=== PATIENT | female | born 1935 | race African-American/Black ===

== ENCOUNTER 2017-02-22 20:20 | Emergency (ER) | payer MEDICARE, MEDICAID ==
[2017-02-22 21:15] LABS: Bilirubin Small (Negative); Clarity CLOUDY (Clear); Glucose, Urine (Dipstick) 100 mg/dL (Negative); Leukocyte Negative (Negative); Nitrite Negative (Negative); Protein, Urine (Dipstick) 300 mg/dL (Neg-Trace); Specific Gravity, Urine 1.019 (1.002-1.036); Urobilinogen 0.2 mg/dL (0.2-1.0)
[2017-02-22 21:17] LABS: Bacteria/HPF None Seen HPF (None Seen); Pathc Cast-AUWi Flag 0.81 (0-2.49); RBC/HPF 0-3 HPF (0-3); Squamous Epithelial 0-3 HPF (0-3); WBC/HPF 0-3 HPF (0-3)
[2017-02-22 21:42] LABS: Blood, Urine Small (Negative); Crystals/HPF 2+ AMORPH URATES HPF (Negative); Hyaline Casts/LPF 0-3 HYALINE CAST LPF (0-3 Hyaline); Yeast-All Forms None Seen HPF (None Seen)
== END 2017-02-22 22:22 | disposition home or self-care (01) ==
LOC: ERS 20:20
DX: R31.9 Hematuria, unspecified (principal); I25.2 Old myocardial infarction; E11.9 Type 2 diabetes mellitus without complications; E78.5 Hyperlipidemia, unspecified; I13.2 Hypertensive heart and chronic kidney disease with heart failure and with stage 5 chronic kidney disease, or end stage renal disease; I50.9 Heart failure, unspecified; N18.6 End stage renal disease; Z79.899 Other long term (current) drug therapy; Z79.891 Long term (current) use of opiate analgesic
CPT/HCPCS: 51701; 81003; 81015; 82274; 94760

== ENCOUNTER 2017-02-23 09:42 | Inpatient (IN) | payer MEDICARE, MEDICAID ==
[2017-02-23 10:28] LABS: Mean Corpuscular HGB CONC 31.1 g/dL (32.0-36.0); Mean Corpuscular Hemoglobin 32.5 pg (27.0-31.0); Mean Platelet Volume 7.7 fL (7.4-10.4); Platelet Count 166 thou/uL (130-400); RBC Distribution Width 14.7 % (11.5-14.5); Red Blood Cell (RBC) Count 3.08 mill/uL (4.20-5.40); White Blood Cell (WBC) Count 10.7 thou/uL (4.8-10.8)
[2017-02-23 10:29] LABS: #Lymphocytes 0.7 thou/uL (1.20-3.40); #Monocytes 0.8 thou/uL (0.11-0.59); #Neutrophils 9.2 thou/uL (1.40-6.50); %Basophils 0.1 % (0.0-1.0); %Eosinophils 0.1 % (0.0-10.0); %Lymphocytes 6.2 % (21.0-51.0); %Monocytes 7.7 % (0.0-10.0); %Neutrophils 85.9 % (42.0-75.0)
--- NOTE | 2017-02-23 10:42 | RAD ---
CHEST ONE VIEW: History: Cough. Comparison: 09-13-16 FINDINGS: Small layering pleural effusions. Mild pulmonary venous congestion or early edema. No pneumothorax. Multiple mediastinal wires. Cardiac silhouette and mediastinal contours are similar. Right axillary surgical clips as well as vascular stent are present. IMPRESSION: No significant change. POS: [facility]
[2017-02-23 10:51] LABS: Anion Gap 20 mmol/L (10-20); BUN (Urea Nitrogen) 49 mg/dL (9.8-20.1); Calc. Creatinine Clearance 0 mL/min (70-130); Calcium 9.4 mg/dL (7.8-10.44); Carbon Dioxide 22 mmol/L (23-31); Chloride 99 mmol/L (98-107); Estimated GFR-MDRD 5; Glucose 178 mg/dL (83-110); Hypochromia SLIGHT = 6-15 cells (100X) (0-5/hpf); MDiff Complete? YES; Macrocytosis SLIGHT = 6-15 cells (100X) (0-5/hpf); Polychromasia SLIGHT = 2-3 cells (100X) (0-2/hpf); Potassium 3.5 mmol/L (3.5-5.1); Sodium 137 mmol/L (136-145)
[2017-02-23 11:14] LABS: CKMB 1.1 ng/mL (0-6.6); Troponin I 0.111 ng/mL (< 0.028)
--- NOTE | 2017-02-23 15:12 | HP ---
DATE OF ADMISSION: 02/23/2017 TIME OF SERVICE: 1400 hours. PRIMARY CARE PHYSICIAN: Alden Navarro M.D. CHIEF COMPLAINT: Cold symptoms, not walking. HISTORY OF PRESENT ILLNESS: Ms. Rush is a 81-year-old female who was brought in [facility] emergency department via EMS for the second time in 2 days. She initially presented yesterday with a possible GI bleeding, 2 days of cough and cold symptoms. Lilibeth lockhart was prescribed a Z-Bear yesterday, but has been unable to fill it. Normally, she is not really conversant but does get up and walk around and has not gotten out of bed since yesterday, so her daughter called EMS had her was brought back to the emergency department toda y. Here, she was found to have a temperature of 100.8. Vitals were normal. She is requiring 2 liters n hussein cannula to maintain 95% oxygen saturations and CBC and CMP are normal. BNP was elevated at 77/3 5, with the highest I have seen in her and the remainder of the labs looked okay. The patient does h ave end-stage renal disease, on hemodialysis Monday, Monday, and Monday, and was unable to go yest erday, so has missed treatment. In the emergency department, the daughter said that she does not her normal self. The ER doctor was contacted Dr. Vazquez who agreed to dialyze and we were called for admi ssion. The patient is very somnolent. You call her name, she will wake up and look at you, but does not really respond. She does not follow commands. There is no family at the bedside. PAST MEDICAL HISTORY: 1. History of breast cancer. 2. Coronary artery disease. 3. End-stage renal disease, on hemodialysis Monday, Monday, Monday. 4. Diabetes mellitus type 2. 5. Hypertension. 6. Hyperlipidemia. PAST SURGICAL HISTORY: Include: 1. Right mastectomy. 2. Coronary artery bypass grafting x4 vessels. 3. Right arm fistula creation. 4. Left arm fistula creation and subsequent removal. HOME MEDICATIONS: 1. Januvia 50 mg p.o. daily. 2. Renvela 1600 mg p.o. b.i.d. 3. Rivastigmine 1 patch daily. 4. Protonix 40 mg daily. 5. Gabapentin 600 mg p.o. t.i.d. 6. Folic acid plus vitamin D one tablet daily. 7. Fish oil 1000 mg p.o. daily. 8. Iron sulfate 325 mg p.o. b.i.d. 9. ProAir inhaler 1-2 puffs every 4-6 hours as needed. ALLERGIES: PENICILLIN, reactions unknown. FAMILY HISTORY: Negative for clotting or bleeding disorders. No known immune dysfunction. SOCIAL HISTORY: Negative for habits x3. Last echocardiogram 06/04/2016 showed an EF of 30%-35%, aortic sclerosis with a bicuspid aortic valve , moderate and moderate to severe AR. REVIEW OF SYSTEMS: Ten point review of systems not obtainable due to the patient's inability to comm unicate. PHYSICAL EXAMINATION: VITAL SIGNS: Temperature 100.8, pulse 73, blood pressure 107/59, respiratory 20, sat 95% on 2 liters . GENERAL: She is somnolent. You call her name, she opens her eyes and looks at you like you startled her and then closes her eyes. She mumbles a little but does not really respond. She does not follo w commands. HEENT: Pupils equal, round, reactive to light. Mucous membranes are moist. There are no visible le sions, no thrush. NECK: Supple. No lymphadenopathy, JVD or thyromegaly. Normal carotid upstrokes. No bruits. LUNGS: Clear anteriorly. She has a faint bibasilar crackles that do not clear with deep inspiration . No prolonged expiratory phase. No wheezes. CARDIOVASCULAR: She is slightly tachycardic in the 90s when stimulated, otherwise she stays in the 7 0s. She is regular. She has a 2-3/6 systolic ejection murmur and a diastolic murmur. Both are at t he right upper sternal border. ABDOMEN: Soft. There is nontender and nondistended. She has good bowel sounds. EXTREMITIES: Show bilateral lower extremity edema 1+ just above the ankles. SKIN: Warm, moist, and well perfused without rashes or lesions. I cannot palpate pulses. NEUROLOGIC: Not testable due to patient's inability to communicate. She does have a normal conjugat e gaze. She responds to verbal stimuli. MUSCULOSKELETAL: Normal to inspection. No inflamed joints or palpable effusions. LABORATORY DATA: Sodium 137, potassium 3.5, chloride 99, bicarbonate 22, BUN 49, creatinine 9.23, gl ucose 178. CBC: White count 10.7, hemoglobin 10.0, hematocrit 32.3 and platelet count of 16.6. CK is slightly elevated at 284, CK-MB normal at 1.1. Troponin I abnormal at 0.111, normal for renal patient. Lacti c acid normal 2.0. INR 1.1. BNP was 7735.1. Urinalysis negative and flu screen was negative. Chest x-ray showed mild pulmonary vascular congestion versus early edema and small layering bilateral pleural effusions. EKG showed a left bundle branch block, no acute ST-T changes. ASSESSMENT AND PLAN: 1. Possible metabolic encephalopathy: I do not know her baseline, per the ER doctor, she does not n ormally communicate, but does get up and walk around. She is certainly not walking at this point. 2. Acute on chronic systolic congestive heart failure, last ejection fraction of 30%-35% with echo a pproximately 9 months ago. We will get a 2-D echocardiogram. 3. Coronary artery disease. No evidence of chest pain. Normal biomarkers for renal patient. We wi ll follow. 4. End-stage renal disease on hemodialysis with missed hemodialysis. Dr. Vazquez has been contacted an d will arrange hemodialysis today. 5. Diabetes mellitus type 2, on Januvia. We will get Accu-Cheks and sliding scale insulin correctio n. 6. Hypertension, currently stable. Continue home medication. 7. Hyperlipidemia. 8. Acute hypoxic respiratory failure: Patient requiring 2 liters of oxygen via nasal cannula. I di d not know she uses oxygen normally. I will continue and wean as tolerated. The patient is volume overload due to lack of dialysis. She did have viral upper respiratory symptom s. We will get nucleic acid amplification test, viral upper respiratory pathogen panel.
[2017-02-23 16:16] LABS: HBSAg Index 0.18 S/CO (0-0.99); Hep B Surf Ag Non-Reactive S/CO (NonReactive)
[2017-02-23] MEDS ORDERED: Acetaminophen 325 MG TAB PO PRN (18:41)
[2017-02-23] MEDS ORDERED: Dextrose 50% Abboject 50 ML SYRINGE SLOW IVP PRN (18:41)
[2017-02-23] MEDS ORDERED: HumaLOG 300 UNITS/3 ML VIAL SC PRN (18:41)
[2017-02-23] MEDS ORDERED: Ondansetron ODT 4 MG TAB PO PRN (18:41)
[2017-02-23] MEDS ORDERED: Dextrose 5% in Water 1,000 ML IV PRN (18:41)
--- NOTE | 2017-02-23 19:20 | CON ---
DATE OF CONSULTATION: 02/23/2017 REASON FOR CONSULTATION: Altered mental status and missed dialysis. HISTORY OF PRESENT ILLNESS: This is a very pleasant 81-year-old female, who presented to the [facility] with altered mentation. The patient had flu-like symptoms. The patient can give no further histor y. PAST MEDICAL HISTORY: Significant for hypertension, anemia, end-stage renal disease, history of anem ia, history of secondary , history of dementia, history of CVA, history of diabetes mellitus, hi story of coronary artery disease, history of noncompliance, history of mastectomy, history of CABG, a nd history of AV fistula. HOME MEDICATIONS: List reviewed. ALLERGIES: Reviewed. FAMILY HISTORY: Negative for ESRD. SOCIAL ECONOMIC HISTORY: No alcohol or drug use. REVIEW OF SYSTEMS: Unobtainable. PHYSICAL EXAMINATION: GENERAL: Patient is resting. VITAL SIGNS: Afebrile, pulse 70, breathing at 16, and blood pressure was 130/70. HEAD/NECK: Normocephalic. Atraumatic. EYES: EOMI. No deformity. EARS: Clear. No ulcers. NOSE: Intact. No lesions. MOUTH: Clear. No discharge. THROAT: Clear. No exudate. LUNGS: Clear. No crackles. CARDIAC: S1, S2. No rub. ABDOMEN: Benign. BS+. GENITALIA/RECTUM: Nuno absent. BACK/EXTREMITIES: Edema 0+ Ulcer-. NEUROLOGICAL: Alert and motor intact. SKIN: Rash- Bruise-. LYMPHATICS: Edema- Ulcer-. LABORATORY DATA: Potassium 3.8. ASSESSMENT AND RECOMMENDATIONS: 1. Stage 6 chronic kidney disease. We will plan hemodialysis. 2. Hypertension. 3. Anemia, stable. 4. Medications based on glomerular filtration rate are appropriate. 5. Altered mental status, management per primary team. 6. Pneumonia/sepsis. Management per primary team.
[2017-02-23] MEDS: Famotidine/PF 20 mg/2ml Vial SLOW IVP SCH (21:51)
[2017-02-23 23:10] VITALS: BMI 26.2
[2017-02-24] MEDS ORDERED: Acetaminophen 650 MG Suppository PR PRN (05:27)
[2017-02-24 05:50] LABS: ALT (SGPT) 30 U/L (8-55); AST (SGOT) 37 U/L (5-34); Albumin 3.9 g/dL (3.4-4.8); Alkaline Phosphatase 61 U/L (40-150); Anion Gap 21 mmol/L (10-20); BUN (Urea Nitrogen) 39 mg/dL (9.8-20.1); Bilirubin, Total 2.5 mg/dL (0.2-1.2); Calc. Creatinine Clearance 7 mL/min (70-130); Calcium 9.9 mg/dL (7.8-10.44); Carbon Dioxide 24 mmol/L (23-31); Chloride 98 mmol/L (98-107); Estimated GFR-MDRD 6; Globulin 2.9 g/dL (2.4-3.5); Glucose 145 mg/dL (83-110); Magnesium 1.8 mg/dL (1.6-2.6); Potassium 3.8 mmol/L (3.5-5.1); Protein, Total 6.8 g/dL (6.0-8.3); Sodium 139 mmol/L (136-145)
[2017-02-24 06:36] LABS: Band 19 % (5-11); Hemoglobin 10.6 g/dL (12.0-16.0); Lymphocytes 7 % (21-51); MDiff Complete? YES; Mean Corpuscular HGB CONC 33.8 g/dL (32.0-36.0); Mean Corpuscular Hemoglobin 35.6 pg (27.0-31.0); Mean Platelet Volume 8.2 fL (7.4-10.4); Metamyelocyte 1 % (0-0); Monocytes 3 % (0-10); Neutrophil 70 % (42-75); Platelet Count 165 thou/uL (130-400); RBC Distribution Width 14.9 % (11.5-14.5); Red Blood Cell (RBC) Count 2.97 mill/uL (4.20-5.40); White Blood Cell (WBC) Count 11.3 thou/uL (4.8-10.8)
--- NOTE | 2017-02-24 11:25 | PRG ---
DATE OF SERVICE: 02/24/2017 SUBJECTIVE: This 81-year-old female being seen for end-stage renal disease. The patient denies any nausea, vomiting or chest pain. PHYSICAL EXAMINATION: GENERAL: Patient is awake, alert. VITAL SIGNS: Patient is febrile at 101.3, pulse 101, breathing 16, blood pressure 121/60. HEAD/NECK: Normocephalic. Atraumatic. EYES: EOMI. No deformity. EARS: Clear. No ulcers. NOSE: Intact. No lesions. MOUTH: Clear. No discharge. THROAT: Clear. No exudate. LUNGS: Clear. No crackles. CARDIAC: S1, S2. No rub. ABDOMEN: Benign. BS+. GENITALIA/RECTUM: Nuno absent. BACK/EXTREMITIES: Edema 0+ Ulcer- NEUROLOGICAL: Alert and motor intact. SKIN: Rash- Bruise- LYMPHATICS: Edema- Ulcer- LABORATORY DATA: Show hemoglobin 10.7. ASSESSMENT AND RECOMMENDATIONS: 1. Stage 6 chronic kidney disease, plan for regular hemodialysis. 2. Hypertension, stable. 3. Anemia, stable. 4. Medications based on glomerular filtration rate. 5. Fever and sepsis. Management per primary team.
[2017-02-24] MEDS ORDERED: cefTRIAXone\\ROCEPHIN 2 GM in Sodium Chloride 0.9% 100 ML IVPB SCH (11:45)
[2017-02-24] MEDS: CEFTRIAXONE 2GM/50 ML BAG 2 GM in Premix Bag 1 BAG IVPB SCH (13:51)
--- NOTE | 2017-02-24 16:51 | PDOC.PN ---
- Subjective Encounter Start Date: 02/24/17 Encounter Start Time: 10:45 -: non-verbal - Objective MAR Reviewed: Yes Vital Signs & Weight: Vital Signs (12 hours) Temp Pulse Resp BP Pulse Ox 02/24/17 16:37 98.6 F 95 17 135/78 95 Result Diagrams: 02/25/17 04:32 02/25/17 04:32 Radiology Reviewed by me: Yes EKG Reviewed by me: Yes Phys Exam - Physical Examination Constitutional: NAD HEENT: PERRLA, moist MMs, sclera anicteric, oral pharynx no lesions Neck: no nodes, no JVD, supple, full ROM Respiratory: no wheezing, no rales, no rhonchi, clear to auscultation bilateral Cardiovascular: RRR, no significant murmur, no rub Gastrointestinal: soft, non-tender, no distention, positive bowel sounds Musculoskeletal: pulses present, edema present Neurological: non-focal, moves all 4 limbs Lymphatic: no nodes Psychiatric: normal affect Deviation from normal: responds to vebal stimuli, then ignores. unsure if intentional Skin: no rash, normal turgor, cap refill <2 seconds Dx/Plan (1) Acute metabolic encephalopathy Code(s): G93.41 - METABOLIC ENCEPHALOPATHY Status: Acute Comment: improving slowly, CCM. BCx positive ealrier today and Rocephin restarted. Pneumococcus by molecular testing, awaitng ID and sensitivities. no more fevers (2) Acute on chronic systolic CHF (congestive heart failure) Code(s): I50.23 - ACUTE ON CHRONIC SYSTOLIC (CONGESTIVE) HEART FAILURE Status : Acute Comment: Improved with fluid removal by dialysis, EF now down to 30-35 %, needs O/P cardiology f/u to discuss possibility of ICD. On coreg, no MANUEL-I or ARB due to ESRD. (3) Sepsis Code(s): A41.9 - SEPSIS, UNSPECIFIED ORGANISM Status: Acute Qualifiers: Sepsis type: Pneumococcus Qualified Code(s): A40.3 - Sepsis due to Streptococcus pneumoniae Comment: Suspected given fever, leukocytosis and encephalopathy, IV rocephin ordered, no clear source (4) CAD (coronary artery disease) Code(s): I25.10 - ATHSCL HEART DISEASE OF [place] CORONARY ARTERY W/O ANG PCTRS Status: Chronic Qualifiers: Coronary Disease-Associated Artery/Lesion type: [place] artery [place] vs. transplanted heart: [place] heart Associated angina: without angina Qualified Code(s): I25.10 - Atherosclerotic heart disease of [place] coronary artery without angina pectoris (5) Diabetes mellitus Code(s): E11.9 - TYPE 2 DIABETES MELLITUS WITHOUT COMPLICATIONS Status: Chronic Qualifiers: Diabetes mellitus type: type 2 Diabetes mellitus complication status: with kidney complications Diabetes mellitus complication detail: with chronic kidney disease Diabetes mellitus shelter insulin use: without terminal supervisor use Chronic kidney disease stage: stage 3 (moderate) Qualified Code(s): E11.22 - Type 2 diabetes mellitus with diabetic chronic kidney disease; N18.3 - Chronic kidney disease, stage 3 (moderate); N18.3 - Chronic kidney disease, stage 3 (moderate) (6) Dyslipidemia Code(s): E78.5 - HYPERLIPIDEMIA, UNSPECIFIED Status: Chronic (7) ESRD (end stage renal disease) on dialysis Code(s): N18.6 - END STAGE RENAL DISEASE; Z99.2 - DEPENDENCE ON RENAL DIALYSIS Status: Chronic (8) HTN (hypertension) Code(s): I10 - ESSENTIAL (PRIMARY) HYPERTENSION Status: Chronic Qualifiers: Hypertension type: essential hypertension Qualified Code(s): I10 - Essential (primary) hypertension - Plan cont current plan of care, continue antibiotics, PT/OT * .
[2017-02-24] MEDS: Famotidine/PF 20 mg/2ml Vial SLOW IVP SCH (22:04)
[2017-02-25 05:07] LABS: #Neutrophils 7.8 thou/uL (1.40-6.50); %Basophils 0.2 % (0.0-1.0); %Eosinophils 0.1 % (0.0-10.0); %Lymphocytes 9.9 % (21.0-51.0); %Monocytes 10.6 % (0.0-10.0); %Neutrophils 79.2 % (42.0-75.0); Hemoglobin 10.4 g/dL (12.0-16.0); Mean Corpuscular HGB CONC 30.9 g/dL (32.0-36.0); Mean Corpuscular Hemoglobin 32.3 pg (27.0-31.0); Mean Platelet Volume 8.2 fL (7.4-10.4); Platelet Count 205 thou/uL (130-400); RBC Distribution Width 14.4 % (11.5-14.5); White Blood Cell (WBC) Count 9.8 thou/uL (4.8-10.8)
[2017-02-25 05:30] LABS: ALT (SGPT) 27 U/L (8-55); AST (SGOT) 37 U/L (5-34); Albumin 3.6 g/dL (3.4-4.8); Alkaline Phosphatase 61 U/L (40-150); Anion Gap 20 mmol/L (10-20); BUN (Urea Nitrogen) 39 mg/dL (9.8-20.1); Bilirubin, Total 1.8 mg/dL (0.2-1.2); Calc. Creatinine Clearance 9 mL/min (70-130); Calcium 9.9 mg/dL (7.8-10.44); Carbon Dioxide 24 mmol/L (23-31); Chloride 96 mmol/L (98-107); Estimated GFR-MDRD 8; Glucose 152 mg/dL (83-110); Potassium 3.7 mmol/L (3.5-5.1); Protein, Total 6.6 g/dL (6.0-8.3); Sodium 136 mmol/L (136-145)
--- NOTE | 2017-02-25 07:10 | EKG ---
Test Reason : STAT Blood Pressure : / mmHG Vent. Rate : 117 BPM Atrial Rate : 117 BPM P-R Int : 000 ms QRS Dur : 086 ms QT Int : 320 ms P-R-T Axes : 067 -26 147 degrees QTc Int : 446 ms Sinus tachycardia with frequent , and consecutive Premature ventricular complexes Nonspecific ST and T wave abnormality Abnormal ECG When compared with ECG of 12-SEP-2016 15:30, Premature ventricular complexes are now Present Inverted T waves have replaced nonspecific T wave abnormality in Lateral leads Confirmed by NANCY DOLAN, DR. Hackett ([id number]) on 02/25/2017 7:09:48 AM Referred By: TIA Confirmed By:DR. Roxann CRUZ MD
--- NOTE | 2017-02-25 10:50 | PRG ---
DATE OF SERVICE: 02/25/2017 SUBJECTIVE: This 81-year-old female being seen for end-stage renal disease. Patient denies any naus ea, vomiting or chest pain. PHYSICAL EXAMINATION: GENERAL: Patient is awake, alert. VITAL SIGNS: Afebrile, pulse 100, breathing at 16, blood pressure 128/71. HEAD/NECK: Normocephalic. Atraumatic. EYES: EOMI. No deformity. EARS: Clear. No ulcers. NOSE: Intact. No lesions. MOUTH: Clear. No discharge. THROAT: Clear. No exudate. LUNGS: Clear. No crackles. CARDIAC: S1, S2. No rub. ABDOMEN: Benign. BS+. GENITALIA/RECTUM: Nuno absent. BACK/EXTREMITIES: Edema 0+ Ulcer- NEUROLOGICAL: Alert and motor intact. SKIN: Rash- Bruise- LYMPHATICS: Edema- Ulcer- LABORATORY DATA: Show hemoglobin 10.5. ASSESSMENT AND PLAN: 1. Stage 6 chronic kidney disease. We will plan dialysis on Monday. 2. Hypertension, stable. 3. Anemia, stable. 4. Medications based on glomerular filtration rate are appropriate.
[2017-02-25] MEDS: CEFTRIAXONE 2GM/50 ML BAG 2 GM in Premix Bag 1 BAG IVPB SCH (11:38)
--- NOTE | 2017-02-25 11:48 | PDOC.PN ---
- Subjective Encounter Start Date: 02/25/17 Encounter Start Time: 10:00 Pt more arousable and conversant. knows she is in the hospital, but cant tell me which. No f/C, no n/V/d/C, still very weak. 10 point ROS performed, pt denied all but unsure how relaible. - Objective MAR Reviewed: Yes Vital Signs & Weight: Vital Signs (12 hours) Temp Pulse Resp BP Pulse Ox 02/25/17 11:36 97.8 F 17 107/58 L 93 L 02/25/17 08:00 97.7 F 88 17 02/25/17 04:00 97.5 F L 100 18 128/71 98 02/25/17 00:15 94 L Weight Weight 144 lb 11.2 oz I&O: 02/24/17 02/25/17 02/26/17 06:59 06:59 06:59 Intake Total 130 Output Total 1999 Balance -1870 Result Diagrams: 02/25/17 04:32 02/25/17 04:32 Additional Labs: Accuchecks 02/25/17 02/25/17 02/24/17 11:32 06:02 20:50 POC Glucose 151 H 162 H 128 H 02/24/17 16:57 POC Glucose 141 H Phys Exam - Physical Examination Constitutional: NAD HEENT: PERRLA, moist MMs, sclera anicteric, oral pharynx no lesions Neck: no nodes, no JVD, supple, full ROM Respiratory: no wheezing, no rales, no rhonchi, clear to auscultation bilateral Cardiovascular: RRR, no significant murmur, no rub Gastrointestinal: soft, non-tender, no distention, positive bowel sounds Musculoskeletal: pulses present, edema present Neurological: non-focal, normal sensation, moves all 4 limbs Lymphatic: no nodes Psychiatric: normal affect Deviation from normal: Alert, oriented ot person, hospital Skin: no rash, normal turgor, cap refill <2 seconds Dx/Plan (1) Acute metabolic encephalopathy Code(s): G93.41 - METABOLIC ENCEPHALOPATHY Status: Acute Comment: improving slowly, CCM. BCx positive ealrier today and Rocephin restarted. Pneumococcus by molecular testing, awaitng ID and sensitivities. no more fevers (2) Acute on chronic systolic CHF (congestive heart failure) Code(s): I50.23 - ACUTE ON CHRONIC SYSTOLIC (CONGESTIVE) HEART FAILURE Status : Acute Comment: Improved with fluid removal by dialysis, EF now down to 30-35 %, needs O/P cardiology f/u to discuss possibility of ICD. On coreg, no MANUEL-I or ARB due to ESRD. (3) Sepsis Code(s): A41.9 - SEPSIS, UNSPECIFIED ORGANISM Status: Acute Qualifiers: Sepsis type: Pneumococcus Qualified Code(s): A40.3 - Sepsis due to Streptococcus pneumoniae Comment: Suspected given fever, leukocytosis and encephalopathy, IV rocephin ordered, no clear source (4) CAD (coronary artery disease) Code(s): I25.10 - ATHSCL HEART DISEASE OF [place] CORONARY ARTERY W/O ANG PCTRS Status: Chronic Qualifiers: Coronary Disease-Associated Artery/Lesion type: [place] artery [place] vs. transplanted heart: [place] heart Associated angina: without angina Qualified Code(s): I25.10 - Atherosclerotic heart disease of [place] coronary artery without angina pectoris (5) Diabetes mellitus Code(s): E11.9 - TYPE 2 DIABETES MELLITUS WITHOUT COMPLICATIONS Status: Chronic Qualifiers: Diabetes mellitus type: type 2 Diabetes mellitus complication status: with kidney complications Diabetes mellitus complication detail: with chronic kidney disease Diabetes mellitus cooperative education director insulin use: without alf use Chronic kidney disease stage: stage 3 (moderate) Qualified Code(s): E11.22 - Type 2 diabetes mellitus with diabetic chronic kidney disease; N18.3 - Chronic kidney disease, stage 3 (moderate); N18.3 - Chronic kidney disease, stage 3 (moderate) (6) Dyslipidemia Code(s): E78.5 - HYPERLIPIDEMIA, UNSPECIFIED Status: Chronic (7) ESRD (end stage renal disease) on dialysis Code(s): N18.6 - END STAGE RENAL DISEASE; Z99.2 - DEPENDENCE ON RENAL DIALYSIS Status: Chronic (8) HTN (hypertension) Code(s): I10 - ESSENTIAL (PRIMARY) HYPERTENSION Status: Chronic Qualifiers: Hypertension type: essential hypertension Qualified Code(s): I10 - Essential (primary) hypertension - Plan * .
[2017-02-25] MEDS ORDERED: Diabetic Tussin 200 MG/10 ML UDCUP PO PRN (13:17)
[2017-02-25] MEDS: Diabetic Tussin 200 MG/10 ML UDCUP PO PRN (14:32)
--- NOTE | 2017-02-25 14:50 | RAD ---
SINGLE VIEW OF THE CHEST: COMPARISON: 02/23/17. HISTORY: PA chest and pneumococcal bacteremia. FINDINGS: A single view of the chest shows a cardiomediastinal silhouette which is upper limits of normal in si ze. The patient is status post sternotomy. Increased interstitial lung markings are present. There appears to be an infiltrate in the right lower lobe. IMPRESSION: Right lower lobe pneumonia. POS: [facility]
[2017-02-25] MEDS: Famotidine/PF 20 mg/2ml Vial SLOW IVP SCH (20:28)
[2017-02-26 05:26] LABS: #Eosinphils 0.1 thou/uL (0.0-0.7); #Lymphocytes 1.1 thou/uL (1.20-3.40); #Monocytes 0.9 thou/uL (0.11-0.59); #Neutrophils 5.5 thou/uL (1.40-6.50); %Basophils 0.4 % (0.0-1.0); %Eosinophils 1.6 % (0.0-10.0); %Monocytes 11.7 % (0.0-10.0); %Neutrophils 72.3 % (42.0-75.0); Hemoglobin 9.6 g/dL (12.0-16.0); Mean Corpuscular HGB CONC 31.3 g/dL (32.0-36.0); Mean Corpuscular Hemoglobin 32.6 pg (27.0-31.0); Mean Platelet Volume 8.1 fL (7.4-10.4); Platelet Count 214 thou/uL (130-400); RBC Distribution Width 14.4 % (11.5-14.5); Red Blood Cell (RBC) Count 2.95 mill/uL (4.20-5.40); White Blood Cell (WBC) Count 7.6 thou/uL (4.8-10.8)
[2017-02-26 05:38] LABS: Anion Gap 18 mmol/L (10-20); BUN (Urea Nitrogen) 68 mg/dL (9.8-20.1); Calc. Creatinine Clearance 6 mL/min (70-130); Calcium 9.4 mg/dL (7.8-10.44); Carbon Dioxide 26 mmol/L (23-31); Chloride 94 mmol/L (98-107); Estimated GFR-MDRD 6; Glucose 99 mg/dL (83-110); Magnesium 2.2 mg/dL (1.6-2.6); Potassium 3.6 mmol/L (3.5-5.1); Sodium 134 mmol/L (136-145)
--- NOTE | 2017-02-26 11:26 | PDOC.PN ---
- Subjective Encounter Start Date: 02/26/17 Encounter Start Time: 08:30 Pt much more alert and talkative. at time rude. May be getting close to baseline mental sttus. ari diet, changed to pureed by ST yesterday. No F/C, no N/V/d/c. Knows shes in [place] in a hospital but unable to tell me which. No acute overnight events CXR revealed RLL infiltrate, all Bcx with pneumococcus. repeat ordered today to document clearance 10 point ROS performed and neg for all systems except as per HPI - Objective MAR Reviewed: Yes Vital Signs & Weight: Vital Signs (12 hours) Temp Pulse Resp BP Pulse Ox 02/26/17 08:00 97.0 F L 86 17 121/63 94 L 02/26/17 04:00 97.6 F 102 H 16 102/63 02/26/17 00:00 97.3 F L 98 18 112/59 L 97 Weight Weight 155 lb 3.2 oz I&O: 02/25/17 02/26/17 02/27/17 06:59 06:59 06:59 Intake Total 130 810 Output Total 1999 02 Balance -1870 809 Result Diagrams: 02/26/17 04:29 02/26/17 04:29 Additional Labs: Accuchecks 02/26/17 02/25/17 02/25/17 06:22 20:17 16:57 POC Glucose 103 122 H 138 H 02/25/17 11:32 POC Glucose 151 H Radiology Reviewed by me: Yes EKG Reviewed by me: Yes Phys Exam - Physical Examination Constitutional: NAD HEENT: PERRLA, moist MMs, sclera anicteric, oral pharynx no lesions Neck: no nodes, no JVD, supple, full ROM Respiratory: no wheezing, no rhonchi bibasilar R>L rales. Cardiovascular: RRR, no significant murmur, no rub Gastrointestinal: soft, non-tender, no distention, positive bowel sounds Musculoskeletal: no edema, pulses present Neurological: non-focal, normal sensation, moves all 4 limbs Lymphatic: no nodes Psychiatric: normal affect Deviation from normal: Awake, alert, oriented to person and city and and in hosptial Skin: no rash, normal turgor, cap refill <2 seconds Dx/Plan (1) Acute metabolic encephalopathy Code(s): G93.41 - METABOLIC ENCEPHALOPATHY Status: Acute Comment: improving slowly, CCM. BCx positive for pneumococcus, on rocephin, awaiting sensitivities. Pneumococcus by molecular testing, awaitng ID and sensitivities. no more fevers (2) Acute on chronic systolic CHF (congestive heart failure) Code(s): I50.23 - ACUTE ON CHRONIC SYSTOLIC (CONGESTIVE) HEART FAILURE Status : Acute Comment: Improved with fluid removal by dialysis, EF now down to 30-35 %, needs O/P cardiology f/u to discuss possibility of ICD. On coreg, no MANUEL-I or ARB due to ESRD. (3) Sepsis Code(s): A41.9 - SEPSIS, UNSPECIFIED ORGANISM Status: Acute Qualifiers: Sepsis type: Pneumococcus Qualified Code(s): A40.3 - Sepsis due to Streptococcus pneumoniae Comment: Suspected given fever, leukocytosis and encephalopathy, IV rocephin ordered, no clear source (4) CAD (coronary artery disease) Code(s): I25.10 - ATHSCL HEART DISEASE OF [place] CORONARY ARTERY W/O ANG PCTRS Status: Chronic Qualifiers: Coronary Disease-Associated Artery/Lesion type: [place] artery [place] vs. transplanted heart: [place] heart Associated angina: without angina Qualified Code(s): I25.10 - Atherosclerotic heart disease of [place] coronary artery without angina pectoris (5) Diabetes mellitus Code(s): E11.9 - TYPE 2 DIABETES MELLITUS WITHOUT COMPLICATIONS Status: Chronic Qualifiers: Diabetes mellitus type: type 2 Diabetes mellitus complication status: with kidney complications Diabetes mellitus complication detail: with chronic kidney disease Diabetes mellitus group home insulin use: without project management engineer use Chronic kidney disease stage: stage 3 (moderate) Qualified Code(s): E11.22 - Type 2 diabetes mellitus with diabetic chronic kidney disease; N18.3 - Chronic kidney disease, stage 3 (moderate); N18.3 - Chronic kidney disease, stage 3 (moderate) (6) Dyslipidemia Code(s): E78.5 - HYPERLIPIDEMIA, UNSPECIFIED Status: Chronic (7) ESRD (end stage renal disease) on dialysis Code(s): N18.6 - END STAGE RENAL DISEASE; Z99.2 - DEPENDENCE ON RENAL DIALYSIS Status: Chronic (8) HTN (hypertension) Code(s): I10 - ESSENTIAL (PRIMARY) HYPERTENSION Status: Chronic Qualifiers: Hypertension type: essential hypertension Qualified Code(s): I10 - Essential (primary) hypertension - Plan cont current plan of care, continue antibiotics, PT/OT, respiratory therapy, out of bed/ambulate * .
--- NOTE | 2017-02-26 11:35 | PRG ---
DATE OF SERVICE: 02/26/2017 SUBJECTIVE: This 81-year-old female being seen for end-stage renal disease. The patient denies any nausea, vomiting or chest pain. PHYSICAL EXAMINATION: GENERAL: Patient is awake, alert. VITAL SIGNS: Afebrile, pulse 87, breathing at 16, blood pressure 121/60. GENERAL APPEARANCE AND MENTAL STATUS: Fair. HEAD/NECK: Normocephalic. Atraumatic. EYES: EOMI. No deformity. EARS: Clear. No ulcers. NOSE: Intact. No lesions. MOUTH: Clear. No discharge. THROAT: Clear. No exudate. LUNGS: Clear. No crackles. CARDIAC: S1, S2. No rub. ABDOMEN: Benign. BS+. GENITALIA/RECTUM: Nuno absent. BACK/EXTREMITIES: Edema 0+ Ulcer- NEUROLOGICAL: Alert and motor intact. SKIN: Rash- Bruise- LYMPHATICS: Edema- Ulcer- LABORATORY DATA: Hemoglobin 9.6. ASSESSMENT AND RECOMMENDATIONS: 1. Stage 6 chronic kidney disease. Continue hemodialysis Monday, Monday, Monday. 2. Hypertension, stable. 3. Anemia, stable. 4. Hyperkalemia, stable.
[2017-02-26] MEDS: cefTRIAXone\\ROCEPHIN 2 GM in Sodium Chloride 0.9% 100 ML IVPB SCH (11:56)
[2017-02-26] MEDS: Famotidine/PF 20 mg/2ml Vial SLOW IVP SCH (20:58)
[2017-02-27 05:14] LABS: #Basophils 0.1 thou/uL (0.0-0.2); #Eosinphils 0.1 thou/uL (0.0-0.7); #Lymphocytes 1.4 thou/uL (1.20-3.40); #Neutrophils 6.1 thou/uL (1.40-6.50); %Basophils 0.7 % (0.0-1.0); %Eosinophils 1.6 % (0.0-10.0); %Lymphocytes 16.3 % (21.0-51.0); %Monocytes 11.3 % (0.0-10.0); %Neutrophils 70.2 % (42.0-75.0); Hemoglobin 10.4 g/dL (12.0-16.0); Mean Corpuscular HGB CONC 31.2 g/dL (32.0-36.0); Mean Corpuscular Hemoglobin 32.4 pg (27.0-31.0); Mean Platelet Volume 7.9 fL (7.4-10.4); Platelet Count 246 thou/uL (130-400); RBC Distribution Width 14.3 % (11.5-14.5); Red Blood Cell (RBC) Count 3.21 mill/uL (4.20-5.40); White Blood Cell (WBC) Count 8.7 thou/uL (4.8-10.8)
[2017-02-27 05:44] LABS: Anion Gap 25 mmol/L (10-20); BUN (Urea Nitrogen) 83 mg/dL (9.8-20.1); Calc. Creatinine Clearance 6 mL/min (70-130); Calcium 9.3 mg/dL (7.8-10.44); Carbon Dioxide 18 mmol/L (23-31); Chloride 91 mmol/L (98-107); Estimated GFR-MDRD 5; Glucose 89 mg/dL (83-110); Magnesium 2.4 mg/dL (1.6-2.6); Potassium 3.9 mmol/L (3.5-5.1); Sodium 130 mmol/L (136-145)
--- NOTE | 2017-02-27 09:39 | PDOC.PN ---
- Subjective Encounter Start Date: 02/27/17 Encounter Start Time: 10:00 CC: Altered mental status Sub: Per RN pt is still intermittently confused - Objective Vital Signs & Weight: Vital Signs (12 hours) Temp Pulse Resp BP Pulse Ox 02/27/17 08:00 97.1 F L 97 14 127/100 H 02/27/17 04:00 97.6 F 86 16 108/69 95 Weight Weight 154 lb 3.2 oz I&O: 02/26/17 02/27/17 02/28/17 06:59 06:59 06:59 Intake Total 810 670 Output Total 1 Balance 809 670 Result Diagrams: 02/27/17 04:23 02/27/17 04:23 Additional Labs: Accuchecks 02/27/17 02/26/17 02/26/17 05:36 20:09 16:34 POC Glucose 107 158 H 163 H 02/26/17 11:25 POC Glucose 133 H Phys Exam - Physical Examination Constitutional: NAD HEENT: moist MMs Neck: no JVD Respiratory: no wheezing, no rales Cardiovascular: RRR, no significant murmur Gastrointestinal: soft, non-tender Musculoskeletal: no edema Neurological: non-focal awake, follows some commands, getting agitated with questions positive agitation Skin: no rash Dx/Plan - Plan Dx/Plan (1) Acute metabolic encephalopathy Code(s): G93.41 - METABOLIC ENCEPHALOPATHY Status: Acute Comment: improving slowly, CCM. BCx positive for pneumococcus, on rocephin, (2) Acute on chronic systolic CHF (congestive heart failure) Code(s): I50.23 - ACUTE ON CHRONIC SYSTOLIC (CONGESTIVE) HEART FAILURE Status : Acute Comment: Improved with fluid removal by dialysis, EF now down to 30-35 %, needs O/P cardiology f/u to discuss possibility of ICD. On coreg, no MANUEL-I or ARB due to ESRD. (3) Sepsis + Bacteremia Code(s): A41.9 - SEPSIS, UNSPECIFIED ORGANISM Status: Acute Qualifiers: Sepsis type: Pneumococcus Qualified Code(s): A40.3 - Sepsis due to Streptococcus pneumoniae Comment: Suspected given fever, leukocytosis and encephalopathy Blood cultures positive gram positive bacteremia, sensitive for rocepohin (4) CAD (coronary artery disease) Code(s): I25.10 - ATHSCL HEART DISEASE OF [place] CORONARY ARTERY W/O ANG PCTRS Status: Chronic Qualifiers: Coronary Disease-Associated Artery/Lesion type: [place] artery [place] vs. transplanted heart: [place] heart Associated angina: without angina Qualified Code(s): I25.10 - Atherosclerotic heart disease of [place] coronary artery without angina pectoris (5) Diabetes mellitus Code(s): E11.9 - TYPE 2 DIABETES MELLITUS WITHOUT COMPLICATIONS Status: Chronic Qualifiers: Diabetes mellitus type: type 2 Diabetes mellitus complication status: with kidney complications Diabetes mellitus complication detail: with chronic kidney disease Diabetes mellitus assisted insulin use: without termite treater use Chronic kidney disease stage: stage 3 (moderate) Qualified Code(s): E11.22 - Type 2 diabetes mellitus with diabetic chronic kidney disease; N18.3 - Chronic kidney disease, stage 3 (moderate); N18.3 - Chronic kidney disease, stage 3 (moderate) (6) Dyslipidemia Code(s): E78.5 - HYPERLIPIDEMIA, UNSPECIFIED Status: Chronic (7) ESRD (end stage renal disease) on dialysis Code(s): N18.6 - END STAGE RENAL DISEASE; Z99.2 - DEPENDENCE ON RENAL DIALYSIS Status: Chronic (8) HTN (hypertension) Code(s): I10 - ESSENTIAL (PRIMARY) HYPERTENSION Status: Chronic Qualifiers: Hypertension type: essential hypertension Qualified Code(s): I10 - Essential (primary) hypertension monitor bp 9. Dispo: D/W CM possible placement
[2017-02-27] MEDS: cefTRIAXone\\ROCEPHIN 2 GM in Sodium Chloride 0.9% 100 ML IVPB SCH (12:59)
[2017-02-27] MEDS: Diabetic Tussin 200 MG/10 ML UDCUP PO PRN (14:41)
--- NOTE | 2017-02-27 18:30 | PRG ---
DATE OF SERVICE: 02/27/2017 SUBJECTIVE: Patient was seen and examined at bedside and overnight events noted. Patient denies any shortness of breath or chest pain or palpitation. No history of nausea or vomitin g or diarrhea or fever or chills or cramps. OBJECTIVE: GENERAL: This is an elderly female, in no apparent distress. VITAL SIGNS: Temperature 98.5, pulse 89, respiratory rate 18, blood pressure 145/68. HEENT: Atraumatic, normocephalic. Oral mucosa is moist NECK: Supple. CARDIOVASCULAR: S1 and S2 heard. Rate and rhythm regular. RESPIRATORY: Clear to auscultation. GASTROINTESTINAL: Abdomen is soft. MUSCULOSKELETAL: No tenderness. No edema. DERMATOLOGIC: No skin rash. NEUROLOGIC: Alert and awake and oriented X3, No focal neurologic deficits. Moving all the extremitie s. PSYCHIATRIC: Mood and affect normal. LABORATORY DATA: Potassium is 3.9, BUN 83, creatinine 8.7. ASSESSMENT AND PLAN: 1. End-stage renal disease. Continue on hemodialysis. 2. Edema, controlled. 3. Hypertension. 4. Anemia. 5. Obesity. Overall, plan is to continue on dialysis as tolerated.
[2017-02-27] MEDS: Famotidine/PF 20 mg/2ml Vial SLOW IVP SCH (22:47)
--- NOTE | 2017-02-28 12:51 | PDOC.PN ---
- Subjective Encounter Start Date: 02/28/17 Encounter Start Time: 09:00 Paitent remains very Altered and Aggresive mood. Pt not answering questions do Not want to be disturbed. - Objective MAR Reviewed: Yes Vital Signs & Weight: Vital Signs (12 hours) Temp Pulse Resp BP Pulse Ox 02/28/17 07:55 97.3 F L 91 18 140/71 02/28/17 04:00 96.4 F L 93 18 138/90 95 Weight Weight 153 lb 14.4 oz I&O: 02/27/17 02/28/17 03/01/17 06:59 06:59 06:59 Intake Total 670 1100 Output Total 1100 Balance 670 0 Result Diagrams: 02/27/17 04:23 02/27/17 04:23 Additional Labs: Accuchecks 02/28/17 02/28/17 02/27/17 11:33 06:32 20:26 POC Glucose 150 H 100 180 H 02/27/17 16:56 POC Glucose 87 Radiology Reviewed by me: Yes Phys Exam - Physical Examination HEENT: PERRLA, moist MMs Neck: no nodes, no JVD Respiratory: no wheezing, no rales Cardiovascular: RRR, no significant murmur Gastrointestinal: soft, non-tender Musculoskeletal: no edema, pulses present Neurological: non-focal, normal sensation Skin: no rash Dx/Plan (1) Acute metabolic encephalopathy Code(s): G93.41 - METABOLIC ENCEPHALOPATHY Status: Acute Comment: improving slowly, CCM. BCx positive for pneumococcus, on rocephin, no more fevers (2) NSTEMI (non-ST elevated myocardial infarction) Code(s): I21.4 - NON-ST ELEVATION (NSTEMI) MYOCARDIAL INFARCTION Status: Acute Comment: Likely from Demand ischemia. Will continue to Monitor. Will start on Aspirin/ BB/ Statin. ECHo normal. (3) Chest pain Code(s): R07.9 - CHEST PAIN, UNSPECIFIED Status: Acute Comment: [place], No chest pains. (4) Sepsis Code(s): A41.9 - SEPSIS, UNSPECIFIED ORGANISM Status: Acute Qualifiers: Sepsis type: Pneumococcus Qualified Code(s): A40.3 - Sepsis due to Streptococcus pneumoniae Comment: Suspected given fever, leukocytosis and encephalopathy, IV rocephin ordered, no clear source (5) CAD (coronary artery disease) Code(s): I25.10 - ATHSCL HEART DISEASE OF [place] CORONARY ARTERY W/O ANG PCTRS Status: Chronic Qualifiers: Coronary Disease-Associated Artery/Lesion type: [place] artery [place] vs. transplanted heart: [place] heart Associated angina: without angina Qualified Code(s): I25.10 - Atherosclerotic heart disease of [place] coronary artery without angina pectoris (6) Diabetes mellitus Code(s): E11.9 - TYPE 2 DIABETES MELLITUS WITHOUT COMPLICATIONS Status: Chronic Qualifiers: Diabetes mellitus type: type 2 Diabetes mellitus complication status: with kidney complications Diabetes mellitus complication detail: with chronic kidney disease Diabetes mellitus usp insulin use: without usp use Chronic kidney disease stage: stage 3 (moderate) Qualified Code(s): E11.22 - Type 2 diabetes mellitus with diabetic chronic kidney disease; N18.3 - Chronic kidney disease, stage 3 (moderate); N18.3 - Chronic kidney disease, stage 3 (moderate) (7) ESRD (end stage renal disease) on dialysis Code(s): N18.6 - END STAGE RENAL DISEASE; Z99.2 - DEPENDENCE ON RENAL DIALYSIS Status: Chronic (8) HTN (hypertension) Code(s): I10 - ESSENTIAL (PRIMARY) HYPERTENSION Status: Chronic Qualifiers: Hypertension type: essential hypertension Qualified Code(s): I10 - Essential (primary) hypertension - Plan cont current plan of care, continue antibiotics, PT/OT, social media marketing analyst Waiting on placement . Discussed with Bottling Equipment Sales Representative. Patient had Arrthymia on the Tele[place], will continue with Telemetry another day. - Discharge Day Encounter end time: 09:35 Review of Systems - Review of Systems Other: Unable to Obtain due to her AMS and no other Family around. - Medications/Allergies Allergies/Adverse Reactions: Allergies Allergy/AdvReac Type Severity Reaction Status Date / Time Penicillins Allergy Intermediate Verified 02/23/17 20:36 Medications: Current Medications Acetaminophen (Tylenol) 650 mg PO Q4H PRN PRN Reason: Headache/Fever or Pain Acetaminophen (Tylenol) 650 mg [place] Q6H PRN PRN Reason: Headache/Fever Last Admin: 02/24/17 06:13 Dose: 650 mg Dextrose/Water (Dextrose 50%) 25 gm SLOW IVP PRN PRN PRN Reason: Hypoglycemia Famotidine (Pepcid) 20 mg SLOW IVP QPM [facility] Last Admin: 02/27/17 22:47 Dose: 20 mg Glucagon (Glucagon) 1 mg IM PRN PRN PRN Reason: Hypoglycemia Guaifenesin (Robitussin Sf) 300 mg PO Q4H PRN PRN Reason: Congestion Last Admin: 02/27/17 14:41 Dose: 300 mg Dextrose/Water (D5w) 1,000 mls @ 0 mls/hr IV .Q0M PRN; As Directed PRN Reason: Hypoglycemia Ceftriaxone Sodium 2 gm/ (Sodium Chloride) 100 mls @ 200 mls/hr IVPB 1200 [facility] Last Admin: 02/27/17 12:59 Dose: 100 mls Insulin Human Lispro (Humalog) 0 units SC .MILD SLIDING SCALE PRN PRN Reason: Mild Correctional Scale Ondansetron HCl (Zofran Odt) 4 mg PO Q6H PRN PRN Reason: Nausea/Vomiting
[2017-02-28] MEDS: cefTRIAXone\\ROCEPHIN 2 GM in Sodium Chloride 0.9% 100 ML IVPB SCH (13:03)
[2017-02-28] MEDS: Carvedilol 3.125 MG TAB PO SCH (17:11)
--- NOTE | 2017-02-28 19:12 | PRG ---
DATE OF SERVICE: 02/28/2017 SUBJECTIVE: Patient was seen and examined at bedside and overnight events noted. Patient denies any shortness of breath or chest pain or palpitation. No history of nausea or vomitin g or diarrhea or fever or chills or cramps. OBJECTIVE: GENERAL: This is an elderly female, in no apparent distress. VITAL SIGNS: Temperature 97.3, pulse 90, respiratory rate 18, blood pressure 140/71. HEENT: Atraumatic, normocephalic. Oral mucosa is moist NECK: Supple. CARDIOVASCULAR: S1 and S2 heard. Rate and rhythm regular. RESPIRATORY: Clear to auscultation. GASTROINTESTINAL: Abdomen is soft. MUSCULOSKELETAL: No tenderness. No edema. DERMATOLOGIC: No skin rash. NEUROLOGIC: Alert and awake and oriented X3, No focal neurologic deficits. Moving all the extremitie s. PSYCHIATRIC: Mood and affect normal. LABORATORY DATA: Not done. ASSESSMENT AND PLAN: 1. End-stage renal disease. Continue on hemodialysis as tolerated. 2. Edema. 3. Anemia 4. Hypertension. Plan is to continue on dialysis as tolerated.
[2017-02-28] MEDS: Atorvastatin Calcium 20 MG TAB PO SCH (21:19)
[2017-02-28] MEDS: Famotidine/PF 20 mg/2ml Vial SLOW IVP SCH (21:20)
[2017-03-01] MEDS ORDERED: Digoxin 0.5 MG/2 ML AMP SLOW IVP SCH (04:15)
[2017-03-01] MEDS: Aspirin 81 mg Enteric Coated Tablet PO SCH (10:05)
[2017-03-01] MEDS: Carvedilol 3.125 MG TAB PO SCH ×2 (10:05→17:50)
--- NOTE | 2017-03-01 11:57 | PRG ---
Patient Name: EHSAN LAWRENCE Date of service: 03/01/2017 Subjective: Patient was seen and examined at bedside and overnight events noted. Patient denies any shortness of breath or chest pain or palpitation. No history of nausea or vomiting or diarrhea or fever or chills or cramps. Objective: General: This is an obese female in no apparent distress. Vital signs: Temperature 98.1, pulse 80, respirations 16, blood pressure 101/ 54. HEENT: Atraumatic, normocephalic. Oral mucosa is moist. Neck: Supple. Cardiovascular: S1 S2 heard. Rate and rhythm regular. Respiratory: Clear to auscultation. Gastrointestinal: Abdomen is soft. Musculoskeletal: No tenderness. No edema. Dermatologic: No skin rash. Neurologic: Alert and awake and oriented X3. No focal neurologic deficits. Moving all the extremities. Psychiatric: Mood and affect normal. LABORATORY DATA: No labs done today. ASSESSMENT AND PLAN: 1. End Stage Renal Disease - continue on hemodialysis Monday, Monday and Monday. 2. Edema. 3. Anemia. 4. Hypertension, remove fluid with dialysis. Plan is to continue dialysis as tolerated. MTDD
--- NOTE | 2017-03-01 17:02 | PDOC.PN ---
- Subjective Encounter Start Date: 03/01/17 Encounter Start Time: 11:00 Patient is still altered, Unable to understandf any questions, Called pt daughter on phone, She did not Answer, discussed with Nurse, plan is to continue to treat for Streptococcal bacteremia for at least 7 days. - Objective MAR Reviewed: Yes Vital Signs & Weight: Vital Signs (12 hours) Temp Pulse Pulse Pulse Resp BP BP 03/01/17 12:02 99.1 F 77 18 03/01/17 11:44 77 114 H 143/73 H 123/63 03/01/17 10:00 98.1 F 88 16 03/01/17 08:00 98.1 F 88 16 BP Pulse Ox Pulse Ox Pulse Ox 03/01/17 12:02 143/73 H 100 03/01/17 11:44 100 93 L 03/01/17 10:00 99 03/01/17 08:00 101/54 L 99 Weight Weight 156 lb 11.2 oz I&O: 02/28/17 03/01/17 03/02/17 06:59 06:59 06:59 Intake Total 1100 120 240 Output Total 1100 Balance 0 120 240 Result Diagrams: 02/27/17 04:23 02/27/17 04:23 Additional Labs: Accuchecks 03/01/17 03/01/17 02/28/17 11:54 05:52 20:54 POC Glucose 100 103 100 Phys Exam - Physical Examination HEENT: PERRLA, moist MMs Neck: no nodes, no JVD Respiratory: no wheezing, no rales Cardiovascular: RRR, no significant murmur Gastrointestinal: soft, non-tender Musculoskeletal: no edema, pulses present Dx/Plan (1) Acute metabolic encephalopathy Code(s): G93.41 - METABOLIC ENCEPHALOPATHY Status: Acute Comment: improving slowly, CCM. BCx positive for pneumococcus, on rocephin, no more fevers, remains altered, pt will need Placement to SNF after treatment. (2) NSTEMI (non-ST elevated myocardial infarction) Code(s): I21.4 - NON-ST ELEVATION (NSTEMI) MYOCARDIAL INFARCTION Status: Acute Comment: Likely from Demand ischemia. Will continue to Monitor. Will start on Aspirin/ BB/ Statin. ECHo normal. (3) Chest pain Code(s): R07.9 - CHEST PAIN, UNSPECIFIED Status: Acute Comment: [place], No chest pains. (4) Sepsis Code(s): A41.9 - SEPSIS, UNSPECIFIED ORGANISM Status: Acute Qualifiers: Sepsis type: Pneumococcus Qualified Code(s): A40.3 - Sepsis due to Streptococcus pneumoniae Comment: Suspected given fever, leukocytosis and encephalopathy, IV rocephin ordered, no clear source (5) CAD (coronary artery disease) Code(s): I25.10 - ATHSCL HEART DISEASE OF [place] CORONARY ARTERY W/O ANG PCTRS Status: Chronic Qualifiers: Coronary Disease-Associated Artery/Lesion type: [place] artery [place] vs. transplanted heart: [place] heart Associated angina: without angina Qualified Code(s): I25.10 - Atherosclerotic heart disease of [place] coronary artery without angina pectoris Comment: n[place]en. (6) Diabetes mellitus Code(s): E11.9 - TYPE 2 DIABETES MELLITUS WITHOUT COMPLICATIONS Status: Chronic Qualifiers: Diabetes mellitus type: type 2 Diabetes mellitus complication status: with kidney complications Diabetes mellitus complication detail: with chronic kidney disease Diabetes mellitus technician terminal and repeater insulin use: without residential use Chronic kidney disease stage: stage 3 (moderate) Qualified Code(s): E11.22 - Type 2 diabetes mellitus with diabetic chronic kidney disease; N18.3 - Chronic kidney disease, stage 3 (moderate); N18.3 - Chronic kidney disease, stage 3 (moderate) Comment: Well controlled, Continue with SSI. (7) ESRD (end stage renal disease) on dialysis Code(s): N18.6 - END STAGE RENAL DISEASE; Z99.2 - DEPENDENCE ON RENAL DIALYSIS Status: Chronic (8) HTN (hypertension) Code(s): I10 - ESSENTIAL (PRIMARY) HYPERTENSION Status: Chronic Qualifiers: Hypertension type: essential hypertension Qualified Code(s): I10 - Essential (primary) hypertension Comment: [place] at goal. - Plan cont current plan of care, plan discussed w/ family, continue antibiotics, PT/OT , social service agency director, respiratory therapy, incentive spirometry, DVT proph w/SCDs * . - Discharge Day Encounter end time: 11:35 Review of Systems - Review of Systems Other: Unable to get ROS due to mental status changes - Medications/Allergies Allergies/Adverse Reactions: Allergies Allergy/AdvReac Type Severity Reaction Status Date / Time Penicillins Allergy Intermediate Verified 02/23/17 20:36 Medications: Current Medications Acetaminophen (Tylenol) 650 mg PO Q4H PRN PRN Reason: Headache/Fever or Pain Acetaminophen (Tylenol) 650 mg [place] Q6H PRN PRN Reason: Headache/Fever Last Admin: 02/24/17 06:13 Dose: 650 mg Aspirin (Ecotrin) 81 mg PO DAILY [facility] Last Admin: 03/01/17 10:05 Dose: 81 mg Atorvastatin Calcium (Lipitor) 20 mg PO HS [facility] Last Admin: 02/28/17 21:19 Dose: Not Given Carvedilol (Coreg) 3.125 mg PO BID-WM [facility] Last Admin: 03/01/17 10:05 Dose: 3.125 mg Ciprofloxacin (Cipro) 500 mg PO 0600,2000 [facility] Dextrose/Water (Dextrose 50%) 25 gm SLOW IVP PRN PRN PRN Reason: Hypoglycemia Diltiazem HCl (Cardizem) 60 mg PO 0300,0900,1500,2100 [facility] Last Admin: 03/01/17 10:05 Dose: 60 mg Famotidine (Pepcid) 20 mg SLOW IVP QPM [facility] Last Admin: 02/28/17 21:20 Dose: Not Given Glucagon (Glucagon) 1 mg IM PRN PRN PRN Reason: Hypoglycemia Guaifenesin (Robitussin Sf) 300 mg PO Q4H PRN PRN Reason: Congestion Last Admin: 02/27/17 14:41 Dose: 300 mg Dextrose/Water (D5w) 1,000 mls @ 0 mls/hr IV .Q0M PRN; As Directed PRN Reason: Hypoglycemia Insulin Human Lispro (Humalog) 0 units SC .MILD SLIDING SCALE PRN PRN Reason: Mild Correctional Scale Ondansetron HCl (Zofran Odt) 4 mg PO Q6H PRN PRN Reason: Nausea/Vomiting
[2017-03-01] MEDS: Atorvastatin Calcium 20 MG TAB PO SCH (21:36)
[2017-03-01] MEDS: Ciprofloxacin 500 MG TAB PO SCH (21:36)
[2017-03-01] MEDS: Famotidine/PF 20 mg/2ml Vial SLOW IVP SCH (21:37)
[2017-03-02] MEDS: Ciprofloxacin 500 MG TAB PO SCH (05:58)
[2017-03-02 09:00] LABS: #Eosinphils 0.2 thou/uL (0.0-0.7); #Lymphocytes 1.1 thou/uL (1.20-3.40); #Neutrophils 4.6 thou/uL (1.40-6.50); %Basophils 0.3 % (0.0-1.0); %Eosinophils 2.3 % (0.0-10.0); %Lymphocytes 16.1 % (21.0-51.0); %Neutrophils 67.4 % (42.0-75.0); Hemoglobin 10.8 g/dL (12.0-16.0); Mean Corpuscular HGB CONC 30.6 g/dL (32.0-36.0); Mean Corpuscular Hemoglobin 32.4 pg (27.0-31.0); Mean Platelet Volume 7.5 fL (7.4-10.4); Platelet Count 302 thou/uL (130-400); RBC Distribution Width 14.5 % (11.5-14.5); Red Blood Cell (RBC) Count 3.33 mill/uL (4.20-5.40); White Blood Cell (WBC) Count 6.8 thou/uL (4.8-10.8)
[2017-03-02 09:09] LABS: ALT (SGPT) 16 U/L (8-55); AST (SGOT) 18 U/L (5-34); Albumin 3.8 g/dL (3.4-4.8); Alkaline Phosphatase 60 U/L (40-150); Anion Gap 14 mmol/L (10-20); BUN (Urea Nitrogen) 21 mg/dL (9.8-20.1); Bilirubin, Total 0.8 mg/dL (0.2-1.2); Calc. Creatinine Clearance 11 mL/min (70-130); Calcium 9.6 mg/dL (7.8-10.44); Carbon Dioxide 30 mmol/L (23-31); Chloride 97 mmol/L (98-107); Estimated GFR-MDRD 11; Globulin 3.3 g/dL (2.4-3.5); Glucose 107 mg/dL (83-110); Potassium 3.3 mmol/L (3.5-5.1); Protein, Total 7.1 g/dL (6.0-8.3); Sodium 138 mmol/L (136-145)
[2017-03-02] MEDS: Carvedilol 3.125 MG TAB PO SCH ×2 (09:57→18:21)
[2017-03-02] MEDS: Aspirin 81 mg Enteric Coated Tablet PO SCH (09:57)
--- NOTE | 2017-03-02 11:50 | PDOC.PN ---
- Subjective Encounter Start Date: 03/02/17 Encounter Start Time: 11:00 Patient is seen today, alert and oriented. She is refusing to go to Rehab, But her Daughter Kenya whom is spoke on phone , wanted her to go to Rehab and Said will talk to her Mother. - Objective MAR Reviewed: Yes Vital Signs & Weight: Vital Signs (12 hours) Temp Pulse Resp BP Pulse Ox 03/02/17 08:00 97.7 F 80 18 127/59 L 94 L 03/02/17 04:10 97.7 F 71 18 117/58 L 98 Weight Weight 157 lb 8 oz I&O: 03/01/17 03/02/17 03/03/17 06:59 06:59 06:59 Intake Total 120 2700 480 Output Total 1600 Balance 120 1100 480 Result Diagrams: 03/02/17 08:39 03/02/17 08:39 Additional Labs: Accuchecks 03/02/17 03/01/17 03/01/17 05:34 20:34 17:02 POC Glucose 103 176 H 106 03/01/17 11:54 POC Glucose 100 Radiology Reviewed by me: Yes Phys Exam - Physical Examination HEENT: PERRLA, moist MMs Neck: no nodes, no JVD Respiratory: no wheezing, no rales Cardiovascular: RRR, no significant murmur Gastrointestinal: soft, non-tender Musculoskeletal: no edema, pulses present Neurological: non-focal, normal sensation Dx/Plan (1) Acute metabolic encephalopathy Code(s): G93.41 - METABOLIC ENCEPHALOPATHY Status: Acute Comment: resolved, CCM. BCx positive for pneumococcus, On oral Cipro 500mg Po BID, pt will be going to Rehab. (2) NSTEMI (non-ST elevated myocardial infarction) Code(s): I21.4 - NON-ST ELEVATION (NSTEMI) MYOCARDIAL INFARCTION Status: Acute Comment: Likely from Demand ischemia. Will continue to Monitor. Will start on Aspirin/ BB/ Statin. ECHo normal. (3) Chest pain Code(s): R07.9 - CHEST PAIN, UNSPECIFIED Status: Acute Comment: [place], No chest pains. (4) Sepsis Code(s): A41.9 - SEPSIS, UNSPECIFIED ORGANISM Status: Acute Qualifiers: Sepsis type: Pneumococcus Qualified Code(s): A40.3 - Sepsis due to Streptococcus pneumoniae Comment: resolved. (5) CAD (coronary artery disease) Code(s): I25.10 - ATHSCL HEART DISEASE OF [place] CORONARY ARTERY W/O ANG PCTRS Status: Chronic Qualifiers: Coronary Disease-Associated Artery/Lesion type: [place] artery [place] vs. transplanted heart: [place] heart Associated angina: without angina Qualified Code(s): I25.10 - Atherosclerotic heart disease of [place] coronary artery without angina pectoris Comment: naveen. (6) Diabetes mellitus Code(s): E11.9 - TYPE 2 DIABETES MELLITUS WITHOUT COMPLICATIONS Status: Chronic Qualifiers: Diabetes mellitus type: type 2 Diabetes mellitus complication status: with kidney complications Diabetes mellitus complication detail: with chronic kidney disease Diabetes mellitus terminal operations supervisor insulin use: without terminal operations supervisor use Chronic kidney disease stage: stage 3 (moderate) Qualified Code(s): E11.22 - Type 2 diabetes mellitus with diabetic chronic kidney disease; N18.3 - Chronic kidney disease, stage 3 (moderate); N18.3 - Chronic kidney disease, stage 3 (moderate) Comment: Well controlled, Continue with SSI. (7) ESRD (end stage renal disease) on dialysis Code(s): N18.6 - END STAGE RENAL DISEASE; Z99.2 - DEPENDENCE ON RENAL DIALYSIS Status: Chronic (8) HTN (hypertension) Code(s): I10 - ESSENTIAL (PRIMARY) HYPERTENSION Status: Chronic Qualifiers: Hypertension type: essential hypertension Qualified Code(s): I10 - Essential (primary) hypertension Comment: [place] at goal. - Plan cont current plan of care, plan discussed w/ family, continue antibiotics, PT/OT , respiratory therapy, incentive spirometry, DVT proph w/lovenox, DVT proph w/ SCDs * . - Discharge Day Encounter end time: 11:30 Review of Systems - Review of Systems Constitutional: negative: fever, chills, sweats, weakness, malaise, other Eyes: negative: Pain, Vision Change, Conjunctivae Inflammation, Eyelid Inflammation, Redness, Other ENT: negative: Ear Pain, Ear Discharge, Nose Pain, Nose Discharge, Nose Congestion, Mouth Pain, Mouth Swelling, Throat Pain, Throat Swelling, Other Respiratory: negative: Cough, Dry, Shortness of Breath, Hemoptysis, SOB with Excertion, Pleuritic Pain, Sputum, Wheezing Cardiovascular: negative: chest pain, palpitations, orthopnea, paroxysmal nocturnal dyspnea, edema, light headedness, other Gastrointestinal: negative: Nausea, Vomiting, Abdominal Pain, Diarrhea, Constipation, Melena, Hematochezia, Other Genitourinary: negative: Dysuria, Frequency, Incontinence, Hematuria, Retention , Other Musculoskeletal: negative: Neck Pain, Shoulder Pain, Arm Pain, Back Pain, Hand Pain, Leg Pain, Foot Pain, Other - Medications/Allergies Allergies/Adverse Reactions: Allergies Allergy/AdvReac Type Severity Reaction Status Date / Time Penicillins Allergy Intermediate Verified 02/23/17 20:36 Medications: Current Medications Acetaminophen (Tylenol) 650 mg PO Q4H PRN PRN Reason: Headache/Fever or Pain Acetaminophen (Tylenol) 650 mg [place] Q6H PRN PRN Reason: Headache/Fever Last Admin: 02/24/17 06:13 Dose: 650 mg Aspirin (Ecotrin) 81 mg PO DAILY [facility] Last Admin: 03/02/17 09:57 Dose: 81 mg Atorvastatin Calcium (Lipitor) 20 mg PO HS [facility] Last Admin: 03/01/17 21:36 Dose: Not Given Carvedilol (Coreg) 3.125 mg PO BID-[facility] Last Admin: 03/02/17 09:57 Dose: 3.125 mg Ciprofloxacin (Cipro) 500 mg PO 0600,2000 [facility] Last Admin: 03/02/17 05:58 Dose: Not Given Dextrose/Water (Dextrose 50%) 25 gm SLOW IVP PRN PRN PRN Reason: Hypoglycemia Diltiazem HCl (Cardizem) 60 mg PO Q6HR [facility] Last Admin: 03/02/17 05:58 Dose: Not Given Famotidine (Pepcid) 20 mg SLOW IVP QPM [facility] Last Admin: 03/01/17 21:37 Dose: Not Given Glucagon (Glucagon) 1 mg IM PRN PRN PRN Reason: Hypoglycemia Guaifenesin (Robitussin Sf) 300 mg PO Q4H PRN PRN Reason: Congestion Last Admin: 02/27/17 14:41 Dose: 300 mg Dextrose/Water (D5w) 1,000 mls @ 0 mls/hr IV .Q0M PRN; As Directed PRN Reason: Hypoglycemia Insulin Human Lispro (Humalog) 0 units SC .MILD SLIDING SCALE PRN PRN Reason: Mild Correctional Scale Ondansetron HCl (Zofran Odt) 4 mg PO Q6H PRN PRN Reason: Nausea/Vomiting
--- NOTE | 2017-03-02 12:51 | PRG ---
DATE OF SERVICE: 03/02/2017 SUBJECTIVE: Patient was seen and examined at bedside and overnight events noted. Patient denies any shortness of breath or chest pain or palpitation. No history of nausea or vomiting or diarrhea or f ever or chills or cramps. OBJECTIVE: General: This is an elderly female in no apparent distress. VITAL SIGNS: Temperature 97, pulse 71, respiratory rate 20, and blood pressure 117/58. HEENT: Atraumatic, normocephalic. Oral mucosa is moist. Neck: Supple. Cardiovascular: S1 and S2 heard. Rate and rhythm regular. Respiratory: Clear to auscultation. Gastrointestinal: Abdomen is soft. Musculoskeletal: No tenderness. No edema. Dermatologic: No skin rash. Neurologic: Alert and awake and oriented X3. No focal neurologic deficits. Moving all the extremiti es. Psychiatric: Mood and affect normal. LABORATORY DATA: Potassium is 3.3, BUN is 21, creatinine is 4.7. ASSESSMENT AND PLAN: 1. End-stage renal disease. Plan is to continue dialysis orders. 2. Edema. 3. Anemia. 4. Hypertension. 5. Plan is to continue on dialysis as tolerated.
[2017-03-02 20:03] VITALS: BP 123/58; TEMP 98.1
--- NOTE | 2017-03-03 14:36 | DIS ---
DATE OF ADMISSION: 02/23/2017 DATE OF DISCHARGE: 03/02/2017 ADMITTING DIAGNOSIS: Acute metabolic encephalopathy. DISCHARGE DIAGNOSIS: Acute metabolic encephalopathy. SECONDARY DIAGNOSES: 1. Acute urinary tract infection. 2. Streptococcal bacteremia. 3. Acute on chronic congestive heart failure. 4. History of coronary artery disease. 5. End-stage renal disease. 6. Type 2 diabetes mellitus. 7. Hypertension. 8. Acute hypoxic respiratory failure. CONSULTANTS INVOLVED IN THIS CARE: Nephrology, Dr. Gonzalez. HISTORY OF PRESENT ILLNESS AND HOSPITAL COURSE: In brief, this is a 81-year-old -[place] fem anna who was brought to the EMS over second time with 2 days history of cough and cold. The patient h ad a previous history of GI bleed few days ago. She was prescribed Z-JA and she was unable to refil l them and so she developed persistent shortness of breath and was found to be in altered mental stat us. The patient was brought to the ER for change in the mental status. She had a fever of 100.8 and also had low oxygenation requiring 2 liters of nasal cannula to keep it more than 95. Patient also had elevated BNP. Patient has no history of end-stage renal disease with hemodialysis on Mondays, and Fridays. The patient was unable to go to dialysis and so she missed her treatment and s he ended up coming to the hospital and that is when she had a volume overload causing acute hypoxic r espiratory failure and worsening mental status. The patient was seen by Nephrology team and started on dialysis. She had 2D echo, which was unremarkable and had low ejection fraction. During admissio n, it was noted that the patient had worsening mental status secondary to streptococcal infection and she was treated thoroughly initially with IV antibiotics with Rocephin, which was sensitive to the a genoveva and then later changed to ciprofloxacin and patient showed good improvement. Her mental status did improve and finally after discussing with the daughter, it was decided to discharge the patient t o inpatient rehabilitation. Patient was stable on the day of the discharge. PHYSICAL EXAMINATION: VITAL SIGNS: On the day of discharge, blood pressures were 130/80, heart rate is 88, respiration rat e 18, saturation 98%. CARDIOVASCULAR: S1 and S2 normal. No murmurs, no rubs, no gallops. LUNGS: Bilateral air entry was equal. No wheezing, no crackles. ABDOMEN: Soft and nontender. No guarding or rebound tenderness. Bowel sounds normal. MUSCULOSKELETAL: No calf tenderness. No pedal edema, no joint tenderness, no joint swelling. NEW MEDICATIONS: 1. Aspirin 81 mg daily. 2. Atorvastatin 20 mg daily. 3. Ciprofloxacin 500 mg twice daily and continue for 3 more days. 4. Diltiazem 60 mg q.6 hours. HOME MEDICATIONS: 1. Ferrous sulfate 325 mg twice daily. 2. Pantoprazole 40 mg daily. 3. Sevelamer 1600 mg twice daily. 4. Gabapentin 600 mg 3 times a day. 5. Folic acid. 6. Rivastigmine 1 patch topical daily and albuterol inhalation as needed. 7. Tramadol. 8. Linagliptin. 9. Tradjenta 5 mg oral daily. 10. Coreg 3.125 mg twice daily. 11. Benzonatate as needed. DISCHARGE INSTRUCTIONS: Continue activity as tolerated. Advised to follow up with primary care phys nano in 1-2 weeks. Advised to follow up with Nephrology as scheduled for her dialysis. Advised to return to the ER for any change in worsening mental status or worsening shortness of breath. I spent 35 minutes with this patient on day of discharge.
--- NOTE | 2017-03-04 21:36 | EKG ---
Test Reason : Blood Pressure : / mmHG Vent. Rate : 096 BPM Atrial Rate : 096 BPM P-R Int : 154 ms QRS Dur : 092 ms QT Int : 410 ms P-R-T Axes : 081 -29 142 degrees QTc Int : 517 ms Sinus rhythm with Premature supraventricular complexes and with frequent Premature ventricular comple xes Possible Anterior infarct , age undetermined Prolonged QT Abnormal ECG Confirmed by TIA DOLAN, DANIELA ([id number]), scientific publications editor ROSENDO VILCHIS ([id number]) on 03/04/2017 9:36:13 PM Referred By: Confirmed By:DANIELA WEBER MD
--- NOTE | 2017-03-06 12:59 | PQF ---
EHSAN LAWRENCE MANNY ENRIQUE [id number] [facility]-288 [id number] CLINICAL DOCUMENTATION CLARIFICATION FORM: POST DISCHARGE Please exercise your independent, professional judgment in responding to the clarification form. Clinical indicators are provided on the bottom of this form for your review. Thank you. Please check appropriate box(s): Conflicting documentation was noted in the Medical Record, please clarify if patient is being treated/monitored for: [ ] Urinary Tract Infection [ ] Upper Respiratory Infection [ x ] Pneumonia [ ] Other diagnosis [ ] Unable to determine In addition, please specify: Present on Admission (POA): [ x ] Yes [ ] No [ ] Unable to determine DC SUMMARY; "Acute Urinary Tract Infection"; "Two day history of cough and cold. Prescribed Z-JA and she was unable to fill, developed persistent shortness of breath and altered mental status". NEPH CONSULT; "Pneumonia/sepsis. Management per primary team." CXR 02/23 "small layering pleural effusions. Mild pulmonary venous congestion or early edema." CXR 02/25; "Right lower lobe pneumonia". H&P; "She did have viral upper respiratory symptoms". "Initially presented yesterday with a possible GI bleed, 2 days fo cough and cold symptoms." CLINICAL INDICATORS - SIGNS / SYMPTOMS/ LABS Chest x-ray 02/25; "Right lower lobe Pneumonia" Metabolic encephalopathy Streptococcal Sepsis UA not done this visit UA 02/22 negative RISK FACTORS URI symptoms/cough and cold Prescribed Z-JA not filled TREATMENT IV Rocephin (This form is maintained as a part of the permanent medical record) 2014 [employer]. All Rights Reserved [email or web address] [phone] SU
--- NOTE | 2017-03-06 13:20 | PQF ---
EHSAN LAWRENCE MANNY ENRIQUE [id number] [facility]-288 [id number] CLINICAL DOCUMENTATION CLARIFICATION FORM: POST DISCHARGE Please exercise your independent, professional judgment in responding to the clarification form. Clinical indicators are provided on the bottom of this form for your review Please check appropriate box(s): [ ] Demand ischemia [ ] NSTEMI Type II due to demand ischemia [ ] NSTEMI ruled out [ ] Other [ ] Other diagnosis [ ] Unable to determine In addition, please specify: Present on Admission (POA): [ ] Yes [ ] No [ ] Unable to determine H&P; "Troponin I abnormal at 0.111, normal for renal patient". PN's; "NSTEMI likely due to demand ischemia". LAB ER 02/23; Troponin I - 0.111. CLINICAL INDICATORS - SIGNS / SYMPTOMS / LABS: LAB ER 02/23; Troponin I 0.111 ECHO "normal" RISKS: Sepsis ESRD CHF Acute hypoxic respiratory failure TREATMENTS: ASA Beta efrain Statin Oxygen Continuous cardiac monitoring (This form is maintained as a part of the permanent medical record) 2014 [employer] All Rights Reserved [email or web address] [phone] SU
== END 2017-03-02 20:30 | DRG 871 ==
LOC: ERS 09:42 → T4-A 14:07 → ERS 15:26 → 2NO 22:40 → INTOOBSV 02-24 13:58 → OBSVTOIN 02-24 13:58
PROVIDERS: ADMIT Internal Medicine Infectious Disease; ATTEND Internal Medicine Infectious Disease
PROC: 5A1D70Z Performance of Urinary Filtration, Intermittent, Less than 6 Hours Per Day (ICD-10-PCS; principal; 2017-02-23)
DX: A40.3 Sepsis due to Streptococcus pneumoniae (principal); G93.41 Metabolic encephalopathy; J96.01 Acute respiratory failure with hypoxia; I50.23 Acute on chronic systolic (congestive) heart failure; R65.20 Severe sepsis without septic shock; J18.9 Pneumonia, unspecified organism; I11.0 Hypertensive heart disease with heart failure; E11.22 Type 2 diabetes mellitus with diabetic chronic kidney disease; N18.6 End stage renal disease; E87.5 Hyperkalemia; F03.90 Unspecified dementia, unspecified severity, without behavioral disturbance, psychotic disturbance, mood disturbance, and anxiety; Z99.2 Dependence on renal dialysis; Z91.15 Patient's noncompliance with renal dialysis; I25.10 Atherosclerotic heart disease of native coronary artery without angina pectoris; Z95.1 Presence of aortocoronary bypass graft; D64.9 Anemia, unspecified; E66.9 Obesity, unspecified; Z68.26 Body mass index [BMI] 26.0-26.9, adult
CPT/HCPCS: 36415; 36416; 51701; 71045; 80048; 80053; 81003; 81015; 82140; 82274; 82550; 82553; 83036; 83605; 83735; 83880; 84484; 85025; 87040; 87077; 87149; 87186; 87340; 87633; 87798; 90935; 93005; 93010; 93306; 94760; G0257; G8978-GP-CM; G8979-GP-CK; G8987-GO-CM; G8988-GO-CK; G8996-GN-CJ; G8997-GN-CI; G8997-GN-CJ; J0696; J1160; J7050; S0028

== ENCOUNTER 2017-03-20 16:08 | Inpatient (IN) | payer MEDICARE, MEDICAID ==
[2017-03-20 16:53] LABS: #Basophils 0.1 thou/uL (0.0-0.2); #Eosinphils 0.3 thou/uL (0.0-0.7); #Lymphocytes 1.3 thou/uL (1.20-3.40); #Monocytes 0.6 thou/uL (0.11-0.59); #Neutrophils 4.8 thou/uL (1.40-6.50); %Basophils 0.8 % (0.0-1.0); %Eosinophils 4.2 % (0.0-10.0); %Lymphocytes 18.9 % (21.0-51.0); %Monocytes 7.8 % (0.0-10.0); %Neutrophils 68.3 % (42.0-75.0); Hemoglobin 6.2 g/dL (12.0-16.0); Mean Corpuscular HGB CONC 32.2 g/dL (32.0-36.0); Mean Corpuscular Hemoglobin 31.7 pg (27.0-31.0); Mean Corpuscular Volume 98.6 fl (81.0-99.0); Mean Platelet Volume 6.7 fL (7.4-10.4); Platelet Count 310 thou/uL (130-400); RBC Distribution Width 14.7 % (11.5-14.5); Red Blood Cell (RBC) Count 1.95 mill/uL (4.20-5.40)
[2017-03-20 17:16] LABS: ALT (SGPT) 10 U/L (8-55); AST (SGOT) 17 U/L (5-34); Albumin 3.3 g/dL (3.4-4.8); Alkaline Phosphatase 69 U/L (40-150); Anion Gap 12 mmol/L (10-20); BUN (Urea Nitrogen) 45 mg/dL (9.8-20.1); Bilirubin, Total 0.5 mg/dL (0.2-1.2); Calc. Creatinine Clearance 0 mL/min (70-130); Calcium 9.4 mg/dL (7.8-10.44); Carbon Dioxide 31 mmol/L (23-31); Chloride 97 mmol/L (98-107); Estimated GFR-MDRD 12; Globulin 3.1 g/dL (2.4-3.5); Glucose 114 mg/dL (83-110); Potassium 3.8 mmol/L (3.5-5.1); Protein, Total 6.4 g/dL (6.0-8.3); Sodium 136 mmol/L (136-145)
--- NOTE | 2017-03-20 17:27 | RAD ---
PORTABLE AP CHEST RADIOGRAPH: Date: 03-20-17 History: Low hematocrit and hemoglobin. Comparison: 02-25-17 FINDINGS: Findings likely related to CABG are again noted. Surgical clips again overlie the right axillary souleymane on. A stent again overlies the right axillary region. There is accentuation of bronchovascular amalia ngs due to depth of inspiration and portable technique. There is mild elevation of the right hemidiap hragm. Parenchymal changes previously seen at the medial right lung base have improved. Perihilar int erstitial densities also appear less prominent then on the prior exam. IMPRESSION: 1. Resolution of the parenchymal opacity at the medial right lung base. Minimal linear density is now present which may be related to either linear scarring or atelectasis. There is elevation of the rig ht hemidiaphragm and accentuation of the bronchovascular markings due to shallow depth of inspiration . 2. Cardiac silhouette is at the upper limits of normal in size to borderline enlarged. POS: [facility]
--- NOTE | 2017-03-20 20:34 | HP ---
PRIMARY CARE PHYSICIAN: The patient does not have a primary care physician. CHIEF COMPLAINT: Low blood count. HISTORY OF PRESENT ILLNESS: This is taken primarily from discussion with the emergency room provider . The patient was recently seen in our hospital for what appears to be altered mental status or meta bolic encephalopathy secondary to a urinary tract infection and possible pneumonia as well. She was treated and then discharged to the inpatient rehabilitation unit. There, it was noted that her hemog lobin was low and there was concern that she had some blood in the stool as well. For this reason, s he was sent to the emergency room where her hemoglobin was noted to be 6.2 and the ER provider noted guaiac positive stools. The patient also has end-stage renal disease and she is on dialysis. The albert enrique herself has fairly advanced dementia and is unable to give me history. She is lying up in the stretcher. She looks comfortable. She says that she is not hurting. She is not feeling short of br eath, dizzy, or lightheaded, etc. REVIEW OF SYSTEMS: Due to the patient's dementia is more or less unobtainable. PAST MEDICAL HISTORY: Significant for chronic systolic heart failure with an ejection fraction of 30 -35%, history of breast cancer, coronary artery disease, diabetes mellitus, end-stage renal disease, hypertension, and hyperlipidemia. PAST SURGICAL HISTORY: She has had a right mastectomy, coronary artery bypass grafting x4, right arm fistula, left arm fistula. ALLERGIES: PENICILLIN. SOCIAL HISTORY: She is a nonsmoker, nondrinker. No drug use. FAMILY HISTORY: Negative for any heart disease or kidney problems and otherwise non-obtainable. MEDICATIONS: These are taken from the recent discharge summary to the rehabilitation unit and includ e aspirin 81 mg daily, atorvastatin 20 mg daily, ciprofloxacin 500 mg which should be completed, dilt iazem 60 mg q.6 hours, iron sulfate 325 mg twice a day, Protonix 40 mg daily, sevelamer 1600 mg twice daily, gabapentin 600 mg 3 times a day, folic acid, rivastigmine patch daily as needed, tramadol, Tr adjenta 5 mg daily, Coreg 3.125 mg twice a day, and Tessalon Perles as needed. PHYSICAL EXAMINATION: GENERAL: She is alert, but oriented to person and place. VITAL SIGNS: The blood pressure was 114/55, heart rate 98, respiratory rate of 19, temperature is 99 .2. HEENT: Her pupils are equal, round, and reactive. Extraocular muscles are intact. Her sclerae are anicteric. Throat: There is no erythema, no exudates. NECK: No adenopathy, no bruits. LUNGS: Clear. There is no wheezing, no rales. CARDIOVASCULAR: She has a normal S1 and S2. No S3 or S4. She had a grade 2/6 systolic murmur. ABDOMEN: Obese. It is soft, nontender, and nondistended. Positive for bowel sounds. No rebound or guarding. EXTREMITIES: There is no edema. NEUROLOGIC: The exam is nonfocal. LABORATORY DATA: White blood cell count 7.0, hemoglobin 6.2, hematocrit is 19.2, platelet count is 3 10. Sodium 136, potassium 3.8, chloride is 97, CO2 is 31, BUN of 45, creatinine 4.43, glucose is 114 . ASSESSMENT AND PLAN: 1. This is a pleasant 81-year-old female that was sent over from the inpatient rehabilitation unit f or anemia. It appears as if she has had some anemia in the past couple of days; however, earlier thi s month, her hemoglobin was 10.8, so within about a month that has dropped about 4 grams. She was re cently started on aspirin and this could be part of the culprit; however, there is some concern it co uld be a lower gastrointestinal bleed as well. She will be admitted to the medical floor. We are go ing to type and cross and transfuse a unit to get her above 7. Consult Gastroenterology. We will ne ed to hold aspirin therapy for now, continue Protonix. 2. Her council on aging director will be consulted for maintenance hemodialysis. 3. Diabetes mellitus. Continue her home medications as available and place her on a sliding scale i nsulin. 4. Hypertension. Restart home medications and place her on p.r.n. medications for blood pressure. We will hold off on deep venous thrombosis prophylaxis as a result of the bleeding.
[2017-03-20] MEDS ORDERED: Sodium Chloride 0.9% 1,000 ML IV SCH (22:23)
[2017-03-20] MEDS ORDERED: hydrALAZINE 20 MG/ML VIAL SLOW IVP PRN (22:25)
[2017-03-20] MEDS ORDERED: Ondansetron HCl/PF 4 MG/2 ML Vial IVP PRN (22:25)
[2017-03-20] MEDS ORDERED: Ondansetron ODT 4 MG TAB PO PRN (22:25)
[2017-03-20] MEDS ORDERED: Dextrose 5% in Water 1,000 ML IV PRN (22:25)
[2017-03-20] MEDS ORDERED: Dextrose 50% Abboject 50 ML SYRINGE SLOW IVP PRN (22:25)
[2017-03-20] MEDS ORDERED: HumaLOG 300 UNITS/3 ML VIAL SC PRN ×2 (22:25)
[2017-03-21 02:09] VITALS: BMI 25.2
[2017-03-21 05:45] LABS: Anion Gap 8 mmol/L (10-20); BUN (Urea Nitrogen) 29 mg/dL (9.8-20.1); Calc. Creatinine Clearance 17 mL/min (70-130); Carbon Dioxide 32 mmol/L (23-31); Chloride 101 mmol/L (98-107); Estimated GFR-MDRD 17; Glucose 94 mg/dL (83-110); Potassium 3.3 mmol/L (3.5-5.1); Sodium 138 mmol/L (136-145)
[2017-03-21 05:47] LABS: #Eosinphils 0.4 thou/uL (0.0-0.7); #Lymphocytes 1.1 thou/uL (1.20-3.40); #Monocytes 0.6 thou/uL (0.11-0.59); #Neutrophils 4.1 thou/uL (1.40-6.50); %Basophils 0.5 % (0.0-1.0); %Eosinophils 5.8 % (0.0-10.0); %Lymphocytes 17.9 % (21.0-51.0); %Monocytes 9.8 % (0.0-10.0); %Neutrophils 66.1 % (42.0-75.0); Mean Corpuscular HGB CONC 32.9 g/dL (32.0-36.0); Mean Corpuscular Hemoglobin 31.1 pg (27.0-31.0); Mean Corpuscular Volume 94.5 fl (81.0-99.0); Mean Platelet Volume 6.9 fL (7.4-10.4); Platelet Count 247 thou/uL (130-400); RBC Distribution Width 14.8 % (11.5-14.5); Red Blood Cell (RBC) Count 2.57 mill/uL (4.20-5.40); White Blood Cell (WBC) Count 6.2 thou/uL (4.8-10.8)
[2017-03-21] MEDS: Pantoprazole 40 MG VIAL IVP SCH ×2 (07:29→21:04)
[2017-03-21] MEDS ORDERED: FLU VACC TS2017-18 (>65YR) 0.5 ML SYRINGE IM ONE (09:00)
[2017-03-21] MEDS ORDERED: Potassium Chloride 20 MEQ TAB PO SCH ×2 (09:15→11:00)
[2017-03-21] MEDS ORDERED: Epoetin (ESRD) 10,000 UNITS/ML VIAL SC SCH (10:15)
[2017-03-21 11:04] LABS: Hemoglobin 8.4 g/dL (12.0-16.0)
[2017-03-21] MEDS: Dextrose 5 % And 0.9 % NaCl 1,000 ML IV SCH (11:51)
[2017-03-21] MEDS ORDERED: cloNIDine 0.1 MG TAB PO PRN (13:24)
[2017-03-21] MEDS ORDERED: PROVENTIL INHALER 6.7 G (200 INHALATIONS) INH PRN ×2 (13:24→13:41)
--- NOTE | 2017-03-21 13:32 | PDOC.PN ---
- Subjective Encounter Start Date: 03/21/17 Encounter Start Time: 13:31 Subjective: pt denies any pain but is only oriented to self - Objective Resuscitation Status: Resuscitation Status FULL:Full Resuscitation Vital Signs & Weight: Vital Signs (12 hours) Temp Pulse Resp BP Pulse Ox 03/21/17 12:37 98.5 F 92 16 128/75 100 03/21/17 08:35 98.3 F 92 20 123/73 100 03/21/17 07:55 98.0 F 92 18 03/21/17 03:36 98.0 F 92 18 121/69 100 Weight Admit Weight 161 lb 8 oz Weight 161 lb 8 oz I&O: 03/20/17 03/21/17 03/22/17 06:59 06:59 06:59 Intake Total 360 Output Total 0 Balance 360 Result Diagrams: 03/21/17 10:56 03/21/17 04:57 Additional Labs: Accuchecks 03/21/17 03/21/17 11:10 05:23 POC Glucose 72 100 Phys Exam - Physical Examination Respiratory: no wheezing, no rales Cardiovascular: RRR Gastrointestinal: soft, non-tender Musculoskeletal: no edema Neurological: non-focal (easily arousable but not oriented to place and time. ) Skin: no rash Dx/Plan (1) Acute blood loss anemia Code(s): D62 - ACUTE POSTHEMORRHAGIC ANEMIA Status: Acute (2) Acute blood loss anemia Code(s): D62 - ACUTE POSTHEMORRHAGIC ANEMIA Status: Acute Plan: possible upper gi bleed. Nurse states that pt had 2 dark stool yestard non today. No right blood noted. pt received 2 untis of prbc yestarday. post check hh is 8.4. will recheck at 7pm tonight if stable will rechek in am. Per pt's daughter pt received 2 additional blood unit last week. Did review pt's records which indicated pt had a drop in her hh 2/9 at 6.4 and received 2 untis of blood. Her repeat was in the high 5's and was sent to ER. To transfuse if hh < 8. pt was seen by nephrology and was given procrite. Gi to see pt, she is still npo (3) ESRD (end stage renal disease) on dialysis Code(s): N18.6 - END STAGE RENAL DISEASE; Z99.2 - DEPENDENCE ON RENAL DIALYSIS Status: Chronic Plan: pt undergoes dialysis M, w, F nephrology consulted (4) Encephalopathy acute Code(s): G93.40 - ENCEPHALOPATHY, UNSPECIFIED Status: Acute Plan: not sure if this is pt's basline vs new. Pt is answering questions. will call her emergency contact for more details on pt's baseline. Comment: Suspected metabolic and related to #2, improved with supportive care (5) Diabetes mellitus Code(s): E11.9 - TYPE 2 DIABETES MELLITUS WITHOUT COMPLICATIONS Status: Chronic Qualifiers: Diabetes mellitus type: type 2 Diabetes mellitus complication status: with kidney complications Diabetes mellitus complication detail: with chronic kidney disease Diabetes mellitus exterminator helper termite insulin use: without jail use Chronic kidney disease stage: stage 3 (moderate) Qualified Code(s): E11.22 - Type 2 diabetes mellitus with diabetic chronic kidney disease; N18.3 - Chronic kidney disease, stage 3 (moderate); N18.3 - Chronic kidney disease, stage 3 (moderate) Comment: Well controlled, Continue with SSI. - Plan will start pt on d5ns at 50cc/hr since she is npo and has low blood sugars. -: hold all short acting insulin * .
[2017-03-21] MEDS: Gabapentin 300 MG CAP PO SCH ×2 (14:34→21:04)
--- NOTE | 2017-03-21 16:13 | PRG ---
DATE OF SERVICE: 03/21/2017 SUBJECTIVE: This is a 81-female being seen for end-stage renal disease. The patient denies any naus ea, vomiting or chest pain. PHYSICAL EXAMINATION: GENERAL: Patient is awake, alert. VITAL SIGNS: Afebrile, pulse 92, breathing at 16, blood pressure 128/71. HEAD/NECK: Normocephalic. Atraumatic. EYES: EOMI. No deformity. EARS: Clear. No ulcers. NOSE: Intact. No lesions. MOUTH: Clear. No discharge. THROAT: Clear. No exudate. LUNGS: Clear. No crackles. CARDIAC: S1, S2. No rub. ABDOMEN: Benign. BS+. GENITALIA/RECTUM: Nuno absent. BACK/EXTREMITIES: Edema 0+ Ulcer- NEUROLOGICAL: Alert and motor intact. SKIN: Rash- Bruise- LYMPHATICS: Edema- Ulcer- LABORATORY DATA: Show hemoglobin 8.4. ASSESSMENT: 1. Stage 6 chronic kidney disease. Continue hemodialysis. 2. Hypertension, stable. 3. Anemia stable. 4. Hypokalemia. Recommend high potassium diet and recheck potassium.
[2017-03-21] MEDS: Sevelamer Carbonate 800 MG TAB PO SCH (21:03)
[2017-03-21] MEDS: Atorvastatin Calcium 20 MG TAB PO SCH (21:04)
[2017-03-22 05:43] LABS: Eosinophils 8 % (0-10); Hemoglobin 7.8 g/dL (12.0-16.0); Lymphocytes 25 % (21-51); MDiff Complete? YES; Mean Corpuscular HGB CONC 32.8 g/dL (32.0-36.0); Mean Corpuscular Hemoglobin 31.4 pg (27.0-31.0); Mean Corpuscular Volume 95.7 fl (81.0-99.0); Mean Platelet Volume 6.7 fL (7.4-10.4); Monocytes 11 % (0-10); Neutrophil 56 % (42-75); PLT Morphology Comment Appears Adequate; Platelet Count 278 thou/uL (130-400); RBC Distribution Width 14.7 % (11.5-14.5); Red Blood Cell (RBC) Count 2.49 mill/uL (4.20-5.40); White Blood Cell (WBC) Count 6.2 thou/uL (4.8-10.8)
[2017-03-22] MEDS: Dextrose 5 % And 0.9 % NaCl 1,000 ML IV SCH (06:07)
[2017-03-22 06:08] LABS: Anion Gap 11 mmol/L (10-20); BUN (Urea Nitrogen) 44 mg/dL (9.8-20.1); Calc. Creatinine Clearance 11 mL/min (70-130); Calcium 9.1 mg/dL (7.8-10.44); Carbon Dioxide 27 mmol/L (23-31); Chloride 104 mmol/L (98-107); Estimated GFR-MDRD 11; Glucose 89 mg/dL (83-110); Potassium 3.9 mmol/L (3.5-5.1); Sodium 138 mmol/L (136-145)
--- NOTE | 2017-03-22 06:29 | CON ---
DATE OF CONSULTATION: 03/21/2017 REASON FOR CONSULTATION: Severe anemia, possible GI bleed. HISTORY OF PRESENT ILLNESS: Ms. Rush is a 81-year-old female, who was admitted for anemia and some confusion. She apparently was recently in the hospital for possibly a UTI and pneumonia. She was t reated in the hospital then sent out an inpatient rehab unit. There, she was noted to have worsening hemoglobin and was noted to have possible black stools and sent to the emergency room, where hemoglo bin was 6.2. She was noted be guaiac positive. Her stools were very dark and black, but she is on i ivon pills. The patient really could not give much history. She has been labeled as having dementia in the chart, but the daughter states that she was cleared and mentating fine before this. She is co mfortable and denies pain. She denies shortness of breath, dyspnea, lightheadedness, nausea or vomit ing. She says her stomach hurts if I kind of push on it hard It is really hard to get much other hi story out of her. Again, talking with the daughter on the phone, she states she is mentating clearly . The patient's daughter states she lives with her at her house, but she was doing fine before these recent hospitalizations mentally anyway as far as mentation goes. REVIEW OF SYSTEMS: She is alert, she is awake and can be aroused, and seems to understand what I am telling her, but she is not able to give much of her complete review of systems. PAST MEDICAL HISTORY: Heart failure with low ejection fraction of 35%-45%, history of breast cancer, history of coronary artery disease, diabetes, end-stage renal disease, hypertension, and hyperlipide shaina. PAST SURGICAL HISTORY: Right mastectomy, coronary bypass grafting, right arm fistula, left arm fistu la, she is on dialysis now. She has never had endoscopies before per the patient's daughter, never h ad a colonoscopy. ALLERGIES: PENICILLIN. SOCIAL HISTORY: The patient does not smoke, drink, or use drugs as per daughter. FAMILY HISTORY: Noncontributory. MEDICATIONS: Aspirin 81 mg, atorvastatin, ciprofloxacin, diltiazem, iron twice daily, Protonix 40 mg daily, sevelamer, gabapentin, folic acid, rivastigmine patch, p.r.n. tramadol, Tradjenta, Coreg, Carrie salon Perles. PRESENT MEDICATIONS HERE: Vitamin B, Protonix 40 IV q.12 hours, Zofran, hydralazine, gabapentin, ___ __, atorvastatin, and albuterol. PHYSICAL EXAMINATION: GENERAL: The patient is resting in bed. She is in no distress. She is very pleasant to converse wi th, but really cannot really add much to her history. VITAL SIGNS: Temperature 98, pulse 92, blood pressure 129/63. LUNGS: Clear. HEART: Regular rate and rhythm without clicks or murmurs. ABDOMEN: Soft, nontender, without rebound or guarding. RECTAL: Very dark stools, hard to tell this is from heme or iron, I suspect iron. LABORATORY STUDIES: She is notable for Hemoccult positive stool which had hemoglobin of 5.6, which c matias down from 12, it is 8.4 now after 2 units of transfusion. Her MCV was 101 on the 9th of this mon, 103 on the . Iron, TIBC, and ferritin were normal in 2012, they were not checked this admissi on. Vitamin B12 was normal in 2013, not checked this admission. The patient was admitted on the 12t h with a BUN was 45, creatinine 4.3; it was up to 70 back on 03/15, hemoglobin is typically around 10 in February of this year and then was 6.4 on 03/15/2017. Looking at her old labs otherwise her liver function tests were normal. ASSESSMENT: Reportedly heme positive stool, admitted with severe anemia and some confusion issues, s he has dark stool, which she is on iron. She was heme positive, she never had endoscopy in the past. RECOMMENDATIONS: I talked with the patient's daughter, she does want to evaluate this further and fe els that if we found something reversible that we would treat that as she was much more functional wh en she was home just a few weeks ago. Agree with the PPI. We will agree with holding off on iron. We will plan for EGD tomorrow. If this is nondiagnostic, daughter states she would come sit with her and see if we can get her a bowel prep for a colonoscopy in the next day or two. Risks, benefits, a nd possible complications of endoscopy were discussed with the patient. Daughter has power of attorn ey and wishes to proceed.
[2017-03-22] MEDS: Folic Acid/Vit B Comp W-C PO SCH (07:34)
[2017-03-22] MEDS: Gabapentin 300 MG CAP PO SCH ×3 (07:39→19:45)
[2017-03-22] MEDS: Pantoprazole 40 MG VIAL IVP SCH ×2 (07:39→19:44)
[2017-03-22] MEDS: Sevelamer Carbonate 800 MG TAB PO SCH ×2 (07:39→19:45)
[2017-03-22] MEDS: Epoetin (ESRD) 20,000 UNITS/ML IVP SCH (09:25)
--- NOTE | 2017-03-22 10:38 | PRG ---
DATE OF SERVICE: 03/22/2017 SUBJECTIVE: This is a 81-year-old female being seen for end-stage renal disease. Patient denies any nausea, vomiting or chest pain. PHYSICAL EXAMINATION: GENERAL: Patient is awake, alert. VITAL SIGNS: Afebrile, pulse 75, breathing at 16, blood pressure 152/80. GENERAL APPEARANCE AND MENTAL STATUS: Fair. HEAD/NECK: Normocephalic, atraumatic. EYES: EOMI. No deformity. EARS: Clear. No ulcers. NOSE: Intact. No lesions. MOUTH: Clear. No discharge. THROAT: Clear. No exudate. LUNGS: Clear. No crackles. CARDIAC: S1, S2. No rub. ABDOMEN: Benign. BS+. GENITALIA/RECTUM: Nuno absent. BACK/EXTREMITIES: Edema 0+ Ulcer-. NEUROLOGICAL: Alert and motor intact. SKIN: Rash- Bruise- LYMPHATICS: Edema- Ulcer-. LABORATORY DATA: Show hemoglobin 7.8. ASSESSMENT AND RECOMMENDATIONS: 1. Stage 6 chronic kidney disease. We will plan hemodialysis. 2. Hypertension, stable. 3. Anemia, give transfusion 1 unit packed red blood cells due to coronary artery disease. 4. Medications based on GFR are appropriate.
--- NOTE | 2017-03-22 14:54 | OP ---
DATE OF PROCEDURE: 03/22/2017 SURGEON: Dr. Waylon Babb. PROCEDURE: Esophagogastroduodenoscopy with biopsy. INDICATION FOR PROCEDURE: Anemia, melena. DESCRIPTION OF PROCEDURE: After the risks and benefits of the procedure were explained to the patient's surrogate including risks of bleeding, infection, perforation, reaction to anesthesia and/or pain, informed consent was obtained. The patient was then taken to the endoscopy suite where deep sedation was administered via propofol and anesthesia support. The standard gastroscope was then introduced into the mouth with intubation of the esophagus, stomach, and proximal small intestine with the findings listed below. The patient tolerated the procedure well with no immediate perioperative complications. FINDINGS: Esophagus: Normal-appearing mucosa was seen in the proximal and mid esophagus. In the distal esophagus, a large tongue of salmon-colored mucosa occupying approximately 25%-40% of the esophageal lumen was seen extending up from the GE junction, approximately 2-3 cm. There was no associated esophagitis, ulceration , or mass lesion. A shelf was also noted in the distal esophagus, just proximal to the salmon-colored mucosa, raising concern for possible herniation. Biopsies were taken from the salmon-colored mucosa for evaluation of possible Llanos's mucosa. The gastroesophageal junction was noted at 40 cm past the incisors. Stomach: Normal-appearing mucosa was seen in the fundus, body, and antrum and incisura. There was no evidence of erosions, ulcerations, or mass lesions. On retroflexion, the cardia of the stomach extended proximally into the chest, concerning for possible paraesophageal hernia. Otherwise, the mucosa in the cardia appeared normal. Small intestine: Normal-appearing mucosa was seen in both the duodenal bulb and second portion of the duodenum. There was no evidence of erosions, ulcerations, mass lesions, or active/recent bleeding. IMPRESSION: 1. 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 2. 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 3. No etiology for anemia/melena seen during this examination. RECOMMENDATIONS: 1. Follow up with the primary inpatient team. 2. We would continue to trend H and H and transfuse as necessary to maintain an H and H of 7/21. 3. We would continue PPI b.i.d. for now. 4. We would strongly consider colonoscopy for evaluation of anemia and melena. We will place patient on clear liquid diet today with n.p.o. at midnight in preparation for the procedure. 5. We will order Pradip nguyen tonight for colonoscopy tomorrow. 6. Would consider barium swallow for better delineation of the distal esophagus /proximal stomach anatomy. MTDD
[2017-03-22] MEDS ORDERED: Lidocaine 1% PF 5 ML VIAL ONE (15:59)
[2017-03-22] MEDS ORDERED: Propofol 200 MG/20 ML VIAL ONE (15:59)
[2017-03-22] MEDS ORDERED: GoLYTELY 4,000 ml Bottle PO SCH (18:00)
[2017-03-22 18:22] LABS: Hemoglobin 8.6 g/dL (12.0-16.0)
--- NOTE | 2017-03-22 18:23 | PDOC.PN ---
- Subjective Encounter Start Date: 03/22/17 Encounter Start Time: 18:22 Subjective: pt up in bed watching tv no complains - Objective Resuscitation Status: Resuscitation Status FULL:Full Resuscitation Vital Signs & Weight: Vital Signs (12 hours) Temp Pulse Pulse Resp BP BP Pulse Ox 03/22/17 15:12 98 F 100 18 140/72 94 L 03/22/17 09:45 98.5 F 89 18 151/80 H 03/22/17 09:34 98.5 F 88 18 152/80 H 03/22/17 09:31 98.5 F 88 18 152/80 H 03/22/17 09:17 98.0 F 89 16 151/83 H 03/22/17 09:03 98.2 F 89 16 156/82 H 03/22/17 08:46 98.2 F 90 16 149/78 H 03/22/17 07:25 98.1 F 90 20 Weight Admit Weight 161 lb 8 oz Weight 161 lb 8 oz I&O: 03/21/17 03/22/17 03/23/17 06:59 06:59 06:59 Intake Total 360 903 350 Output Total 0 Balance 360 903 350 Result Diagrams: 03/22/17 05:12 03/22/17 05:12 Additional Labs: Accuchecks 03/22/17 03/22/17 03/22/17 16:50 11:08 07:31 POC Glucose 83 81 99 03/22/17 03/21/17 05:11 21:52 POC Glucose 97 95 Phys Exam - Physical Examination HEENT: PERRLA Neck: no nodes Respiratory: no wheezing, no rales Cardiovascular: RRR, no significant murmur Gastrointestinal: soft, non-tender Musculoskeletal: no edema Neurological: non-focal Psychiatric: normal affect, A&O x 3 Dx/Plan (1) Acute blood loss anemia Code(s): D62 - ACUTE POSTHEMORRHAGIC ANEMIA Status: Acute Plan: pt received one unit of blood today ( total of 3u). will check hh if <8 will transfuse. EDg no ulcer noted. pt will go for colonoscopy. (2) ESRD (end stage renal disease) on dialysis Code(s): N18.6 - END STAGE RENAL DISEASE; Z99.2 - DEPENDENCE ON RENAL DIALYSIS Status: Chronic Plan: per nephrology dialysis m,w,f (3) Encephalopathy acute Code(s): G93.40 - ENCEPHALOPATHY, UNSPECIFIED Status: Acute Plan: pt more awake she does answer question but when i asked her where she was she said well do not ask me that " i know i am in the hospital'. 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 - Plan * .
[2017-03-22] MEDS: Atorvastatin Calcium 20 MG TAB PO SCH (19:45)
[2017-03-23] MEDS: Dextrose 5 % And 0.9 % NaCl 1,000 ML IV SCH (05:27)
[2017-03-23 05:45] LABS: Anion Gap 11 mmol/L (10-20); BUN (Urea Nitrogen) 22 mg/dL (9.8-20.1); Calc. Creatinine Clearance 15 mL/min (70-130); Calcium 9.4 mg/dL (7.8-10.44); Carbon Dioxide 31 mmol/L (23-31); Chloride 101 mmol/L (98-107); Estimated GFR-MDRD 15; Glucose 91 mg/dL (83-110); Sodium 139 mmol/L (136-145)
[2017-03-23 05:54] LABS: Hemoglobin 10.5 g/dL (12.0-16.0); Mean Corpuscular HGB CONC 31.8 g/dL (32.0-36.0); Mean Corpuscular Hemoglobin 30.6 pg (27.0-31.0); Mean Corpuscular Volume 96.1 fl (81.0-99.0); Mean Platelet Volume 6.5 fL (7.4-10.4); Platelet Count 352 thou/uL (130-400); RBC Distribution Width 14.7 % (11.5-14.5); Red Blood Cell (RBC) Count 3.44 mill/uL (4.20-5.40); White Blood Cell (WBC) Count 6.8 thou/uL (4.8-10.8)
[2017-03-23 06:54] LABS: Band 1 % (5-11); Eosinophils 2 % (0-10); Lymphocytes 27 % (21-51); Monocytes 4 % (0-10); Neutrophil 66 % (42-75)
[2017-03-23 06:55] LABS: MDiff Complete? YES
[2017-03-23] MEDS: Pantoprazole 40 MG VIAL IVP SCH ×2 (08:22→20:25)
[2017-03-23] MEDS: Sevelamer Carbonate 800 MG TAB PO SCH ×2 (08:22→20:25)
[2017-03-23] MEDS: Folic Acid/Vit B Comp W-C PO SCH (08:22)
[2017-03-23] MEDS: Gabapentin 300 MG CAP PO SCH ×3 (08:22→20:25)
[2017-03-23] MEDS ORDERED: Ondansetron HCl/PF 4 MG/2 ML Vial IVP PRN (13:37)
--- NOTE | 2017-03-23 13:48 | OP ---
DATE OF PROCEDURE: 03/23/2017 SURGEON: Dr. Sohail Rowe PREOPERATIVE DIAGNOSIS: Anemia secondary to gastrointestinal blood loss. OPERATIVE NOTE: After informed consent was obtained, the patient was placed in the left lateral decu bitus position. Anesthesia administered per the Anesthesia Department. Forward viewing endoscope wa s inserted into the rectum after perianal inspection and rectal exam were normal. It was passed to t he cecum with ease. The cecum, ileocecal valve, and appendiceal orifice were normal. The prep was e xcellent. The ascending, transverse, descending, sigmoid, and rectum were normal except for diffuse diverticulosis coli. Also, 4 small polyps were seen and removed with cold snare polypectomy. This i ncluded cecum, transverse and 2 in the rectum. All polyps were small and appeared benign. Retroflex ion in the rectum was normal except for small internal hemorrhoids. ASSESSMENT: 1. Four small colon polyps-- status post polypectomy. 2. Diffuse diverticulosis coli. 3. Small internal hemorrhoids. RECOMMENDATIONS: 1. Continue transfusion support if needed. 2. Await histopathology.
[2017-03-23] MEDS ORDERED: Propofol 200 MG/20 ML VIAL ONE (15:04)
[2017-03-23] MEDS ORDERED: Lidocaine 1% PF 5 ML VIAL ONE (15:04)
--- NOTE | 2017-03-23 15:48 | PDOC.PN ---
- Subjective Encounter Start Date: 03/23/17 Encounter Start Time: 09:00 Subjective: pt up in bed no complains, oriented to self - Objective Resuscitation Status: Resuscitation Status FULL:Full Resuscitation Vital Signs & Weight: Vital Signs (12 hours) Temp Pulse Pulse Resp BP BP Pulse Ox 03/23/17 14:15 98.3 F 106 H 18 136/76 100 03/23/17 10:15 101 H 146/77 H 03/23/17 09:02 146/77 H 03/23/17 08:00 98.3 F 101 H 16 145/84 H 95 Pulse Ox 03/23/17 14:15 03/23/17 10:15 96 03/23/17 09:02 94 L 03/23/17 08:00 Weight Admit Weight 161 lb 8 oz Weight 161 lb 8 oz I&O: 03/22/17 03/23/17 03/24/17 06:59 06:59 06:59 Intake Total 903 4950 Balance 903 4950 Result Diagrams: 03/23/17 05:03 03/23/17 05:03 Additional Labs: Accuchecks 03/23/17 03/23/17 03/22/17 11:52 06:03 21:13 POC Glucose 115 H 91 119 H 03/22/17 16:50 POC Glucose 83 Phys Exam - Physical Examination HEENT: PERRLA Neck: no nodes Respiratory: no wheezing, no rales Cardiovascular: RRR, no significant murmur Gastrointestinal: soft, non-tender Musculoskeletal: no edema, pulses present Neurological: non-focal Dx/Plan (1) Acute blood loss anemia Code(s): D62 - ACUTE POSTHEMORRHAGIC ANEMIA Status: Acute Plan: pt received 3 units of blood. hh today is 10? will recheck. pt did get procrit. pt's egd no ulcer seen but she did have some salmon colored mucosa in the distal esophagus. colonoscopy indicated diverticulosis and small internal hemorrhoids. (2) ESRD (end stage renal disease) on dialysis Code(s): N18.6 - END STAGE RENAL DISEASE; Z99.2 - DEPENDENCE ON RENAL DIALYSIS Status: Chronic Plan: dialysis m,w,f (3) Encephalopathy acute Code(s): G93.40 - ENCEPHALOPATHY, UNSPECIFIED Status: Acute Plan: pt has intermitted confusion. According to pt's daughter pt is normally lucid and cooperative. Comment: Suspected metabolic and related to #2, improved with supportive care (4) Diabetes mellitus Code(s): E11.9 - TYPE 2 DIABETES MELLITUS WITHOUT COMPLICATIONS Status: Chronic Qualifiers: Diabetes mellitus type: type 2 Diabetes mellitus complication status: with kidney complications Diabetes mellitus complication detail: with chronic kidney disease Diabetes mellitus fdc insulin use: without fdc use Chronic kidney disease stage: stage 3 (moderate) Qualified Code(s): E11.22 - Type 2 diabetes mellitus with diabetic chronic kidney disease; N18.3 - Chronic kidney disease, stage 3 (moderate); N18.3 - Chronic kidney disease, stage 3 (moderate) Comment: Well controlled, Continue with SSI. - Plan * .
[2017-03-23 17:28] LABS: Hemoglobin 9.4 g/dL (12.0-16.0)
--- NOTE | 2017-03-23 19:40 | PRG ---
DATE OF SERVICE: 03/23/2017 SUBJECTIVE: This is a 81-year-old female being seen for end-stage renal disease. The patient denies any nausea, vomiting or chest pain. OBJECTIVE: GENERAL: Patient is awake, alert. VITAL SIGNS: Afebrile, pulse 106, breathing at 16, blood pressure 136/76. GENERAL APPEARANCE AND MENTAL STATUS: Fair. HEAD/NECK: Normocephalic. Atraumatic. EYES: EOMI. No deformity. EARS: Clear. No ulcers. NOSE: Intact. No lesions. MOUTH: Clear. No discharge. THROAT: Clear. No exudate. LUNGS: Clear. No crackles. CARDIAC: S1, S2. No rub. ABDOMEN: Benign. BS+. GENITALIA/RECTUM: Nuno absent. BACK/EXTREMITIES: Edema 0+ Ulcer- NEUROLOGICAL: Alert and motor intact. SKIN: Rash- Bruise- LYMPHATICS: Edema- Ulcer- LABORATORY: Labs show hemoglobin 10.5, potassium 4.0. ASSESSMENT AND RECOMMENDATIONS: 1. Stage 6 chronic kidney disease. Continue hemodialysis. 2. Hypertension, stable. 3. Anemia, stable. 4. Medications based on glomerular filtration rate are appropriate. MTDD
[2017-03-23] MEDS: Atorvastatin Calcium 20 MG TAB PO SCH (20:25)
[2017-03-24 06:13] LABS: Anion Gap 13 mmol/L (10-20); BUN (Urea Nitrogen) 28 mg/dL (9.8-20.1); Calc. Creatinine Clearance 10 mL/min (70-130); Calcium 9.7 mg/dL (7.8-10.44); Carbon Dioxide 29 mmol/L (23-31); Chloride 103 mmol/L (98-107); Eosinophils 4 % (0-10); Estimated GFR-MDRD 10; Glucose 86 mg/dL (83-110); Hemoglobin 9.3 g/dL (12.0-16.0); Lymphocytes 21 % (21-51); MDiff Complete? YES; Mean Corpuscular HGB CONC 32.6 g/dL (32.0-36.0); Mean Corpuscular Hemoglobin 31.2 pg (27.0-31.0); Mean Corpuscular Volume 95.9 fl (81.0-99.0); Mean Platelet Volume 6.3 fL (7.4-10.4); Monocytes 8 % (0-10); Neutrophil 67 % (42-75); Platelet Count 352 thou/uL (130-400); Potassium 4.3 mmol/L (3.5-5.1); RBC Distribution Width 14.7 % (11.5-14.5); Red Blood Cell (RBC) Count 2.98 mill/uL (4.20-5.40); Sodium 141 mmol/L (136-145); White Blood Cell (WBC) Count 7.1 thou/uL (4.8-10.8)
[2017-03-24] MEDS: Gabapentin 300 MG CAP PO SCH ×3 (07:57→20:17)
[2017-03-24] MEDS: Sevelamer Carbonate 800 MG TAB PO SCH ×2 (07:57→20:18)
[2017-03-24] MEDS: Pantoprazole 40 MG VIAL IVP SCH ×2 (07:57→20:04)
[2017-03-24] MEDS: Folic Acid/Vit B Comp W-C PO SCH (07:57)
--- NOTE | 2017-03-24 09:50 | PRG ---
DATE OF SERVICE: 03/24/2017 SUBJECTIVE: This is a 81-year-old female being seen for end-stage renal disease. The patient denies any nausea, vomiting or chest pain. PHYSICAL EXAMINATION: GENERAL: Patient is awake, alert. VITAL SIGNS: Afebrile, pulse 97, breathing 16, blood pressure 136/70. OBJECTIVE: See above. Awake, alert, in no acute distress. GENERAL APPEARANCE AND MENTAL STATUS: Fair. HEAD/NECK: Normocephalic. Atraumatic. EYES: EOMI. No deformity. EARS: Clear. No ulcers. NOSE: Intact. No lesions. MOUTH: Clear. No discharge. THROAT: Clear. No exudate. LUNGS: Clear. No crackles. CARDIAC: S1, S2. No rub. ABDOMEN: Benign. BS+. GENITALIA/RECTUM: Nuno absent. BACK/EXTREMITIES: Edema 0+ Ulcer- NEUROLOGICAL: Alert and motor intact. SKIN: Rash- Bruise- LYMPHATICS: Edema- Ulcer- LABORATORY: Hemoglobin 9.3. ASSESSMENT AND RECOMMENDATIONS: 1. Stage 6 chronic kidney disease, continue hemodialysis. 2. Hypertension, stable. 3. Anemia, stable. 4. Medications based on GFR are appropriate.
[2017-03-24] MEDS: Epoetin (ESRD) 20,000 UNITS/ML IVP SCH ×2 (11:40→16:25)
--- NOTE | 2017-03-24 13:53 | PDOC.PN ---
- Subjective Encounter Start Date: 03/24/17 Encounter Start Time: 11:30 Subjective: pt up in bed no complains, she is eating - Objective Resuscitation Status: Resuscitation Status FULL:Full Resuscitation Vital Signs & Weight: Vital Signs (12 hours) Temp Pulse Resp BP Pulse Ox 03/24/17 08:00 98.5 F 100 18 136/75 92 L Weight Admit Weight 161 lb 8 oz Weight 161 lb 8 oz I&O: 03/23/17 03/24/17 03/25/17 06:59 06:59 06:59 Intake Total 4950 120 480 Balance 4950 120 480 Result Diagrams: 03/24/17 05:11 03/24/17 05:11 Additional Labs: Accuchecks 03/24/17 03/24/17 03/23/17 10:51 05:27 20:58 POC Glucose 111 H 88 109 03/23/17 16:45 POC Glucose 91 Phys Exam - Physical Examination HEENT: PERRLA Neck: no nodes Respiratory: no wheezing, no rales Cardiovascular: RRR, no significant murmur Gastrointestinal: soft, non-tender Musculoskeletal: no edema Psychiatric: normal affect (alert oriented to self) Dx/Plan (1) Acute blood loss anemia Code(s): D62 - ACUTE POSTHEMORRHAGIC ANEMIA Status: Acute Plan: pt's hh is stable, [id number] of blood. egd and colonoscopy no acute bleeding source. internal hemorrhoids noted (2) ESRD (end stage renal disease) on dialysis Code(s): N18.6 - END STAGE RENAL DISEASE; Z99.2 - DEPENDENCE ON RENAL DIALYSIS Status: Chronic (3) Encephalopathy acute Code(s): G93.40 - ENCEPHALOPATHY, UNSPECIFIED Status: Acute Plan: resolved. spoke with pt's daughter in details about pt's overall mentation at home. Daughter did state that she has been having bouts of confusion at time since she has been in the hospital. However at times she does have lucid moments. Comment: Suspected metabolic and related to #2, improved with supportive care (4) Diabetes mellitus Code(s): E11.9 - TYPE 2 DIABETES MELLITUS WITHOUT COMPLICATIONS Status: Chronic Qualifiers: Diabetes mellitus type: type 2 Diabetes mellitus complication status: with kidney complications Diabetes mellitus complication detail: with chronic kidney disease Diabetes mellitus fci insulin use: without fci use Chronic kidney disease stage: stage 3 (moderate) Qualified Code(s): E11.22 - Type 2 diabetes mellitus with diabetic chronic kidney disease; N18.3 - Chronic kidney disease, stage 3 (moderate); N18.3 - Chronic kidney disease, stage 3 (moderate) Comment: Well controlled, Continue with SSI. - Plan * .
--- NOTE | 2017-03-24 18:13 | PRG ---
DATE OF SERVICE: 03/24/2017 SUBJECTIVE: Ms. Rush is having no further bleeding. Her upper endoscopy showed a hiatal hernia wi th possible small paraesophageal component. Colonoscopy showed few polyps, which were adenomatous. She is in dialysis presently. ASSESSMENT: Anemia, multifactorial. No signs of overt gastrointestinal bleed. RECOMMENDATIONS: Iron supplementation and PPI therapy. We would not recommend followup colonoscopy in light of her multiple medical problems. At this time, we will sign off. If I can be of any furth er assistance of care, please do not hesitate to contact me.
[2017-03-24] MEDS: Atorvastatin Calcium 20 MG TAB PO SCH (20:18)
[2017-03-25 05:45] LABS: Hemoglobin 9.7 g/dL (12.0-16.0)
[2017-03-25] MEDS: Pantoprazole 40 MG VIAL IVP SCH (08:11)
[2017-03-25] MEDS: Folic Acid/Vit B Comp W-C PO SCH (08:12)
[2017-03-25] MEDS: Sevelamer Carbonate 800 MG TAB PO SCH ×2 (08:12→20:02)
[2017-03-25] MEDS: Gabapentin 300 MG CAP PO SCH ×3 (08:12→20:02)
--- NOTE | 2017-03-25 10:32 | PRG ---
DATE OF SERVICE: 03/25/2017 SUBJECTIVE: A 81-year-old female being seen for end-stage renal disease. The patient denies any zac sea, vomiting or chest pain. OBJECTIVE: GENERAL: The patient is awake and alert. VITAL SIGNS: Afebrile, pulse 75, breathing 16 and blood pressure 142/80. HEAD/NECK: Normocephalic. Atraumatic. EYES: EOMI. No deformity. EARS: Clear. No ulcers. NOSE: Intact. No lesions. MOUTH: Clear. No discharge. THROAT: Clear. No exudate. LUNGS: Clear. No crackles. CARDIAC: S1, S2. No rub. ABDOMEN: Benign. BS+. GENITALIA/RECTUM: Nuno absent. BACK/EXTREMITIES: Edema 0+. Ulcer-. NEUROLOGICAL: Alert and motor intact. SKIN: Rash-. Bruise-. LYMPHATICS: Edema-. Ulcer-. LABORATORY DATA: Showed a hemoglobin of 9.7. ASSESSMENT AND PLAN: 1. Stage 6 chronic kidney disease. We will plan dialysis Monday. 3. Hypertension, stable. 4. Anemia, stable. 5. Medications based on glomerular filtration rate are appropriate.
--- NOTE | 2017-03-25 14:29 | PDOC.PN ---
- Subjective Encounter Start Date: 03/25/17 Encounter Start Time: 10:00 Subjective: pt up in bed no complains, feels well - Objective Resuscitation Status: Resuscitation Status FULL:Full Resuscitation Vital Signs & Weight: Vital Signs (12 hours) Temp Pulse Resp BP Pulse Ox 03/25/17 08:00 98.8 F 95 18 149/84 H 96 Weight Admit Weight 161 lb 8 oz Weight 161 lb 8 oz I&O: 03/24/17 03/25/17 03/26/17 06:59 06:59 06:59 Intake Total 120 1880 360 Balance 120 1880 360 Result Diagrams: 03/25/17 05:19 03/24/17 05:11 Additional Labs: Accuchecks 03/25/17 03/25/17 03/24/17 11:18 06:24 21:14 POC Glucose 106 94 83 Phys Exam - Physical Examination HEENT: PERRLA Neck: no nodes Respiratory: no wheezing, no rales Cardiovascular: RRR, no significant murmur Gastrointestinal: soft, non-tender Musculoskeletal: no edema Neurological: non-focal Dx/Plan (1) Acute blood loss anemia Code(s): D62 - ACUTE POSTHEMORRHAGIC ANEMIA Status: Acute Plan: hh is stable, will continue ppi. waiting for bed at rehab (2) ESRD (end stage renal disease) on dialysis Code(s): N18.6 - END STAGE RENAL DISEASE; Z99.2 - DEPENDENCE ON RENAL DIALYSIS Status: Chronic Plan: per nephrology (3) Encephalopathy acute Code(s): G93.40 - ENCEPHALOPATHY, UNSPECIFIED Status: Acute Plan: resloved Comment: Suspected metabolic and related to #2, improved with supportive care (4) Diabetes mellitus Code(s): E11.9 - TYPE 2 DIABETES MELLITUS WITHOUT COMPLICATIONS Status: Chronic Qualifiers: Diabetes mellitus type: type 2 Diabetes mellitus complication status: with kidney complications Diabetes mellitus complication detail: with chronic kidney disease Diabetes mellitus skilled nursing insulin use: without long term care pharmacist use Chronic kidney disease stage: stage 3 (moderate) Qualified Code(s): E11.22 - Type 2 diabetes mellitus with diabetic chronic kidney disease; N18.3 - Chronic kidney disease, stage 3 (moderate); N18.3 - Chronic kidney disease, stage 3 (moderate) Plan: stable Comment: Well controlled, Continue with SSI. - Plan * .
[2017-03-25] MEDS: Atorvastatin Calcium 20 MG TAB PO SCH (20:02)
[2017-03-26] MEDS: Gabapentin 300 MG CAP PO SCH ×3 (09:02→19:49)
[2017-03-26] MEDS: Sevelamer Carbonate 800 MG TAB PO SCH ×2 (09:02→19:50)
[2017-03-26] MEDS: Folic Acid/Vit B Comp W-C PO SCH (09:02)
--- NOTE | 2017-03-26 10:54 | PDOC.PN ---
- Subjective Encounter Start Date: 03/26/17 Encounter Start Time: 10:52 Subjective: pt up in bed no complains - Objective Resuscitation Status: Resuscitation Status FULL:Full Resuscitation Vital Signs & Weight: Vital Signs (12 hours) Temp Pulse Resp BP Pulse Ox 03/26/17 07:53 97.5 F L 95 16 139/85 97 Weight Admit Weight 161 lb 8 oz Weight 161 lb 8 oz I&O: 03/25/17 03/26/17 03/27/17 06:59 06:59 06:59 Intake Total 1880 850 Balance 1880 850 Result Diagrams: 03/27/17 05:23 03/24/17 05:11 Additional Labs: Accuchecks 03/25/17 03/25/17 16:49 11:18 POC Glucose 94 106 Phys Exam - Physical Examination HEENT: PERRLA Neck: no nodes Respiratory: no wheezing, no rales Cardiovascular: RRR, no significant murmur Gastrointestinal: soft, non-tender Musculoskeletal: no edema Neurological: non-focal Dx/Plan (1) Acute blood loss anemia Code(s): D62 - ACUTE POSTHEMORRHAGIC ANEMIA Status: Acute Plan: stable continue to monito. will restart asa given her cad dx (2) ESRD (end stage renal disease) on dialysis Code(s): N18.6 - END STAGE RENAL DISEASE; Z99.2 - DEPENDENCE ON RENAL DIALYSIS Status: Chronic Plan: per nephrology (3) Encephalopathy acute Code(s): G93.40 - ENCEPHALOPATHY, UNSPECIFIED Status: Acute Plan: resolved. pt waiting for bed Comment: Suspected metabolic and related to #2, improved with supportive care (4) Diabetes mellitus Code(s): E11.9 - TYPE 2 DIABETES MELLITUS WITHOUT COMPLICATIONS Status: Chronic Qualifiers: Diabetes mellitus type: type 2 Diabetes mellitus complication status: with kidney complications Diabetes mellitus complication detail: with chronic kidney disease Diabetes mellitus intermediate insulin use: without intermediate use Chronic kidney disease stage: stage 3 (moderate) Qualified Code(s): E11.22 - Type 2 diabetes mellitus with diabetic chronic kidney disease; N18.3 - Chronic kidney disease, stage 3 (moderate); N18.3 - Chronic kidney disease, stage 3 (moderate) Comment: Well controlled, Continue with SSI. - Plan * .
--- NOTE | 2017-03-26 15:03 | PRG ---
DATE OF SERVICE: 03/26/2017 SUBJECTIVE: A 81-year-old lady being seen for end-stage renal disease. The patient denies any nausea, vomiting or chest pain. OBJECTIVE: GENERAL: Patient is awake, alert. VITAL SIGNS: Afebrile, pulse 75, breathing at 16, blood pressure 139/85. GENERAL APPEARANCE AND MENTAL STATUS: Fair. HEAD/NECK: Normocephalic. Atraumatic. EYES: EOMI. No deformity. EARS: Clear. No ulcers. NOSE: Intact. No lesions. MOUTH: Clear. No discharge. THROAT: Clear. No exudate. LUNGS: Clear. No crackles. CARDIAC: S1, S2. No rub. ABDOMEN: Benign. BS+. GENITALIA/RECTUM: Nuno absent. BACK/EXTREMITIES: Edema 0+ Ulcer- NEUROLOGICAL: Alert and motor intact. SKIN: Rash- Bruise- LYMPHATICS: Edema- Ulcer- LABORATORY: Show hemoglobin 9.7. RECOMMENDATIONS: 1. Stage 6 chronic kidney disease, stable. 2. Hypertension. 3. Anemia, stable. 4. Medications based on glomerular filtration rate are appropriate. We will plan dialysis tomorrow. [facility]ERRuby
[2017-03-26] MEDS: Atorvastatin Calcium 20 MG TAB PO SCH (19:50)
[2017-03-27] MEDS: Folic Acid/Vit B Comp W-C PO SCH (10:03)
[2017-03-27] MEDS: Gabapentin 300 MG CAP PO SCH ×4 (10:04→21:07)
[2017-03-27] MEDS: Sevelamer Carbonate 800 MG TAB PO SCH ×2 (10:07→20:13)
[2017-03-27 15:16] LABS: HBSAg Index 0.24 S/CO (0-0.99); Hep B Surf Ag Non-Reactive S/CO (NonReactive)
[2017-03-27] MEDS: Epoetin (ESRD) 20,000 UNITS/ML IVP SCH (16:06)
--- NOTE | 2017-03-27 17:16 | PDOC.PN ---
- Subjective Encounter Start Date: 03/27/17 Encounter Start Time: 11:45 Subjective: pt up in bed no complains - Objective Resuscitation Status: Resuscitation Status FULL:Full Resuscitation Vital Signs & Weight: Vital Signs (12 hours) Temp Pulse Resp BP Pulse Ox 03/27/17 12:00 98.6 F 101 H 18 109/72 96 03/27/17 08:00 98.6 F 101 H 18 136/79 96 03/27/17 07:52 98.5 F 92 14 136/79 94 L Weight Admit Weight 161 lb 8 oz Weight 161 lb 8 oz I&O: 03/26/17 03/27/17 03/28/17 06:59 06:59 06:59 Intake Total 850 490 Balance 850 490 Result Diagrams: 03/27/17 05:23 03/24/17 05:11 Additional Labs: Accuchecks 03/27/17 03/27/17 03/26/17 11:38 05:55 20:56 POC Glucose 143 H 90 119 H Phys Exam - Physical Examination HEENT: PERRLA Neck: no nodes Respiratory: no wheezing, no rales Cardiovascular: RRR, no significant murmur Gastrointestinal: soft, non-tender Musculoskeletal: no edema, pulses present Neurological: non-focal, normal sensation Dx/Plan (1) Acute blood loss anemia Code(s): D62 - ACUTE POSTHEMORRHAGIC ANEMIA Status: Acute Plan: hh is stable for now. egd and colonoscopy done no acute bleeding noted (2) ESRD (end stage renal disease) on dialysis Code(s): N18.6 - END STAGE RENAL DISEASE; Z99.2 - DEPENDENCE ON RENAL DIALYSIS Status: Chronic Plan: per nephrology (3) Encephalopathy acute Code(s): G93.40 - ENCEPHALOPATHY, UNSPECIFIED Status: Acute Plan: resolved Comment: Suspected metabolic and related to #2, improved with supportive care (4) Diabetes mellitus Code(s): E11.9 - TYPE 2 DIABETES MELLITUS WITHOUT COMPLICATIONS Status: Chronic Qualifiers: Diabetes mellitus type: type 2 Diabetes mellitus complication status: with kidney complications Diabetes mellitus complication detail: with chronic kidney disease 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 - Plan * .
--- NOTE | 2017-03-27 17:49 | PRG ---
DATE OF SERVICE: 03/27/2017 SUBJECTIVE: Patient was seen and examined at bedside and overnight events noted. Patient denies any shortness of breath or chest pain or palpitation. No history of nausea or vomiting or diarrhea or f ever or chills or cramps. OBJECTIVE: GENERAL: This is an elderly female, in no apparent distress. VITAL SIGNS: Temperature 96, pulse 101, respiratory rate 18, blood pressure 109/72. HEENT: Atraumatic, normocephalic. Oral mucosa is moist. NECK: Supple. CARDIOVASCULAR: S1, S2 heard. Rate and rhythm regular. RESPIRATORY: Clear to auscultation. GASTROINTESTINAL: Abdomen is soft. MUSCULOSKELETAL: No tenderness. No edema. DERMATOLOGIC: No skin rash. NEUROLOGIC: Alert and awake and oriented x3. No focal neurologic deficits. Moving all the extremiti es. PSYCHIATRIC: Mood and affect normal. LABORATORY DATA: Not done today. ASSESSMENT AND PLAN: 1. End-stage renal disease, continue on hemodialysis as tolerated on Monday, Monday, and Monday. The patient was seen during dialysis. 2. Hypertension. 3. Anemia. 4. Edema, controlled. 5. Follow with GI. 6. We will continue dialysis as tolerated.
[2017-03-27] MEDS: Atorvastatin Calcium 20 MG TAB PO SCH ×2 (20:13→21:09)
--- NOTE | 2017-03-27 21:56 | DIS ---
DATE OF ADMISSION: 03/20/2017 DATE OF DISCHARGE: 03/27/2017 DISCHARGE MEDICATIONS: Are as the following, patient will be on Protonix 40 mg b.i.d., ProAir 90 mcg p.r.n., aspirin 81 mg daily, atorvastatin 20 mg at bedtime, Tylenol 500 mg q.4 hours p.r.n., Dulcola x 10 mg per rectum as needed, carvedilol 3.125 mg p.o. b.i.d., clonidine 0.1 mg p.o. q.6 hours p.r.n. , ferrous sulfate 325 b.i.d., diltiazem 60 mg p.o. q.6 hours, folic acid 1 p.o. daily, gabapentin 600 mg t.i.d., linagliptin 5 mg daily, insulin sliding scale, sevelamer carbonate 1600 p.o. b.i.d., paulo thicone 80 mg p.o. t.i.d. p.r.n., MiraLax 17 grams p.o. daily, tramadol 50 mg q.4 hours p.r.n. DISCHARGE DIAGNOSES: 1. Acute blood loss anemia versus iron deficiency anemia. 2. End-stage renal disease. 3. Acute metabolic encephalopathy. 4. Diabetes. 5. Hypertension. DISCHARGE SUMMARY: The patient is a very pleasant 81-year-old female who was recently discharged fro the hospital and was treated for metabolic encephalopathy secondary to bacteremia. At the rehab [facility], she was found to have hemoglobin of 5 to 6. She did receive blood at [facility]; however, s [place] her counts continued to be low at 6.2. She was sent to the ER for further evaluation. Patient had guaiac positive stools. On the , she had an EGD, which indicated 2-3 cm large tongue of salm on-colored mucosa seen in the distal esophagus concerning for Llanos's esophagus versus paraesophage al hernia, extension of the stomach proximal gastric retroflexion concerning for paraesophageal herni a. No etiology of anemia, melena seen during the examination. Patient then underwent a colonoscopy on the , which indicated diverticulosis, small internal hemorrhoids and 4 small colonic polyps wh ich were removed. Patient received in the hospital 3 units of blood. Her H&H continued to be stable . Given her history of coronary artery disease, she was put back on the aspirin; however, I would co sanjay to monitor her H&H weekly. If she continues to drop her H&H, she may need to be either off as pirin versus therapeutic blood transfusion as needed. Patient to follow up with GI as outpatient. S he did have a pathology came back that indicated gastric predominant cardiac type mucosa with chronic inflammation and reactive hyperplastic features. No Llanos's and no squamous epithelium present. This was the biopsy for the EGD. The colonoscopy, biopsy of the polyps indicated tubular adenomas. There is no high-grade dysplasia or malignancy present. Patient was discharged back to [facility]. A daughter was called and notified about patient's medical findings. We will recommend doing CBC we ekly.
[2017-03-28 07:44] VITALS: BP 132/76; TEMP 98.3
[2017-03-28] MEDS: Sevelamer Carbonate 800 MG TAB PO SCH (10:30)
[2017-03-28] MEDS: Folic Acid/Vit B Comp W-C PO SCH ×3 (10:33→11:30)
[2017-03-28] MEDS: Gabapentin 300 MG CAP PO SCH (10:34)
--- NOTE | 2017-03-28 11:28 | PRG ---
Patient Name: EHSAN LAWRENCE Date of service: 03/28/2017 Subjective: Patient was seen and examined at bedside and overnight events noted. Patient denies any shortness of breath or chest pain or palpitation. No history of nausea or vomiting or diarrhea or fever or chills or cramps. Objective: General: This is an elderly female in no apparent distress. Vital signs: Temperature 98.3, pulse 100, respirations 16, blood pressure 132/76. HEENT: Atraumatic, normocephalic. Oral mucosa is moist. Neck: Supple. Cardiovascular: S1 S2 heard. Rate and rhythm regular. Respiratory: Clear to auscultation. Gastrointestinal: Abdomen is soft. Musculoskeletal: No tenderness. No edema. Dermatologic: No skin rash. Neurologic: Alert and awake and oriented X3. No focal neurologic deficits. Moving all the extremit ies. Psychiatric: Mood and affect normal. LABORATORY DATA: Not done today. ASSESSMENT AND PLAN: 1. End-stage renal disease. Continue on hemodialysis on Monday, Monday and Monday. 2. Hypertension, stable blood pressure. 3. Edema, controlled. 4. Anemia. The patient is more alert today. We will continue on dialysis Monday, Monday, and Monday. We will follow. Thank you for the consult.
== END 2017-03-28 14:39 | DRG 811 ==
LOC: ERS 16:08 → T4-B 21:50
PROVIDERS: ADMIT Internal Medicine; ATTEND Internal Medicine
PROC: 30233N1 Transfusion of Nonautologous Red Blood Cells into Peripheral Vein, Percutaneous Approach (ICD-10-PCS; 2017-03-20)
PROC: 5A1D70Z Performance of Urinary Filtration, Intermittent, Less than 6 Hours Per Day (ICD-10-PCS; principal; 2017-03-22)
PROC: 0DBH8ZZ Excision of Cecum, Via Natural or Artificial Opening Endoscopic (ICD-10-PCS; 2017-03-23)
PROC: 0DBL8ZZ Excision of Transverse Colon, Via Natural or Artificial Opening Endoscopic (ICD-10-PCS; 2017-03-23)
PROC: 0DBP8ZZ Excision of Rectum, Via Natural or Artificial Opening Endoscopic (ICD-10-PCS; 2017-03-23)
DX: D50.9 Iron deficiency anemia, unspecified (principal); G93.41 Metabolic encephalopathy; I13.2 Hypertensive heart and chronic kidney disease with heart failure and with stage 5 chronic kidney disease, or end stage renal disease; I50.22 Chronic systolic (congestive) heart failure; E11.22 Type 2 diabetes mellitus with diabetic chronic kidney disease; L89.323 Pressure ulcer of left buttock, stage 3; N18.6 End stage renal disease; D62 Acute posthemorrhagic anemia; F03.90 Unspecified dementia, unspecified severity, without behavioral disturbance, psychotic disturbance, mood disturbance, and anxiety; Z99.2 Dependence on renal dialysis; E78.5 Hyperlipidemia, unspecified; I25.10 Atherosclerotic heart disease of native coronary artery without angina pectoris; Z95.1 Presence of aortocoronary bypass graft; K64.8 Other hemorrhoids; K57.90 Diverticulosis of intestine, part unspecified, without perforation or abscess without bleeding; K44.9 Diaphragmatic hernia without obstruction or gangrene; E87.6 Hypokalemia
CPT/HCPCS: 36415; 36416; 36430; 71045; 80048; 82274; 83735; 85007; 85014; 85018; 85025; 85027; 86850; 86900; 86901; 86922; 87340; 88305; 88312; 88313; 90471; 90682; 90935; A4216; C9113; G0008; G0257; G8978-GP-CM; G8979-GP-CK; G8987-GO-CM; G8988-GO-CK; G8996-GN-CK; G8997-GN-CK; J2001; J2405; J2704; P9016; Q2036; Q4081

== ENCOUNTER 2017-04-04 16:41 | Emergency (ER) | payer MEDICAID, MEDICARE, OTHER, SELFPAY | END 2017-04-04 19:04 | LOC: ERS 16:41 | DX: D64.9 Anemia, unspecified (principal); I13.2 Hypertensive heart and chronic kidney disease with heart failure and with stage 5 chronic kidney disease, or end stage renal disease; E11.22 Type 2 diabetes mellitus with diabetic chronic kidney disease; N18.6 End stage renal disease; I50.9 Heart failure, unspecified; Z99.2 Dependence on renal dialysis; E78.5 Hyperlipidemia, unspecified; J45.909 Unspecified asthma, uncomplicated; I25.2 Old myocardial infarction; Z85.3 Personal history of malignant neoplasm of breast; Z79.899 Other long term (current) drug therapy | CPT/HCPCS: 99284 ==

== ENCOUNTER 2017-04-11 22:47 | Emergency (ER) | payer MEDICARE, MEDICAID ==
[2017-04-11 23:26] LABS: #Lymphocytes 0.3 thou/uL (1.20-3.40); #Neutrophils 5.2 thou/uL (1.40-6.50); %Basophils 0.7 % (0.0-1.0); %Eosinophils 0.1 % (0.0-10.0); %Monocytes 0.5 % (0.0-10.0); %Neutrophils 92.8 % (42.0-75.0); Hemoglobin 6.4 g/dL (12.0-16.0); Mean Corpuscular HGB CONC 33.9 g/dL (32.0-36.0); Mean Corpuscular Hemoglobin 32.9 pg (27.0-31.0); Mean Corpuscular Volume 97.2 fl (81.0-99.0); Mean Platelet Volume 6.1 fL (7.4-10.4); Platelet Count 260 thou/uL (130-400); RBC Distribution Width 15.4 % (11.5-14.5); Red Blood Cell (RBC) Count 1.93 mill/uL (4.20-5.40); White Blood Cell (WBC) Count 5.6 thou/uL (4.8-10.8)
[2017-04-11 23:48] LABS: ALT (SGPT) 7 U/L (8-55); AST (SGOT) 16 U/L (5-34); Albumin 3.4 g/dL (3.4-4.8); Alkaline Phosphatase 73 U/L (40-150); Anion Gap 13 mmol/L (10-20); BUN (Urea Nitrogen) 38 mg/dL (9.8-20.1); Bilirubin, Total 0.5 mg/dL (0.2-1.2); Calc. Creatinine Clearance 0 mL/min (70-130); Calcium 9.2 mg/dL (7.8-10.44); Carbon Dioxide 28 mmol/L (23-31); Chloride 95 mmol/L (98-107); Estimated GFR-MDRD 13; Globulin 2.7 g/dL (2.4-3.5); Glucose 199 mg/dL (83-110); Potassium 4.1 mmol/L (3.5-5.1); Protein, Total 6.1 g/dL (6.0-8.3); Sodium 132 mmol/L (136-145)
[2017-04-12] MEDS ORDERED: Heparin 10,000 UNITS/ 10 ML VIAL ONE ×2 (08:00)
== END 2017-04-12 05:12 ==
LOC: ERS 22:47
DX: D64.9 Anemia, unspecified (principal); N18.6 End stage renal disease; E11.22 Type 2 diabetes mellitus with diabetic chronic kidney disease; E78.5 Hyperlipidemia, unspecified; J45.909 Unspecified asthma, uncomplicated; I13.2 Hypertensive heart and chronic kidney disease with heart failure and with stage 5 chronic kidney disease, or end stage renal disease; I50.9 Heart failure, unspecified; Z79.82 Long term (current) use of aspirin; Z79.84 Long term (current) use of oral hypoglycemic drugs; Z79.899 Other long term (current) drug therapy
CPT/HCPCS: 36430; 80053; 82274; 85025; 86850; 86870; 86900; 86901; 86902; 86920; 86922; 99285; P9016; 36415; J1644

== ENCOUNTER 2017-04-19 12:47 | Inpatient (IN) | payer MEDICARE, MEDICAID ==
--- NOTE | 2017-04-19 16:13 | RAD ---
CHEST ONE VIEW: History: Dyspnea. Missed dialysis. Comparison: 03-20-17 FINDINGS: Cardiac silhouette is magnified and enlarged. Pulmonary vasculature is accentuated by shallow inspira tion. Mediastinum is midline with post-operative changes, aortic calcification and a large caliber ri ght internal jugular dialysis type catheter in good position. There is no lobar consolidation or evid ence of pneumothorax. IMPRESSION: Right internal jugular dialysis catheter is in place. Chronic type findings are stable. POS: MASON
[2017-04-19 17:01] LABS: Hemoglobin 5.7 g/dL (12.0-16.0); Mean Corpuscular HGB CONC 33.4 g/dL (32.0-36.0); Mean Corpuscular Hemoglobin 31.5 pg (27.0-31.0); Mean Corpuscular Volume 94.1 fl (81.0-99.0); Mean Platelet Volume 6.2 fL (7.4-10.4); Platelet Count 301 thou/uL (130-400); RBC Distribution Width 19.8 % (11.5-14.5); Red Blood Cell (RBC) Count 1.82 mill/uL (4.20-5.40); White Blood Cell (WBC) Count 9.6 thou/uL (4.8-10.8)
[2017-04-19 17:22] LABS: #Eosinphils 0.2 thou/uL (0.0-0.7); #Lymphocytes 1.4 thou/uL (1.20-3.40); #Monocytes 0.8 thou/uL (0.11-0.59); #Neutrophils 7.1 thou/uL (1.40-6.50); %Basophils 0.4 % (0.0-1.0); %Eosinophils 2.6 % (0.0-10.0); %Lymphocytes 14.7 % (21.0-51.0); %Monocytes 7.9 % (0.0-10.0); %Neutrophils 74.3 % (42.0-75.0); Anisocytosis SLIGHT = 6-15 cells (100X) (0-5/hpf); MDiff Complete? YES; Ovalocytes SLIGHT = 2-5 cells (100X) (0-1/hpf); PLT Morphology Comment Appears Adequate
[2017-04-19 17:30] LABS: CKMB 4.4 ng/mL (0-6.6)
[2017-04-19] MEDS ORDERED: Epoetin (ESRD) 10,000 UNITS/ML VIAL SC SCH (17:30)
[2017-04-19 17:36] LABS: Troponin I 1.226 ng/mL (< 0.028)
[2017-04-19 18:15] LABS: Bilirubin Negative (Negative); Blood, Urine Moderate (Negative); Clarity TURBID (Clear); Glucose, Urine (Dipstick) Negative (Negative); Leukocyte Large (Negative); Nitrite Negative (Negative); Protein, Urine (Dipstick) 300 mg/dL (Neg-Trace); Specific Gravity, Urine 1.014 (1.002-1.036); Urobilinogen 0.2 mg/dL (0.2-1.0); pH, Urine 6.5 (5.0-9.0)
[2017-04-19 18:19] LABS: Pathc Cast-AUWi Flag 207.47 (0-2.49); Yeast-AUWi Flag 278.6 (0-25.0)
[2017-04-19 18:31] LABS: Bacteria/HPF 4+ HPF (None Seen); Hyaline Casts/LPF NONE SEEN LPF (0-3 Hyaline); Manual Microscopic Reviewed? No Path Casts Seen; Yeast-All Forms None Seen HPF (None Seen)
[2017-04-19] MEDS ORDERED: Pantoprazole 80 MG, Admixture Fee 1 EACH in Sodium Chloride 0.9% 100 ML IVPB ONE (18:45)
--- NOTE | 2017-04-19 18:56 | RAD ---
SUPINE ABDOMEN: 04/19/17 HISTORY: Bilateral lower extremity pain. Patient is on dialysis. Scattered stool and gas throughout the colon which appears unremarkable. Some scattered small bowel g as is also unremarkable. Large amount of stool in the rectum is seen and this suggests fecal impactio n. Catheter overlying the left groin and left pelvis presumably represents an left femoral vein mike ter with tip in the region of the iliac vein. IMPRESSION: Large amount of stool in the rectum suggests fecal impaction. POS: MASON
[2017-04-19] MEDS ORDERED: Pantoprazole 40 MG VIAL ONE (18:57)
[2017-04-19 19:34] LABS: INR-International Normal Ratio 1.2; PTT 26.4 SEC (22.9-36.1)
[2017-04-19 19:47] LABS: ALT (SGPT) Less than 7 U/L (8-55); AST (SGOT) 20 U/L (5-34); Albumin 3.3 g/dL (3.4-4.8); Alkaline Phosphatase 78 U/L (40-150); Anion Gap 20 mmol/L (10-20); BUN (Urea Nitrogen) 90 mg/dL (9.8-20.1); Bilirubin, Total 0.4 mg/dL (0.2-1.2); Calc. Creatinine Clearance 0 mL/min (70-130); Calcium 9.3 mg/dL (7.8-10.44); Carbon Dioxide 20 mmol/L (23-31); Chloride 99 mmol/L (98-107); Estimated GFR-MDRD 6; Globulin 2.5 g/dL (2.4-3.5); Glucose 93 mg/dL (83-110); Lipase 62 U/L (8-78); Potassium 4.6 mmol/L (3.5-5.1); Protein, Total 5.8 g/dL (6.0-8.3); Sodium 134 mmol/L (136-145)
--- NOTE | 2017-04-19 20:10 | CON ---
DATE OF CONSULTATION: 04/19/2017 REASON FOR CONSULTATION: End-stage renal disease and severe anemia. HISTORY OF PRESENT ILLNESS: This is a very pleasant 81-year-old female who presented to the hospital after missing dialysis. The patient was noted to have a hemoglobin of 5.5, so we were consulted. T he patient denies nausea, vomiting, chest pain or headache. PAST MEDICAL HISTORY: Significant for hypertension, anemia, history of altered mentation, history of CVA, diabetes mellitus, history of CABG, history of mastectomy, history of AV fistula, history of tu nneled dialysis catheter, history of multiple syncopal episodes. HOME MEDICATIONS: Reviewed. HOSPITAL MEDICATIONS: Reviewed. ALLERGIES: Reviewed. REVIEW OF SYSTEMS: A 15-point review of systems was obtained and negative except positives noted abo ve. GENERAL: Weakness-. HEAD: Headache-. NECK: No swelling or lumps. NOSE: No epistaxis or discharge. EYES: No diplopia or pain. RESPIRATORY: Dyspnea-. CARDIOVASCULAR: Chest pain-. GASTROINTESTINAL: Nausea-. /HOUSEKEEPING ATTENDANT: Hematuria-. MUSCULOSKELETAL: No joint pain. NEUROPSYCHIATIC SYSTEMS: No suicidal ideation. No ideation. SKIN: Denies any rash or ulcer. CONSTITUTIONAL: No fever or chills. PHYSICAL EXAMINATION: GENERAL: Patient is awake, alert. VITAL SIGNS: Afebrile, pulse 75, breathing 16, blood pressure 130/70. GENERAL APPEARANCE AND MENTAL STATUS: Fair. HEAD/NECK: Normocephalic. Atraumatic. EYES: EOMI. No deformity. EARS: Clear. No ulcers. NOSE: Intact. No lesions. MOUTH: Clear. No discharge. THROAT: Clear. No exudate. LUNGS: Clear. No crackles. CARDIAC: S1, S2. No rub. ABDOMEN: Benign. BS+. GENITALIA/RECTUM: Nuno absent. BACK/EXTREMITIES: Edema 0+ Ulcer-. NEUROLOGICAL: Alert and motor intact. SKIN: Rash- Bruise- LYMPHATICS: Edema- Ulcer- LABORATORY DATA: Show hemoglobin is 5.7. ASSESSMENT AND PLAN: 1. Stage 6 chronic kidney disease with severe anemia. Plan admission and transfusion of 2 units of packed red blood cells. We will give Epogen. 2. Anemia. Give Epogen. 3. Hypertension, stable. 4. Medications based on glomerular filtration rate are appropriate.
[2017-04-19 20:34] LABS: Critical Call Chem Troponin I RESULT DECREASING; Troponin I 1.062 ng/mL (< 0.028)
[2017-04-19] MEDS ORDERED: PROVENTIL INHALER 6.7 G (200 INHALATIONS) INH PRN (22:28)
[2017-04-19] MEDS ORDERED: Bisacodyl 10 MG SUPP PR PRN (22:28)
[2017-04-19] MEDS ORDERED: Ondansetron HCl/PF 4 MG/2 ML Vial IVP PRN (22:28)
[2017-04-19] MEDS ORDERED: Acetaminophen 325 MG TAB PO PRN (22:28)
[2017-04-19] MEDS ORDERED: Guaifenesin DM 100-10/5 ML UDCUP PO PRN (22:28)
[2017-04-19] MEDS ORDERED: Dextrose 5% in Water 1,000 ML IV PRN (22:28)
[2017-04-19] MEDS ORDERED: Dextrose 50% Abboject 50 ML SYRINGE SLOW IVP PRN (22:28)
[2017-04-19] MEDS ORDERED: HumaLOG 300 UNITS/3 ML VIAL SC PRN ×2 (22:28)
[2017-04-19] MEDS ORDERED: Pantoprazole 80 MG in Sodium Chloride 0.9% 100 ML IVP SCH (22:30)
[2017-04-19 23:00] LABS: Troponin I 1.167 ng/mL (< 0.028)
--- NOTE | 2017-04-20 01:51 | CON ---
DATE OF CONSULTATION: 04/19/2017 GI INPATIENT CONSULTATION NOTE REQUESTING PHYSICIAN: Dr. Henley. REASON FOR CONSULTATION: Anemia and possible gastrointestinal bleeding. HISTORY OF PRESENT ILLNESS: Anaid Rush is a 81-year-old, -Hung[place] woman, who has previously been seen by my colleague, Dr. Sandro Odell. She has a long history of anemia. She had a workup fo r iron deficiency anemia back in 2008 and 2009. At that time, EGD demonstrated single small duodenal AVM, which was ablated, and she had two colon polyps removed at that time. She even underwent capsu le endoscopy in 2009 and this was a negative study. She has a lot of comorbidities including prior h istory of breast cancer, history of CVA and CABG, diabetes, and end-stage renal disease, on dialysis. In recent months, she has developed worsening anemia and has required several admissions for blood transfusion. In March of this year, just 1 month ago, she underwent repeat GI workup regarding th e anemia. An EGD demonstrated a small paraesophageal hernia, but was otherwise essentially normal wi th no evidence for any bleeding. Colonoscopy was also performed that demonstrated only four small po lyps, which were all removed with a cold snare and came back as tubular adenomas. Her anemia was con cluded to be multifactorial. She presented from her nursing facility again today with recurrent anem ia, hemoglobin of 5.7. Note that this is essentially stable over the past week. Her stool was dark in color, and so, there was concern for possible GI bleeding. Note the patient is on iron. FOBT was performed and is negative. She recently missed dialysis, and Dr. Vazquez was consulted. Two units RBC transfusion and Epogen administration are planned. The patient herself cannot really give much deta iled history, but she is able to answer yes or no to symptoms and she reports that she is not having any abdominal pain, nausea, or vomiting. Her appetite has not been great. She has evidently continu ed to have bowel movements, although she cannot really give any details on this. REVIEW OF SYSTEMS: The patient is weak and confused. Full review of systems including constitutiona l, head, eyes, ears, nose, throat, GI, , cardiovascular, respiratory, musculoskeletal, and neurolog ic systems are negative except as noted in the HPI. PAST MEDICAL HISTORY: Stage 6 chronic kidney disease, on dialysis; hypertension; chronic anemia; his tory of CVA; dementia; diabetes; history of coronary artery bypass graft; history of mastectomy for b reast cancer; duodenal AVM cauterized in 2009; colon polyps, last colonoscopy, 03/2017; congestive he art failure with ejection fraction of 35% to 45%; hyperlipidemia. ALLERGIES: PENICILLIN. SOCIAL HISTORY: No smoking, alcohol, or drug use. FAMILY HISTORY: Noncontributory. MEDICATIONS: Aspirin, atorvastatin, ciprofloxacin, diltiazem, iron twice daily, Protonix 40 mg daily , sevelamer, gabapentin, folic acid, rivastigmine patch, tramadol, Tradjenta, Coreg, Tessalon Perles. PHYSICAL EXAMINATION: VITAL SIGNS: Afebrile, pulse 75, blood pressure 130/70, respirations 16 per minute. GENERAL: Chronically ill appearing, 81-year-old, -Hungarian woman, lying in bed comfortably, i n no distress. MENTAL: She is confused. She is able to answer yes or no to very pointed questions, but does not vo lunteer information to give any details on her history. SKIN: She is pale, no jaundice. EYES: No scleral icterus. Extraocular movements intact. ENT: Mucous membranes moist, no oral lesions. LYMPH: No submandibular or supraclavicular lymphadenopathy. THYROID: Nontender to palpation. HEART: Regular rate and rhythm. LUNGS: Clear to auscultation bilaterally. ABDOMEN: Soft and nontender to palpation. EXTREMITIES: A 1+ bilateral lower extremity edema. RECTAL: Rectal examination was performed. She has a smear of very dark brown stool, this does not h ave the appearance of melena. This is likely secondary to oral iron administration. There is no red blood. There is no solid stool in the rectal vault, this is all semi-solid stool. LABORATORY STUDIES: Hemoglobin 5.7, MCV 94, WBC 9.6, platelets 301. BUN 90, creatinine 7.41, sodium 134, potassium 4.6. LFTs, all normal. Lipase 62. BNP elevated at 2395. Troponin elevated at 1.22 . FOBT is negative. INR 1.2. Lactic acid 0.8. IMAGING STUDIES: Abdominal x-ray showed a large amount of stool in the rectum concerning for possibl e fecal impaction. Note, there is no solid impacted stool on digital rectal exam. ASSESSMENT AND PLAN: 1. Chronic anemia. 2. 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 3. End-stage renal disease, on dialysis. Note, the patient's stool is dark, but she is on oral iron and I think this explains it. Her FOBT is actually negative. She had panendoscopy just within the past month with no obvious source of bleeding noted. I do not think there would be any utility at [facility] to repeating an endoscopy in this context. I agree with Dr. Odell' assessment that her anemia is likely multifactorial secondary to her severe kidney disease. She has not had iron studies, B12, or folic acid checked any time recently, so we will order those to be checked with [facility]. I do not think the IV Protonix drip will be necessary. I agree with the plan to transfuse, dialyze , and administer Epogen as planned by Dr. Vazquez. I think it would be appropriate to consider Hematolo gy consultation as well if the anemia does not improve, as the gastrointestinal workup for this has vini almaguer already been completed. Thank you for the consultation. Please call back with questions or concerns.
--- NOTE | 2017-04-20 04:54 | HP ---
REASON FOR ADMISSION: Severe anemia with hemoglobin of 5.7 grams, volume overload with her fistula being clogged, poor functional status, failure to thrive, moderate protein malnutrition, demand ischemia, congestive heart failure with systolic dysfunction, and has acute encephalopathy as well. HISTORY OF PRESENTING ILLNESS: Please note majority of this history is obtained by my talking to patient's daughter, Ms. Zambrano as patient is not fully oriented. She knows her name and speaks just few words. She does not appear to be oriented. Per Ms. Zambrano, she was discharged from inpatient rehabilitation on Monday after being there for 14 days. She took her for hemodialysis this morning with great difficulty as patient is very deconditioned and it was hard for her to transfer and lift her up into her car and take her to dialysis. On arrival in dialysis, she was told that her mom's fistula was clogged and they could not do dialysis. They asked her to go to the emergency room. Ms. Zambrano also mentions that patient has had two bowel movements, which are dark and pasty this morning. She is on iron pills. Patient has had recent upper and lower endoscopy done on 03/23/2017. She was found to have had paraesophageal hernia and internal hemorrhoids with diverticulosis then. Her hemoglobin on discharge was 8 grams with hematocrit of 25 on 04/04/2017 to rehabilitation. Patient appears to have swelling of both lower extremities and right upper extremity as well. She has not ambulated and barely/very minimally helps to turn in the bed at home. The daughter is having a hard time at home as well to manage her. She does not appear to be in any distress at present, although she gives a blank stare for any question you ask her. PAST MEDICAL AND SURGICAL HISTORY: End-stage renal disease on hemodialysis, hypertension, mild systolic dysfunction with EF of around 40%, diabetes mellitus type 2, and chronic anemia, history of breast cancer with likely right mastectomy, coronary artery disease, dyslipidemia, CABG x4, right upper extremity dialysis access procedures, has left arm fistula as well. Patient has double lumen catheter in her right internal jugular vein. PERSONAL HISTORY: Does not abuse alcohol or drugs. No history of smoking. FAMILY HISTORY: Patient lives with her daughter, Ms. Zambrano, who is also power of insurance defense attorney for her. Code status was discussed with Ms. Zambrano and she wants her to be FULL CODE. There is history of hypertension and diabetes in the family. REVIEW OF SYSTEMS: Cannot be obtained as patient is not oriented. PHYSICAL EXAMINATION: GENERAL: Patient is a 81-year-old female who is not in any acute distress. VITAL SIGNS: Blood pressure 152/70, pulse 100 per minute, respiratory rate 20 per minute, temperature 98.8 degrees Fahrenheit, saturating 97% on room air. NECK: Supple. There is elevated JVD. EYES: Severe pallor. Extraocular muscles are intact. Pupils are reacting to light. Oral cavity mucous membranes are dry. No exudates or congestion. CARDIOVASCULAR SYSTEM: S1, S2 heard, S3 plus. RESPIRATORY SYSTEM: Air entry 1+ bilateral rales plus in the infra-axillary area. ABDOMEN: Soft, bowel sounds heard. No rigidity or guarding. EXTREMITIES: There is 2+ peripheral edema in both lower extremities. She also has edema in the right upper extremity likely due to her fistula or dialysis access. No ischemic ulcerations or gangrene. Patient appears to have sacral stage 2, healing decubitus, and bilateral heel decubitus ulcers as well. CENTRAL NERVOUS SYSTEM: No gross focal signs seen. Patient is very deconditioned and is barely able to move her both upper extremities. She has reflex withdrawal of both lower extremities. PSYCHIATRIC: Cannot be assessed as patient is not cognitively intact. LABORATORY DATA AND X-RAY FINDINGS: Chest x-ray done shows pulmonary vascular congestion. Abdominal x-ray done shows a large amount of stool in rectum with signs of possible fecal impaction. Stool occult blood was negative. Troponin I 1.2. BNP is 2395.3, albumin is 3.3. BUN 90, creatinine 7.4, serum bicarbonate 20. Liver enzymes are within normal limits. Potassium is 4.6. INR 1.2. White count of 9.6, H&H 5.7 and 17, platelet count is 301 with 74% neutrophils, MCV is 94. EKG done shows sinus tachycardia at 111 beats per minute with poor R-wave progression. CLINICAL IMPRESSION AND PLAN: Patient will be admitted to ICU for severe anemia. This appears to be recurrent likely gastrointestinal bleed. She is also volume overloaded, not having had dialysis today. Patient has a fistula, which is clogged but she also has right internal jugular double-lumen catheter, which apparently is working per Dr. Vazquez whom I just spoke to. She will be getting dialyzed now along with 2 units of packed cells during the dialysis session. Patient's functional status is very poor and she is wheelchair bound. Fourteen days of rehabilitation has not really helped her. She has anasarca likely due to hypoproteinemia and poor nutrition along with multiple medical issues. Patient will be downgraded from ICU once her hemoglobin is stable and she is more alert and oriented. Currently, she appears to have acute encephalopathy due to multiple issues that are affecting her at present. I have discussed code status with her daughter, Ms. Zambrano, who wants her to be FULL CODE. Patient's prognosis is guarded and we will involve palliative care consultation for goals of care and assistance with advance directives. Please note I have seen and examined patient on 04/19/2017. A total of 35 minutes was spent on critical care for initial stabilization of patient in ICU. SU
[2017-04-20 05:10] LABS: Hemoglobin 8.4 g/dL (12.0-16.0)
[2017-04-20 05:23] LABS: Anion Gap 12 mmol/L (10-20); BUN (Urea Nitrogen) 39 mg/dL (9.8-20.1); Calc. Creatinine Clearance 16 mL/min (70-130); Calcium 9.3 mg/dL (7.8-10.44); Carbon Dioxide 29 mmol/L (23-31); Chloride 103 mmol/L (98-107); Estimated GFR-MDRD 16; Glucose 91 mg/dL (83-110); Iron 43 ug/dL (50-170); Iron Binding Capacity, Total 209 mcg/dL (265-497); Potassium 3.2 mmol/L (3.5-5.1); Sodium 141 mmol/L (136-145)
[2017-04-20 05:52] LABS: Folate (Folic Acid) 9.7 ng/mL (7.0-31.4)
[2017-04-20] MEDS: Docusate 100 MG CAP PO SCH ×3 (08:05→21:19)
[2017-04-20] MEDS: Polyethylene Glycol 3350 17 GM Packet PO SCH ×2 (08:05→10:02)
[2017-04-20] MEDS: Sevelamer Carbonate 800 MG TAB PO SCH ×3 (08:05→17:02)
[2017-04-20] MEDS: Carvedilol 3.125 MG TAB PO SCH ×3 (08:05→17:06)
[2017-04-20] MEDS ORDERED: FLU VACC TS2017-18 (>65YR) 0.5 ML SYRINGE IM ONE (09:00)
[2017-04-20] MEDS ORDERED: Epoetin (ESRD) 10,000 UNITS/ML VIAL SC SCH (09:00)
--- NOTE | 2017-04-20 09:07 | PDOC.PN ---
- Subjective Encounter Start Date: 04/20/17 Encounter Start Time: 09:05 Subjective: alert, no complaints - Objective Resuscitation Status: Resuscitation Status FULL:Full Resuscitation MAR Reviewed: Yes Vital Signs & Weight: Vital Signs (12 hours) Temp Pulse Resp BP Pulse Ox 04/20/17 04:00 97.5 F L 04/20/17 00:00 97.8 F 102 H 16 98 04/19/17 22:16 98.4 F 111 H 20 131/72 100 Weight Admit Weight 166 lb 14.239 oz Weight 163 lb 12.855 oz Most Recent Monitor Data Heart Rate from ECG 106 NIBP 149/67 NIBP BP-Mean 100 Respiration from ECG 17 SpO2 99 I&O: 04/19/17 04/20/17 04/21/17 06:59 06:59 06:59 Intake Total 441.6 Output Total 0 Balance 441.6 Result Diagrams: 04/20/17 04:50 04/20/17 04:50 Additional Labs: Accuchecks 04/20/17 01:29 POC Glucose 100 Phys Exam - Physical Examination Neck: no JVD Respiratory: clear to auscultation bilateral Cardiovascular: RRR, no significant murmur Gastrointestinal: soft, non-tender, positive bowel sounds Musculoskeletal: edema present Dx/Plan (1) Severe anemia Code(s): D64.9 - ANEMIA, UNSPECIFIED Status: Acute Comment: no evidense for acute bleed (2) Cardiomyopathy Code(s): I42.9 - CARDIOMYOPATHY, UNSPECIFIED Status: Chronic Qualifiers: Cardiomyopathy type: unspecified Qualified Code(s): I42.9 - Cardiomyopathy , unspecified (3) Demand ischemia Code(s): I24.8 - OTHER FORMS OF ACUTE ISCHEMIC HEART DISEASE Status: Acute (4) Diabetes mellitus Code(s): E11.9 - TYPE 2 DIABETES MELLITUS WITHOUT COMPLICATIONS Status: Chronic Qualifiers: Diabetes mellitus type: type 2 Diabetes mellitus petroleum terminal plant operator insulin use: without petroleum terminal plant operator use Diabetes mellitus complication status: with kidney complications Diabetes mellitus complication detail: with chronic kidney disease Chronic kidney disease stage: on chronic dialysis Qualified Code(s) : E11.22 - Type 2 diabetes mellitus with diabetic chronic kidney disease; N18.6 - End stage renal disease; N18.6 - End stage renal disease; N18.6 - End stage renal disease; N18.6 - End stage renal disease; Z99.2 - Dependence on renal dialysis; Z99.2 - Dependence on renal dialysis; Z99.2 - Dependence on renal dialysis; Z99.2 - Dependence on renal dialysis Comment: Well controlled, Continue with SSI. (5) Dyslipidemia Code(s): E78.5 - HYPERLIPIDEMIA, UNSPECIFIED Status: Chronic (6) ESRD (end stage renal disease) on dialysis Code(s): N18.6 - END STAGE RENAL DISEASE; Z99.2 - DEPENDENCE ON RENAL DIALYSIS Status: Chronic (7) HTN (hypertension) Code(s): I10 - ESSENTIAL (PRIMARY) HYPERTENSION Status: Chronic Qualifiers: Hypertension type: essential hypertension Qualified Code(s): I10 - Essential (primary) hypertension Comment: Stbale at goal. - Plan stable post transfusion -: move to floor -: HD per renal -: cont coreg -: accu/ss/etc * .
[2017-04-20] MEDS: Heparin 5,000 UNITS/ML VIAL SC SCH ×2 (10:01→21:19)
--- NOTE | 2017-04-20 10:11 | PRG ---
DATE OF SERVICE: 04/20/2017 SUBJECTIVE: A 81-year-old female being seen for end-stage renal disease. The patient denies any zac sea, vomiting or chest pain. PHYSICAL EXAMINATION: GENERAL: Patient is awake, alert. VITAL SIGNS: Afebrile, pulse 72, breathing 16, blood pressure 137/64. HEAD/NECK: Normocephalic. Atraumatic. EYES: EOMI. No deformity. EARS: Clear. No ulcers. NOSE: Intact. No lesions. MOUTH: Clear. No discharge. THROAT: Clear. No exudate. LUNGS: Clear. No crackles. CARDIAC: S1, S2. No rub. ABDOMEN: Benign. BS+. GENITALIA/RECTUM: Nuno absent. BACK/EXTREMITIES: Edema 0+ Ulcer- NEUROLOGICAL: Alert and motor intact. SKIN: Rash- Bruise- LYMPHATICS: Edema- Ulcer- LABORATORY DATA: Show hemoglobin 8.4. ASSESSMENT AND PLAN: 1. Stage 6 chronic kidney disease, plan dialysis tomorrow. 2. Hypertension, stable. 3. Anemia, stable. 4. Medications based on glomerular filtration rate are appropriate.
[2017-04-20 10:34] LABS: Hemoglobin 8.6 g/dL (12.0-16.0)
--- NOTE | 2017-04-20 18:25 | PRG ---
DATE OF SERVICE: 04/20/2017 GASTROINTESTINAL INPATIENT DAILY PROGRESS NOTE SUBJECTIVE: Ms. Rush says she is feeling "better." She denies any abdominal pain. There has been no evidence of any overt bleeding today. Hemoglobin came up nicely with transfusion currently at 8. 6. She did receive dialysis. OBJECTIVE: VITAL SIGNS: Temperature 99.4, pulse 100, blood pressure 112/64, and 96% oxygen saturation on room a ir. GENERAL: Frail, no acute distress. HEART: Regular rate and rhythm. LUNGS: Clear to auscultation bilaterally. ABDOMEN: Soft and nontender to palpation. EXTREMITIES: No peripheral edema. LABORATORY STUDIES: Hemoglobin 8.6, WBC 9.6, platelets 301. Sodium 141, potassium 3.2, BUN 39, crea tinine 3.40. Ferritin 1476.74. Iron 43, TIBC 209. Vitamin B12 of 1371. Folate 9.7. ASSESSMENT AND PLAN: Chronic anemia. There has been no evidence of gastrointestinal bleeding. Note , fecal occult blood test is negative. Hemoglobin came up nicely with transfusion with no overt evid ence of bleeding and with panendoscopy just one month ago with no significant bleeding source found, we will not plan on any endoscopic investigations. She does have known arteriovenous malformations i n the small bowel and this may be a contributor to the chronic anemia. GI will sign off, but please call back with questions or concerns.
[2017-04-20] MEDS: Atorvastatin Calcium 20 MG TAB PO SCH (21:19)
[2017-04-21] MEDS ORDERED: Heparin 10,000 UNITS/ 10 ML VIAL ONE ×2 (09:00→12:13)
--- NOTE | 2017-04-21 11:01 | PRG ---
DATE OF SERVICE: 04/21/2017 SUBJECTIVE: This is a 81-year-old female being seen for end-stage renal disease. The patient tolera ting dialysis well. Denies any nausea, vomiting or chest pain. PHYSICAL EXAMINATION: GENERAL: Patient is awake, alert. VITAL SIGNS: Afebrile, pulse 89, breathing 16, blood pressure 151/74. OBJECTIVE: See above. Awake, alert, in no acute distress. GENERAL APPEARANCE AND MENTAL STATUS: Fair. HEAD/NECK: Normocephalic. Atraumatic. EYES: EOMI. No deformity. EARS: Clear. No ulcers. NOSE: Intact. No lesions. MOUTH: Clear. No discharge. THROAT: Clear. No exudate. LUNGS: Clear. No crackles. CARDIAC: S1, S2. No rub. ABDOMEN: Benign. BS+. GENITALIA/RECTUM: Nuno absent. BACK/EXTREMITIES: Edema 0+ Ulcer- NEUROLOGICAL: Alert and motor intact. SKIN: Rash- Bruise- LYMPHATICS: Edema- Ulcer- LABORATORY DATA: Hemoglobin 8.6. ASSESSMENT AND RECOMMENDATIONS: 1. Stage 6 chronic kidney disease, continue hemodialysis. 3. Hypertension, stable. 4. Anemia, stable. 5. Medication based on glomerular filtration rate are appropriate.
[2017-04-21] MEDS: Carvedilol 3.125 MG TAB PO SCH ×2 (13:44→17:14)
[2017-04-21] MEDS: traMADol HCl 50 MG TAB PO PRN (13:45)
[2017-04-21] MEDS: Heparin 5,000 UNITS/ML VIAL SC SCH ×2 (13:46→21:11)
[2017-04-21] MEDS: Docusate 100 MG CAP PO SCH ×2 (13:46→21:10)
[2017-04-21] MEDS: Sevelamer Carbonate 800 MG TAB PO SCH ×2 (13:46→17:14)
[2017-04-21] MEDS: Polyethylene Glycol 3350 17 GM Packet PO SCH (13:46)
--- NOTE | 2017-04-21 14:55 | PDOC.PN ---
- Subjective Encounter Start Date: 04/21/17 Encounter Start Time: 14:53 Subjective: no complaints - Objective Resuscitation Status: Resuscitation Status FULL:Full Resuscitation MAR Reviewed: Yes Vital Signs & Weight: Vital Signs (12 hours) Temp Pulse Resp BP Pulse Ox 04/21/17 13:00 97.1 F L 92 18 149/54 H 97 04/21/17 08:00 98.4 F 111 H 18 96 04/21/17 07:42 98.4 F 111 H 18 94 L 04/21/17 04:00 97.8 F 108 H 16 141/75 H 96 Weight Admit Weight 166 lb 14.239 oz Weight 164 lb 14.492 oz Most Recent Monitor Data Heart Rate from ECG 103 NIBP 146/62 NIBP BP-Mean 95 Respiration from ECG 17 SpO2 96 I&O: 04/20/17 04/21/17 04/22/17 06:59 06:59 06:59 Intake Total 441.6 268.9 Output Total 0 250 Balance 441.6 18.9 Result Diagrams: 04/20/17 10:12 04/20/17 04:50 Additional Labs: Accuchecks 04/21/17 04/20/17 04/20/17 04:30 19:41 16:16 POC Glucose 95 108 104 Phys Exam - Physical Examination Constitutional: NAD Neck: no JVD Respiratory: clear to auscultation bilateral Cardiovascular: RRR Gastrointestinal: soft, positive bowel sounds Musculoskeletal: edema present Dx/Plan (1) Severe anemia Code(s): D64.9 - ANEMIA, UNSPECIFIED Status: Acute Comment: no evidense for acute bleed (2) Cardiomyopathy Code(s): I42.9 - CARDIOMYOPATHY, UNSPECIFIED Status: Chronic Qualifiers: Cardiomyopathy type: unspecified Qualified Code(s): I42.9 - Cardiomyopathy , unspecified (3) Demand ischemia Code(s): I24.8 - OTHER FORMS OF ACUTE ISCHEMIC HEART DISEASE Status: Acute (4) Diabetes mellitus Code(s): E11.9 - TYPE 2 DIABETES MELLITUS WITHOUT COMPLICATIONS Status: Chronic Qualifiers: Diabetes mellitus type: type 2 Diabetes mellitus terminal operations supervisor insulin use: without terminal operations supervisor use Diabetes mellitus complication status: with kidney complications Diabetes mellitus complication detail: with chronic kidney disease Chronic kidney disease stage: on chronic dialysis Qualified Code(s) : E11.22 - Type 2 diabetes mellitus with diabetic chronic kidney disease; N18.6 - End stage renal disease; N18.6 - End stage renal disease; N18.6 - End stage renal disease; N18.6 - End stage renal disease; Z99.2 - Dependence on renal dialysis; Z99.2 - Dependence on renal dialysis; Z99.2 - Dependence on renal dialysis; Z99.2 - Dependence on renal dialysis Comment: Well controlled, Continue with SSI. (5) Dyslipidemia Code(s): E78.5 - HYPERLIPIDEMIA, UNSPECIFIED Status: Chronic (6) ESRD (end stage renal disease) on dialysis Code(s): N18.6 - END STAGE RENAL DISEASE; Z99.2 - DEPENDENCE ON RENAL DIALYSIS Status: Chronic (7) HTN (hypertension) Code(s): I10 - ESSENTIAL (PRIMARY) HYPERTENSION Status: Chronic Qualifiers: Hypertension type: essential hypertension Qualified Code(s): I10 - Essential (primary) hypertension Comment: Stbale at goal. - Plan stable, serial am cbc -: cont current coreg -: accu/ss/ bs in 100 range, cont to hold OHA -: cont HD per renal * .
--- NOTE | 2017-04-21 15:00 | PDOC.EVN ---
Event Note - Event Note Event Note: resistant enteroccus uti. have asked id to choose antibx
[2017-04-21] MEDS: Atorvastatin Calcium 20 MG TAB PO SCH (21:10)
[2017-04-22] MEDS: Sevelamer Carbonate 800 MG TAB PO SCH ×2 (08:06→17:55)
[2017-04-22] MEDS: Heparin 5,000 UNITS/ML VIAL SC SCH ×2 (08:06→20:52)
[2017-04-22] MEDS: Carvedilol 3.125 MG TAB PO SCH ×2 (08:07→17:55)
[2017-04-22] MEDS: Polyethylene Glycol 3350 17 GM Packet PO SCH (08:10)
[2017-04-22] MEDS: Docusate 100 MG CAP PO SCH ×2 (09:46→20:51)
[2017-04-22 10:37] LABS: Hemoglobin 8.1 g/dL (12.0-16.0)
--- NOTE | 2017-04-22 14:38 | EKG ---
Test Reason : Blood Pressure : / mmHG Vent. Rate : 111 BPM Atrial Rate : 111 BPM P-R Int : 166 ms QRS Dur : 092 ms QT Int : 346 ms P-R-T Axes : 000 -16 -14 degrees QTc Int : 470 ms Sinus tachycardia Left axis deviation Anterior infarct , age undetermined No STEMI Abnormal ECG Confirmed by JOSIE Maria, BART ([id number]), news videotape editor ROSENDO VILCHIS ([id number]) on 04/22/2017 2:37:37 PM Referred By: Confirmed By:BART GALINDO M.D.
--- NOTE | 2017-04-22 16:04 | PDOC.PN ---
- Subjective Encounter Start Date: 04/22/17 Encounter Start Time: 16:03 Subjective: Seen and examined somewhat confused today - Objective Resuscitation Status: Resuscitation Status FULL:Full Resuscitation Vital Signs & Weight: Vital Signs (12 hours) Temp Pulse Resp BP Pulse Ox 04/22/17 08:00 99.7 F H 109 H 18 107/68 93 L Weight Admit Weight 166 lb 14.239 oz Weight 164 lb 14.492 oz Most Recent Monitor Data Heart Rate from ECG 103 NIBP 146/62 NIBP BP-Mean 95 Respiration from ECG 17 SpO2 96 I&O: 04/21/17 04/22/17 04/23/17 06:59 06:59 06:59 Intake Total 268.9 360 Output Total 250 Balance 18.9 360 Result Diagrams: 04/22/17 10:32 04/20/17 04:50 Additional Labs: Accuchecks 04/22/17 04/22/17 04/22/17 11:49 04:55 00:34 POC Glucose 138 H 93 95 04/21/17 04/21/17 20:52 16:26 POC Glucose 80 118 H Phys Exam - Physical Examination Constitutional: NAD HEENT: PERRLA, moist MMs, sclera anicteric, TM's clear, oral pharynx no lesions Neck: no nodes, no JVD, supple, full ROM Respiratory: no wheezing, no rales, no rhonchi, clear to auscultation bilateral Cardiovascular: RRR, no significant murmur, no rub Gastrointestinal: soft, non-tender, no distention, positive bowel sounds Musculoskeletal: no edema, pulses present Dx/Plan (1) UTI (urinary tract infection) due to Enterococcus Code(s): N39.0 - URINARY TRACT INFECTION, SITE NOT SPECIFIED; B95.2 - ENTEROCOCCUS THE CAUSE OF DISEASES CLASSIFIED ELSEWHERE Status: Acute (2) Acute metabolic encephalopathy Code(s): G93.41 - METABOLIC ENCEPHALOPATHY Status: Acute Comment: resolved, CCM. BCx positive for pneumococcus, On oral Cipro 500mg Po BID, pt will be going to Rehab. (3) Acute on chronic systolic CHF (congestive heart failure) Code(s): I50.23 - ACUTE ON CHRONIC SYSTOLIC (CONGESTIVE) HEART FAILURE Status : Acute Comment: Improved with fluid removal by dialysis, EF now down to 30-35 %, needs O/P cardiology f/u to discuss possibility of ICD. On coreg, no MANUEL-I or ARB due to ESRD. (4) Diabetes mellitus Code(s): E11.9 - TYPE 2 DIABETES MELLITUS WITHOUT COMPLICATIONS Status: Chronic Qualifiers: Diabetes mellitus type: type 2 Diabetes mellitus ad terminal makeup operator insulin use: without ad terminal makeup operator use Diabetes mellitus complication status: with kidney complications Diabetes mellitus complication detail: with chronic kidney disease Chronic kidney disease stage: on chronic dialysis Qualified Code(s) : E11.22 - Type 2 diabetes mellitus with diabetic chronic kidney disease; N18.6 - End stage renal disease; N18.6 - End stage renal disease; N18.6 - End stage renal disease; N18.6 - End stage renal disease; Z99.2 - Dependence on renal dialysis; Z99.2 - Dependence on renal dialysis; Z99.2 - Dependence on renal dialysis; Z99.2 - Dependence on renal dialysis Comment: Well controlled, Continue with SSI. (5) Dyslipidemia Code(s): E78.5 - HYPERLIPIDEMIA, UNSPECIFIED Status: Chronic (6) ESRD (end stage renal disease) on dialysis Code(s): N18.6 - END STAGE RENAL DISEASE; Z99.2 - DEPENDENCE ON RENAL DIALYSIS Status: Chronic (7) HTN (hypertension) Code(s): I10 - ESSENTIAL (PRIMARY) HYPERTENSION Status: Chronic Qualifiers: Hypertension type: essential hypertension Qualified Code(s): I10 - Essential (primary) hypertension Comment: Stbale at goal. (8) Severe muscle deconditioning Code(s): R29.898 - OTH SYMPTOMS AND SIGNS INVOLVING THE MUSCULOSKELETAL SYSTEM Status: Chronic Comment: PT for mobilization, plan for inpt rehab, fall risk precautions - Plan plan discussed w/ family, continue antibiotics, PT/OT, social science research assistant, respiratory therapy Start meropenem for multidrug resistant Enteroccocus * .
[2017-04-22 18:31] VITALS: BMI 30.6
--- NOTE | 2017-04-22 18:46 | PRG ---
DATE OF SERVICE: 04/22/2017 SUBJECTIVE: A 81-year-old female being seen for end-stage renal disease. The patient denies any nausea, vomiting or chest pain. OBJECTIVE: GENERAL: Patient is awake, alert. VITAL SIGNS: Patient is febrile at 99.7, pulse 70, breathing 16, blood pressure 107/68. GENERAL APPEARANCE AND MENTAL STATUS: Fair. HEAD/NECK: Normocephalic. Atraumatic. EYES: EOMI. No deformity. EARS: Clear. No ulcers. NOSE: Intact. No lesions. MOUTH: Clear. No discharge. THROAT: Clear. No exudate. LUNGS: Clear. No crackles. CARDIAC: S1, S2. No rub. ABDOMEN: Benign. BS+. GENITALIA/RECTUM: Nuno absent. BACK/EXTREMITIES: Edema 0+ Ulcer- NEUROLOGICAL: Alert and motor intact. SKIN: Rash- Bruise- LYMPHATICS: Edema- Ulcer- LABORATORY: Showing hemoglobin is 8.1. ASSESSMENT AND RECOMMENDATIONS: 1. Chronic kidney disease. Stage 6 Continue hemodialysis. 2. Hypertension, stable. 3. Anemia, stable. MTDD
[2017-04-22] MEDS: Atorvastatin Calcium 20 MG TAB PO SCH (20:51)
[2017-04-22] MEDS: Meropenem 500 MG, Admixture Fee 1 EACH in Sterile Water 10 ML SLOW IVP SCH (20:52)
[2017-04-22] MEDS: traMADol HCl 50 MG TAB PO PRN (20:52)
[2017-04-22] MEDS ORDERED: Meropenem 500 MG in Sodium Chloride 0.9% 100 ML IVPB SCH (22:00)
[2017-04-23] MEDS: Meropenem 500 MG, Admixture Fee 1 EACH in Sterile Water 10 ML SLOW IVP SCH ×3 (05:26→20:12)
[2017-04-23] MEDS: Sevelamer Carbonate 800 MG TAB PO SCH ×2 (09:18→16:37)
[2017-04-23] MEDS: Docusate 100 MG CAP PO SCH ×2 (09:19→20:11)
[2017-04-23] MEDS: Carvedilol 3.125 MG TAB PO SCH ×2 (09:19→16:37)
[2017-04-23] MEDS: Heparin 5,000 UNITS/ML VIAL SC SCH ×2 (09:19→20:12)
[2017-04-23] MEDS: Polyethylene Glycol 3350 17 GM Packet PO SCH (09:19)
--- NOTE | 2017-04-23 09:20 | PDOC.PN ---
- Subjective Encounter Start Date: 04/23/17 Encounter Start Time: :19 Subjective: Seen and examined no new complaints - Objective Resuscitation Status: Resuscitation Status FULL:Full Resuscitation Vital Signs & Weight: Weight Admit Weight 166 lb 14.239 oz Weight 166 lb 7.184 oz Most Recent Monitor Data Heart Rate from ECG 103 NIBP 146/62 NIBP BP-Mean 95 Respiration from ECG 17 SpO2 96 I&O: 04/22/17 04/23/17 04/24/17 06:59 06:59 06:59 Intake Total 360 Balance 360 Result Diagrams: 04/22/17 10:32 04/20/17 04:50 Additional Labs: Accuchecks 04/23/17 04/22/17 04/22/17 05:14 20:44 16:33 POC Glucose 101 95 118 H 04/22/17 11:49 POC Glucose 138 H Phys Exam - Physical Examination Constitutional: NAD HEENT: PERRLA, moist MMs, sclera anicteric, TM's clear Neck: no nodes, no JVD, supple, full ROM Respiratory: no wheezing, no rales, no rhonchi, clear to auscultation bilateral Cardiovascular: RRR, no significant murmur, no rub Gastrointestinal: soft, non-tender, no distention, positive bowel sounds Musculoskeletal: no edema, pulses present Dx/Plan (1) UTI (urinary tract infection) due to Enterococcus Code(s): N39.0 - URINARY TRACT INFECTION, SITE NOT SPECIFIED; B95.2 - ENTEROCOCCUS THE CAUSE OF DISEASES CLASSIFIED ELSEWHERE Status: Acute (2) Acute metabolic encephalopathy Code(s): G93.41 - METABOLIC ENCEPHALOPATHY Status: Acute Comment: resolved, CCM. BCx positive for pneumococcus, On oral Cipro 500mg Po BID, pt will be going to Rehab. (3) Acute on chronic systolic CHF (congestive heart failure) Code(s): I50.23 - ACUTE ON CHRONIC SYSTOLIC (CONGESTIVE) HEART FAILURE Status : Acute Comment: Improved with fluid removal by dialysis, EF now down to 30-35 %, needs O/P cardiology f/u to discuss possibility of ICD. On coreg, no MANUEL-I or ARB due to ESRD. (4) Diabetes mellitus Code(s): E11.9 - TYPE 2 DIABETES MELLITUS WITHOUT COMPLICATIONS Status: Chronic Qualifiers: Diabetes mellitus type: type 2 Diabetes mellitus care home insulin use: without care home use Diabetes mellitus complication status: with kidney complications Diabetes mellitus complication detail: with chronic kidney disease Chronic kidney disease stage: on chronic dialysis Qualified Code(s) : E11.22 - Type 2 diabetes mellitus with diabetic chronic kidney disease; N18.6 - End stage renal disease; N18.6 - End stage renal disease; N18.6 - End stage renal disease; N18.6 - End stage renal disease; Z99.2 - Dependence on renal dialysis; Z99.2 - Dependence on renal dialysis; Z99.2 - Dependence on renal dialysis; Z99.2 - Dependence on renal dialysis Comment: Well controlled, Continue with SSI. (5) Dyslipidemia Code(s): E78.5 - HYPERLIPIDEMIA, UNSPECIFIED Status: Chronic (6) ESRD (end stage renal disease) on dialysis Code(s): N18.6 - END STAGE RENAL DISEASE; Z99.2 - DEPENDENCE ON RENAL DIALYSIS Status: Chronic (7) HTN (hypertension) Code(s): I10 - ESSENTIAL (PRIMARY) HYPERTENSION Status: Chronic Qualifiers: Hypertension type: essential hypertension Qualified Code(s): I10 - Essential (primary) hypertension Comment: Stbale at goal. (8) Severe muscle deconditioning Code(s): R29.898 - OTH SYMPTOMS AND SIGNS INVOLVING THE MUSCULOSKELETAL SYSTEM Status: Chronic Comment: PT for mobilization, plan for inpt rehab, fall risk precautions - Plan cont current plan of care, plan discussed w/ family, continue antibiotics, social media developer check hemoglobin -: Dialysis per Renal -: Dispo planning--?back to Rehab * .
--- NOTE | 2017-04-23 12:49 | PRG ---
DATE OF SERVICE: 04/23/2017 SUBJECTIVE: A 81-year-old female being seen for end-stage renal disease. The patient denies any zac sea, vomiting or chest pain. PHYSICAL EXAMINATION: GENERAL: Patient is awake, alert. VITAL SIGNS: Afebrile, pulse 100, breathing 16, blood pressure 131/77. HEAD/NECK: Normocephalic. Atraumatic. EYES: EOMI. No deformity. EARS: Clear. No ulcers. NOSE: Intact. No lesions. MOUTH: Clear. No discharge. THROAT: Clear. No exudate. LUNGS: Clear. No crackles. CARDIAC: S1, S2. No rub. ABDOMEN: Benign. BS+. GENITALIA/RECTUM: Nuno absent. BACK/EXTREMITIES: Edema 0+ Ulcer- NEUROLOGICAL: Alert and motor intact. SKIN: Rash- Bruise- LYMPHATICS: Edema- Ulcer- LABORATORY DATA: Show hemoglobin 8.1. ASSESSMENT AND RECOMMENDATIONS: 1. Stage 6 chronic kidney disease, continue hemodialysis Monday, Monday, and Monday. 2. Hypertension, stable. 3. Anemia, stable. Continue Epogen. 4. Medications based on glomerular filtration rate are appropriate.
[2017-04-23] MEDS: Atorvastatin Calcium 20 MG TAB PO SCH (20:11)
[2017-04-23] MEDS: traMADol HCl 50 MG TAB PO PRN (20:12)
[2017-04-24] MEDS: Meropenem 500 MG, Admixture Fee 1 EACH in Sterile Water 10 ML SLOW IVP SCH ×2 (05:45→15:27)
[2017-04-24] MEDS: Carvedilol 3.125 MG TAB PO SCH (09:52)
[2017-04-24] MEDS: Polyethylene Glycol 3350 17 GM Packet PO SCH (09:53)
[2017-04-24] MEDS: Heparin 5,000 UNITS/ML VIAL SC SCH (09:53)
[2017-04-24] MEDS: Docusate 100 MG CAP PO SCH (09:53)
[2017-04-24] MEDS: Sevelamer Carbonate 800 MG TAB PO SCH (09:53)
[2017-04-24] MEDS ORDERED: Heparin 1,000 UNITS/ML VIAL ONE (11:11)
--- NOTE | 2017-04-24 12:04 | PRG ---
Patient Name: EHSAN LAWRENCE Date of service: 04/24/2017 Subjective: Patient was seen and examined at bedside and overnight events noted. Patient denies any shortness of breath or chest pain or palpitation. No history of nausea or vomiting or diarrhea or fever or chills or cramps. Objective: General: This is a well-built female in no apparent distress. Vital signs: Temperature 98.1, pulse 100, respiratory 18, blood pressure 158/66. HEENT: Atraumatic, normocephalic. Oral mucosa is moist. Neck: Supple/ Cardiovascular: S1 S2 heard. Rate and rhythm regular. Respiratory: Clear to auscultation. Gastrointestinal: Abdomen is soft. Musculoskeletal: No tenderness. No edema. Dermatologic: No skin rash. Neurologic: Alert and awake and oriented X3. No focal neurologic deficits. Moving all the extremit ies. Psychiatric: Mood and affect normal. LABORATORY DATA: No labs done today. ASSESSMENT AND PLAN: 1. End-stage renal disease on hemodialysis. Continue dialysis Monday, Monday and Monday. 2. Anemia, status post transfusion. Continue Epogen with dialysis. 3. Hypertension, stable. The plan is to continue dialysis as tolerated.
--- NOTE | 2017-04-24 13:35 | PDOC.PN ---
- Subjective Encounter Start Date: 04/24/17 Encounter Start Time: 13:33 DOCUMENT CREATED IN ERROR, PLEASE IGNORE - Objective Resuscitation Status: Resuscitation Status FULL:Full Resuscitation Vital Signs & Weight: Vital Signs (12 hours) Temp Pulse Resp Pulse Ox 04/24/17 08:00 98.1 F 100 18 92 L Weight Admit Weight 166 lb 14.239 oz Weight 166 lb 7.184 oz Most Recent Monitor Data Heart Rate from ECG 103 NIBP 146/62 NIBP BP-Mean 95 Respiration from ECG 17 SpO2 96 I&O: 04/23/17 04/24/17 04/25/17 06:59 06:59 06:59 Intake Total 360 1140 Balance 360 1140 Result Diagrams: 04/22/17 10:32 04/20/17 04:50 Additional Labs: Accuchecks 04/24/17 04/24/17 04/23/17 11:30 05:44 20:00 POC Glucose 78 100 163 H 04/23/17 04/23/17 16:28 11:42 POC Glucose 128 H 145 H Dx/Plan - Plan * DOCUMENT CREATED IN ERROR, PLEASE IGNORE
[2017-04-24 16:19] VITALS: BP 107/70; TEMP 97.6
--- NOTE | 2017-04-25 10:42 | DIS ---
DATE OF ADMISSION: 04/19/2017 DATE OF DISCHARGE: 04/24/2017 ADMITTING DIAGNOSES: Severe anemia, gastrointestinal bleed, acute kidney injury, diabetes mellitus t ype 2, coronary artery disease, hyperlipidemia. DISCHARGE DIAGNOSES: Gastrointestinal bleed, resolved; acute kidney injury, stable; urinary tract in fection; diabetes mellitus type 2; coronary artery disease; hyperlipidemia, stable. HOSPITAL COURSE: This was a 81-year-old female who admitted to the Internal Medicine team followed lukas carcamo by GI as well Pulmonary, Critical Care, and Nephrology. The patient was admitted to the ICU a nd then transferred to telemetry on the medical floor. The patient was transfused blood. Her hemogl obin was found to be 5.7 upon time of admission. The patient was also found to have a UTI, E. coli s pecies. The patient was set up with antibiotics at point in time of discharge for this. At the poin t in time of discharge, the patient's hemoglobin is stable. Vital signs were stable. The patient de nied any nausea, vomiting, diarrhea, constipation, chest pain, fever, shortness of breath, and was ba ck to baseline. DISPOSITION: Home. MEDICATIONS: See APR. FOLLOWUP: Follow up with PCP within 3-5 days, Nephrology in 3-5 days as well. CONDITION: Stable. PROGNOSIS: Guarded. ACTIVITY: As tolerated. DIET: Low fat, low calorie, high fiber diet. Case and plan discussed with patient at length. She understands and agrees with this plan.
== END 2017-04-24 16:17 | DRG 811 ==
LOC: ERS 12:47 → 2SW 18:50 → CCU 23:19 → T4-B 04-20 10:48
PROVIDERS: ADMIT Emergency Medicine; ATTEND Emergency Medicine
PROC: 30233N1 Transfusion of Nonautologous Red Blood Cells into Peripheral Vein, Percutaneous Approach (ICD-10-PCS; principal; 2017-04-19)
PROC: 5A1D70Z Performance of Urinary Filtration, Intermittent, Less than 6 Hours Per Day (ICD-10-PCS; 2017-04-19)
DX: D64.9 Anemia, unspecified (principal); G93.41 Metabolic encephalopathy; I13.2 Hypertensive heart and chronic kidney disease with heart failure and with stage 5 chronic kidney disease, or end stage renal disease; L89.152 Pressure ulcer of sacral region, stage 2; E44.0 Moderate protein-calorie malnutrition; E11.22 Type 2 diabetes mellitus with diabetic chronic kidney disease; I42.9 Cardiomyopathy, unspecified; I24.8 Other forms of acute ischemic heart disease; N18.6 End stage renal disease; I50.23 Acute on chronic systolic (congestive) heart failure; N39.0 Urinary tract infection, site not specified; Q27.33 Arteriovenous malformation of digestive system vessel; B95.2 Enterococcus as the cause of diseases classified elsewhere; Z99.2 Dependence on renal dialysis; Z86.73 Personal history of transient ischemic attack (TIA), and cerebral infarction without residual deficits; F03.90 Unspecified dementia, unspecified severity, without behavioral disturbance, psychotic disturbance, mood disturbance, and anxiety; Z95.1 Presence of aortocoronary bypass graft; Z85.3 Personal history of malignant neoplasm of breast; R62.7 Adult failure to thrive; L89.622 Pressure ulcer of left heel, stage 2; L89.612 Pressure ulcer of right heel, stage 2
CPT/HCPCS: 36415; 36416; 36430; 36556; 51701; 71045; 74018; 80048; 80053; 81003; 81015; 82140; 82274; 82553; 82607; 82728; 82746; 83540; 83550; 83605; 83690; 83880; 84484; 85014; 85018; 85025; 85610; 85730; 86850; 86900; 86901; 86922; 87077; 87086; 87186; 90471; 90682; 90935; 93005; 96365; 96366; 96376; A4216; A4353; C9113; G0008; G0257; G8978-GP-CN; G8979-GP-CK; J1644; J2185; J7050; P9016; Q2036; Q4081

== ENCOUNTER 2017-05-20 18:58 | Inpatient (IN) | payer MEDICARE, MEDICAID ==
--- NOTE | 2017-05-20 19:39 | RAD ---
SINGLE VIEW OF THE CHEST: 05/20/17 COMPARISON: 04/19/17 HISTORY: Altered mental status. FINDINGS: Single view of the chest shows an enlarged but stable cardiomediastinal silhouette. The patient is st atus post sternotomy. The dialysis catheter is unchanged in position. There is no evidence of consoli dation, mass, or pleural effusion. IMPRESSION: Cardiomegaly without evidence of acute cardiopulmonary disease. POS: [facility]
[2017-05-20 20:02] LABS: #Eosinphils 0.4 thou/uL (0.0-0.7); #Lymphocytes 1.1 thou/uL (1.20-3.40); #Monocytes 0.8 thou/uL (0.11-0.59); #Neutrophils 5.4 thou/uL (1.40-6.50); %Basophils 0.4 % (0.0-1.0); %Eosinophils 5.5 % (0.0-10.0); %Lymphocytes 13.9 % (21.0-51.0); %Monocytes 10.4 % (0.0-10.0); %Neutrophils 69.9 % (42.0-75.0); Hemoglobin 10.7 g/dL (12.0-16.0); Mean Corpuscular HGB CONC 32.9 g/dL (32.0-36.0); Mean Corpuscular Hemoglobin 34.2 pg (27.0-31.0); Mean Platelet Volume 6.6 fL (7.4-10.4); Platelet Count 252 thou/uL (130-400); RBC Distribution Width 18.1 % (11.5-14.5); Red Blood Cell (RBC) Count 3.13 mill/uL (4.20-5.40); White Blood Cell (WBC) Count 7.8 thou/uL (4.8-10.8)
[2017-05-20 20:23] LABS: ALT (SGPT) 8 U/L (8-55); AST (SGOT) 15 U/L (5-34); Albumin 3.6 g/dL (3.4-4.8); Alkaline Phosphatase 84 U/L (40-150); Anion Gap 16 mmol/L (10-20); BUN (Urea Nitrogen) 34 mg/dL (9.8-20.1); Bilirubin, Total 0.5 mg/dL (0.2-1.2); Calc. Creatinine Clearance 0 mL/min (70-130); Calcium 9.9 mg/dL (7.8-10.44); Carbon Dioxide 27 mmol/L (23-31); Chloride 97 mmol/L (98-107); Estimated GFR-MDRD 11; Globulin 2.6 g/dL (2.4-3.5); Glucose 80 mg/dL (83-110); Lipase 10 U/L (8-78); Magnesium 1.9 mg/dL (1.6-2.6); Potassium 3.9 mmol/L (3.5-5.1); Protein, Total 6.2 g/dL (6.0-8.3); Sodium 136 mmol/L (136-145)
[2017-05-20 20:27] LABS: CKMB 1.6 ng/mL (0-6.6); Troponin I 0.051 ng/mL (< 0.028)
--- NOTE | 2017-05-20 20:31 | CT ---
CT OF THE BRAIN WITHOUT CONTRAST: 05/20/17 COMPARISON: 09/12/16 HISTORY: Mental status changes and altered mental status. TECHNIQUE: Multiple contiguous axial images are obtained in a CT of the brain without contrast. FINDINGS: There are scattered hypodensities in the subcortical and periventricular white matter, likely seconda ry to small vessel ischemic disease. No large confluent infarction seen. There is no evidence of hydr ocephalus, intracranial hemorrhage, or extra-axial fluid collection. The calvarium and overlying soft tissues are unremarkable. The visualized paranasal sinuses and masto id air cells are well aerated. IMPRESSION: No evidence of acute intracranial abnormality. POS: [facility]
[2017-05-20 20:50] LABS: Bilirubin Negative (Negative); Blood, Urine Moderate (Negative); Clarity TURBID (Clear); Glucose, Urine (Dipstick) Negative (Negative); Leukocyte Large (Negative); Nitrite Negative (Negative); Protein, Urine (Dipstick) 100 mg/dL (Neg-Trace); Specific Gravity, Urine 1.012 (1.002-1.036); Urobilinogen 0.2 mg/dL (0.2-1.0)
[2017-05-20 20:51] LABS: Bacteria/HPF 2+ HPF (None Seen); Squamous Epithelial 21-50 HPF (0-3)
[2017-05-20 20:56] LABS: Pathc Cast-AUWi Flag 8.28 (0-2.49); Yeast-AUWi Flag 35.4 (0-25.0)
[2017-05-20 20:57] LABS: Hyaline Casts/LPF 0-3 HYALINE CAST LPF (0-3 Hyaline); Yeast-All Forms None Seen HPF (None Seen)
[2017-05-21] MEDS ORDERED: Senokot 8.6 MG TAB PO PRN (00:06)
[2017-05-21] MEDS ORDERED: Dextrose 50% Abboject 50 ML SYRINGE SLOW IVP PRN (00:06)
[2017-05-21] MEDS ORDERED: HumaLOG 300 UNITS/3 ML VIAL SC PRN ×2 (00:06)
[2017-05-21] MEDS ORDERED: Zolpidem Tartrate 5 MG TAB PO PRN (00:06)
[2017-05-21] MEDS ORDERED: Mag-Al 1200 mg/1200 mg/30 ML UDCUP PO PRN (00:06)
[2017-05-21] MEDS ORDERED: HYDROcodone/Acetaminophen 5/325 mg Tablet PO PRN (00:06)
[2017-05-21] MEDS ORDERED: Ondansetron HCl/PF 4 MG/2 ML Vial IVP PRN (00:06)
[2017-05-21] MEDS ORDERED: Ondansetron ODT 4 MG TAB PO PRN (00:06)
[2017-05-21] MEDS ORDERED: Milk Of Magnesia 30 ML UDCUP PO PRN (00:06)
[2017-05-21] MEDS ORDERED: Loperamide HCl 2 MG CAP PO PRN (00:06)
[2017-05-21] MEDS ORDERED: Acetaminophen 325 MG TAB PO PRN (00:06)
[2017-05-21] MEDS ORDERED: Dextrose 5% in Water 1,000 ML IV PRN (00:06)
--- NOTE | 2017-05-21 00:35 | HP ---
PRIMARY CARE PHYSICIAN: Randy Gamez M.D. REASON FOR ADMISSION: [facility]. HISTORY OF PRESENT ILLNESS: A 81-year-old -[place] female who has underlying history of end-stage renal disease on hemodialysis who was sent from [facility] for evaluation for sepsis. Unfortunately, this patient is not providing any good history. The patient is awake, only follows simple command. At penitentiary, she was having fever. Her blood sugar was 106. The patient was less responsive. The patient was started on tramadol 2 days ago. As per penitentiary, she was in her normal state this morning, but after that the patient becoming more confused, more lethargic and less responsive. She was tachycardic relatively hypoxic and febrile at penitentiary and that is why they were worried about sepsis and patient was sent to ER for evaluation. The patient is not able to provide any history because of her level of cognitive status. In the emergency room, the patient had CT brain which was negative for any acute process. Chest x-ray was normal. Routine blood tests showed findings suggestive of urinary tract infection. The patient is being admitted for altered mental status and UTI. REVIEW OF SYSTEMS: All review of systems tried to review with the patient, but unable to review at this point because of patient's level of cognitive status. ALLERGIES: PENICILLIN. CURRENT HOME MEDICATIONS: Aspirin 81 mg p.o. daily, Lipitor 20 mg p.o. at bedtime, Coreg 3.125 mg p.o. b.i.d., Cardizem 60 mg p.o. q.6 hourly, ferrous sulfate 325 mg p.o. daily, gabapentin 600 mg 3 times daily, Tradjenta 5 mg p.o. daily, Nephro-Cuba 1 tablet p.o. daily, fish oil 1 capsule daily, Protonix 40 mg p.o. daily, MiraLax 17 grams p.o. daily, Renvela 1600 mg twice daily. PAST MEDICAL HISTORY: ESRD on hemodialysis, hypertension, chronic systolic heart failure with EF 40%, diabetes type 2, chronic anemia of renal disease, history of breast cancer, coronary artery disease, dyslipidemia, and history of left arm fistula. PAST SURGICAL HISTORY: Coronary artery bypass grafting x4, right upper extremity dialysis access procedure left arm fistula, history of double lumen catheter in the right internal jugular vein, and right mastectomy. PAST PSYCHIATRIC HISTORY: Reviewed and negative. FAMILY HISTORY: Positive for hypertension and diabetes runs among several family members. SOCIAL HISTORY: The patient is currently from [facility]. No history of tobacco, alcohol or illicit drug abuse. The patient's daughter, Kenya is medical power of litigation attorney. EMERGENCY ROOM COURSE: The patient is given cefepime 2 gram, Levaquin 750 mg, vancomycin 1 gram. PHYSICAL EXAMINATION: VITAL SIGNS: Currently, blood pressure 183/98, pulse 106, respiratory rate 20, temperature 100.4, saturation 88% on room air, and weight 136 kilograms. GENERAL: The patient is chronically ill, hypertensive, febrile, tachycardic. HEENT: Head: Normocephalic, atraumatic. Eyes: Pupils round, reactive to light. Extraocular muscle intact. ENT: Oropharynx within normal limit. Moist mucous membranes, no oral lesion, no pharyngeal erythema, no exudate. NECK: Supple, no JVD, no thyromegaly, no carotid bruit. LUNGS: Few end expiratory wheezing heard. Air entry reduced basally, coarse breath sounds. CARDIAC: S1, S2 appears regular. No murmur, no gallop, no rub. ABDOMEN: Soft, bowel sounds present, nontender, nondistended. No organomegaly , no mass, no suprapubic tenderness. BACK: Unremarkable, no CVA tenderness. EXTREMITIES: Upper extremity: Passive movement of all joints are normal. Lower extremity: The patient does have bilateral more on the right side chronic wound, unstageable pressure ulcer. No edema. NEUROLOGIC: The patient follow simple commands. Grossly looking patient does not have any focal neurological deficit, but detailed neurological examination is not possible because of uncooperativeness from cognitive status. SKIN: No skin rash. SIGNIFICANT LABS: 1. EKG showing sinus tachycardia. 2. Chest x-ray based on my review, cardiomegaly, no acute cardiopulmonary process. 3. CT brain based on my review, no acute intracranial process. 4. CBC: WBC 7.8, hemoglobin 10.7, MCV 104, platelet 252. 5. BMP: Sodium 136, potassium 3.9, chloride 97, carbon dioxide 27, BUN 34, creatinine 4.74, glucose 80, calcium 9.9. Lactic acid 1.0. 6. Magnesium 1.9. 7. LFT: AST 15, ALT 8, alkaline phosphatase is 84, albumin 3.6, lipase 10. TSH 2.04. CK-MB 1.6, troponin I 0.056. BNP, elevated troponin is indeterminate range. ASSESSMENT AND PLAN/IMPRESSION: 1. Acute encephalopathy, likely related with infection. The patient does not have any focal neurological deficit. She has underlying urinary tract infection. Her chest x-ray is clear. Her metabolic parameters are unremarkable other than chronically elevated troponin and BNP. At this point, we are suspecting that patient's mental status changed from her baseline is because of urinary tract infection. Her CT brain is negative. 2. Urinary tract infection with sepsis. The patient had urine culture recently and based on that culture result we will start meropenem 500 mg IV daily and pharmacy adjusted vancomycin dose to cover Staphylococcus infection from possible wound infection. 3. End-stage renal disease on hemodialysis. We will consult Dr. Vazquez for maintenance hemodialysis while in hospital. 4. Anemia of renal disease. We will continue ferrous sulfate and Nephro-Cuba tablet while in the hospital. Procrit will be given with the dialysis. 5. Secondary hyperparathyroidism of renal origin. We will check phosphorus and PTH. If phosphorus is high, then we will consider adding PhosLo versus Renvela. 6. Elevated troponin, this is chronic. When we looked at old record, patient has chronically elevated troponin likely due to renal failure. 7. BNP elevated. This patient has systolic dysfunction, but BNP is also chronically elevated from end-stage renal disease. Currently, patient is euvolemic. 8. Diabetes type 2. Because of relatively low blood pressure, we will hold on Tradjenta, but only will continue insulin as per sliding scale protocol only. 9. Coronary artery disease. Continue aspirin, statin, Coreg as per home dosage. 10. Dyslipidemia. Continue Lipitor 20 mg p.o. at bedtime. 11. Diabetic neuropathy. Continue gabapentin 100 mg 3 times daily based on renal dose. 12. Gastroesophageal reflux disease. We will continue Protonix 40 mg p.o. daily. 13. Deep venous thrombosis prophylaxis, heparin 5000 units subcu twice daily. 14. Gastrointestinal prophylaxis. The patient is already on Protonix therapy. 15. Code status: The [facility]. The patient does not have any other family member to discuss at this point code status, but at [facility], she has FULL CODE status and patient's daughter, Kenya is surrogate decision maker. 16. Chronic decubitus ulcer: wound care team will evaluate. present on admission , unsteagable. Disposition plan based on clinical course. We are expecting patient's stay in hospital more than 2 midnights. Plan of care discussed with the patient in detail. ASHLEED
[2017-05-21] MEDS ORDERED: Vancomycin HCl 1 GM in Premix Bag 1 BAG IVPB SCH (00:45)
[2017-05-21] MEDS ORDERED: Vancomycin HCl 1.25 GM in Sodium Chloride 0.9% 250 ML 250 ML IVPB SCH (00:45)
[2017-05-21] MEDS ORDERED: HOLD VANCOMYCIN FOR LEVEL >20 FS SCH (00:45)
[2017-05-21] MEDS ORDERED: Vancomycin HCl 500 MG in Sodium Chloride 0.9% 100 ML IVPB SCH ×3 (00:45)
[2017-05-21 02:11] LABS: #Eosinphils 0.4 thou/uL (0.0-0.7); #Lymphocytes 0.6 thou/uL (1.20-3.40); #Monocytes 0.7 thou/uL (0.11-0.59); #Neutrophils 5.6 thou/uL (1.40-6.50); %Basophils 0.2 % (0.0-1.0); %Eosinophils 4.8 % (0.0-10.0); %Lymphocytes 8.5 % (21.0-51.0); %Monocytes 10.1 % (0.0-10.0); %Neutrophils 76.5 % (42.0-75.0); Hemoglobin 11.3 g/dL (12.0-16.0); Mean Corpuscular Hemoglobin 33.6 pg (27.0-31.0); Mean Platelet Volume 6.5 fL (7.4-10.4); Platelet Count 238 thou/uL (130-400); RBC Distribution Width 17.9 % (11.5-14.5); Red Blood Cell (RBC) Count 3.36 mill/uL (4.20-5.40); White Blood Cell (WBC) Count 7.4 thou/uL (4.8-10.8)
[2017-05-21 02:38] LABS: Troponin I 0.064 ng/mL (< 0.028)
[2017-05-21 02:53] LABS: Albumin 3.7 g/dL (3.4-4.8); Anion Gap 14 mmol/L (10-20); BUN (Urea Nitrogen) 36 mg/dL (9.8-20.1); BUN/Creatinine Ratio 7.07; Calc. Creatinine Clearance 11 mL/min (70-130); Carbon Dioxide 29 mmol/L (23-31); Chloride 97 mmol/L (98-107); Estimated GFR-MDRD 10; Glucose 98 mg/dL (83-110); Phosphorus 4.5 mg/dL (2.3-4.7); Sodium 136 mmol/L (136-145)
[2017-05-21] MEDS ORDERED: Ferrous Sulfate 325 MG TAB PO SCH (08:00)
[2017-05-21] MEDS ORDERED: Gabapentin 100 MG CAP PO SCH (09:00)
[2017-05-21] MEDS: Carvedilol 3.125 MG TAB PO SCH ×2 (09:04→17:51)
[2017-05-21] MEDS: Sevelamer Carbonate 800 MG TAB PO SCH ×3 (09:05→18:05)
[2017-05-21] MEDS: Heparin 5,000 UNITS/ML VIAL SC SCH ×4 (09:05→20:34)
[2017-05-21] MEDS: Folic Acid/Vit B Comp W-C PO SCH (09:05)
[2017-05-21] MEDS: Meropenem 500 MG in Sodium Chloride 0.9% 100 ML IVPB SCH (09:08)
--- NOTE | 2017-05-21 10:48 | PDOC.PN ---
- Subjective Encounter Start Date: 05/21/17 Encounter Start Time: 07:00 Pt seen for followup re: acute encephalopathy. Confused, not answering questions, unable to complete ROS. - Objective Resuscitation Status: Resuscitation Status FULL:Full Resuscitation MAR Reviewed: Yes Vital Signs & Weight: Vital Signs (12 hours) Temp Pulse Resp BP Pulse Ox 05/21/17 07:48 99.1 F 83 17 151/88 H 97 05/21/17 04:00 98.6 F 102 H 20 97 05/21/17 02:44 97 05/20/17 23:30 98.7 F 96 18 I&O: 05/20/17 05/21/17 05/22/17 06:59 06:59 06:59 Intake Total 600 Balance 600 Result Diagrams: 05/21/17 01:50 05/21/17 01:50 Additional Labs: Accuchecks 05/21/17 05/21/17 05:55 00:26 POC Glucose 81 80 EKG Reviewed by me: Yes (Tele: sinus tachycardia) Phys Exam - Physical Examination Constitutional: NAD HEENT: PERRLA, sclera anicteric, oral pharynx no lesions Dry mucosae Neck: no nodes, no JVD, supple, full ROM Respiratory: no wheezing, no rales, no rhonchi, clear to auscultation bilateral Cardiovascular: RRR, no rub Gastrointestinal: soft, non-tender, positive bowel sounds Neurological: moves all 4 limbs Psychiatric: normal affect Deviation from normal: Unable to assess orientation to person, place or time Dx/Plan (1) Acute encephalopathy Code(s): G93.40 - ENCEPHALOPATHY, UNSPECIFIED Status: Acute Comment: ? secondary to sepsis (2) Sepsis Code(s): A41.9 - SEPSIS, UNSPECIFIED ORGANISM Status: Acute Comment: Due to UTI (3) UTI (urinary tract infection) Status: Acute Comment: Urine cultures growing Gram negative organisms. Continue IV antibiotics as below, await final cultures. (4) Cardiomyopathy Code(s): I42.9 - CARDIOMYOPATHY, UNSPECIFIED Status: Chronic Qualifiers: Cardiomyopathy type: unspecified Qualified Code(s): I42.9 - Cardiomyopathy , unspecified Comment: stable, continue Coreg. (5) Diabetes mellitus Code(s): E11.9 - TYPE 2 DIABETES MELLITUS WITHOUT COMPLICATIONS Status: Chronic Qualifiers: Diabetes mellitus type: type 2 Diabetes mellitus chcf insulin use: without termite control servicer use Diabetes mellitus complication status: with kidney complications Diabetes mellitus complication detail: with chronic kidney disease Chronic kidney disease stage: on chronic dialysis Qualified Code(s) : E11.22 - Type 2 diabetes mellitus with diabetic chronic kidney disease; N18.6 - End stage renal disease; N18.6 - End stage renal disease; N18.6 - End stage renal disease; N18.6 - End stage renal disease; Z99.2 - Dependence on renal dialysis; Z99.2 - Dependence on renal dialysis; Z99.2 - Dependence on renal dialysis; Z99.2 - Dependence on renal dialysis Comment: continue insulin sliding scale and accuchecks (6) Dyslipidemia Code(s): E78.5 - HYPERLIPIDEMIA, UNSPECIFIED Status: Chronic (7) ESRD (end stage renal disease) on dialysis Code(s): N18.6 - END STAGE RENAL DISEASE; Z99.2 - DEPENDENCE ON RENAL DIALYSIS Status: Chronic Comment: Nephrology consulted for maintenance hemodialysis (8) HTN (hypertension) Code(s): I10 - ESSENTIAL (PRIMARY) HYPERTENSION Status: Chronic Qualifiers: Hypertension type: essential hypertension Qualified Code(s): I10 - Essential (primary) hypertension Comment: Monitor vital signs, titrate antihypertensives as needed. - Plan continue antibiotics, DVT proph w/heparin * . Review of Systems - Medications/Allergies Allergies/Adverse Reactions: Allergies Allergy/AdvReac Type Severity Reaction Status Date / Time Penicillins Allergy Intermediate Rash Verified 05/21/17 02:43 Medications: Current Medications Acetaminophen (Tylenol) 650 mg PO Q4H PRN PRN Reason: Headache/Fever or Pain Hydrocodone Bitart/Acetaminophen ([place] 5/325) 1 tab PO Q4H PRN PRN Reason: Moderate Pain (4-6) Al Hydroxide/Mg Hydroxide (Maalox) 30 ml PO Q6H PRN PRN Reason: Heartburn or Indigestion Aspirin (Aspirin Chewable) 81 mg PO DAILY [facility] Last Admin: 05/21/17 09:04 Dose: 81 mg Atorvastatin Calcium (Lipitor) 20 mg PO [facility] Carvedilol (Coreg) 3.125 mg PO BID-[facility] Last Admin: 05/21/17 09:04 Dose: 3.125 mg Dextrose/Water (Dextrose 50%) 25 gm SLOW IVP PRN PRN PRN Reason: Hypoglycemia Diltiazem HCl (Cardizem) 60 mg PO BID [facility] Last Admin: 05/21/17 09:04 Dose: 60 mg Ferrous Sulfate (Feosol) 325 mg PO QAM-WM [facility] Last Admin: 05/21/17 09:04 Dose: 325 mg Gabapentin (Neurontin) 100 mg PO TID [facility] Last Admin: 05/21/17 09:04 Dose: 100 mg Glucagon (Glucagon) 1 mg IM PRN PRN PRN Reason: Hypoglycemia Heparin Sodium (Porcine) (Heparin) 5,000 units SC BID [facility] Last Admin: 05/21/17 09:05 Dose: 5,000 units Dextrose/Water (D5w) 1,000 mls @ 0 mls/hr IV .Q0M PRN; As Directed PRN Reason: Hypoglycemia Meropenem 500 mg/ Sodium (Chloride) 100 mls @ 200 mls/hr IVPB DAILY [facility] Last Admin: 05/21/17 09:08 Dose: 100 mls Vancomycin HCl 1.25 gm/ Sodium (Chloride) 250 mls @ 166.667 mls/hr IVPB [facility] Vancomycin HCl 1 gm/ Device 200 mls @ 200 mls/hr IVPB [facility] Vancomycin HCl 750 mg/ Sodium (Chloride) 250 mls @ 250 mls/hr IVPB [facility] Vancomycin HCl 500 mg/ Sodium (Chloride) 100 mls @ 100 mls/hr IVPB [facility] Insulin Human Lispro (Humalog) 0 units SC .MILD SLIDING SCALE PRN PRN Reason: Mild Correctional Scale Insulin Human Lispro (Humalog) 0 units SC .BEDTIME SLIDING SC PRN PRN Reason: Bedtime Correctional Scale Loperamide HCl (Imodium) 2 mg PO PRN PRN PRN Reason: Diarrhea/Loose Stools Magnesium Hydroxide (Milk Of Magnesium) 30 ml PO DAILYPRN PRN PRN Reason: Constipation Miscellaneous Medication (Pharmacy To Dose) 1 each IVPB ONE PRN PRN Reason: Pharmacy to dose Stop: 05/31/17 00:07 Hold Vancomycin For (Level >20) 0 each FS .AT DIALYSIS [facility] Ondansetron HCl (Zofran Odt) 4 mg PO Q6H PRN PRN Reason: Nausea/Vomiting Ondansetron HCl (Zofran) 4 mg IVP Q6H PRN PRN Reason: Nausea/Vomiting Pantoprazole Sodium (Protonix) 40 mg PO DAILY [facility] Last Admin: 05/21/17 09:05 Dose: 40 mg Senna (Senokot) 2 tab PO HSPRN PRN PRN Reason: Constipation Sevelamer Carbonate (Renvela) 1,600 mg PO TID-[facility] Last Admin: 05/21/17 09:05 Dose: 1,600 mg Sodium Chloride (Flush - Normal Saline) 10 ml IVF PRN PRN PRN Reason: Saline Flush Vitamin B Complex/Vit C/Folic Acid (Nephro-Cuba Tablet) 1 tab PO DAILY [facility] Last Admin: 05/21/17 09:05 Dose: 1 tab Zolpidem Tartrate (Ambien) 5 mg PO HSPRN PRN PRN Reason: Insomnia
[2017-05-21] MEDS: Gabapentin 300 MG CAP PO SCH ×3 (14:53→20:35)
--- NOTE | 2017-05-21 15:03 | CON ---
DATE OF CONSULTATION: 05/21/2017 NEPHROLOGY CONSULTATION REASON FOR CONSULTATION: Stage 6 chronic kidney disease for maintenance hemodialysis. HISTORY OF PRESENT ILLNESS: This is a very pleasant 81-year-old female admitted for sepsis and alter ed mental status. The patient denies any nausea, vomiting or chest pain. The patient lives in a [facility] home. The patient can give no further history. The patient is nonverbal. PAST MEDICAL HISTORY: Significant for end-stage renal disease, hypertension, history of stroke, hist ory of congestive heart failure, history of breast cancer, history of coronary artery disease, hyperl ipidemia, left AV fistula, tunneled dialysis catheter, history of CABG. SOCIAL ECONOMIC HISTORY: No alcohol or drug use. ALLERGIES: Reviewed. FAMILY HISTORY: Negative for ESRD. REVIEW OF SYSTEMS: Unobtainable. The patient is nonverbal. PHYSICAL EXAMINATION: GENERAL: Patient is awake, alert. VITAL SIGNS: Temperature 100.4, pulse 106, breathing at 16, blood pressure 182/90. GENERAL APPEARANCE AND MENTAL STATUS: Fair. HEAD/NECK: Normocephalic, atraumatic. EYES: EOMI. No deformity. EARS: Clear. No ulcers. NOSE: Intact. No lesions. MOUTH: Clear. No discharge. THROAT: Clear. No exudate. LUNGS: Clear. No crackles. CARDIAC: S1, S2. No rub. ABDOMEN: Benign. BS+. GENITALIA/RECTUM: Nuno absent. BACK/EXTREMITIES: Edema 0+ Ulcer-. NEUROLOGICAL: Alert and motor intact. SKIN: Rash- Bruise- LYMPHATICS: Edema- Ulcer-. LABORATORY DATA: Show hemoglobin of 11.6. ASSESSMENT AND RECOMMENDATIONS: 1. Stage 6 chronic kidney disease. Continue hemodialysis Monday, Monday, Monday. 2. Hypertension, stable. 3. Anemia, stable. 4. Medication based on GFR are appropriate. 5. Sepsis management per primary team.
[2017-05-21] MEDS: Ferrous Sulfate 325 MG TAB PO SCH (17:51)
[2017-05-21] MEDS: Atorvastatin Calcium 20 MG TAB PO SCH (20:35)
[2017-05-21] MEDS ORDERED: Atorvastatin Calcium 20 MG TAB PO SCH (21:00)
[2017-05-21] MEDS ORDERED: Non-Formulary Item 1 EACH (Amino Acids/Protein Hydrolys [Pro-Stat Awc Liquid Packet] 30 M PO SCH ×2 (21:00)
[2017-05-21] MEDS ORDERED: Carvedilol 3.125 MG TAB PO SCH (21:00)
[2017-05-21] MEDS ORDERED: Sevelamer Carbonate 800 MG TAB PO SCH (21:00)
--- NOTE | 2017-05-21 22:13 | RAD ---
FOUR VIEWS OF THE RIGHT FOOT: Comparison: None. History: Osteomyelitis of the right foot. FINDINGS: Four views of the right foot shows moderate diffuse soft tissue swelling. Paramarginal erosions are s een involving the heads of the second through fifth metatarsals. There are moderate degenerative fang ges in the midfoot. IMPRESSION: Paramarginal erosions surrounding the second through fifth metatarsals are nonspecific. Osteomyelitis is a possibility. MRI of the foot is recommended for more definitive evaluation. POS: MASON
[2017-05-22 05:25] LABS: #Eosinphils 0.2 thou/uL (0.0-0.7); #Lymphocytes 1.1 thou/uL (1.20-3.40); #Monocytes 0.7 thou/uL (0.11-0.59); #Neutrophils 6.6 thou/uL (1.40-6.50); %Basophils 0.5 % (0.0-1.0); %Eosinophils 2.2 % (0.0-10.0); %Lymphocytes 12.5 % (21.0-51.0); %Monocytes 8.6 % (0.0-10.0); %Neutrophils 76.3 % (42.0-75.0); Hemoglobin 10.7 g/dL (12.0-16.0); Mean Corpuscular HGB CONC 32.5 g/dL (32.0-36.0); Mean Platelet Volume 7.4 fL (7.4-10.4); Platelet Count 223 thou/uL (130-400); RBC Distribution Width 17.5 % (11.5-14.5); Red Blood Cell (RBC) Count 3.16 mill/uL (4.20-5.40); White Blood Cell (WBC) Count 8.6 thou/uL (4.8-10.8)
[2017-05-22 05:44] LABS: Anion Gap 19 mmol/L (10-20); BUN (Urea Nitrogen) 46 mg/dL (9.8-20.1); Calc. Creatinine Clearance 9 mL/min (70-130); Calcium 9.5 mg/dL (7.8-10.44); Carbon Dioxide 23 mmol/L (23-31); Chloride 98 mmol/L (98-107); Estimated GFR-MDRD 8; Glucose 86 mg/dL (83-110); Potassium 4.4 mmol/L (3.5-5.1); Sodium 136 mmol/L (136-145)
[2017-05-22] MEDS ORDERED: Folic Acid/Vit B Comp W-C PO SCH (09:00)
[2017-05-22] MEDS: Carvedilol 3.125 MG TAB PO SCH ×2 (09:06→15:47)
[2017-05-22] MEDS: Heparin 5,000 UNITS/ML VIAL SC SCH ×4 (09:08→22:19)
[2017-05-22] MEDS: Ferrous Sulfate 325 MG TAB PO SCH ×2 (09:10→15:47)
[2017-05-22] MEDS: Fish Oil 1,000 MG CAP PO SCH (09:10)
[2017-05-22] MEDS: Folic Acid/Vit B Comp W-C PO SCH (09:10)
[2017-05-22] MEDS: Sevelamer Carbonate 800 MG TAB PO SCH ×2 (09:10→15:47)
[2017-05-22] MEDS: Alogliptin 25 MG TAB PO SCH (09:10)
[2017-05-22] MEDS: Multivitamin W/ Minerals 1 TAB PO SCH (09:11)
[2017-05-22] MEDS: Meropenem 500 MG in Sodium Chloride 0.9% 100 ML IVPB SCH (09:11)
[2017-05-22] MEDS: Gabapentin 300 MG CAP PO SCH ×3 (09:11→22:20)
[2017-05-22] MEDS: Polyethylene Glycol 3350 17 GM Packet PO SCH (09:11)
[2017-05-22] MEDS ORDERED: Heparin 10,000 UNITS/ 10 ML VIAL ONE (10:00)
--- NOTE | 2017-05-22 12:24 | PDOC.PN ---
- Subjective Encounter Start Date: 05/22/17 Encounter Start Time: 07:20 Pt seen for followup re: encephalopathy. Unable to provide history, unable to complete ROS. - Objective Resuscitation Status: Resuscitation Status FULL:Full Resuscitation MAR Reviewed: Yes Vital Signs & Weight: Vital Signs (12 hours) Temp Pulse Resp BP Pulse Ox 05/22/17 08:30 96.5 F L 118 H 22 H 05/22/17 08:20 96.5 F L 118 H 22 H 142/94 H 98 05/22/17 04:00 98.5 F 99 20 129/63 99 Weight Weight 169 lb 9 oz I&O: 05/21/17 05/22/17 05/23/17 06:59 06:59 06:59 Intake Total 600 360 Balance 600 360 Result Diagrams: 05/22/17 04:31 05/22/17 04:31 Additional Labs: Accuchecks 05/22/17 05/22/17 05/21/17 11:00 05:59 21:01 POC Glucose 100 87 108 05/21/17 05/21/17 16:41 11:51 POC Glucose 94 90 EKG Reviewed by me: Yes (Tele: sinus tachycardia) Phys Exam - Physical Examination Constitutional: NAD HEENT: PERRLA, moist MMs, sclera anicteric, oral pharynx no lesions Neck: no nodes, no JVD, supple, full ROM Respiratory: no wheezing, no rales, no rhonchi, clear to auscultation bilateral S1, S2, reg, tachy Gastrointestinal: soft, non-tender, no distention, positive bowel sounds Musculoskeletal: edema present Neurological: moves all 4 limbs Psychiatric: normal affect Dx/Plan (1) Acute encephalopathy Code(s): G93.40 - ENCEPHALOPATHY, UNSPECIFIED Status: Acute Comment: No significant change since yesterday (2) Sepsis Code(s): A41.9 - SEPSIS, UNSPECIFIED ORGANISM Status: Acute Comment: Due to UTI, bacteremia (3) UTI (urinary tract infection) Status: Acute Comment: Continue IV antibiotics as below. (4) Cardiomyopathy Code(s): I42.9 - CARDIOMYOPATHY, UNSPECIFIED Status: Chronic Qualifiers: Cardiomyopathy type: unspecified Qualified Code(s): I42.9 - Cardiomyopathy , unspecified Comment: stable (5) Diabetes mellitus Code(s): E11.9 - TYPE 2 DIABETES MELLITUS WITHOUT COMPLICATIONS Status: Chronic Qualifiers: Diabetes mellitus type: type 2 Diabetes mellitus chcf insulin use: without chcf use Diabetes mellitus complication status: with kidney complications Diabetes mellitus complication detail: with chronic kidney disease Chronic kidney disease stage: on chronic dialysis Qualified Code(s) : E11.22 - Type 2 diabetes mellitus with diabetic chronic kidney disease; N18.6 - End stage renal disease; N18.6 - End stage renal disease; N18.6 - End stage renal disease; N18.6 - End stage renal disease; Z99.2 - Dependence on renal dialysis; Z99.2 - Dependence on renal dialysis; Z99.2 - Dependence on renal dialysis; Z99.2 - Dependence on renal dialysis Comment: On insulin sliding scale and accuchecks (6) Dyslipidemia Code(s): E78.5 - HYPERLIPIDEMIA, UNSPECIFIED Status: Chronic (7) ESRD (end stage renal disease) on dialysis Code(s): N18.6 - END STAGE RENAL DISEASE; Z99.2 - DEPENDENCE ON RENAL DIALYSIS Status: Chronic Comment: maintenance hemodialysis per nephrology service (8) HTN (hypertension) Code(s): I10 - ESSENTIAL (PRIMARY) HYPERTENSION Status: Chronic Qualifiers: Hypertension type: essential hypertension Qualified Code(s): I10 - Essential (primary) hypertension Comment: titrate antihypertensives as needed. - Plan * . Review of Systems - Medications/Allergies Allergies/Adverse Reactions: Allergies Allergy/AdvReac Type Severity Reaction Status Date / Time Penicillins Allergy Intermediate Rash Verified 05/21/17 02:43 Medications: Current Medications Acetaminophen (Tylenol) 650 mg PO Q4H PRN PRN Reason: Headache/Fever or Pain Hydrocodone Bitart/Acetaminophen ([place] 5/325) 1 tab PO Q4H PRN PRN Reason: Moderate Pain (4-6) Al Hydroxide/Mg Hydroxide (Maalox) 30 ml PO Q6H PRN PRN Reason: Heartburn or Indigestion Alogliptin Benzoate (Alogliptin) 25 mg PO DAILY [facility] Last Admin: 05/22/17 09:10 Dose: Not Given Aspirin (Aspirin Chewable) 81 mg PO DAILY [facility] Last Admin: 05/22/17 09:10 Dose: Not Given Atorvastatin Calcium (Lipitor) 20 mg PO HS [facility] Last Admin: 05/21/17 20:35 Dose: Not Given Carvedilol (Coreg) 3.125 mg PO BID-[facility] Last Admin: 05/22/17 09:06 Dose: 3.125 mg Dextrose/Water (Dextrose 50%) 25 gm SLOW IVP PRN PRN PRN Reason: Hypoglycemia Diltiazem HCl (Cardizem) 60 mg PO BID [facility] Last Admin: 05/22/17 09:05 Dose: 60 mg Ferrous Sulfate (Feosol) 325 mg PO BID-[facility] Last Admin: 05/22/17 09:10 Dose: Not Given Fish Oil (Fish Oil) 1,000 mg PO DAILY [facility] Last Admin: 05/22/17 09:10 Dose: Not Given Gabapentin (Neurontin) 600 mg PO TID [facility] Last Admin: 05/22/17 09:11 Dose: Not Given Glucagon (Glucagon) 1 mg IM PRN PRN PRN Reason: Hypoglycemia Heparin Sodium (Porcine) (Heparin) 5,000 units SC BID [facility] Last Admin: 05/22/17 09:08 Dose: 5,000 units Dextrose/Water (D5w) 1,000 mls @ 0 mls/hr IV .Q0M PRN; As Directed PRN Reason: Hypoglycemia Meropenem 500 mg/ Sodium (Chloride) 100 mls @ 200 mls/hr IVPB DAILY [facility] Last Admin: 05/22/17 09:11 Dose: 100 mls Vancomycin HCl 1.25 gm/ Sodium (Chloride) 250 mls @ 166.667 mls/hr IVPB [facility] Vancomycin HCl 1 gm/ Device 200 mls @ 200 mls/[facility] Vancomycin HCl 750 mg/ Sodium (Chloride) 250 mls @ 250 mls/hr [facility] Vancomycin HCl 500 mg/ Sodium (Chloride) 100 mls @ 100 mls/hr IVPB [facility] Insulin Human Lispro (Humalog) 0 units SC .MILD SLIDING SCALE PRN PRN Reason: Mild Correctional Scale Insulin Human Lispro (Humalog) 0 units SC .BEDTIME SLIDING SC PRN PRN Reason: Bedtime Correctional Scale Iron/Minerals/Multivitamins (Theragran M) 1 tab PO DAILY [facility] Last Admin: 05/22/17 09:11 Dose: Not Given Loperamide HCl (Imodium) 2 mg PO PRN PRN PRN Reason: Diarrhea/Loose Stools Magnesium Hydroxide (Milk Of Magnesium) 30 ml PO DAILYPRN PRN PRN Reason: Constipation Miscellaneous Medication (Pharmacy To Dose) 1 each IVPB ONE PRN PRN Reason: Pharmacy to dose Stop: 05/31/17 00:07 Hold Vancomycin For (Level >20) 0 each FS .AT DIALYSIS [facility] Ondansetron HCl (Zofran Odt) 4 mg PO Q6H PRN PRN Reason: Nausea/Vomiting Ondansetron HCl (Zofran) 4 mg IVP Q6H PRN PRN Reason: Nausea/Vomiting Pantoprazole Sodium (Protonix) 40 mg PO DAILY [facility] Last Admin: 05/22/17 09:11 Dose: Not Given Polyethylene Glycol (Miralax) 17 gm PO DAILY [facility] Last Admin: 05/22/17 09:11 Dose: Not Given Senna (Senokot) 2 tab PO HSPRN PRN PRN Reason: Constipation Sevelamer Carbonate (Renvela) 1,600 mg PO BID-WM [facility] Last Admin: 05/22/17 09:10 Dose: Not Given Sodium Chloride (Flush - Normal Saline) 10 ml IVF PRN PRN PRN Reason: Saline Flush Vitamin B Complex/Vit C/Folic Acid (Nephro-Cuba Tablet) 1 tab PO DAILY [facility] Last Admin: 05/22/17 09:10 Dose: Not Given Zolpidem Tartrate (Ambien) 5 mg PO HSPRN PRN PRN Reason: Insomnia
--- NOTE | 2017-05-22 12:55 | PRG ---
DATE OF SERVICE: 05/22/2017 SUBJECTIVE: This is a pleasant -[place] female. Lethargic, No N/V or sob reported. No chest pain or chills. PHYSICAL EXAMINATION: GENERAL: This is an elderly female, very lethargic. VITAL SIGNS: Temperature 96.5, pulse 92, respiratory 20, blood pressure 142/94. Musculoskeletal : No tenderness, No edema HEENT: Atraumatic normocephalic Neck: Supple Cardiovascular: S1S2 heard, Rate and rhythm regular Respiratory: Clear to auscultation Gastrointestinal: Abdomen is soft Dermatologic : No skin rash Neurologic: Alert and awake and oriented X3 No focal neurologic deficits. Moving all the extremities. lethargic. Psychiatric: Mood and affect normal LABORATORY DATA: Hemoglobin 10.7, potassium is 4.4, BUN 46, creatinine 6.1. ASSESSMENT AND PLAN: 1. End-stage renal disease. We will continue on hemodialysis. 2. Anemia, recent history of GI bleed. Hemoglobin is stable. Monitor. No THADDEUS for now. 3. Hypertension. Remove fluid if tolerated. 4. Edema, controlled. 5. Lethargy. We will continue to monitor, probably adult failure to thrive. We will follow. [facility]
[2017-05-22 13:35] LABS: Troponin I 0.113 ng/mL (< 0.028)
[2017-05-22 13:47] LABS: Vancomycin, Random 10.5 ug/mL (See Comment)
[2017-05-22] MEDS ORDERED: hydrALAZINE 20 MG/ML VIAL SLOW IVP PRN (21:15)
[2017-05-22] MEDS: Atorvastatin Calcium 20 MG TAB PO SCH (22:20)
[2017-05-23 05:11] LABS: #Eosinphils 0.2 thou/uL (0.0-0.7); #Lymphocytes 0.9 thou/uL (1.20-3.40); #Monocytes 0.8 thou/uL (0.11-0.59); #Neutrophils 5.5 thou/uL (1.40-6.50); %Basophils 0.1 % (0.0-1.0); %Eosinophils 2.5 % (0.0-10.0); %Lymphocytes 11.9 % (21.0-51.0); %Monocytes 10.6 % (0.0-10.0); %Neutrophils 74.8 % (42.0-75.0); Hemoglobin 10.1 g/dL (12.0-16.0); Mean Corpuscular HGB CONC 33.3 g/dL (32.0-36.0); Mean Corpuscular Hemoglobin 33.6 pg (27.0-31.0); Mean Platelet Volume 6.9 fL (7.4-10.4); Platelet Count 207 thou/uL (130-400); RBC Distribution Width 17.2 % (11.5-14.5); Red Blood Cell (RBC) Count 2.99 mill/uL (4.20-5.40); White Blood Cell (WBC) Count 7.4 thou/uL (4.8-10.8)
[2017-05-23 05:42] LABS: Anion Gap 16 mmol/L (10-20); BUN (Urea Nitrogen) 24 mg/dL (9.8-20.1); Calc. Creatinine Clearance 14 mL/min (70-130); Calcium 9.1 mg/dL (7.8-10.44); Carbon Dioxide 25 mmol/L (23-31); Chloride 98 mmol/L (98-107); Estimated GFR-MDRD 13; Glucose 70 mg/dL (83-110); Potassium 4.1 mmol/L (3.5-5.1); Sodium 135 mmol/L (136-145)
[2017-05-23] MEDS: Vancomycin HCl 750 MG in Sodium Chloride 0.9% 250 ML 250 ML IVPB SCH ×2 (09:27→09:29)
[2017-05-23] MEDS: Heparin 5,000 UNITS/ML VIAL SC SCH ×4 (09:28→22:13)
[2017-05-23] MEDS: Meropenem 500 MG in Sodium Chloride 0.9% 100 ML IVPB SCH (09:37)
[2017-05-23] MEDS: Polyethylene Glycol 3350 17 GM Packet PO SCH (13:26)
[2017-05-23] MEDS: Gabapentin 300 MG CAP PO SCH ×3 (13:27→22:13)
[2017-05-23] MEDS: Alogliptin 25 MG TAB PO SCH (13:27)
[2017-05-23] MEDS: Sevelamer Carbonate 800 MG TAB PO SCH ×2 (13:27→17:15)
[2017-05-23] MEDS: Multivitamin W/ Minerals 1 TAB PO SCH (13:28)
[2017-05-23] MEDS: Ferrous Sulfate 325 MG TAB PO SCH ×2 (13:28→17:09)
[2017-05-23] MEDS: Folic Acid/Vit B Comp W-C PO SCH (13:28)
[2017-05-23] MEDS: Fish Oil 1,000 MG CAP PO SCH (13:28)
[2017-05-23] MEDS: Carvedilol 3.125 MG TAB PO SCH ×2 (13:28→17:09)
--- NOTE | 2017-05-23 14:15 | PDOC.PN ---
- Subjective Encounter Start Date: 05/23/17 Encounter Start Time: 07:20 Pt seen for followup re: UTI. More alert today, answering questions. Denies chest pain, shortness of breath, fevers or chills. - Objective Resuscitation Status: Resuscitation Status FULL:Full Resuscitation MAR Reviewed: Yes Vital Signs & Weight: Vital Signs (12 hours) Temp Pulse Resp BP Pulse Ox 05/23/17 09:05 97.3 F L 98 16 157/75 H 100 05/23/17 04:00 99.2 F 100 18 141/68 H 100 Weight Admit Weight 167 lb 9.6 oz Weight 160 lb 4.8 oz I&O: 05/22/17 05/23/17 05/24/17 06:59 06:59 06:59 Intake Total 360 0 Balance 360 0 Result Diagrams: 05/24/17 03:41 05/24/17 03:41 Additional Labs: Accuchecks 05/23/17 05/23/17 05/22/17 10:34 06:15 20:33 POC Glucose 79 71 79 EKG Reviewed by me: Yes (Tele: NSR) Phys Exam - Physical Examination Constitutional: NAD HEENT: moist MMs Neck: supple Respiratory: clear to auscultation bilateral Cardiovascular: RRR Gastrointestinal: soft Neurological: moves all 4 limbs Psychiatric: normal affect Deviation from normal: Oriented to person only, not to place or time Dx/Plan (1) UTI (urinary tract infection) Status: Acute Comment: No good oral treatment options, continue IV meropenem for two more days, then discontinue and observe. (2) Cardiomyopathy Code(s): I42.9 - CARDIOMYOPATHY, UNSPECIFIED Status: Chronic Qualifiers: Cardiomyopathy type: unspecified Qualified Code(s): I42.9 - Cardiomyopathy , unspecified Comment: stable (3) Diabetes mellitus Code(s): E11.9 - TYPE 2 DIABETES MELLITUS WITHOUT COMPLICATIONS Status: Chronic Qualifiers: Diabetes mellitus type: type 2 Diabetes mellitus intermission coordinator insulin use: without intermission coordinator use Diabetes mellitus complication status: with kidney complications Diabetes mellitus complication detail: with chronic kidney disease Chronic kidney disease stage: on chronic dialysis Qualified Code(s) : E11.22 - Type 2 diabetes mellitus with diabetic chronic kidney disease; N18.6 - End stage renal disease; N18.6 - End stage renal disease; N18.6 - End stage renal disease; N18.6 - End stage renal disease; Z99.2 - Dependence on renal dialysis; Z99.2 - Dependence on renal dialysis; Z99.2 - Dependence on renal dialysis; Z99.2 - Dependence on renal dialysis Comment: insulin sliding scale and accuchecks (4) Dyslipidemia Code(s): E78.5 - HYPERLIPIDEMIA, UNSPECIFIED Status: Chronic (5) ESRD (end stage renal disease) on dialysis Code(s): N18.6 - END STAGE RENAL DISEASE; Z99.2 - DEPENDENCE ON RENAL DIALYSIS Status: Chronic Comment: nephrology following (6) HTN (hypertension) Code(s): I10 - ESSENTIAL (PRIMARY) HYPERTENSION Status: Chronic Qualifiers: Hypertension type: essential hypertension Qualified Code(s): I10 - Essential (primary) hypertension Comment: titrate antihypertensives as needed. (7) Acute encephalopathy Code(s): G93.40 - ENCEPHALOPATHY, UNSPECIFIED Status: Resolved Comment: Likely due to UTI (8) Sepsis Code(s): A41.9 - SEPSIS, UNSPECIFIED ORGANISM Status: Resolved - Plan continue antibiotics * . 1/2 coag negative staph bacteremia likely contaminant. Discontinue vancomycin and observe. Indeterminate troponin likely due to infection and renal failure. Transfer pt to medical floor. Attempted to contact pt's daughter to provide update, reached voice mail. Review of Systems - Review of Systems Constitutional: negative: fever, chills, sweats, weakness, malaise Respiratory: negative: Cough, Shortness of Breath, SOB with Excertion, Pleuritic Pain, Wheezing Cardiovascular: negative: chest pain, palpitations, orthopnea, paroxysmal nocturnal dyspnea, edema, light headedness - Medications/Allergies Allergies/Adverse Reactions: Allergies Allergy/AdvReac Type Severity Reaction Status Date / Time Penicillins Allergy Intermediate Rash Verified 05/21/17 02:43 Medications: Current Medications Acetaminophen (Tylenol) 650 mg PO Q4H PRN PRN Reason: Headache/Fever or Pain Hydrocodone Bitart/Acetaminophen ([place] 5/325) 1 tab PO Q4H PRN PRN Reason: Moderate Pain (4-6) Al Hydroxide/Mg Hydroxide (Maalox) 30 ml PO Q6H PRN PRN Reason: Heartburn or Indigestion Alogliptin Benzoate (Alogliptin) 25 mg PO DAILY [facility] Last Admin: 05/23/17 13:27 Dose: 25 mg Aspirin (Aspirin Chewable) 81 mg PO DAILY [facility] Last Admin: 05/23/17 13:28 Dose: 81 mg Atorvastatin Calcium (Lipitor) 20 mg PO HS [facility] Last Admin: 05/22/17 22:20 Dose: Not Given Carvedilol (Coreg) 3.125 mg PO BID-[facility] Last Admin: 05/23/17 13:28 Dose: Not Given Dextrose/Water (Dextrose 50%) 25 gm SLOW IVP PRN PRN PRN Reason: Hypoglycemia Diltiazem HCl (Cardizem) 60 mg PO BID [facility] Last Admin: 05/23/17 13:28 Dose: 60 mg Ferrous Sulfate (Feosol) 325 mg PO BID-[facility] Last Admin: 05/23/17 13:28 Dose: Not Given Fish Oil (Fish Oil) 1,000 mg PO DAILY [facility] Last Admin: 05/23/17 13:28 Dose: 1,000 mg Gabapentin (Neurontin) 600 mg PO TID [facility] Last Admin: 05/23/17 13:27 Dose: Not Given Glucagon (Glucagon) 1 mg IM PRN PRN PRN Reason: Hypoglycemia Heparin Sodium (Porcine) (Heparin) 5,000 units SC BID [facility] Last Admin: 05/23/17 09:28 Dose: 5,000 units Hydralazine HCl (Apresoline) 10 mg SLOW IVP Q3H PRN PRN Reason: SBP Greater Than 170 Dextrose/Water (D5w) 1,000 mls @ 0 mls/hr IV .Q0M PRN; As Directed PRN Reason: Hypoglycemia Meropenem 500 mg/ Sodium (Chloride) 100 mls @ 200 mls/hr IVPB DAILY [facility] Last Admin: 05/23/17 09:37 Dose: 100 mls Vancomycin HCl 1.25 gm/ Sodium (Chloride) 250 mls @ 166.667 mls/hr IVPB WILLCALL [facility] Vancomycin HCl 1 gm/ Device 200 mls @ 200 mls/hr IVPB [facility] Vancomycin HCl 750 mg/ Sodium (Chloride) 250 mls @ 250 mls/hr IVPB [facility] Last Admin: 05/23/17 09:29 Dose: 250 mls Vancomycin HCl 500 mg/ Sodium (Chloride) 100 mls @ 100 mls/hr IVPB [facility] Insulin Human Lispro (Humalog) 0 units SC .MILD SLIDING SCALE PRN PRN Reason: Mild Correctional Scale Insulin Human Lispro (Humalog) 0 units SC .BEDTIME SLIDING SC PRN PRN Reason: Bedtime Correctional Scale Iron/Minerals/Multivitamins (Theragran M) 1 tab PO DAILY [facility] Last Admin: 05/23/17 13:28 Dose: 1 tab Loperamide HCl (Imodium) 2 mg PO PRN PRN PRN Reason: Diarrhea/Loose Stools Magnesium Hydroxide (Milk Of Magnesium) 30 ml PO DAILYPRN PRN PRN Reason: Constipation Miscellaneous Medication (Pharmacy To Dose) 1 each IVPB ONE PRN PRN Reason: Pharmacy to dose Stop: 05/31/17 00:07 Hold Vancomycin For (Level >20) 0 each FS .AT DIALYSIS [facility] Ondansetron HCl (Zofran Odt) 4 mg PO Q6H PRN PRN Reason: Nausea/Vomiting Ondansetron HCl (Zofran) 4 mg IVP Q6H PRN PRN Reason: Nausea/Vomiting Pantoprazole Sodium (Protonix) 40 mg PO DAILY [facility] Last Admin: 05/23/17 13:28 Dose: 40 mg Polyethylene Glycol (Miralax) 17 gm PO DAILY [facility] Last Admin: 05/23/17 13:26 Dose: 17 gm Senna (Senokot) 2 tab PO HSPRN PRN PRN Reason: Constipation Sevelamer Carbonate (Renvela) 1,600 mg PO BID-[facility] Last Admin: 05/23/17 13:27 Dose: 1,600 mg Sodium Chloride (Flush - Normal Saline) 10 ml IVF PRN PRN PRN Reason: Saline Flush Vitamin B Complex/Vit C/Folic Acid (Nephro-[place] Tablet) 1 tab PO DAILY [facility] Last Admin: 05/23/17 13:28 Dose: 1 tab Zolpidem Tartrate (Ambien) 5 mg PO HSPRN PRN PRN Reason: Insomnia
[2017-05-23] MEDS: Atorvastatin Calcium 20 MG TAB PO SCH (22:13)
[2017-05-24 04:28] LABS: #Eosinphils 0.3 thou/uL (0.0-0.7); #Lymphocytes 1.3 thou/uL (1.20-3.40); #Monocytes 0.7 thou/uL (0.11-0.59); %Basophils 0.4 % (0.0-1.0); %Eosinophils 5.3 % (0.0-10.0); %Lymphocytes 20.1 % (21.0-51.0); %Neutrophils 63.3 % (42.0-75.0); Hemoglobin 9.5 g/dL (12.0-16.0); Mean Corpuscular Hemoglobin 33.4 pg (27.0-31.0); Mean Platelet Volume 6.9 fL (7.4-10.4); Platelet Count 199 thou/uL (130-400); Red Blood Cell (RBC) Count 2.84 mill/uL (4.20-5.40); White Blood Cell (WBC) Count 6.3 thou/uL (4.8-10.8)
[2017-05-24 04:32] LABS: Anion Gap 14 mmol/L (10-20); BUN (Urea Nitrogen) 39 mg/dL (9.8-20.1); Calc. Creatinine Clearance 10 mL/min (70-130); Calcium 8.8 mg/dL (7.8-10.44); Carbon Dioxide 28 mmol/L (23-31); Chloride 99 mmol/L (98-107); Estimated GFR-MDRD 10; Glucose 85 mg/dL (83-110); Sodium 137 mmol/L (136-145)
[2017-05-24 05:34] VITALS: BMI 28.8
[2017-05-24] MEDS ORDERED: Heparin 10,000 UNITS/ 10 ML VIAL ONE (10:00)
[2017-05-24 11:11] VITALS: BP 131/80; TEMP 98.1
[2017-05-24] MEDS: Folic Acid/Vit B Comp W-C PO SCH (11:16)
[2017-05-24] MEDS: Multivitamin W/ Minerals 1 TAB PO SCH (11:16)
[2017-05-24] MEDS: Meropenem 500 MG in Sodium Chloride 0.9% 100 ML IVPB SCH (11:17)
[2017-05-24] MEDS: Heparin 5,000 UNITS/ML VIAL SC SCH ×2 (11:17)
[2017-05-24] MEDS: Gabapentin 300 MG CAP PO SCH ×2 (11:17→15:08)
[2017-05-24] MEDS: Alogliptin 25 MG TAB PO SCH (11:17)
[2017-05-24] MEDS: Fish Oil 1,000 MG CAP PO SCH (11:18)
[2017-05-24] MEDS: Ferrous Sulfate 325 MG TAB PO SCH (11:22)
[2017-05-24] MEDS: Sevelamer Carbonate 800 MG TAB PO SCH (11:22)
[2017-05-24] MEDS: Carvedilol 3.125 MG TAB PO SCH (11:23)
[2017-05-24] MEDS: Polyethylene Glycol 3350 17 GM Packet PO SCH (11:41)
--- NOTE | 2017-05-24 14:02 | DIS ---
DATE OF ADMISSION: 05/20/2017 DATE OF DISCHARGE: 05/24/2017 PRIMARY CARE PROVIDER: Randy Gamez M.D. DISCHARGE DIAGNOSES: 1. Acute encephalopathy. 2. Sepsis. 3. Urinary tract infection with Escherichia coli and Enterococcus species. CONDITION OF PATIENT ON THE DAY OF DISCHARGE: Stable. I assessed Ms. Rush on the day of discharge . She denies any chest pain or shortness of breath. Vital signs are stable. S1 and S2 are heard, r egular. Lungs are clear to auscultation bilaterally. DISCHARGE MEDICATIONS: She is being discharged home on meropenem 500 mg intravenously daily for 4 mo re days. Otherwise, her preadmission home medications are being continued as dictated on history and physical note from 05/20/2017. CONSULTATIONS DURING THIS HOSPITALIZATION: Nephrology, Dr. Nathan Vazquez. HOSPITAL COURSE: Ms. Rush is a pleasant 81-year-old lady who was admitted to [facility] on 05/20/2017 for acute encephalopathy. She was found to have urinary tract infection w ith Escherichia coli and Enterococcus species. Escherichia coli was sensitive to amikacin, cefepime, cefoxitin, ceftazidime, ceftriaxone, gentamicin, meropenem, nitrofurantoin, penicillin, piperacillin /tazobactam, tobramycin, trimethoprim/sulfamethoxazole and resistant to ampicillin, ciprofloxacin and levofloxacin. Enterococcus was sensitive to amoxicillin, amoxicillin/clavulanic acid, ampicillin, i mipenem, nitrofurantoin, penicillin, piperacillin and vancomycin. Given the sensitivities as well as her allergy to PENICILLIN, she is being discharged on meropenem. She did receive meropenem during t his hospitalization. Blood cultures also grew coagulase-negative Staphylococcus, one out of two cultures, which was likely a contaminant. Her cognition improved. She was seen by Nephrology Service and received maintenance hemodialysis. S he is being discharged back to [facility] in a stable condition. On the day of discharge, she has white count of 6300, hemoglobin 9.5, platelet count 199,000, normal electrolytes, elevated blood urea nitrogen of 39 and elevated creatinine of 5.16. Her TSH during this hospitalization was normal. Many thanks for allowing me to participate in your patient's care. Please feel free to contact me wi th any questions or concerns. DISCHARGE DESTINATION: [facility] from where she was admitted to the hospital. TOTAL AMOUNT OF TIME SPENT COORDINATING THIS DISCHARGE: 32 minutes.
--- NOTE | 2017-05-24 17:05 | PRG ---
DATE OF SERVICE: 05/23/2017 SUBJECTIVE: Patient was seen and examined at bedside and overnight events noted. Patient denies any shortness of breath or chest pain or palpitation. No history of nausea or vomiting or diarrhea or f ever or chills or cramps. OBJECTIVE: GENERAL: This is an elderly female, in no apparent distress. VITAL SIGNS: Temperature 98.7, pulse 94, respiratory rate 16, blood pressure 142/80. HEENT: Atraumatic, normocephalic, oral mucosa is moist. NECK: Supple. CARDIOVASCULAR: S1, S2 heard, rate and rhythm regular. RESPIRATORY: Clear to auscultation. GASTROINTESTINAL: Abdomen is soft. MUSCULOSKELETAL: No tenderness, no edema. DERMATOLOGIC: No skin rash. NEUROLOGIC: Alert and awake and oriented x3. No focal neurologic deficits. Moving all the extremit ies. PSYCHIATRIC: Mood and affect normal. LABORATORY DATA: Potassium 4.1, BUN is 24, creatinine is 3.8. Hemoglobin is 10.1. ASSESSMENT AND PLAN: 1. End-stage renal disease. Continue on hemodialysis Monday, Monday, and Monday. 2. Anemia. Monitor hemoglobin. 3. Edema, controlled. 4. Hypertension, stable. Plan is to continue on dialysis as tolerated Monday, Monday, and Monday. We will follow.
--- NOTE | 2017-05-24 17:52 | PRG ---
DATE OF SERVICE: 05/24/2017 SUBJECTIVE: Patient was seen and examined at bedside and overnight events noted. Patient denies any shortness of breath or chest pain or palpitation. No history of nausea or vomiting or diarrhea or f ever or chills or cramps. OBJECTIVE: GENERAL: This is an elderly female in no apparent distress. VITAL SIGNS: Temperature 98.1, pulse 87, respirations 18, blood pressure 131/80. HEENT: Atraumatic, normocephalic. Oral mucosa is moist. NECK: Supple. CARDIOVASCULAR: S1, S2 heard. Rate and rhythm regular. RESPIRATORY: Clear to auscultation. GASTROINTESTINAL: Abdomen is soft. MUSCULOSKELETAL: No tenderness. No edema. DERMATOLOGIC: No skin rash. NEUROLOGIC: Alert and awake and oriented x3. No focal neurologic deficits. Moving all the extremit ies. PSYCHIATRIC: Mood and affect normal. LABORATORY DATA: Potassium is 4.0, BUN is 39, creatinine is 5.1. ASSESSMENT AND PLAN: 1. End-stage renal disease, currently on hemodialysis Monday, Monday, and Monday. 2. Anemia with history of gastrointestinal bleed, monitor. 3. Hypertension. 4. Edema, controlled. 5. Altered mentation. Plan is to continue dialysis Monday, Monday, and Monday as tolerated.
== END 2017-05-24 15:58 | DRG 871 ==
LOC: ERS 18:58 → 2NO 22:33 → T4-B 05-23 17:37
PROVIDERS: ADMIT Internal Medicine; ATTEND Internal Medicine
DX: A41.51 Sepsis due to Escherichia coli [E. coli] (principal); G93.40 Encephalopathy, unspecified; I13.2 Hypertensive heart and chronic kidney disease with heart failure and with stage 5 chronic kidney disease, or end stage renal disease; E11.22 Type 2 diabetes mellitus with diabetic chronic kidney disease; E11.40 Type 2 diabetes mellitus with diabetic neuropathy, unspecified; I42.9 Cardiomyopathy, unspecified; N18.6 End stage renal disease; N39.0 Urinary tract infection, site not specified; D64.9 Anemia, unspecified; B96.20 Unspecified Escherichia coli [E. coli] as the cause of diseases classified elsewhere; B95.2 Enterococcus as the cause of diseases classified elsewhere; Z88.0 Allergy status to penicillin; Z99.2 Dependence on renal dialysis; R60.9 Edema, unspecified; R65.20 Severe sepsis without septic shock; E78.5 Hyperlipidemia, unspecified; Z79.82 Long term (current) use of aspirin; Z79.4 Long term (current) use of insulin; R53.83 Other fatigue; E21.3 Hyperparathyroidism, unspecified; K21.9 Gastro-esophageal reflux disease without esophagitis; L89.95 Pressure ulcer of unspecified site, unstageable; Z85.3 Personal history of malignant neoplasm of breast; I50.9 Heart failure, unspecified
CPT/HCPCS: 36415; 36416; 51701; 70450; 71045; 80048; 80053; 80069; 80202; 81003; 81015; 82553; 83605; 83690; 83735; 83880; 84443; 84484; 85025; 86140; 87040; 87077; 87086; 87149; 87186; 90935; 93005; 96365; A4353; G0257; G8996-GN-CK; G8996-GN-CM; G8997-GN-CJ; J1644; J1956; J2185; J3370; J7050

== ENCOUNTER 2017-09-26 17:55 | Inpatient (IN) | payer MEDICARE, MEDICAID ==
[2017-09-26 18:41] LABS: Hemoglobin 11.2 g/dL (12.0-16.0); Mean Corpuscular HGB CONC 32.4 g/dL (32.0-36.0); Mean Corpuscular Hemoglobin 33.3 pg (27.0-31.0); Mean Platelet Volume 7.8 fL (7.4-10.4); Platelet Count 201 thou/uL (130-400); RBC Distribution Width 17.1 % (11.5-14.5); Red Blood Cell (RBC) Count 3.37 mill/uL (4.20-5.40); White Blood Cell (WBC) Count 4.9 thou/uL (4.8-10.8)
[2017-09-26 19:03] LABS: Anisocytosis SLIGHT = 6-15 cells (100X) (0-5/hpf); Band 5 % (5-11); Eosinophils 1 % (0-10); Large Platelets SLIGHT; Lymphocytes 27 % (21-51); MDiff Complete? YES; Metamyelocyte 4 % (0-0); Monocytes 4 % (0-10); Myelocyte 1 % (0-0); Neutrophil 54 % (42-75); Nucleated RBC 1 % (0); Ovalocytes SLIGHT = 2-5 cells (100X) (0-1/hpf); Poikilocytosis SLIGHT = 6-15 cells (100X) (0-5/hpf); Reactive Lymphocytes 3 % (0-10)
[2017-09-26 19:20] LABS: Bilirubin Small (Negative); Blood, Urine Negative (Negative); Clarity CLOUDY (Clear); Glucose, Urine (Dipstick) Negative (Negative); Leukocyte Small (Negative); Nitrite Negative (Negative); Protein, Urine (Dipstick) 100 mg/dL (Neg-Trace); Specific Gravity, Urine 1.015 (1.002-1.036); Urobilinogen 0.2 mg/dL (0.2-1.0); pH, Urine 5.5 (5.0-9.0)
[2017-09-26 19:23] LABS: Pathc Cast-AUWi Flag 3.34 (0-2.49)
[2017-09-26 19:29] LABS: Bacteria/HPF 2+ HPF (None Seen); Hyaline Casts/LPF 0-3 HYALINE CAST LPF (0-3 Hyaline); Manual Microscopic Reviewed? No Path Casts Seen; RBC/HPF GREATER THAN 50-TNTC HPF (0-3); Renal Epithelial None Seen HPF (0-3); Transitional Epithelial 0-3 HPF (0-3)
--- NOTE | 2017-09-26 20:43 | RAD ---
CHEST ONE VIEW: 09/26/17 HISTORY: Cough. COMPARISON: Radiograph 05/20/17. FINDINGS: The heart size is enlarged. Mild pulmonary venous congestion and early edema. The dialysis catheter t ip is at the right atrium. Right axillary vascular stent is present. Multiple clips over the right ax illa. Lungs hypoinflated. No acute osseous abnormality. IMPRESSION: Cardiomegaly with mild volume overload. POS: IFEANYIH
[2017-09-26] MEDS ORDERED: Ondansetron HCl/PF 4 MG/2 ML Vial IVP PRN (22:03)
[2017-09-26] MEDS ORDERED: Ondansetron ODT 4 MG TAB SL PRN (22:03)
[2017-09-26 22:05] LABS: Lactic Acid 1.7 mmol/L (0.5-2.2)
[2017-09-26 22:08] LABS: Albumin 3.4 g/dL (3.4-4.8)
[2017-09-26 22:09] LABS: Calcium 8.1 mg/dL (7.8-10.44); Chloride 86 mmol/L (98-107); Sodium 122 mmol/L (136-145)
[2017-09-26 22:10] LABS: Globulin 2.3 g/dL (2.4-3.5); Protein, Total 5.7 g/dL (6.0-8.3)
[2017-09-26 22:11] LABS: Carbon Dioxide 23 mmol/L (23-31)
[2017-09-26 22:12] LABS: Anion Gap 16 mmol/L (10-20); Bilirubin, Total 1.2 mg/dL (0.2-1.2)
[2017-09-26 22:13] LABS: Alkaline Phosphatase 88 U/L (40-150); Calc. Creatinine Clearance 0 mL/min (70-130); Estimated GFR-MDRD 7; Glucose 676 mg/dL (83-110)
[2017-09-26 22:14] LABS: BUN (Urea Nitrogen) 33 mg/dL (9.8-20.1)
[2017-09-26 22:15] LABS: AST (SGOT) 38 U/L (5-34)
[2017-09-26 22:16] LABS: ALT (SGPT) 39 U/L (8-55)
[2017-09-26] MEDS ORDERED: Dextrose 50% Abboject 50 ML SYRINGE SLOW IVP PRN (23:21)
[2017-09-26] MEDS ORDERED: Dextrose 5% in Water 1,000 ML IV PRN (23:21)
[2017-09-26] MEDS ORDERED: Insulin Regular 300 UNITS/3 ML VIAL SC PRN ×2 (23:21)
[2017-09-26] MEDS ORDERED: NPH, Human Insulin Isophane 300 UNIT/3 ML VIAL SC SCH (23:30)
[2017-09-27 01:02] VITALS: BMI 24.4
[2017-09-27] MEDS: Diltiazem 125 MG in Sodium Chloride 0.9% 100 ML IVPB SCH ×2 (02:27→22:05)
[2017-09-27] MEDS ORDERED: Mag-Al 1200 mg/1200 mg/30 ML UDCUP PO PRN (02:49)
[2017-09-27] MEDS ORDERED: Nitroglycerin 0.4 MG TAB (25 Tab Bottle) PO PRN (02:49)
[2017-09-27] MEDS ORDERED: Calcium Carbonate 500 MG ChewTAB PO PRN (02:49)
[2017-09-27] MEDS ORDERED: RENALLY ADJUST ABX IVPB PRN (02:49)
[2017-09-27] MEDS ORDERED: Acetaminophen 325 MG TAB PO PRN (02:49)
[2017-09-27] MEDS ORDERED: Senokot 8.6 MG TAB PO PRN (02:49)
[2017-09-27] MEDS ORDERED: hydrALAZINE 20 MG/ML VIAL SLOW IVP PRN (02:52)
[2017-09-27] MEDS ORDERED: Polyethylene Glycol 3350 17 GM Packet PO PRN (02:53)
[2017-09-27] MEDS ORDERED: Eucerin (Mineral Oil/Petrolatum,White) 30 gm Jar TOP PRN (02:53)
[2017-09-27] MEDS ORDERED: Vancomycin HCl 1 GM in Premix Bag 1 BAG IVPB SCH ×2 (03:00→04:00)
[2017-09-27] MEDS ORDERED: Aspirin 325 MG TAB PO SCH (03:45)
[2017-09-27 03:47] LABS: Troponin I 0.127 ng/mL (< 0.028)
--- NOTE | 2017-09-27 03:48 | HP ---
PRIMARY CARE PHYSICIAN: Dr. Gamez. CHIEF COMPLAINT: Altered mentation with fever. HISTORY OF PRESENT ILLNESS: Patient is an 82-year-old female with chronic systolic heart failure, en d-stage renal disease on hemodialysis, coronary artery disease, hypertension, diabetes mellitus type 2, and end-stage renal disease on hemodialysis, who was brought in to the emergency room with above s ymptoms. At this time, there is no family at the bedside. Her daughter was present in the emergency room earlier. History obtained from the ER record as well as review of old records. Not much infor mation is available from the patient due to current cognitive status. Per ER record, patient has dry cough on and off for last 3 weeks. Earlier today, patient was found t o have a fever of 101 degrees. She also was found to have altered mentation. Family also noticed th at she had some shortness of breath. Again, not much information is available from the patient. In the emergency room, her initial vital signs showed temperature 97.6, respirations 24, pulse rate o f 101 with a blood pressure 130/51 with O2 saturation 97% on room air. She received one dose of vanc omycin and Levaquin in the emergency room. Blood cultures and urine cultures were sent. PAST MEDICAL HISTORY: 1. Chronic systolic heart failure. 2. Diabetes mellitus, type 2. 3. Chronic pain syndrome. 4. Coronary artery disease, status post coronary artery bypass grafting. 5. Dyslipidemia. 6. Physical deconditioning. 7. Mild intermittent asthma. 8. Dyslipidemia. 9. End-stage renal disease on hemodialysis. 10. Gastroesophageal reflux disease. 11. Family history of heart disease. 12. Chronic anemia. 13. History of breast cancer. 14. Chronic right heel ulcer. PAST SURGICAL HISTORY: 1. Dialysis access. 2. Right mastectomy. 3. CABG. ALLERGIES: Patient is allergic to PENICILLIN, TRAMADOL. CURRENT HOME MEDICATIONS: Cannot be obtained from the patient due to current cognitive status. Her family to bring accurate list of medication. SOCIAL HISTORY: The patient was at [facility] earlier this year. She currently lives at home. Has home healthcare. Decision maker is daughter, [place]. She is FULL CODE. FAMILY HISTORY: Positive for hypertension and diabetes. REVIEW OF SYSTEMS: Cannot be reliably obtained from the patient due to current cognitive status. PHYSICAL EXAMINATION: VITAL SIGNS: As discussed above. GENERAL: An 82-year-old female with altered mentation. She is awake, however, does not answer any q uestions. She follows commands to some extent. HEENT: Head atraumatic, normocephalic. Sclerae anicteric. Dry mucous membrane, no oral lesion. NECK: Supple, mild JVD elevation noted. LUNGS: Showed bilateral bibasilar crackles. There was scattered rhonchi. No significant wheezing n oted. HEART: S1, S2 present. Healed midline scar from previous CABG. S1, S2 present, 2/6 systolic murmur over the mitral area. ABDOMEN: Soft. Bowel sounds present. EXTREMITIES: Bilateral lower extremity edema with some tenderness on palpation. SKIN: Warm and dry. LYMPH NODES: No palpable lymph nodes in the neck. NEUROLOGIC AND PSYCHIATRIC: As discussed above. PERIPHERAL VASCULAR: Radial pulses palpable bilaterally. MUSCULOSKELETAL: No joint swelling or tenderness. LABORATORY FINDINGS: CBC showed WBC 4.9 with hemoglobin 11.2, hematocrit 34.7, platelet 201. Chemis tries showed sodium 122, potassium 3, chloride 86, bicarbonate 23, BUN 33, creatinine 6.85, glucose o f 676. BNP 4801. Urinalysis showed greater than 50 rbc's with 11-20 wbc's, and 2+ bacteria. Chest x-ray by my review showed pulmonary vascular congestion. EKG by my review showed sinus rhythm with several PVCs. While on the floor, she went into atrial fibrillation with rapid ventricular resp onse. Cardizem drip has been started. IMPRESSION: 1. Toxic metabolic encephalopathy, multifactorial. 2. Fever, probably secondary to chronic heel ulcer infection versus dialysis catheter infection. Ru le out bacteremia. She also has urinary tract infection. 3. End-stage renal disease on hemodialysis. 4. Hyponatremia. 5. Hypokalemia. 6. Diabetes mellitus, type 2, uncontrolled with blood sugar of 676. 7. Chronic systolic heart failure, ejection fraction 35% to 40% range in the past. Patient had some pulmonary vascular congestion on the chest x-ray. 8. Coronary artery disease, status post coronary artery bypass graft. 9. Hypertension. 10. Hyperlipidemia. 11. History of breast cancer requiring mastectomy. 12. Family history of heart disease. 13. Gastroesophageal reflux disease. 14. End-stage renal disease, on hemodialysis Monday, Monday, and Monday. 15. Hospitalization earlier this year for urinary tract infection. 16. Atrial fibrillation with rapid ventricular response on Cardizem drip. PLAN: 1. The patient will be monitored on the telemetry unit. We will continue Cardizem drip. We will co ntinue vancomycin and Levaquin. Patient is allergic to PENICILLIN. We will consult Infectious Disea se. Wound Care will be consulted. 2. Cardiology consult for cardiomyopathy with tachyarrhythmias. Nephrology for maintenance hemodial ysis due to bilateral lower extremity swelling with rule out DVT. Wound care team will be consulted. We will resume home health care at discharge. Code status to be clarified with the daughter in a.m. Insulin sliding scale. Need frequent neuro ch ecks. Plan of care was discussed with the patient in detail. We will discuss the plan of care with the vickie engle.
[2017-09-27] MEDS ORDERED: Vancomycin HCl 250 MG in Sodium Chloride 0.9% 100 ML IVPB SCH (04:00)
[2017-09-27] MEDS ORDERED: Vancomycin HCl 500 MG in Sodium Chloride 0.9% 100 ML IVPB SCH (04:00)
[2017-09-27] MEDS ORDERED: Vancomycin HCl 750 MG in Sodium Chloride 0.9% 250 ML 250 ML IVPB SCH (04:00)
[2017-09-27] MEDS ORDERED: HOLD VANCOMYCIN FOR LEVEL >20 FS SCH (04:00)
[2017-09-27 04:03] LABS: Anion Gap 18 mmol/L (10-20); BUN (Urea Nitrogen) 38 mg/dL (9.8-20.1); CRP (Inflammatory) 1.76 mg/dL (= or < 0.5); Calc. Creatinine Clearance 6 mL/min (70-130); Calcium 9.5 mg/dL (7.8-10.44); Carbon Dioxide 27 mmol/L (23-31); Chloride 95 mmol/L (98-107); Estimated GFR-MDRD 6; Glucose 180 mg/dL (83-110); Potassium 3.3 mmol/L (3.5-5.1); Sodium 137 mmol/L (136-145)
[2017-09-27] MEDS: Famotidine 20 MG TAB PO SCH (08:34)
[2017-09-27] MEDS: Docusate 100 MG CAP PO SCH ×2 (08:34→20:21)
[2017-09-27] MEDS: Aspirin 325 MG TAB PO SCH (08:34)
[2017-09-27] MEDS: Heparin 5,000 UNITS/ML VIAL SC SCH ×2 (08:34→20:21)
[2017-09-27 12:41] LABS: Vancomycin, Random 12.7 ug/mL (See Comment)
--- NOTE | 2017-09-27 13:15 | PDOC.PN ---
- Subjective Encounter Start Date: 09/27/17 Encounter Start Time: 09:55 Subjective: no chest pain or palp -: feels better, is sitting in chair - Objective MAR Reviewed: Yes Vital Signs & Weight: Vital Signs (12 hours) Temp Pulse Resp BP Pulse Ox 09/27/17 12:12 98.3 F 108 H 17 115/64 99 09/27/17 08:34 98.6 F 112 H 16 124/78 95 09/27/17 07:06 96 09/27/17 04:00 98.6 F 107 H 16 115/59 L 93 L Weight Admit Weight 146 lb Weight 146 lb I&O: 09/26/17 09/27/17 09/28/17 06:59 06:59 06:59 Intake Total 510 Balance 510 Result Diagrams: 09/26/17 18:19 09/27/17 03:07 Additional Labs: Accuchecks 09/27/17 09/27/17 09/27/17 11:37 08:14 04:40 POC Glucose 130 H 104 136 H 09/27/17 09/26/17 09/26/17 02:18 23:55 23:46 POC Glucose 186 H 97 102 Phys Exam - Physical Examination HEENT: PERRLA, moist MMs Neck: no JVD, supple Respiratory: no wheezing, no rales Cardiovascular: no significant murmur, irregular Gastrointestinal: soft, non-tender, positive bowel sounds Musculoskeletal: no edema, pulses present Neurological: non-focal, moves all 4 limbs Dx/Plan (1) Afib Code(s): I48.91 - UNSPECIFIED ATRIAL FIBRILLATION Status: Acute Comment: on cardizem drip (2) Acute metabolic encephalopathy Code(s): G93.41 - METABOLIC ENCEPHALOPATHY Status: Acute (3) CAD (coronary artery disease) Code(s): I25.10 - ATHSCL HEART DISEASE OF [place] CORONARY ARTERY W/O ANG PCTRS Status: Chronic Qualifiers: Coronary Disease-Associated Artery/Lesion type: bypass graft [place] vs. transplanted heart: [place] heart Associated angina: without angina Qualified Code(s): I25.810 - Atherosclerosis of coronary artery bypass graft(s) without angina pectoris (4) Diabetes mellitus Code(s): E11.9 - TYPE 2 DIABETES MELLITUS WITHOUT COMPLICATIONS Status: Chronic Qualifiers: Diabetes mellitus type: type 2 Diabetes mellitus termite treater helper insulin use: with termite treater helper use Diabetes mellitus complication detail: with chronic kidney disease Chronic kidney disease stage: on chronic dialysis (5) Dyslipidemia Code(s): E78.5 - HYPERLIPIDEMIA, UNSPECIFIED Status: Chronic (6) ESRD (end stage renal disease) on dialysis Code(s): N18.6 - END STAGE RENAL DISEASE; Z99.2 - DEPENDENCE ON RENAL DIALYSIS Status: Chronic Comment: nephrology following (7) HTN (hypertension) Code(s): I10 - ESSENTIAL (PRIMARY) HYPERTENSION Status: Chronic Qualifiers: - Plan is on cardizem drip, rate controlled -: on levaquin and vanc for fever of 101 at home, unclear etiology -: await cultures, likely has underlying dementia -: HD per nephrology advice -: cardiology consultation * . Review of Systems - Medications/Allergies Allergies/Adverse Reactions: Allergies Allergy/AdvReac Type Severity Reaction Status Date / Time Penicillins Allergy Intermediate Rash Verified 05/21/17 02:43 tramadol Allergy Verified 09/27/17 04:28 Medications: Current Medications Acetaminophen (Tylenol) 650 mg PO Q4H PRN PRN Reason: Headache/Fever or Pain Al Hydroxide/Mg Hydroxide (Maalox) 30 ml PO Q6H PRN PRN Reason: Heartburn or Indigestion Aspirin (Aspirin) 325 mg PO QAM-WM [facility] Last Admin: 09/27/17 08:34 Dose: 325 mg Calcium Carbonate (Tums) 1,000 mg PO Q4H PRN PRN Reason: Heartburn or Indigestion Dextrose/Water (Dextrose 50%) 25 gm SLOW IVP PRN PRN PRN Reason: Hypoglycemia Docusate Sodium (Colace) 100 mg PO BID [facility] Last Admin: 09/27/17 08:34 Dose: 100 mg Famotidine (Pepcid) 20 mg PO DAILY [facility] Last Admin: 09/27/17 08:34 Dose: 20 mg Glucagon (Glucagon) 1 mg IM PRN PRN PRN Reason: Hypoglycemia Heparin Sodium (Porcine) (Heparin) 5,000 units SC BID [facility] Last Admin: 09/27/17 08:34 Dose: 5,000 units Hydralazine HCl (Apresoline) 10 mg SLOW IVP Q4H PRN PRN Reason: SBP Greater Than 180 Dextrose/Water (D5w) 1,000 mls @ 0 mls/hr IV .Q0M PRN PRN Reason: Hypoglycemia Diltiazem HCl 125 mg/ Sodium (Chloride) 125 mls @ 5 mls/hr IVPB INF GERDA; Protocol Last Admin: 09/27/17 02:27 Dose: 125 mls Levofloxacin 500 mg/ Device 100 mls @ 100 mls/hr IVPB Q2D GER[facility] Vancomycin HCl 1 gm/ Device 200 mls @ 200 mls/hr IVPB WILLCALL GERDA Vancomycin HCl 750 mg/ Sodium (Chloride) 250 mls @ 250 mls/hr IVPB WILLCALL GERDA Vancomycin HCl 500 mg/ Sodium (Chloride) 100 mls @ 100 mls/hr IVPB WILLCALL GERDA Vancomycin HCl 250 mg/ Sodium (Chloride) 100 mls @ 100 mls/hr IVPB WILLCALL GERDA Insulin Human Regular (Humulin R) 0 units SC .MILD SLIDING SCALE PRN PRN Reason: Mild Correctional Scale Insulin Human Regular (Humulin R) 0 units SC .BEDTIME SLIDING SC PRN PRN Reason: Bedtime Correctional Scale Mineral Oil/White Petrolatum (Eucerin Cream) 0 gm TOP BIDPRN PRN PRN Reason: Dry Skin Miscellaneous Medication (Pharmacy To Dose) 1 each IVPB PRN PRN PRN Reason: Pharmacy to dose Nitroglycerin (Nitrostat) 0.4 mg PO Q5MIN PRN PRN Reason: Chest Pain Hold Vancomycin For (Level >20) 0 each FS .AT DIALYSIS GERDA Polyethylene Glycol (Miralax) 17 gm PO DAILY PRN PRN Reason: Constipation Senna (Senokot) 2 tab PO HSPRN PRN PRN Reason: Constipation
--- NOTE | 2017-09-27 15:47 | CON ---
DATE OF CONSULTATION: 09/27/2017 CONSULTING PHYSICIAN: . REASON FOR CONSULTATION: Evaluation and care. REASON FOR ADMISSION: Altered mentation. HISTORY OF PRESENT ILLNESS: This is an 82-year-old -[place] female with a history of CHF; en d-stage renal disease, on hemodialysis Monday, Monday, Monday; hyperlipidemia; chronic anemia, cam e to the hospital with above complaints and Nephrology consult for maintenance hemodialysis. The pat vania gets dialysis Monday, Monday, and Monday. Last dialysis was Monday, 2 days back, and she did miss any dialysis. She was fluid overloaded at the dialysis with edema. No chest pain or palpitati on reported. No nausea or vomiting. She is still currently slightly confused. PAST MEDICAL HISTORY: Positive for end-stage renal disease, type 2 diabetes, CHF, coronary artery di sease, hyperlipidemia, chronic anemia. PAST SURGICAL HISTORY: Dialysis access placement, right mastectomy, CABG. HOME MEDICATIONS: Include tramadol, Renvela, MiraLax, Tradjenta, Humulin, Nataly-[place], carvedilol. ALLERGIES: PENICILLIN and . SOCIAL HISTORY: No smoking or alcohol. FAMILY HISTORY: Positive for hypertension and diabetes. REVIEW OF SYSTEMS: Could not be reliably taken due to the altered mentation. PHYSICAL EXAMINATION: GENERAL: This is an elderly female, slightly confused. VITAL SIGNS: Temperature 96, pulse 107, respirations 18, blood pressure 151/59. HEENT: Atraumatic, normocephalic. Oral mucosa is moist. NECK: Supple, no masses. CARDIOVASCULAR: S1 and S2 heard. Rate and rhythm regular. RESPIRATORY: Clear to auscultation. MUSCULOSKELETAL: 1+ edema. DERMATOLOGIC: No rash. NEUROLOGIC: Alert, awake, slightly confused. PSYCHIATRIC: Not assessed. LABORATORY DATA: Hemoglobin 11.2. Potassium 3.3, BUN is 38, creatinine is 7.5. ASSESSMENT AND PLAN: 1. End-stage renal disease. We will have dialysis today and continue dialysis Monday, Monday, an d Monday as tolerated. 2. Hypokalemia. We will use 4K bath. 3. Edema, controlled. We will remove fluid as tolerated. 4. Anemia. This is chronic, stable. 5. Hypertension, stable. Currently on low side. We will continue on dialysis as tolerated Monday, Monday, and Monday. Dialysis nurse notified. Thank you for the consult.
[2017-09-27] MEDS ORDERED: Carvedilol 3.125 MG TAB PO SCH (19:30)
[2017-09-27] MEDS: Atorvastatin Calcium 20 MG TAB PO SCH (20:21)
--- NOTE | 2017-09-27 21:50 | CON ---
DATE OF CONSULTATION: 09/27/2017 REASON FOR CONSULTATION: Fever. HISTORY OF PRESENT ILLNESS: An 82-year-old patient who has a long list of chronic illnesses starting with type 2 diabetes and end-stage renal disease on hemodialysis through a tunneled catheter in the right IJ position as well as coronary artery disease with bypass graft surgery and a history of breast cancer in remission and chronic right heel ulcer and likely peripheral vascular disease who was brought by family members because of confusional state and fever. Reportedly, was having episodes of coughing spells without sputum production for the past few days before admission and on the day of admission developed a fever up to 101. On arrival at the emergency room, temperature was 97.6, respirations 24, and pulse 101, BP 130/51. She was given vancomycin, levofloxacin, after cultures were submitted. Currently, Ms. Rush is being dialyzed. She is awake and is obviously unable to provide an accurate report of her subjective status. She thought she was in [place]. She denies pretty much most of my inquiries regarding her subjective review of systems. Specifically, she denied headaches, no sore throat, odynophagia. No respiratory symptoms, no abdominal pain, but I find the reliability of the proper answers questionable at least. MEDICAL HISTORY: Includes type 2 diabetes, end-stage renal disease on hemodialysis through a tunneled hemodialysis catheter, right IJ position, coronary artery disease with bypass graft surgery, GERD, anemia, breast cancer, likely in remission, chronic right heel ulceration. SURGICAL HISTORY: Right IJ tunneled catheter placement. The procedure appears to have been done by Dr. Pennington. It is not clear if she had a more recent procedure done, but the last recorded tunneled catheter is from Dr. Pennington placed in 06/2013 and was in the right IJ position. The patient also had cephalic vein transposition fistula and it does not look like this is functional at this time. ALLERGIES: PENICILLIN with rash, TRAMADOL. CURRENT MEDICATION LIST: Includes Tylenol, Maalox, aspirin, Tums, dextrose, diltiazem, Colace, Pepcid, heparin, insulin, levofloxacin, vancomycin, and sliding scale. SOCIAL HISTORY: She had been at [facility], but is currently living with family and daughter is the java analyst. I am not clear as to what her baseline mental status is. PHYSICAL EXAMINATION: VITAL SIGNS: T-max 98.6, blood pressure 115/64, pulse 108, respirations 17, O2 sat 99%. SKIN: Shows the stage 3 heel ulcer, right-sided. There is about 30% yellow slough tissue at the base. She has a tunneled right IJ catheter. No Nuno catheter. She is chronically ill appearing, awake, does not appear in distress. HEENT: Ocular movements conjugate. Sclerae are white. Conjunctivae are pink. Oral cavity with still few teeth remains in place with some gum disease. NECK: Supple, jugular vein distention. LUNGS: Symmetric air entry. HEART: S1, S2, regular rate with a soft murmur at the aortic area. ABDOMEN: Soft, not distended or tender. No ascites. No bladder distention. There is marked atrophy of the musculature of upper and lower extremities. She seems to be able to move extremities. She is able to lift the feet from the bed. Pulses are diminished in dorsalis pedis. I could not feel any popliteal pulses. She has 1+ edema lower extremities. NEUROLOGIC: She is awake, knows her name, but is disoriented to place and time. Recollection is very limited. LABORATORY DATA: White cell count 4.9, hemoglobin 11.2, platelets 201 with normal differential. Sodium 137, creatinine, AST 38, ALT 39, alkaline phosphatase 88 with albumin 3.4. Urinalysis with WBC count 11-20. Microbiology : Two sets of blood cultures, no growth to date. Urine culture with preliminary findings pending. Imaging studies include a chest x-ray with cardiomegaly and mild volume overload and there is a foot x-ray that is from few months ago, which showed erosions in the second through fifth metatarsals nonspecific. ASSESSMENT: Type 2 diabetes, end-stage renal disease, change in mental status, likely chronic cognitive dysfunction, chronic right heel stage III decubitus ulcer, which does not appear to be infected and a chronic tunneled catheter in the right IJ position with now new onset of fever, low grade with reported change in mental status. DISCUSSION: Differential diagnosis includes colonization of the hemodialysis catheter with bacteremia and the clinical changes described above. An alternate site is less likely at this point in time, although the open ulcerated area in the right heel could be a candidate. Urinary tract would be less likely. At this point, I would continue monitoring mental state and need to interview the family regarding her true baseline status. We will withhold antimicrobial therapy at this point in time and monitor cultures. Thromboembolism would be another concern and depending on the results of the above workup may merit evaluation for that as well. MTDD
--- NOTE | 2017-09-28 00:06 | CON ---
DATE OF CONSULTATION: 09/27/2017 PRIMARY CARE PHYSICIAN: Dr. Gamez. PRIMARY GAS TREATER: Dr. Keon Barnhart. REFERRING PHYSICIAN: Dr. Walker. REASON FOR CARDIOLOGY CONSULTATION: Atrial flutter with RVR. HISTORY OF PRESENT ILLNESS: Ms. Rush is an 82-year-old -Stateless female with a significant history of chronic systolic failure and end-stage renal disease on hemodialysis on Monday, Monday, and Monday, coronary artery disease, status post CABG x4 in 2006, hypertension, chronic anemia and diabetes. At this moment, the patient is alert and oriented to self and place, but confused to the situation, and the patient's family member was not at the bedside at this moment. The patient's information was obtained from the patient 's ER records as well as patient's all the medical records. Per the patient's ER and Dr. Walker's history and physical report, the patient was complaining of dry cough for the last 3 weeks and the patient was transferred to the emergency department due to the low grade temperature up to the 101 and also altered mental status change. When the patient was transferred from ER to telemetry floor, at that time she was in sinus rhythm; however, after midnight of 2017, her heart rate converted to atrial fibrillation/atrial flutter with RVR. The patient's diltiazem was 5 mg an hour was initiated from last night. At this moment, the patient's heart rates have been 100-110s with stable blood pressure. According to the patient old medical record, the patient has a history of post-CABG atrial fibrillation in 2006. The patient was on amiodarone , which was discontinued due to the chronic kidney disease. The patient was hospitalized for history of syncopal episodes in 2013. At that time, patient was discharged with 30 days event monitor; however, the patient refused to wear it. The patient was also supposed to follow up with Dr. Barnhart's office for possible AICD placement for the history of decreased EF, which is 20-25%. However, the patient did not follow up with Dr. Barnhart's office at that time. The patient had an echocardiogram done in 02/2017 which shows EF of 40-45%, mild LVH, moderate dilated left atrium, severe mitral valve regurgitation, mild aortic valve stenosis, severe tricuspid regurgitation, elevated pulmonary artery pressure at 75 mmHg and, moderate pulmonary regurgitation and Atrial fibrillation during the study The patient had a carotid Doppler study was done in 08/2016, which shows no significant stenosis. The patient has a CABG x4 in 2006 with JORDAN to LAD, left radial to diagonal, SVG to second marginal and SVG to right PDA. During the initial Cardiology consultation assessment, patient denied any chest pain or discomfort, palpitation or fluttering in her chest, shortness of breath, fatigue, dizziness, lightheadedness, or any other cardiac complaints, but the patient is really confused at this time. PAST MEDICAL HISTORY: Chronic systolic heart failure, coronary artery disease, status post CABG x4 in 2006, Post-op atrial fibrillation in 2006, hypertension, hyperlipidemia, end-stage renal disease with hemodialysis on Monday, Monday, Monday, chronic anemia, diabetes type 2, history of CVA and history of breast cancer of unknown site, GERD and mild intermittent asthma. PAST SURGICAL HISTORY: Dialysis access, right breast cancer with right mastectomy and CABG x4 in 2006. FAMILY HISTORY: Positive for hypertension, diabetes, heart disease. SOCIAL HISTORY: She lives in home with her daughter. ALLERGIES: PENICILLIN and TRAMADOL. CURRENT HOME MEDICATIONS: At this moment, patient cannot tell the patient's current home medications and the patient's chart is not up to date at this moment. REVIEW OF SYSTEMS: Patient's 12-point review of systems, not able to obtain from the patient due to patient's altered mental status. PHYSICAL EXAMINATION: VITAL SIGNS: Blood pressure 115/64, heart rate 108, respiratory rate 17, O2 sat 99% with room air, temperature 98.3. GENERAL: Patient is alert, in no acute distress; however, patient is confused at this moment. HEAD: Head atraumatic and normocephalic. Extraocular movement intact. ENT AND MOUTH: Nose, oral mucosa moist without lesion. NECK: Supple, mild JVD elevation noted, normal range of motion. LUNGS: Diminished at the bilateral lower extremities, but no significant wheezing. CARDIAC: Normal S1, S2. There are no S3, S4, but regular. There was murmur at the left mediastinal border. ABDOMEN: Soft, nontender, or mass to palpate. Bowel sounds are present. MUSCULOSKELETAL: The patient is able to move all extremities. VASCULAR: 2+ pulses in the bilateral dorsal pedis and left posterior tibial, and bilateral popliteal arteries. The patient had a dressing to the right heel. The carotid pulses are present without no bruit or thrill. SKIN: Warm and dry. NEUROLOGIC: Patient is alert and oriented to self and place but confused to the situation. PSYCHIATRIC: Sometimes the patient gets agitated when patient cannot answer the question. LABORATORY DATA: WBC 4.9, hemoglobin 11.2, hematocrit 34.7, platelets 201. Chemistry: Sodium 137, potassium 3.3, BUN 38, creatinine 7.45, glucose 180, lactic acid was 1.7. AST was 38, ALT is 39. Patient's troponin level was 0.127 and C-reactive protein 1.76. TSH 1.6517. Patient's chest x-ray review, cardiomegaly with mild volume overload. Echocardiogram in 02/2017 shows EF of 40% to 45% severe mitral valve regurgitation, moderate aortic valve stenosis, severe tricuspid regurgitation and atrial fibrillation during the study. ASSESSMENT AND PLAN: 1. Atrial fibrillation/atrial flutter with rapid ventricular response. The patient is on the Cardizem 5 mg an hour, aspirin 325 mg once a day. At this moment, patient's heart rates is still in the 100-110s. We might like to resume the Coreg 3.125 mg twice a day. 2. Coronary artery disease with a history of CABG x4 in 2006. The patient's condition is stable at this moment, she is on aspirin 325 mg once a day at this moment. We would like to resume the patient Coreg and atorvastatin 20 mg from [facility]. We would like to continue to monitor on the telemetry. 3. Hypertension. The patient's blood pressure is stable at this moment, we would like to continue to monitor. 4. Right heel ulcer. The patient is on IV antibiotic which is managed by the patient's primary care doctor. 5. Hyperlipidemia. We would like to resume patient's Lipitor 20 mg once a day. 6. End-stage renal disease with hemodialysis on Monday, Monday, and Monday, which is managed by patient's aviation electrical technician. 7. Diabetes type 2. Patient is on a.c. and at bedtime blood glucose check with sliding scale insulin ordered which is managed by patient's primary care doctor. 8. Chronic anemia. At this moment, the patient is stable at this moment. Thank you very much for Cardiology service to participate in the care of this patient. We will follow along with the patient care team and make further recommendation as appropriate. Dr. Barnhart will be followed with this patient from tomorrow. SU
[2017-09-28 06:21] LABS: Anion Gap 17 mmol/L (10-20); BUN (Urea Nitrogen) 21 mg/dL (9.8-20.1); Calc. Creatinine Clearance 9 mL/min (70-130); Carbon Dioxide 23 mmol/L (23-31); Chloride 97 mmol/L (98-107); Estimated GFR-MDRD 10; Glucose 114 mg/dL (83-110); Potassium 4.5 mmol/L (3.5-5.1); Sodium 132 mmol/L (136-145)
[2017-09-28 06:22] LABS: Calcium 8.9 mg/dL (7.8-10.44)
[2017-09-28 06:45] LABS: Eosinophils 1 % (0-10); Hemoglobin 10.3 g/dL (12.0-16.0); Hypochromia SLIGHT = 6-15 cells (100X) (0-5/hpf); Lymphocytes 18 % (21-51); MDiff Complete? YES; Mean Corpuscular HGB CONC 29.8 g/dL (32.0-36.0); Mean Platelet Volume 7.7 fL (7.4-10.4); Monocytes 9 % (0-10); Neutrophil 72 % (42-75); PLT Morphology Comment Appears Adequate; Platelet Count 162 thou/uL (130-400); Red Blood Cell (RBC) Count 3.33 mill/uL (4.20-5.40); White Blood Cell (WBC) Count 4.9 thou/uL (4.8-10.8)
[2017-09-28] MEDS: Heparin 5,000 UNITS/ML VIAL SC SCH ×2 (08:41→19:24)
[2017-09-28] MEDS: Carvedilol 3.125 MG TAB PO SCH ×2 (08:42→17:36)
[2017-09-28] MEDS: Docusate 100 MG CAP PO SCH ×2 (08:42→19:24)
[2017-09-28] MEDS: Famotidine 20 MG TAB PO SCH (08:42)
[2017-09-28] MEDS: Aspirin 325 MG TAB PO SCH (08:42)
--- NOTE | 2017-09-28 09:15 | ADD-CON ---
ADDENDUM DATE OF CONSULTATION: 09/27/2017 INDICATION FOR CONSULTATION: An 82-year-old female with mental status changes, fever and history of congestive heart failure. Please refer to the notes already dictated. This very unfortunate 82-year-old female who has had a long history of cardiac problems in the past. She has end-stage renal disease for which she is on hemodialysis. She has been followed by Dr. Barnhart in the past. She is not frequent to the office recently. She was seen several years ago in the hospital, she has multiple problems which not only included the end- stage renal disease, but also hypertension and diabetes. She apparently had been having some low-grade fever and had some more confusion and then was brought to the hospital. She has also been complaining of some upper respiratory tract infection with a cough in the emergency room apparently, the temperature was up to 101 degrees. At the time I am seeing her this afternoon, she actually also still is somewhat confused, but there is no longer any fever. I am uncertain as to whether or not she has some degree of dementia. She has been given antibiotics and I believe blood sugars have been sent for evaluation. She denies any chest pain or shortness of breath at this time and appears to be relatively comfortable. She has undergone dialysis earlier today and otherwise is not having any complaints. For her past medical history, social history, family history, review of systems , please refer to the notes. LABORATORY DATA: Shows hemoglobin of 11.2, WBC is only 4.9. There is no significant left shift. Her platelet count is 201. Her blood sugars ranged anywhere from 100-136. Her potassium was 3.3, creatinine was 7.45 with BUN of 38. Sodium was 137. Cardiac enzymes were indeterminate with a troponin I of 0.127. Please note also when she was admitted, the original blood sugar was 676 with elevated lactic acid of 2.4. Her BNP was elevated at 4801. EKG shows evidence of atrial fibrillation at times, originally was in sinus rhythm, appears to be also occasionally may have underlying flutter, but she does have atrial arrhythmias and has had some tachycardia. This most likely is the etiology of the slight abnormality in the cardiac enzymes. IMPRESSION AND PLAN: 1. Atrial fibrillation with rapid ventricular response. She has been placed on diltiazem. She remains stable. Heart rate is under better control. We will continue this. She did appear to have sinus rhythm at some point in time, she may need to be reevaluated for possible ablation; however, she is 82 years old and does appear to have some dementia and I am uncertain of her baseline. If we are unable to control the atrial fibrillation by medical management, then likely she will need to be evaluated by the upholstery technician. 2. History of coronary artery disease. This appears to be stable at this time. 3. History of end-stage renal disease. She is on hemodialysis and seems to be tolerating this quite well. 4. Diabetes. This will be dealt with by the primary care service. 5. Hypertension. This is under reasonable control at this time. We will obtain an echocardiogram for evaluation of the left ventricular systolic function. Further care of the patient will depend on her progress here as far as whether or not the atrial fibrillation can be well under control and also with her other problems, with her elevated temperature as to the etiology of this, there is no specific indication at this time of where the infection may be arising from. She does have a right IJ catheter which has been recently placed and this may be the etiology of the infection, but blood cultures thus far have been negative. SU
--- NOTE | 2017-09-28 10:32 | PRG ---
DATE OF SERVICE: 09/28/2017 NEPHROLOGY PROGRESS NOTE SUBJECTIVE: Patient was seen and examined at bedside and overnight events noted. Patient denies any shortness of breath or chest pain or palpitation. No history of nausea or vomiting or diarrhea or f ever or chills or cramps. OBJECTIVE: GENERAL: This is an elderly -[place] female in no apparent distress. VITAL SIGNS: Temperature 98.0, pulse 75, respiratory rate 18, blood pressure 120/60. HEENT: Atraumatic, normocephalic. Oral mucosa is moist. NECK: Supple. CARDIOVASCULAR: S1, S2 heard. Rate and rhythm regular. RESPIRATORY: Clear to auscultation. GASTROINTESTINAL: Abdomen is soft. MUSCULOSKELETAL: No tenderness. No edema. DERMATOLOGIC: No skin rash. NEUROLOGIC: Alert and awake and oriented x3. No focal neurologic deficits. Moving all the extremiti es. PSYCHIATRIC: Mood and affect normal. LABORATORY DATA: Potassium is 4.5, BUN 71, creatinine is 4.9. ASSESSMENT AND PLAN: 1. End-stage renal disease. Continue on dialysis Monday, Monday and Monday. 2. Hypokalemia, better. 3. Edema, controlled. 4. Anemia. 5. Hypertension, stable. 6. Continue dialysis Monday, Monday, and Monday as tolerated.
--- NOTE | 2017-09-28 10:42 | PDOC.PN ---
- Subjective Encounter Start Date: 09/28/17 Encounter Start Time: 08:45 Subjective: feels better, no sob or chest pain - Objective MAR Reviewed: Yes Vital Signs & Weight: Vital Signs (12 hours) Temp Pulse Resp BP BP Pulse Ox 09/28/17 08:35 98.0 F 85 17 120/60 96 09/28/17 04:00 97.7 F 80 16 100/55 L 95 09/27/17 23:47 86 88/49 L Weight Admit Weight 146 lb Weight 146 lb I&O: 09/27/17 09/28/17 09/29/17 06:59 06:59 06:59 Intake Total 510 1320 Output Total 2000 Balance 510 -680 Result Diagrams: 09/28/17 05:52 09/28/17 05:52 Additional Labs: Accuchecks 09/28/17 09/28/17 09/28/17 08:06 04:35 00:38 POC Glucose 105 118 H 109 09/27/17 09/27/17 09/27/17 20:34 18:28 11:37 POC Glucose 128 H 100 130 H Phys Exam - Physical Examination HEENT: PERRLA, moist MMs Neck: no JVD, supple Respiratory: no wheezing, no rales Cardiovascular: RRR, no significant murmur Gastrointestinal: soft, non-tender, positive bowel sounds Musculoskeletal: no edema, pulses present Neurological: non-focal, moves all 4 limbs Dx/Plan (1) Afib Code(s): I48.91 - UNSPECIFIED ATRIAL FIBRILLATION Status: Acute (2) Acute metabolic encephalopathy Code(s): G93.41 - METABOLIC ENCEPHALOPATHY Status: Acute (3) CAD (coronary artery disease) Code(s): I25.10 - ATHSCL HEART DISEASE OF [place] CORONARY ARTERY W/O ANG PCTRS Status: Chronic Qualifiers: Coronary Disease-Associated Artery/Lesion type: bypass graft [place] vs. transplanted heart: [place] heart Associated angina: without angina Qualified Code(s): I25.810 - Atherosclerosis of coronary artery bypass graft(s) without angina pectoris (4) Diabetes mellitus Code(s): E11.9 - TYPE 2 DIABETES MELLITUS WITHOUT COMPLICATIONS Status: Chronic Qualifiers: Diabetes mellitus type: type 2 Diabetes mellitus custodial insulin use: with custodial use Diabetes mellitus complication detail: with chronic kidney disease Chronic kidney disease stage: on chronic dialysis (5) Dyslipidemia Code(s): E78.5 - HYPERLIPIDEMIA, UNSPECIFIED Status: Chronic (6) ESRD (end stage renal disease) on dialysis Code(s): N18.6 - END STAGE RENAL DISEASE; Z99.2 - DEPENDENCE ON RENAL DIALYSIS Status: Chronic Comment: nephrology following (7) HTN (hypertension) Code(s): I10 - ESSENTIAL (PRIMARY) HYPERTENSION Status: Chronic Qualifiers: - Plan echo and usg venous doppler are pending -: appears to be at her baseline, responds well to verbal questions -: d/w daughter, has HH and PT at home -: likely dc plan in am, june tx to medical floor -: is on asp, coreg, lipitor and levaquin [id number], blood cs -ve * . Review of Systems - Medications/Allergies Allergies/Adverse Reactions: Allergies Allergy/AdvReac Type Severity Reaction Status Date / Time Penicillins Allergy Intermediate Rash Verified 05/21/17 02:43 tramadol Allergy Verified 09/27/17 04:28 Medications: Current Medications Acetaminophen (Tylenol) 650 mg PO Q4H PRN PRN Reason: Headache/Fever or Pain Al Hydroxide/Mg Hydroxide (Maalox) 30 ml PO Q6H PRN PRN Reason: Heartburn or Indigestion Aspirin (Aspirin) 325 mg PO QAM-[facility] Last Admin: 09/28/17 08:42 Dose: 325 mg Atorvastatin Calcium (Lipitor) 20 mg PO [facility] Last Admin: 09/27/17 20:21 Dose: 20 mg Calcium Carbonate (Tums) 1,000 mg PO Q4H PRN PRN Reason: Heartburn or Indigestion Carvedilol (Coreg) 3.125 mg PO BID-[facility] Last Admin: 09/28/17 08:42 Dose: 3.125 mg Dextrose/Water (Dextrose 50%) 25 gm SLOW IVP PRN PRN PRN Reason: Hypoglycemia Docusate Sodium (Colace) 100 mg PO BID [facility] Last Admin: 09/28/17 08:42 Dose: 100 mg Famotidine (Pepcid) 20 mg PO DAILY [facility] Last Admin: 09/28/17 08:42 Dose: 20 mg Glucagon (Glucagon) 1 mg IM PRN PRN PRN Reason: Hypoglycemia Heparin Sodium (Porcine) (Heparin) 5,000 units SC BID [facility] Last Admin: 09/28/17 08:41 Dose: 5,000 units Hydralazine HCl (Apresoline) 10 mg SLOW IVP Q4H PRN PRN Reason: SBP Greater Than 180 Dextrose/Water (D5w) 1,000 mls @ 0 mls/hr IV .Q0M PRN PRN Reason: Hypoglycemia Levofloxacin 500 mg/ Device 100 mls @ 100 mls/hr IVPB Q2D GERDA Insulin Human Regular (Humulin R) 0 units SC .MILD SLIDING SCALE PRN PRN Reason: Mild Correctional Scale Insulin Human Regular (Humulin R) 0 units SC .BEDTIME SLIDING SC PRN PRN Reason: Bedtime Correctional Scale Mineral Oil/White Petrolatum (Eucerin Cream) 0 gm TOP BIDPRN PRN PRN Reason: Dry Skin Miscellaneous Medication (Pharmacy To Dose) 1 each IVPB PRN PRN PRN Reason: Pharmacy to dose Nitroglycerin (Nitrostat) 0.4 mg PO Q5MIN PRN PRN Reason: Chest Pain Hold Vancomycin For (Level >20) 0 each FS .AT DIALYSIS [facility] Polyethylene Glycol (Miralax) 17 gm PO DAILY PRN PRN Reason: Constipation Senna (Senokot) 2 tab PO HSPRN PRN PRN Reason: Constipation
--- NOTE | 2017-09-28 12:23 | ULT ---
BILATERAL LOWER EXTREMITY VENOUS DOPPLER ULTRASOUND: Date: 09/28/17 HISTORY: Bilateral lower extremity edema. TECHNIQUE: Rowe scale ultrasound with color flow and spectral Doppler imaging of the deep venous systems of the lower extremities was performed bilaterally. FINDINGS: There is good flow, compression, and augmentation noted in the common femoral, femoral, deep femoral, popliteal, posterior tibial, and greater saphenous veins on either side. IMPRESSION: No evidence of deep venous thrombosis in either lower extremity. POS: [facility]
[2017-09-28] MEDS: Atorvastatin Calcium 20 MG TAB PO SCH (19:24)
[2017-09-29] MEDS: Heparin 5,000 UNITS/ML VIAL SC SCH ×2 (09:00→20:05)
--- NOTE | 2017-09-29 11:05 | PDOC.PN ---
- Subjective Encounter Start Date: 09/29/17 Encounter Start Time: 07:20 Subjective: no sob or chest pain or dizziness -: had normal bm this am -: is getting ready for HD this am - Objective MAR Reviewed: Yes Vital Signs & Weight: Vital Signs (12 hours) Temp Pulse Resp BP Pulse Ox 09/29/17 08:00 97.6 F 81 18 94 L 09/29/17 07:32 97.6 F 81 18 109/58 L 94 L 09/29/17 04:37 98.5 F 86 20 92/69 97 09/29/17 04:00 20 09/29/17 00:00 98.5 F 79 20 111/73 Weight Admit Weight 146 lb Weight 146 lb I&O: 09/28/17 09/29/17 09/30/17 06:59 06:59 06:59 Intake Total 1320 500 200 Output Total 2000 Balance -680 500 200 Result Diagrams: 09/28/17 05:52 09/28/17 05:52 Additional Labs: Accuchecks 09/29/17 09/29/17 09/28/17 04:32 01:17 19:23 POC Glucose 89 113 H 132 H 09/28/17 09/28/17 15:57 12:03 POC Glucose 112 H 129 H Phys Exam - Physical Examination HEENT: PERRLA, moist MMs Neck: no JVD, supple Respiratory: no wheezing, no rales Cardiovascular: RRR, no significant murmur Gastrointestinal: soft, non-tender, positive bowel sounds Musculoskeletal: no edema, pulses present Neurological: non-focal, moves all 4 limbs Dx/Plan (1) Afib Code(s): I48.91 - UNSPECIFIED ATRIAL FIBRILLATION Status: Acute (2) Acute metabolic encephalopathy Code(s): G93.41 - METABOLIC ENCEPHALOPATHY Status: Resolved (3) CAD (coronary artery disease) Code(s): I25.10 - ATHSCL HEART DISEASE OF [place] CORONARY ARTERY W/O ANG PCTRS Status: Chronic Qualifiers: Coronary Disease-Associated Artery/Lesion type: bypass graft [place] vs. transplanted heart: [place] heart Associated angina: without angina Qualified Code(s): I25.810 - Atherosclerosis of coronary artery bypass graft(s) without angina pectoris (4) Diabetes mellitus Code(s): E11.9 - TYPE 2 DIABETES MELLITUS WITHOUT COMPLICATIONS Status: Chronic Qualifiers: Diabetes mellitus type: type 2 Diabetes mellitus penitentiary insulin use: with penitentiary use Diabetes mellitus complication detail: with chronic kidney disease Chronic kidney disease stage: on chronic dialysis (5) Dyslipidemia Code(s): E78.5 - HYPERLIPIDEMIA, UNSPECIFIED Status: Chronic (6) ESRD (end stage renal disease) on dialysis Code(s): N18.6 - END STAGE RENAL DISEASE; Z99.2 - DEPENDENCE ON RENAL DIALYSIS Status: Chronic Comment: nephrology following (7) HTN (hypertension) Code(s): I10 - ESSENTIAL (PRIMARY) HYPERTENSION Status: Chronic Qualifiers: - Plan blood cs are -ve, urine is growing enterococcus -: mild hypotension, on small dose of coreg, restrict fluid removal with HD -: dc plan in am if BP stabilizes -: usg venous doppler is -ve, echo is pending -: on levaquin, mobilize as tolerated with assistance * . Review of Systems - Medications/Allergies Allergies/Adverse Reactions: Allergies Allergy/AdvReac Type Severity Reaction Status Date / Time Penicillins Allergy Intermediate Rash Verified 05/21/17 02:43 tramadol Allergy Verified 09/27/17 04:28 Medications: Current Medications Acetaminophen (Tylenol) 650 mg PO Q4H PRN PRN Reason: Headache/Fever or Pain Al Hydroxide/Mg Hydroxide (Maalox) 30 ml PO Q6H PRN PRN Reason: Heartburn or Indigestion Aspirin (Aspirin) 325 mg PO QAM-[facility] Last Admin: 09/28/17 08:42 Dose: 325 mg Atorvastatin Calcium (Lipitor) 20 mg PO [facility] Last Admin: 09/28/17 19:24 Dose: 20 mg Calcium Carbonate (Tums) 1,000 mg PO Q4H PRN PRN Reason: Heartburn or Indigestion Carvedilol (Coreg) 3.125 mg PO BID-[facility] Last Admin: 09/28/17 17:36 Dose: 3.125 mg Dextrose/Water (Dextrose 50%) 25 gm SLOW IVP PRN PRN PRN Reason: Hypoglycemia Docusate Sodium (Colace) 100 mg PO BID [facility] Last Admin: 09/28/17 19:24 Dose: 100 mg Famotidine (Pepcid) 20 mg PO DAILY [facility] Last Admin: 09/28/17 08:42 Dose: 20 mg Glucagon (Glucagon) 1 mg IM PRN PRN PRN Reason: Hypoglycemia Heparin Sodium (Porcine) (Heparin) 5,000 units SC BID [facility] Last Admin: 09/28/17 19:24 Dose: 5,000 units Hydralazine HCl (Apresoline) 10 mg SLOW IVP Q4H PRN PRN Reason: SBP Greater Than 180 Dextrose/Water (D5w) 1,000 mls @ 0 mls/hr IV .Q0M PRN PRN Reason: Hypoglycemia Insulin Human Regular (Humulin R) 0 units SC .MILD SLIDING SCALE PRN PRN Reason: Mild Correctional Scale Insulin Human Regular (Humulin R) 0 units SC .BEDTIME SLIDING SC PRN PRN Reason: Bedtime Correctional Scale Levofloxacin (Levaquin) 500 mg PO Q2D@1800 [facility] Last Admin: 09/28/17 17:36 Dose: 500 mg Mineral Oil/White Petrolatum (Eucerin Cream) 0 gm TOP BIDPRN PRN PRN Reason: Dry Skin Miscellaneous Medication (Pharmacy To Dose) 1 each IVPB PRN PRN PRN Reason: Pharmacy to dose Nitroglycerin (Nitrostat) 0.4 mg PO Q5MIN PRN PRN Reason: Chest Pain Polyethylene Glycol (Miralax) 17 gm PO DAILY PRN PRN Reason: Constipation Senna (Senokot) 2 tab PO HSPRN PRN PRN Reason: Constipation
[2017-09-29] MEDS ORDERED: Heparin 1,000 UNITS/ML VIAL ONE (11:11)
[2017-09-29] MEDS: Carvedilol 3.125 MG TAB PO SCH ×2 (11:47→17:27)
--- NOTE | 2017-09-29 15:07 | EKG ---
Test Reason : STAT Blood Pressure : / mmHG Vent. Rate : 109 BPM Atrial Rate : 059 BPM P-R Int : 000 ms QRS Dur : 094 ms QT Int : 368 ms P-R-T Axes : 000 -23 176 degrees QTc Int : 495 ms Atrial fibrillation with rapid ventricular response with premature ventricular or aberrantly conducte d complexes Possible Anterolateral infarct , age undetermined Abnormal ECG Confirmed by TONYA HERNADEZ MD ([id number]) on 09/29/2017 3:06:54 PM Referred By: DEVIN Confirmed By:TONYA HERNADEZ MD
[2017-09-29] MEDS: Aspirin 325 MG TAB PO SCH (15:47)
[2017-09-29] MEDS: Famotidine 20 MG TAB PO SCH (15:47)
[2017-09-29] MEDS: Docusate 100 MG CAP PO SCH ×2 (15:47→20:05)
--- NOTE | 2017-09-29 16:58 | PRG ---
DATE OF SERVICE: 09/29/2017 SUBJECTIVE: Ms. Rush is more alert today. She denies any headaches. No shortness of breath or ba ck pain. No abdominal pain. No appendicular structure symptoms. PHYSICAL EXAMINATION: VITAL SIGNS: Temperature max 98.5, blood pressure 109/58, pulse rate 81, respirations 19, O2 sat 94% . GENERAL APPEARANCE: A bit cantankerous, not very happy, answering questions. EYES: Ocular movements are conjugate. Pupils are equal. NECK: Supple. ORAL CAVITY: Moist. LUNGS: Symmetric clear breath sounds. HEART: S1, S2, without obvious murmurs. ABDOMEN: Soft, not distended. No back tenderness. No joint symptoms or inflammatory changes. LABORATORY DATA AND IMAGING DATA: White cell count 4.9, hemoglobin 10.3, platelets 162 with 54% neut rophils. Chemistry is not particularly remarkable. Microbiology with negative blood cultures, urine culture with presumptive Enterococcus, 50-75,000 colonies probably asymptomatic bacteriuria not trul y invasive infection. Echocardiogram with good technique EF 25%, no valvular vegetations. ASSESSMENT AND DISCUSSION: Type 2 diabetes, end-stage renal disease with change in mental status on top of chronic cognitive dysfunction, chronic right heel stage III decubitus ulcer and transient feve r. The patient currently is receiving levofloxacin. The patient may have had transient bacteremia a nd the catheter may be colonized not yet become overt bacteremia at least continuous bacteremia. Heath gasca discontinue levofloxacin and then consider discharge planning if she remains stable.
--- NOTE | 2017-09-29 18:53 | PRG ---
DATE OF SERVICE: 09/29/2017 SUBJECTIVE: Patient was seen and examined at bedside and overnight events noted. Patient denies any shortness of breath or chest pain or palpitation. No history of nausea or vomiting or diarrhea or f ever or chills or cramps. OBJECTIVE: GENERAL: This is an obese female, in no apparent distress. VITAL SIGNS: Temperature 97.7, pulse 89, respiratory rate , blood pressure . HEENT: Atraumatic, normocephalic, oral mucosa is moist. NECK: Supple. CARDIOVASCULAR: S1, S2 heard, rate and rhythm regular. RESPIRATORY: Clear to auscultation. GASTROINTESTINAL: Abdomen is soft. MUSCULOSKELETAL: No tenderness, no edema. DERMATOLOGIC: No skin rash. NEUROLOGIC: Alert and awake and oriented x3. No focal neurologic deficits. Moving all the extremit ies. PSYCHIATRIC: Mood and affect normal. LABORATORY DATA: Not done today. ASSESSMENT AND PLAN: 1. End-stage renal disease. Continue on dialysis Monday, Monday, and Monday. 2. Hypokalemia, better. 3. Edema, controlled. 4. Anemia. 5. Hypertension, stable. Plan is to continue on dialysis Monday, Monday, and Monday.
[2017-09-29] MEDS: Atorvastatin Calcium 20 MG TAB PO SCH (20:05)
[2017-09-30] MEDS: Carvedilol 3.125 MG TAB PO SCH ×2 (08:22→17:14)
[2017-09-30] MEDS: Docusate 100 MG CAP PO SCH (08:22)
[2017-09-30] MEDS: Aspirin 325 MG TAB PO SCH (08:22)
[2017-09-30] MEDS: Heparin 5,000 UNITS/ML VIAL SC SCH (08:23)
[2017-09-30] MEDS: Famotidine 20 MG TAB PO SCH (08:23)
--- NOTE | 2017-09-30 10:53 | EKG ---
Test Reason : Blood Pressure : / mmHG Vent. Rate : 091 BPM Atrial Rate : 091 BPM P-R Int : 150 ms QRS Dur : 086 ms QT Int : 402 ms P-R-T Axes : 041 -29 137 degrees QTc Int : 494 ms Sinus rhythm with occasional , and consecutive Premature ventricular complexes Minimal voltage criteria for LVH, may be normal variant Possible Anterior infarct , age undetermined T wave abnormality, consider lateral ischemia Abnormal ECG Confirmed by SAPNA DOLAN, CELIO ([id number]), scientific editor ROSENDO VILCHIS ([id number]) on 09/30/2017 10:52:55 AM Referred By: Confirmed By:CELIO ALEJO MD
--- NOTE | 2017-09-30 12:31 | PRG ---
DATE OF SERVICE: 09/30/2017 SUBJECTIVE: Patient was seen and examined at bedside and overnight events noted. Patient denies any shortness of breath or chest pain or palpitation. No history of nausea or vomiting or diarrhea or f ever or chills or cramps. OBJECTIVE: General: This is an elderly female in no apparent distress. Vital signs: Temperature 97, pulse 80, respirations 16, and blood pressure 131/87. HEENT: Atraumatic, normocephalic, Oral mucosa is moist. Neck: Supple. Cardiovascular: S1S2 heard, Rate and rhythm regular. Respiratory: Clear to auscultation. Gastrointestinal: Abdomen is soft. Musculoskeletal: No tenderness, No edema. Dermatologic: No skin rash. Neurologic: Alert and awake and oriented X3, No focal neurologic deficits. Moving all the extremities . Psychiatric: Mood and affect normal LABORATORY DATA: No labs done today. ASSESSMENT AND PLAN: 1. End-stage renal disease. Continue on dialysis Monday, Monday, and Monday. 2. Hypokalemia, better. 3. Edema, controlled. 4. Anemia. 5. Hypertension. 6. Continue on dialysis as tolerated.
--- NOTE | 2017-09-30 13:13 | PDOC.PN ---
- Subjective Encounter Start Date: 09/30/17 Encounter Start Time: 08:50 Subjective: no sob or abd pain -: feels better - Objective MAR Reviewed: Yes Vital Signs & Weight: Vital Signs (12 hours) Temp Pulse Resp BP Pulse Ox 09/30/17 11:51 98.2 F 79 16 101/72 99 09/30/17 11:37 95 09/30/17 08:00 97.7 F 81 16 94 L 09/30/17 07:43 97.7 F 81 16 131/87 94 L Weight Admit Weight 146 lb Weight 146 lb I&O: 09/29/17 09/30/17 10/01/17 06:59 06:59 06:59 Intake Total 500 680 Balance 500 680 Result Diagrams: 09/28/17 05:52 09/28/17 05:52 Additional Labs: Accuchecks 09/30/17 09/29/17 09/29/17 04:06 19:37 15:46 POC Glucose 79 109 140 H Phys Exam - Physical Examination HEENT: PERRLA, moist MMs Neck: no JVD, supple Respiratory: no wheezing, no rales Cardiovascular: RRR, no significant murmur Gastrointestinal: soft, non-tender, positive bowel sounds Musculoskeletal: no edema, pulses present Neurological: non-focal, moves all 4 limbs Dx/Plan (1) Acute metabolic encephalopathy Code(s): G93.41 - METABOLIC ENCEPHALOPATHY Status: Resolved (2) Afib Code(s): I48.91 - UNSPECIFIED ATRIAL FIBRILLATION Status: Acute Qualifiers: Atrial fibrillation type: paroxysmal Qualified Code(s): I48.0 - Paroxysmal atrial fibrillation (3) CAD (coronary artery disease) Code(s): I25.10 - ATHSCL HEART DISEASE OF [place] CORONARY ARTERY W/O ANG PCTRS Status: Chronic Qualifiers: Coronary Disease-Associated Artery/Lesion type: bypass graft [place] vs. transplanted heart: [place] heart Associated angina: without angina Qualified Code(s): I25.810 - Atherosclerosis of coronary artery bypass graft(s) without angina pectoris (4) Diabetes mellitus Code(s): E11.9 - TYPE 2 DIABETES MELLITUS WITHOUT COMPLICATIONS Status: Chronic Qualifiers: Diabetes mellitus type: type 2 Diabetes mellitus terminal operator insulin use: with halfway use Diabetes mellitus complication detail: with chronic kidney disease Chronic kidney disease stage: on chronic dialysis (5) Dyslipidemia Code(s): E78.5 - HYPERLIPIDEMIA, UNSPECIFIED Status: Chronic (6) ESRD (end stage renal disease) on dialysis Code(s): N18.6 - END STAGE RENAL DISEASE; Z99.2 - DEPENDENCE ON RENAL DIALYSIS Status: Chronic Comment: nephrology following (7) HTN (hypertension) Code(s): I10 - ESSENTIAL (PRIMARY) HYPERTENSION Status: Chronic Qualifiers: - Plan hemostable -: echo shows poor ef of 25% with severe TR/MR and severe -: vre in urine likely not invasive bacteria, will not treat per Dr.Lemos españa -: dc pt home * .
[2017-09-30 17:14] VITALS: BP 127/88; TEMP 98.9
--- NOTE | 2017-09-30 18:23 | PRG ---
DATE OF SERVICE: 09/30/2017 SUBJECTIVE: The patient is sitting up having finished eating her lunch. She is quite alert. She is feeling well and denies any headaches. No abdominal pain, no dyspnea, no back pain. OBJECTIVE: VITAL SIGNS: T-max 98.2, blood pressure 101/72, pulse 79, respirations 16, O2 saturation 99%. GENERAL: Appears in no distress. LUNGS: Clear. HEART: S1, S2 with soft aortic murmur. ABDOMEN: Soft and not distended. Tunneled catheter in right IJ position. LABORATORY DATA: White cell count 4.9. Two sets of blood cultures, no growth at 48 hours. ASSESSMENT AND DISCUSSION: Type 2 diabetes, end-stage renal disease with change in mental status on top of chronic cognitive dysfunction, chronic heel stage III decubitus ulcer, transient fever. At th is point, would discontinue levofloxacin and eventually we will consider discharge planning. She sti ll may have colonization of dialysis catheter and repeat blood cultures would have to be submitted if she develops recrudescence of fever and will follow up.
--- NOTE | 2017-09-30 23:20 | DIS ---
DATE OF ADMISSION: 09/26/2017 DATE OF DISCHARGE: 09/30/2017 DISCHARGE DISPOSITION: To home with home health and PT. PRIMARY DISCHARGE DIAGNOSES: Acute metabolic encephalopathy, resolved paroxysmal atrial fibrillation with rapid ventricular response, resolved, coronary artery disease, dyslipidemia, diabetes mellitus type 2, end-stage renal disease on hemodialysis, hypertension. PROCEDURES DONE DURING HOSPITALIZATION: Chest x-ray done on the day of admission showed cardiomegaly with mild volume overload. Ultrasound venous Doppler of lower extremities done showed no evidence o f DVT. Echo with 2D Doppler done showed an EF of 20-25%. There was severe mitral regurgitation, tri cuspid regurgitation and severe aortic stenosis. Blood cultures x2 no growth. H&H 10 and 34, platel et count 162. BNP was 4801. Initial serum glucose was 676. Serum glucose on the was 114, albu min is 3.4. CRP 1.76. DISCHARGE MEDICATIONS: Coreg 3.125 mg p.o. twice daily, Lipitor 20 mg p.o. daily, ferrous sulfate 32 5 mg p.o. twice daily, [place]y-[place] 1 capsule daily, Humulin R a.c. and at bedtime, linagliptin 5 mg aisha ly, fish oil 1000 mg p.o. daily, MiraLax 17 grams daily, sevelamer 1600 mg p.o. twice daily, Ultram 5 0 mg twice daily p.r.n., gabapentin 300 mg twice daily, Protonix 40 mg p.o. daily. ALLERGIES: PENICILLIN. DISCHARGE PLAN: Patient to follow up with primary care physician in 1 week. BRIEF COURSE DURING HOSPITALIZATION: Patient initially got admitted on the after she was bahman t by her daughter for altered mental state and fever. She had a fever of 101. She was essentially a dmitted initially for metabolic encephalopathy, fever of unknown origin with possible sepsis. She wa s admitted to telemetry and has later downgraded to medical floor. The patient had consultation with Dr. Dove for Infectious Disease. She had a right heel stage IV, nonhealing ulcer as well. The pat ient was on IV antibiotics. Patient's echo also revealed low EF of 25% with severe aortic stenosis a s well. The patient has multiple medical conditions with advanced age and underlying dementia as wel l. Her Levaquin was discontinued 24 hours prior to discharge by Dr. Dove and patient has remained s table. She grew vancomycin resistant Enterococcus in her urine, likely not in any invasive bacteria per Dr. Dove. She is hemodynamically stable and will be shortly discharged home. Prior to discharg e, she is able to transfer to a wheelchair or to commode. Patient has home health and physical thera py and family would like to come her home. Please see a [id number] documentation on [facility] for t he day of discharge.
== END 2017-09-30 18:09 | disposition home health service (06) | DRG 91 ==
LOC: ERS 17:55 → 2NO 21:57 → T4-A 09-28 16:34
PROVIDERS: ADMIT Internal Medicine Infectious Disease; ATTEND Internal Medicine Infectious Disease
PROC: 5A1D70Z Performance of Urinary Filtration, Intermittent, Less than 6 Hours Per Day (ICD-10-PCS; principal; 2017-09-27)
PROC: 5A1D70Z Performance of Urinary Filtration, Intermittent, Less than 6 Hours Per Day (ICD-10-PCS; 2017-09-29)
DX: G92 Toxic encephalopathy (principal); L89.613 Pressure ulcer of right heel, stage 3; N18.6 End stage renal disease; I50.22 Chronic systolic (congestive) heart failure; I13.2 Hypertensive heart and chronic kidney disease with heart failure and with stage 5 chronic kidney disease, or end stage renal disease; N39.0 Urinary tract infection, site not specified; E87.1 Hypo-osmolality and hyponatremia; I48.92 Unspecified atrial flutter; E11.22 Type 2 diabetes mellitus with diabetic chronic kidney disease; Z99.2 Dependence on renal dialysis; I25.10 Atherosclerotic heart disease of native coronary artery without angina pectoris; G89.4 Chronic pain syndrome; J45.20 Mild intermittent asthma, uncomplicated; E78.5 Hyperlipidemia, unspecified; K21.9 Gastro-esophageal reflux disease without esophagitis; D64.9 Anemia, unspecified; E87.6 Hypokalemia; E11.65 Type 2 diabetes mellitus with hyperglycemia; I48.0 Paroxysmal atrial fibrillation; I35.0 Nonrheumatic aortic (valve) stenosis; Z88.0 Allergy status to penicillin; Z85.3 Personal history of malignant neoplasm of breast; Z90.11 Acquired absence of right breast and nipple; Z95.1 Presence of aortocoronary bypass graft; Z82.49 Family history of ischemic heart disease and other diseases of the circulatory system; Z83.3 Family history of diabetes mellitus
CPT/HCPCS: 36415; 36416; 51701; 71045; 80048; 80053; 80202; 81003; 81015; 82550; 83605; 83735; 83880; 84443; 84484; 85025; 86140; 87040; 87077; 87086; 87186; 93005; 93010; 93306; 93970; 94760; 96365; A4353; G8978-GP-CK; G8979-GP-CI; G8987-GO-CM; G8988-GO-CK; G8996-GN-CI; G8997-GN-CH; J1644; J1815; J3370; J7050

== ENCOUNTER 2017-10-25 13:43 | Outpatient (CLI) | payer MEDICARE, MEDICAID ==
--- NOTE | 2017-10-25 16:07 | ULT ---
RIGHT LOWER EXTREMITY ARTERIAL DOPPLER EXAM: 10/25/17 HISTORY: Right heel ulcer nonhealing. Exam is very limited due to lack of mobility and inability to cooperate. VESSEL PSV (cm/s) Right common femoral artery 54 Profunda femoral 52 Superficial femoral artery proximal 45 Superficial femoral artery mid 44 Superficial femoral artery distal 28 Popliteal Unable to evaluate Anterior tibial 23 Posterior tibial 9 Dorsalis pedis Unable to evaluate IMPRESSION: Generally diminished velocities within the right lower extremity. 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 In addition, there appears to be moderate stenosis near the level of the adductor canal at the junction of the superficial femoral and popliteal arteries. POS: [facility]
== END 2017-10-25 13:44 | disposition home or self-care (01) ==
LOC: ULT 13:43
PROVIDERS: ATTEND Internal Medicine
DX: L89.613 Pressure ulcer of right heel, stage 3 (principal)
CPT/HCPCS: 93923

== ENCOUNTER 2017-10-28 18:42 | Inpatient (IN) | payer MEDICARE, MEDICAID ==
[2017-10-28 21:14] LABS: Eosinophils 3 % (0-10); Hemoglobin 12.5 g/dL (12.0-16.0); Lymphocytes 18 % (21-51); MDiff Complete? YES; Macrocytosis SLIGHT = 6-15 cells (100X) (0-5/hpf); Mean Corpuscular HGB CONC 33.3 g/dL (32.0-36.0); Mean Corpuscular Hemoglobin 35.5 pg (27.0-31.0); Mean Platelet Volume 7.4 fL (7.4-10.4); Monocytes 16 % (0-10); Neutrophil 62 % (42-75); PLT Morphology Comment Appears Adequate; Platelet Count 184 thou/uL (130-400); RBC Distribution Width 16.1 % (11.5-14.5); Red Blood Cell (RBC) Count 3.52 mill/uL (4.20-5.40); White Blood Cell (WBC) Count 5.4 thou/uL (4.8-10.8)
--- NOTE | 2017-10-28 21:43 | RAD ---
PORTABLE CHEST: 10/28/17 HISTORY: Shortness of breath. COMPARISON: 09/26/17 study. The heart size is enlarged. No signs of overt pulmonary edema. A right sided hemosplit catheter is ag ain noted. Right axillary stent is again noted to be in place. IMPRESSION: Cardiomegaly. Stable exam. POS: [facility]
[2017-10-28 21:51] LABS: ALT (SGPT) 9 U/L (8-55); AST (SGOT) 12 U/L (5-34); Albumin 3.8 g/dL (3.4-4.8); Alkaline Phosphatase 103 U/L (40-150); Anion Gap 21 mmol/L (10-20); BUN (Urea Nitrogen) 62 mg/dL (9.8-20.1); Bilirubin, Total 0.8 mg/dL (0.2-1.2); Calc. Creatinine Clearance 0 mL/min (70-130); Calcium 9.5 mg/dL (7.8-10.44); Carbon Dioxide 24 mmol/L (23-31); Chloride 94 mmol/L (98-107); Estimated GFR-MDRD 5; Globulin 3.1 g/dL (2.4-3.5); Glucose 118 mg/dL (83-110); Potassium 4.6 mmol/L (3.5-5.1); Protein, Total 6.9 g/dL (6.0-8.3); Sodium 134 mmol/L (136-145)
[2017-10-28] MEDS ORDERED: Acetaminophen 325 MG TAB PO PRN (22:56)
[2017-10-28] MEDS ORDERED: Pepto Bismol Chew TAB PO PRN (22:56)
[2017-10-28] MEDS ORDERED: Bisacodyl 5 MG TAB PO PRN (22:56)
[2017-10-28] MEDS ORDERED: Ondansetron ODT 4 MG TAB PO PRN (22:56)
[2017-10-28] MEDS ORDERED: Acetaminophen 650 MG Suppository PR PRN (22:56)
[2017-10-28] MEDS ORDERED: Ondansetron HCl/PF 4 MG/2 ML Vial IVP PRN (22:56)
[2017-10-28 22:57] LABS: Bilirubin Negative (Negative); Blood, Urine Large (Negative); Clarity TURBID (Clear); Glucose, Urine (Dipstick) Negative (Negative); Leukocyte Large (Negative); Nitrite Negative (Negative); Protein, Urine (Dipstick) 300 mg/dL (Neg-Trace); Specific Gravity, Urine 1.015 (1.002-1.036); Urobilinogen 0.2 mg/dL (0.2-1.0)
[2017-10-28 22:59] LABS: Pathc Cast-AUWi Flag 5.72 (0-2.49); RBC/HPF GREATER THAN 50-TNTC HPF (0-3); Squamous Epithelial 0-3 HPF (0-3)
[2017-10-28 23:07] LABS: Bacteria/HPF 4+ HPF (None Seen); Hyaline Casts/LPF NONE SEEN LPF (0-3 Hyaline)
[2017-10-29 06:11] LABS: #Eosinphils 0.1 thou/uL (0.0-0.7); #Lymphocytes 0.9 thou/uL (1.20-3.40); #Monocytes 0.7 thou/uL (0.11-0.59); #Neutrophils 3.5 thou/uL (1.40-6.50); %Basophils 0.8 % (0.0-1.0); %Eosinophils 1.6 % (0.0-10.0); %Lymphocytes 17.6 % (21.0-51.0); %Monocytes 13.6 % (0.0-10.0); %Neutrophils 66.4 % (42.0-75.0); Hemoglobin 11.3 g/dL (12.0-16.0); Mean Corpuscular HGB CONC 30.5 g/dL (32.0-36.0); Mean Corpuscular Hemoglobin 31.8 pg (27.0-31.0); Mean Platelet Volume 7.5 fL (7.4-10.4); Platelet Count 210 thou/uL (130-400); RBC Distribution Width 15.9 % (11.5-14.5); Red Blood Cell (RBC) Count 3.54 mill/uL (4.20-5.40); White Blood Cell (WBC) Count 5.3 thou/uL (4.8-10.8)
[2017-10-29 06:20] LABS: Anion Gap 21 mmol/L (10-20); BUN (Urea Nitrogen) 63 mg/dL (9.8-20.1); Calc. Creatinine Clearance 5 mL/min (70-130); Calcium 9.5 mg/dL (7.8-10.44); Carbon Dioxide 24 mmol/L (23-31); Chloride 94 mmol/L (98-107); Estimated GFR-MDRD 5; Glucose 88 mg/dL (83-110); Potassium 4.2 mmol/L (3.5-5.1); Sodium 135 mmol/L (136-145)
[2017-10-29] MEDS ORDERED: Artificial Tears 18 DROP/0.9 ML EA EYE PRN (08:11)
[2017-10-29] MEDS ORDERED: Sodium Chloride 0.65% Nasal 44 ML BOT EA NARE PRN (08:11)
[2017-10-29] MEDS ORDERED: Chloraseptic Spray 180 ml Bottle PO PRN (08:11)
[2017-10-29] MEDS ORDERED: Loratadine 10 MG TAB PO PRN (08:11)
[2017-10-29] MEDS ORDERED: Temazepam 15 MG CAP PO PRN (08:11)
[2017-10-29] MEDS ORDERED: Calcium Carbonate 500 MG ChewTAB PO PRN (08:11)
[2017-10-29] MEDS ORDERED: Eucerin (Mineral Oil/Petrolatum,White) 30 gm Jar TOP PRN (08:11)
[2017-10-29] MEDS ORDERED: Diabetic Tussin 200 MG/10 ML UDCUP PO PRN (08:11)
[2017-10-29] MEDS ORDERED: hydrALAZINE 20 MG/ML VIAL SLOW IVP PRN (08:11)
[2017-10-29] MEDS ORDERED: Milk Of Magnesia 30 ML UDCUP PO PRN (08:11)
[2017-10-29] MEDS ORDERED: Dextrose 50% Abboject 50 ML SYRINGE SLOW IVP PRN (08:13)
[2017-10-29] MEDS ORDERED: Dextrose 5% in Water 1,000 ML IV PRN (08:13)
[2017-10-29] MEDS ORDERED: HumaLOG 300 UNITS/3 ML VIAL SC PRN ×2 (08:13)
--- NOTE | 2017-10-29 08:16 | HP ---
CHIEF COMPLAINT: Bilateral lower extremity swelling. HISTORY OF PRESENT ILLNESS: Provided by patient and electronic medical records. This is an 82-year-old female, who presented to the ED with bilateral lower extremity swelling per electronic medical records. Patient was sent from primary care physician's office, because the patient was noted to have bilateral leg edema by the family and the family brought the patient to the PCP , so the pcp ordered the patient to come to the hospital. Per records and per family, the patient has missed 2 days of dialysis. Therefore, patient has been retaining a lot of fluids. At this point, the patient denies any shortness of breath, fever, nausea, vomiting, chest pain. REVIEW OF SYSTEMS: Unable to be obtained, as patient is demented and not fully cooperative. PAST MEDICAL HISTORY: Breast cancer; [place]; diabetes mellitus, type 2; hyperlipidemia; hypertension; asthma; end-stage renal disease, on hemodialysis on Monday, Wednesdays, and Fridays; congestive heart failure. PAST SURGICAL HISTORY: 1. Right mastectomy. 2. CABG. 3. Right dialysis graft. 4. Removal of left dialysis graft. PSYCHIATRIC HISTORY: No previous psychiatric history. SOCIAL HISTORY: Denies alcohol or drug use and smoking history. FAMILY HISTORY: Reviewed and noncontributory to this case. KNOWN ALLERGIES: PENICILLIN, gives the patient hives; TRAMADOL. CURRENT MEDICATIONS: The patient is on, 1. Gabapentin 600 t.i.d. 2. Protonix 40. 3. Coreg 3.125. 4. Renvela 1600 b.i.d. 5. Zoloft 25 mg daily. PHYSICAL EXAMINATION: VITAL SIGNS: Blood pressure 142/90 and temperature is 98. GENERAL: Patient is alert and awake x1, is able to speak in full sentences. She presently does not appear to have any acute distress. HEENT: Normocephalic, atraumatic. Pupils are equally round and reactive to light. Extraocular movements are intact. No scleral icterus. NECK: Trachea is midline. No JVD. No tenderness. LUNGS: Clear to auscultation bilaterally. CARDIOVASCULAR: Irregularly irregular heart sounds. Systolic murmur on the left sternal border appreciated. ABDOMEN: Patient does have multiple abdominal scars. No masses, no peritoneal signs, no distention. Positive bowel sounds in the abdomen. No tenderness. EXTREMITIES: Upper extremities, left arm fistula with palpable thrill. Radial pulses normal, ulnar pulses normal, capillary refill less than 2 seconds. Lower extremity exam includes large ulcer on right heel with some granulation tissue. No exposed bone. No erythema or redness surrounding the ulcer. There is a posterior tibial pulse. Pedal pulses normal. Distal pulses also intact. There is bilateral lower extremity edema and weakness at the lower extremities. NEUROLOGIC: Cranial nerves II-XII grossly intact. No focal neurologic deficit noted. SKIN: Warm and, as stated above, there are some ulcerations noted. PSYCHIATRIC: The patient is alert and oriented to self. Otherwise, patient has normal affect. EKG: Normal sinus rhythm at 87 with some ectopic beats. Chest x-ray showed cardiomegaly. LABORATORY DATA: WBC 5.4, hemoglobin 12.5, hematocrit 37.7, platelet count is 184. Sodium is 134, potassium 4.6, chloride 94, carbon dioxide of 24, anion gap of 21, BUN of 62, creatinine of 9.78, GFR is 5, glucose is 118. Urine shows negative for nitrite, large leukocyte esterase. ASSESSMENT AND PLAN: This is an 82-year-old female, being admitted for, 1. Bilateral lower extremity edema. Patient has missed dialysis a couple of days in a row and patient is retaining fluid. Therefore, at this point, river rat was called, patient's river rat is Dr. Vazquez, and it has been advised that patient should be admitted to the hospital for dialysis tomorrow. 2. End-stage renal disease. The patient is on hemodialysis on Mondays, Wednesdays, and Fridays. We will continue patient on this regimen, but at this point we would do immediate dialysis tomorrow since the patient has missed 2 sessions of her dialysis. 3. Diabetes mellitus, type 2. Currently, glucose is controlled. Continue the patient on current medication. 4. Hyperlipidemia. Continue the patient on current management. 5. Hypertension. Continue the patient on current management. 6. Asthma. The patient is stable. 7. Deep venous thrombosis and gastrointestinal prophylaxis. MTDD
[2017-10-29] MEDS: Ferrous Sulfate 325 MG TAB PO SCH ×2 (08:47→18:07)
[2017-10-29] MEDS: Gabapentin 300 MG CAP PO SCH ×2 (08:47→23:06)
[2017-10-29] MEDS: Alogliptin 25 MG TAB PO SCH (08:47)
[2017-10-29] MEDS: Fish Oil 1,000 MG CAP PO SCH ×2 (08:47→09:02)
[2017-10-29] MEDS: Carvedilol 3.125 MG TAB PO SCH ×2 (08:47→23:06)
[2017-10-29] MEDS: Folic Acid/Vit B Comp W-C PO SCH ×2 (08:47→09:02)
[2017-10-29] MEDS: Heparin 5,000 UNITS/ML VIAL SC SCH ×2 (08:48→23:08)
[2017-10-29] MEDS: Polyethylene Glycol 3350 17 GM Packet PO SCH ×2 (08:48→08:58)
[2017-10-29] MEDS: Sevelamer Carbonate 800 MG TAB PO SCH ×3 (08:48→23:04)
[2017-10-29] MEDS ORDERED: MULTIVIT MIN PO SCH (09:00)
[2017-10-29] MEDS ORDERED: [UNRECOGNIZED DRUG - OTHER] PO SCH (09:00)
[2017-10-29] MEDS ORDERED: FOLIC AC PO SCH (09:00)
[2017-10-29] MEDS ORDERED: Non-Formulary Item 1 EACH (Amino Acids/Protein Hydrolys [Pro-Stat Awc Liquid Packet] 30 M PO SCH (09:00)
[2017-10-29] MEDS ORDERED: Sevelamer Carbonate 800 MG TAB PO SCH (09:00)
[2017-10-29] MEDS ORDERED: IRON FUM PO SCH (09:00)
--- NOTE | 2017-10-29 10:52 | PDOC.PN ---
- Subjective Encounter Start Date: 10/29/17 Encounter Start Time: 07:30 -: old records requested/rev Patient seen and examined. No new complaints. No overnight events pt is very poor historian - Objective Resuscitation Status: Resuscitation Status FULL:Full Resuscitation MAR Reviewed: Yes Vital Signs & Weight: Vital Signs (12 hours) Temp Pulse Resp BP Pulse Ox 10/29/17 07:51 97.7 F 86 16 143/75 H 92 L 10/29/17 07:40 92 L 10/29/17 05:26 95 10/29/17 01:40 95 10/29/17 01:30 97.9 F 87 18 123/82 95 Weight Weight 159 lb 3.2 oz I&O: 10/28/17 10/29/17 10/30/17 06:59 06:59 06:59 Intake Total 300 Balance 300 Result Diagrams: 10/29/17 05:48 10/29/17 05:48 Additional Labs: Accuchecks 10/29/17 08:36 POC Glucose 101 Radiology Reviewed by me: Yes (chest xray reviewed) EKG Reviewed by me: Yes (nsr) Phys Exam - Physical Examination Constitutional: NAD HEENT: PERRLA, moist MMs, sclera anicteric Neck: no JVD, supple coarse sound+ Cardiovascular: RRR, no rub SM at apex, parasternal and at aortic area Gastrointestinal: soft, non-tender, no distention, positive bowel sounds Musculoskeletal: pulses present, edema present right heel ulcer with dressing Neurological: non-focal, normal sensation Lymphatic: no nodes Psychiatric: normal affect Skin: no rash, normal turgor Dx/Plan (1) UTI (urinary tract infection) Status: Acute (2) Fluid overload Code(s): E87.70 - FLUID OVERLOAD, UNSPECIFIED Status: Acute (3) Anemia of renal disease Code(s): D63.1 - ANEMIA IN CHRONIC KIDNEY DISEASE Status: Chronic (4) Anxiety with depression Code(s): F41.8 - OTHER SPECIFIED ANXIETY DISORDERS Status: Chronic (5) CAD (coronary artery disease) Code(s): I25.10 - ATHSCL HEART DISEASE OF [place] CORONARY ARTERY W/O ANG PCTRS Status: Chronic Qualifiers: (6) Chronic pain disorder Code(s): G89.4 - CHRONIC PAIN SYNDROME Status: Chronic (7) Chronic systolic heart failure, ACC/AHA stage C Code(s): I50.22 - CHRONIC SYSTOLIC (CONGESTIVE) HEART FAILURE Status: Chronic (8) Diabetes type 2, controlled Code(s): E11.9 - TYPE 2 DIABETES MELLITUS WITHOUT COMPLICATIONS Status: Chronic (9) Dyslipidemia Code(s): E78.5 - HYPERLIPIDEMIA, UNSPECIFIED Status: Chronic (10) ESRD (end stage renal disease) on dialysis Code(s): N18.6 - END STAGE RENAL DISEASE; Z99.2 - DEPENDENCE ON RENAL DIALYSIS Status: Chronic Comment: nephrology following (11) GERD (gastroesophageal reflux disease) Code(s): K21.9 - GASTRO-ESOPHAGEAL REFLUX DISEASE WITHOUT ESOPHAGITIS Status: Chronic (12) HTN (hypertension) Code(s): I10 - ESSENTIAL (PRIMARY) HYPERTENSION Status: Chronic Qualifiers: (13) Moderate pulmonary valve regurgitation Code(s): I37.1 - NONRHEUMATIC PULMONARY VALVE INSUFFICIENCY Status: Chronic (14) Non-compliance with renal dialysis Code(s): Z91.15 - PATIENT'S NONCOMPLIANCE WITH RENAL DIALYSIS Status: Chronic (15) PAF (paroxysmal atrial fibrillation) Code(s): I48.0 - PAROXYSMAL ATRIAL FIBRILLATION Status: Chronic (16) Physical deconditioning Code(s): R53.81 - OTHER MALAISE Status: Chronic (17) Secondary hyperparathyroidism of renal origin Code(s): N25.81 - SECONDARY HYPERPARATHYROIDISM OF RENAL ORIGIN Status: Chronic (18) Severe aortic stenosis by prior echocardiogram Code(s): I35.0 - NONRHEUMATIC AORTIC (VALVE) STENOSIS Status: Chronic (19) Severe mitral regurgitation by prior echocardiogram Code(s): I34.0 - NONRHEUMATIC MITRAL (VALVE) INSUFFICIENCY Status: Chronic (20) Severe tricuspid regurgitation by prior echocardiogram Code(s): I07.1 - RHEUMATIC TRICUSPID INSUFFICIENCY Status: Chronic (21) Ulcer of right heel Code(s): L97.419 - NON-PRS CHR ULCER OF RIGHT HEEL AND MIDFOOT W UNSP SEVERT Status: Chronic - Plan cont current plan of care, continue antibiotics * home medication reconciled * continue HD as per nephrology * medication reviewed as below * symptomatic treatment * monitor tele. * add levaquin for UTI * send urine culture Review of Systems - Review of Systems ENT: negative: Ear Pain, Ear Discharge, Nose Pain, Nose Discharge, Nose Congestion, Mouth Pain, Mouth Swelling, Throat Pain, Throat Swelling, Other Respiratory: negative: Cough, Dry, Shortness of Breath, Hemoptysis, SOB with Excertion, Pleuritic Pain, Sputum, Wheezing Cardiovascular: negative: chest pain, palpitations, orthopnea, paroxysmal nocturnal dyspnea, edema, light headedness, other Gastrointestinal: negative: Nausea, Vomiting, Abdominal Pain, Diarrhea, Constipation, Melena, Hematochezia, Other Genitourinary: negative: Dysuria, Frequency, Incontinence, Hematuria, Retention , Other Musculoskeletal: negative: Neck Pain, Shoulder Pain, Arm Pain, Back Pain, Hand Pain, Leg Pain, Foot Pain, Other Skin: negative: Rash, Lesions, Brody, Bruising, Other Other: not reliable with pt due to her level of cognitive status - Medications/Allergies Allergies/Adverse Reactions: Allergies Allergy/AdvReac Type Severity Reaction Status Date / Time Penicillins Allergy Intermediate Rash Verified 05/21/17 02:43 tramadol Allergy Verified 09/27/17 04:28 Medications: Current Medications Acetaminophen (Tylenol) 650 mg PO Q4H PRN PRN Reason: Headache/Fever or Pain Acetaminophen (Tylenol) 650 mg [place] Q4H PRN PRN Reason: Headache/Fever or Pain Hydrocodone Bitart/Acetaminophen ([place] 10/325) 1 tab PO Q6HR [facility] Albuterol/Ipratropium (Duoneb) 3 ml NEB [id number] PRN PRN Reason: SOB &/or Wheezing Alogliptin Benzoate (Alogliptin) 25 mg PO DAILY [facility] Last Admin: 10/29/17 08:47 Dose: 25 mg Artificial Tears (Tears Naturale) 0 drop EA EYE PRN PRN PRN Reason: Dry Eyes Atorvastatin Calcium (Lipitor) 20 mg PO HS [facility] Bisacodyl (Dulcolax) 10 mg PO DAILYPRN PRN PRN Reason: Constipation Bismuth Subsalicylate (Pepto Bismol) 2 tab PO Q1H PRN PRN Reason: Diarrhea/Loose Stools Calcium Carbonate (Tums) 1,000 mg PO Q4H PRN PRN Reason: Heartburn or Indigestion Carvedilol (Coreg) 3.125 mg PO BID [facility] Last Admin: 10/29/17 08:47 Dose: 3.125 mg Dextrose/Water (Dextrose 50%) 25 gm SLOW IVP PRN PRN PRN Reason: Hypoglycemia Ferrous Sulfate (Feosol) 325 mg PO BID[facility] Last Admin: 10/29/17 08:47 Dose: 325 mg Fish Oil (Fish Oil) 1,000 mg PO DAILY [facility] Last Admin: 10/29/17 09:02 Dose: Not Given Gabapentin (Neurontin) 300 mg PO BID [facility] Last Admin: 10/29/17 08:47 Dose: 300 mg Glucagon (Glucagon) 1 mg IM PRN PRN PRN Reason: Hypoglycemia Guaifenesin (Robitussin Sf) 200 mg PO Q4H PRN PRN Reason: Cough Heparin Sodium (Porcine) (Heparin) 5,000 units SC BID [facility] Last Admin: 10/29/17 08:48 Dose: 5,000 units Hydralazine HCl (Apresoline) 10 mg SLOW IVP Q4H PRN PRN Reason: Systolic BP > 180 Dextrose/Water (D5w) 1,000 mls @ 0 mls/hr IV .Q0M PRN PRN Reason: Hypoglycemia Insulin Human Lispro (Humalog) 0 units SC .MILD SLIDING SCALE PRN PRN Reason: Mild Correctional Scale Insulin Human Lispro (Humalog) 0 units SC .BEDTIME SLIDING SC PRN PRN Reason: Bedtime Correctional Scale Loratadine (Claritin) 10 mg PO DAILYPRN PRN PRN Reason: Sinus Symptoms Magnesium Hydroxide (Milk Of Magnesium) 30 ml PO DAILYPRN PRN PRN Reason: Constipation Mineral Oil/White Petrolatum (Eucerin Cream) 0 gm TOP BIDPRN PRN PRN Reason: Dry Skin Ondansetron HCl (Zofran Odt) 4 mg PO Q6H PRN PRN Reason: Nausea/Vomiting Ondansetron HCl (Zofran) 4 mg IVP Q6H PRN PRN Reason: Nausea/Vomiting Pantoprazole Sodium (Protonix) 40 mg PO DAILY [facility] Last Admin: 10/29/17 08:47 Dose: 40 mg Phenol (Chloraseptic [place] 180 Ml Bot) 0 ml PO PRN PRN PRN Reason: Sore Throat Polyethylene Glycol (Miralax) 17 gm PO DAILY [facility] Last Admin: 10/29/17 08:58 Dose: Not Given Sertraline HCl (Zoloft) 25 mg PO DAILY [facility] Last Admin: 10/29/17 08:47 Dose: 25 mg Sevelamer Carbonate (Renvela) 1,600 mg PO BID [facility] Last Admin: 10/29/17 09:01 Dose: Not Given Sodium Chloride (Flush - Normal Saline) 10 ml IVF Q12HR [facility] Last Admin: 10/29/17 08:48 Dose: 10 ml Sodium Chloride (Flush - Normal Saline) 10 ml IVF PRN PRN PRN Reason: Saline Flush Sodium Chloride ([place] Nasal [place] 0.65%) 0 ml EA NARE QIDPRN PRN PRN Reason: Nasal Congestion Temazepam (Restoril) 15 mg PO HSPRN PRN PRN Reason: Insomnia Vitamin B Complex/Vit C/Folic Acid (Nephro-[place] Tablet) 1 tab PO DAILY [facility] Last Admin: 10/29/17 09:02 Dose: Not Given
[2017-10-29] MEDS ORDERED: Heparin 1,000 UNITS/ML VIAL ONE (11:11)
[2017-10-29] MEDS: HYDROcodone/Acetaminophen 10/325 mg Tablet PO SCH ×3 (11:49→23:59)
--- NOTE | 2017-10-29 20:21 | CON ---
DATE OF CONSULTATION: 10/29/2017 NEPHROLOGY CONSULTATION CONSULTING PHYSICIAN: Ramírez Shaikh DO REASON FOR CONSULTATION: End-stage renal disease, evaluation and care. REASON FOR ADMISSION: Leg swelling. HISTORY OF PRESENT ILLNESS: An 82-year-old female with history of end-stage renal disease, diabetes, hypertension, coronary artery disease, and history of acute heart failure, came to the hospital with leg swelling, no shortness of breath, no chest pain, palpitation. The patient is slightly confused, not able to give further history. The patient missed dialysis last week and family found her to be having swelling and was sent to the hospital. PAST MEDICAL HISTORY: Positive for breast cancer, coronary artery disease, type 2 diabetes, hyperlipidemia, hypertension, hemodialysis Monday, Monday, Monday; congestive heart failure. PAST SURGICAL HISTORY: Right mastectomy, CABG, right dialysis graft placement. HOME MEDICATIONS: Gabapentin, Protonix, Coreg, Renvela, and Zoloft. SOCIAL HISTORY: No smoking, alcohol or illicit drug abuse. FAMILY HISTORY: No history of kidney disease. REVIEW OF SYSTEMS: Review of systems could not be obtained as patient is slightly confused, not able to participate. PHYSICAL EXAMINATION: GENERAL: This is an elderly, mildly demented female, in no apparent distress. VITAL SIGNS: Temperature 97.7, pulse 83, respiratory rate 18, blood pressure 143/75. HEENT: Atraumatic, normocephalic. NECK: Supple. CVS: S1, S2 heard. RESPIRATORY: Clear. GI: Abdomen is obese, soft. MUSCULOSKELETAL: 2+ edema. DERMATOLOGIC: No skin rash. NEUROLOGIC: confused. LABORATORY DATA: Hemoglobin is 11.3, potassium 4.2, BUN 63, creatinine is 10.02. Urine with pyuria. ASSESSMENT AND PLAN: 1. End-stage renal disease. Continue hemodialysis as tolerated. Plan is to have 3 hours of dialysis today and continue dialysis Monday, Monday, and Monday. 2. Edema. We will remove fluid with dialysis as tolerated. 3. Hypertension, stable. 4. Anemia, mild. 5. We will continue on dialysis as tolerated. Thank you for the consult. [facility]
[2017-10-29] MEDS: Atorvastatin Calcium 20 MG TAB PO SCH (23:05)
[2017-10-30] MEDS: HYDROcodone/Acetaminophen 10/325 mg Tablet PO SCH ×5 (06:43→19:40)
[2017-10-30 07:53] LABS: Hemoglobin 10.5 g/dL (12.0-16.0); Mean Corpuscular HGB CONC 31.3 g/dL (32.0-36.0); Mean Platelet Volume 7.5 fL (7.4-10.4); Platelet Count 196 thou/uL (130-400); RBC Distribution Width 15.9 % (11.5-14.5); Red Blood Cell (RBC) Count 3.18 mill/uL (4.20-5.40); White Blood Cell (WBC) Count 3.7 thou/uL (4.8-10.8)
[2017-10-30 08:11] LABS: Albumin 3.4 g/dL (3.4-4.8); Anion Gap 15 mmol/L (10-20); BUN (Urea Nitrogen) 37 mg/dL (9.8-20.1); BUN/Creatinine Ratio 5.66; Calc. Creatinine Clearance 8 mL/min (70-130); Calcium 9.3 mg/dL (7.8-10.44); Carbon Dioxide 28 mmol/L (23-31); Chloride 96 mmol/L (98-107); Estimated GFR-MDRD 7; Glucose 83 mg/dL (83-110); Phosphorus 4.9 mg/dL (2.3-4.7); Potassium 3.9 mmol/L (3.5-5.1); Sodium 135 mmol/L (136-145)
[2017-10-30 08:38] LABS: HBSAg Index 0.17 S/CO (0-0.99); Hep B Surf Ag Non-Reactive S/CO (NonReactive)
[2017-10-30 09:47] LABS: Anisocytosis SLIGHT = 6-15 cells (100X) (0-5/hpf); Hypochromia SLIGHT = 6-15 cells (100X) (0-5/hpf); Lymphocytes 40 % (21-51); MDiff Complete? YES; Monocytes 5 % (0-10); Neutrophil 55 % (42-75); PLT Morphology Comment Appears Adequate; Poikilocytosis SLIGHT = 6-15 cells (100X) (0-5/hpf)
--- NOTE | 2017-10-30 10:26 | PDOC.PN ---
- Subjective Encounter Start Date: 10/30/17 Encounter Start Time: 08:00 Patient seen and examined. No overnight events. - Objective Resuscitation Status: Resuscitation Status FULL:Full Resuscitation MAR Reviewed: Yes Vital Signs & Weight: Vital Signs (12 hours) Temp Pulse Resp BP Pulse Ox 10/30/17 05:49 79 16 105/55 L 90 L 10/30/17 00:02 97.5 F L 81 16 98/55 L 87 L 10/29/17 23:06 87 L Weight Weight 159 lb 3.2 oz I&O: 10/29/17 10/30/17 10/31/17 06:59 06:59 06:59 Intake Total 600 Balance 600 Result Diagrams: 10/30/17 07:30 10/30/17 07:30 Additional Labs: Accuchecks 10/30/17 10/29/17 10/29/17 05:57 16:55 10:56 POC Glucose 77 79 100 EKG Reviewed by me: Yes Phys Exam - Physical Examination Constitutional: NAD HEENT: PERRLA, moist MMs, sclera anicteric Neck: no JVD, supple Respiratory: no wheezing, no rales, no rhonchi Cardiovascular: RRR, no significant murmur, no rub Gastrointestinal: soft, non-tender, no distention, positive bowel sounds Musculoskeletal: no edema, pulses present right heel ulcer with dressing Neurological: non-focal, normal sensation, moves all 4 limbs Psychiatric: normal affect, A&O x 3 Skin: no rash, normal turgor Dx/Plan (1) Fluid overload Code(s): E87.70 - FLUID OVERLOAD, UNSPECIFIED Status: Acute (2) Anemia of renal disease Code(s): D63.1 - ANEMIA IN CHRONIC KIDNEY DISEASE Status: Chronic (3) Anxiety with depression Code(s): F41.8 - OTHER SPECIFIED ANXIETY DISORDERS Status: Chronic (4) CAD (coronary artery disease) Code(s): I25.10 - ATHSCL HEART DISEASE OF [place] CORONARY ARTERY W/O ANG PCTRS Status: Chronic Qualifiers: (5) Chronic pain disorder Code(s): G89.4 - CHRONIC PAIN SYNDROME Status: Chronic (6) Chronic systolic heart failure, ACC/AHA stage C Code(s): I50.22 - CHRONIC SYSTOLIC (CONGESTIVE) HEART FAILURE Status: Chronic (7) Diabetes type 2, controlled Code(s): E11.9 - TYPE 2 DIABETES MELLITUS WITHOUT COMPLICATIONS Status: Chronic (8) Dyslipidemia Code(s): E78.5 - HYPERLIPIDEMIA, UNSPECIFIED Status: Chronic (9) ESRD (end stage renal disease) on dialysis Code(s): N18.6 - END STAGE RENAL DISEASE; Z99.2 - DEPENDENCE ON RENAL DIALYSIS Status: Chronic Comment: nephrology following (10) GERD (gastroesophageal reflux disease) Code(s): K21.9 - GASTRO-ESOPHAGEAL REFLUX DISEASE WITHOUT ESOPHAGITIS Status: Chronic (11) HTN (hypertension) Code(s): I10 - ESSENTIAL (PRIMARY) HYPERTENSION Status: Chronic Qualifiers: (12) Moderate pulmonary valve regurgitation Code(s): I37.1 - NONRHEUMATIC PULMONARY VALVE INSUFFICIENCY Status: Chronic (13) Non-compliance with renal dialysis Code(s): Z91.15 - PATIENT'S NONCOMPLIANCE WITH RENAL DIALYSIS Status: Chronic (14) PAF (paroxysmal atrial fibrillation) Code(s): I48.0 - PAROXYSMAL ATRIAL FIBRILLATION Status: Chronic (15) Physical deconditioning Code(s): R53.81 - OTHER MALAISE Status: Chronic (16) Secondary hyperparathyroidism of renal origin Code(s): N25.81 - SECONDARY HYPERPARATHYROIDISM OF RENAL ORIGIN Status: Chronic (17) Severe aortic stenosis by prior echocardiogram Code(s): I35.0 - NONRHEUMATIC AORTIC (VALVE) STENOSIS Status: Chronic (18) Severe mitral regurgitation by prior echocardiogram Code(s): I34.0 - NONRHEUMATIC MITRAL (VALVE) INSUFFICIENCY Status: Chronic (19) Severe tricuspid regurgitation by prior echocardiogram Code(s): I07.1 - RHEUMATIC TRICUSPID INSUFFICIENCY Status: Chronic (20) Ulcer of right heel Code(s): L97.419 - NON-PRS CHR ULCER OF RIGHT HEEL AND MIDFOOT W UNSP SEVERT Status: Chronic - Plan cont current plan of care, continue antibiotics * follow up on urine culture result * continue wound care * will need surgeon to see for evaluation for I & D for heel ulcer * HD as per nephrology * medication reviewed as below * symptomatic treatment. * will need placement * continue levaquin Review of Systems - Review of Systems Other: not reliable with pt due to her level of cognitive status - Medications/Allergies Allergies/Adverse Reactions: Allergies Allergy/AdvReac Type Severity Reaction Status Date / Time Penicillins Allergy Intermediate Rash Verified 05/21/17 02:43 tramadol Allergy Verified 09/27/17 04:28 Medications: Current Medications Acetaminophen (Tylenol) 650 mg PO Q4H PRN PRN Reason: Headache/Fever or Pain Acetaminophen (Tylenol) 650 mg [place] Q4H PRN PRN Reason: Headache/Fever or Pain Hydrocodone Bitart/Acetaminophen ([place] 10/325) 1 tab PO Q6HR [facility] Last Admin: 10/30/17 06:46 Dose: Not Given Albuterol/Ipratropium (Duoneb) 3 ml NEB [id number] PRN PRN Reason: SOB &/or Wheezing Alogliptin Benzoate (Alogliptin) 25 mg PO DAILY [facility] Last Admin: 10/29/17 08:47 Dose: 25 mg Artificial Tears (Tears Naturale) 0 drop EA EYE PRN PRN PRN Reason: Dry Eyes Atorvastatin Calcium (Lipitor) 20 mg PO HS [facility] Last Admin: 10/29/17 23:05 Dose: 20 mg Bisacodyl (Dulcolax) 10 mg PO DAILYPRN PRN PRN Reason: Constipation Bismuth Subsalicylate (Pepto Bismol) 2 tab PO Q1H PRN PRN Reason: Diarrhea/Loose Stools Calcium Carbonate (Tums) 1,000 mg PO Q4H PRN PRN Reason: Heartburn or Indigestion Carvedilol (Coreg) 3.125 mg PO BID [facility] Last Admin: 10/29/17 23:06 Dose: Not Given Dextrose/Water (Dextrose 50%) 25 gm SLOW IVP PRN PRN PRN Reason: Hypoglycemia Ferrous Sulfate (Feosol) 325 mg PO BID-[facility] Last Admin: 10/29/17 18:07 Dose: 325 mg Fish Oil (Fish Oil) 1,000 mg PO DAILY [facility] Last Admin: 10/29/17 09:02 Dose: Not Given Gabapentin (Neurontin) 300 mg PO BID [facility] Last Admin: 10/29/17 23:06 Dose: 300 mg Glucagon (Glucagon) 1 mg IM PRN PRN PRN Reason: Hypoglycemia Guaifenesin (Robitussin Sf) 200 mg PO Q4H PRN PRN Reason: Cough Heparin Sodium (Porcine) (Heparin) 5,000 units SC BID [facility] Last Admin: 10/29/17 23:08 Dose: 5,000 units Hydralazine HCl (Apresoline) 10 mg SLOW IVP Q4H PRN PRN Reason: Systolic BP > 180 Dextrose/Water (D5w) 1,000 mls @ 0 mls/hr IV .Q0M PRN PRN Reason: Hypoglycemia Levofloxacin 500 mg/ Device 100 mls @ 100 mls/hr IVPB Q2DAYS@1600 [facility] Last Admin: 10/29/17 15:41 Dose: 100 mls Insulin Human Lispro (Humalog) 0 units SC .MILD SLIDING SCALE PRN PRN Reason: Mild Correctional Scale Insulin Human Lispro (Humalog) 0 units SC .BEDTIME SLIDING [place] PRN PRN Reason: Bedtime Correctional Scale Loratadine (Claritin) 10 mg PO DAILYPRN PRN PRN Reason: Sinus Symptoms Magnesium Hydroxide (Milk Of Magnesium) 30 ml PO DAILYPRN PRN PRN Reason: Constipation Mineral Oil/White Petrolatum (Eucerin Cream) 0 gm TOP BIDPRN PRN PRN Reason: Dry Skin Ondansetron HCl (Zofran Odt) 4 mg PO Q6H PRN PRN Reason: Nausea/Vomiting Ondansetron HCl (Zofran) 4 mg IVP Q6H PRN PRN Reason: Nausea/Vomiting Pantoprazole Sodium (Protonix) 40 mg PO DAILY [facility] Last Admin: 10/29/17 08:47 Dose: 40 mg Phenol (Chloraseptic [place] 180 Ml Bot) 0 ml PO PRN PRN PRN Reason: Sore Throat Polyethylene Glycol (Miralax) 17 gm PO DAILY [facility] Last Admin: 10/29/17 08:58 Dose: Not Given Sertraline HCl (Zoloft) 25 mg PO DAILY [facility] Last Admin: 10/29/17 08:47 Dose: 25 mg Sevelamer Carbonate (Renvela) 1,600 mg PO BID [facility] Last Admin: 10/29/17 23:04 Dose: 1,600 mg Sodium Chloride (Flush - Normal Saline) 10 ml IVF Q12HR [facility] Last Admin: 10/29/17 23:41 Dose: 10 ml Sodium Chloride (Flush - Normal Saline) 10 ml IVF PRN PRN PRN Reason: Saline Flush Sodium Chloride ([place] Nasal [place] 0.65%) 0 ml EA NARE QIDPRN PRN PRN Reason: Nasal Congestion Temazepam (Restoril) 15 mg PO HSPRN PRN PRN Reason: Insomnia Vitamin B Complex/Vit C/Folic Acid (Nephro-[place] Tablet) 1 tab PO DAILY [facility] Last Admin: 10/29/17 09:02 Dose: Not Given
--- NOTE | 2017-10-30 10:34 | CON ---
DATE OF CONSULTATION: 10/30/2017 HISTORY OF PRESENT ILLNESS: Anaid Rush is an 82-year-old obese, 29 BMI, 5 foot 2 inches, 159 pounds female who is cared for by her daughter. I am told that Adult Protective Services been called as th e patient's daughter locally has not brought her in for appointments or for care as recommended. The patient presents with mental status changes. Apparently, she has been found to have small vessel di sease consistent with dementia. The patient is not able to have a conversation. She is not oriented to where she is. I have been asked to see her for a heel decubitus. She has a right heel decubitus . In 2013, I placed a right arm fistula necessitating cephalic vein transposition fistula because of morbid obesity. Apparently, the patient was living in the [place] area and was referred to [facility] in that location and her right upper arm cephalic vein transposition fistula has thr ombosed. She has a left arm graft. She has a hemodialysis catheter IJ. As I am seeing her today, t hey are using that dialysis catheter for IV access. She does have a left upper arm dialysis graft. I am uncertain as to how long it has been in, but the scars are mature and there is ecchymosis about the upper arm indicative of axis graft access. At this point, I would recommend trials at accessing her left upper arm graft. I have no records to know how long this graft has been present as it was p laced in [place] apparently. PAST MEDICAL HISTORY: Past history is obtained from the records as the patient is not interactive to give me a history. ALLERGIES: PENICILLIN and TRAMADOL. TOBACCO/ALCOHOL: None. MEDICATIONS LIST AT HOME: Hydrocodone, sertraline, insulin, gabapentin, ferrous sulfate, atorvastati n, sevelamer, MiraLax, Protonix, omega 3 fatty acid, multivitamins, Tradjenta. PAST SURGICAL HISTORY: In 2013, right arm fistula with transposition cephalic vein fistula, left upp er arm graft performed in [place] sometime in the interim, right mastectomy, coronary bypass grafting . PAST MEDICAL HISTORY: Diabetes mellitus type 2, morbid obesity, metabolic syndrome, hyperlipidemia, right breast cancer, hypertension, asthma, end-stage renal disease on maintenance dialysis Monday, , and Monday, followed by Dr. Vazquez, congestive heart failure, dementia. PHYSICAL EXAMINATION: GENERAL: The patient is in the dialysis room. She is not conversive. She does respond to voice, bu t cannot carry a conversation. She does not say any intelligible words to me. EXTREMITIES: She does move all extremities. Right upper arm cephalic vein transposition fistula thr ombosed, no thrill or bruit. Left upper arm dialysis graft, good thrill and bruit. Ecchymosis indic ative of recent access attempts, IJ hemodialysis catheter present. ABDOMEN: Soft, obese, nontender. Both heels are resting on the bed in the dialysis room. Right foot dressing removed. She has a heel decubitus, approximately 5 cm in diameter. There is healthy granulation tissue with a small amount of greenish slough inferiorly. After an alcohol prep this was debrided sharply and a gauze dressing applied. ASSESSMENT AND PLAN: 1. Right heel decubitus, keep both heels off of the bed as the patient is nonambulatory and at risk for decubiti. She will need heel protectors. A bedside debridement performed. The patient's overa ll prognosis is poor. Currently, there is no indication of infection. I do not think antibiotics ar e indicated just local wound care. She will need home health nursing or outpatient senior care care 2. End-stage renal disease with a functioning left upper arm graft by exam. I am uncertain as to wh ere this was placed, most likely in [place]. I am uncertain as to why she still has a dialysis mike ter as her surgical wounds look well healed and this is obviously an older graft. There are clinical indications of access attempts and I would suggest using the dialysis graft for access to see how it works. Depending on the status, she may need a fistulogram, but currently would try the graft to se e how it works. If information is available from the dialysis unit as to problems related to the gra ft, these could be utilized in the decision process. I will be glad to remove the dialysis catheter whenever successful access of the left upper arm graft is performed, I will be glad to see her again in the hospital or as an outpatient depending on needs. 3. Heel decubitus. She needs to keep both heels off the bed. No antibiotics are indicated currentl y as this is not infected This is a decubitus problem and she needs to keep her heels off the bed wi th her diminished mobility and diminished mental status. 4. Diabetes mellitus. 5. Hypertension. 6. Alzheimer's. 7. History of right mastectomy. 8. 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
--- NOTE | 2017-10-30 10:38 | OP ---
DATE OF PROCEDURE: 10/30/2017 PREOPERATIVE DIAGNOSES: 1. End-stage renal disease. 2. Immobility, nonambulatory. 3. Alzheimer dementia. 4. Right heel decubitus. 5. End-stage renal disease on maintenance dialysis, utilizing left upper arm graft. Currently using a catheter. POSTOPERATIVE DIAGNOSES: 1. End-stage renal disease. 2. Immobility, nonambulatory. 3. Alzheimer dementia. 4. Right heel decubitus. 5. End-stage renal disease on maintenance dialysis, utilizing left upper arm graft. Currently using a catheter. PROCEDURE: Bedside debridement of right heel decubitus. SURGEON: Patel Pennington M.D. PROCEDURE IN DETAIL: At the patient's bedside in the dialysis room, her right heel dressing was queta jaz. There was a 4-5 cm decubitus with healthy granulation tissue with a small amount of greenish sl ough inferiorly. No indication of infection. No indication of purulence. Slough was debrided sharp ly with 10 blade, excisional resectional subcutaneous tissue and connective tissue. A gauze dressing applied. I would recommend keeping her heels off the bed at all times. Local wound care. Antibiotics are not indicated. I will see her as needed this hospitalization.
[2017-10-30] MEDS: Fish Oil 1,000 MG CAP PO SCH ×2 (12:05→13:05)
[2017-10-30] MEDS: Sevelamer Carbonate 800 MG TAB PO SCH ×3 (12:05→22:19)
[2017-10-30] MEDS: Polyethylene Glycol 3350 17 GM Packet PO SCH (12:05)
[2017-10-30] MEDS: Folic Acid/Vit B Comp W-C PO SCH ×2 (12:06→13:05)
[2017-10-30] MEDS: Gabapentin 300 MG CAP PO SCH ×3 (12:06→22:19)
[2017-10-30] MEDS: Alogliptin 25 MG TAB PO SCH ×2 (12:07→13:04)
[2017-10-30] MEDS: Carvedilol 3.125 MG TAB PO SCH ×3 (12:08→22:19)
[2017-10-30] MEDS: Heparin 5,000 UNITS/ML VIAL SC SCH ×2 (12:59→22:19)
[2017-10-30] MEDS: Ferrous Sulfate 325 MG TAB PO SCH ×2 (12:59→19:37)
--- NOTE | 2017-10-30 14:53 | PRG ---
DATE OF SERVICE: 10/30/2017 SUBJECTIVE: An 82-year-old female being seen for end-stage renal disease. The patient denies any nausea, vomiting or chest pain. OBJECTIVE: GENERAL: Patient is awake and alert. VITAL SIGNS: Afebrile, pulse 90, breathing 16, blood pressure 105/55. GENERAL APPEARANCE AND MENTAL STATUS: Fair. HEAD/NECK: Normocephalic. Atraumatic. EYES: EOMI. No deformity. EARS: Clear. No ulcers. NOSE: Intact. No lesions. MOUTH: Clear. No discharge. THROAT: Clear. No exudate. LUNGS: Clear. No crackles. CARDIAC: S1, S2. No rub. ABDOMEN: Benign. BS+. GENITALIA/RECTUM: Nuno absent. BACK/EXTREMITIES: Edema 0+ Ulcer- NEUROLOGICAL: Alert and motor intact. SKIN: Rash- Bruise- LYMPHATICS: Edema- Ulcer- LABORATORY DATA: Lab show hemoglobin . ASSESSMENT AND RECOMMENDATIONS: 1. Stage 6 chronic kidney disease, continue on hemodialysis. 2. Hypertension, stable. 3. Anemia, stable. 4. Medication based on glomerular filtration rate are appropriate. MTDD
[2017-10-30] MEDS: Atorvastatin Calcium 20 MG TAB PO SCH (22:19)
[2017-10-31] MEDS: HYDROcodone/Acetaminophen 10/325 mg Tablet PO SCH ×4 (02:27→17:26)
[2017-10-31] MEDS ORDERED: cefTRIAXone\\ROCEPHIN 1 GM in Sodium Chloride 0.9% 100 ML IVPB SCH (07:00)
--- NOTE | 2017-10-31 09:17 | PDOC.PN ---
- Subjective Encounter Start Date: 10/31/17 Encounter Start Time: 07:20 Patient seen and examined. No new complaints. No overnight events s/p bedside debridement - Objective Resuscitation Status: Resuscitation Status FULL:Full Resuscitation MAR Reviewed: Yes Vital Signs & Weight: Vital Signs (12 hours) Temp Pulse Resp BP Pulse Ox 10/31/17 08:00 97.6 F 90 14 120/67 97 10/31/17 04:00 98.7 F 91 16 99/56 L 92 L 10/31/17 00:00 99.6 F 90 16 119/68 92 L Weight Admit Weight 159 lb 3.2 oz Weight 159 lb 3.2 oz I&O: 10/30/17 10/31/17 11/01/17 06:59 06:59 06:59 Intake Total 600 580 Balance 600 580 Result Diagrams: 10/30/17 07:30 10/30/17 07:30 Additional Labs: Accuchecks 10/30/17 10/30/17 10/30/17 21:02 16:46 11:13 POC Glucose 110 120 H 73 EKG Reviewed by me: Yes (nsr) Phys Exam - Physical Examination Constitutional: NAD HEENT: PERRLA, moist MMs, sclera anicteric Neck: no JVD, supple Respiratory: no wheezing, no rales, no rhonchi Cardiovascular: RRR, no significant murmur, no rub Gastrointestinal: soft, non-tender, no distention, positive bowel sounds Musculoskeletal: no edema, pulses present right heel ulcer with dressing Neurological: moves all 4 limbs Psychiatric: normal affect Skin: no rash, normal turgor Dx/Plan (1) Fluid overload Code(s): E87.70 - FLUID OVERLOAD, UNSPECIFIED Status: Acute (2) Anemia of renal disease Code(s): D63.1 - ANEMIA IN CHRONIC KIDNEY DISEASE Status: Chronic (3) Anxiety with depression Code(s): F41.8 - OTHER SPECIFIED ANXIETY DISORDERS Status: Chronic (4) CAD (coronary artery disease) Code(s): I25.10 - ATHSCL HEART DISEASE OF [place] CORONARY ARTERY W/O ANG PCTRS Status: Chronic Qualifiers: (5) Chronic pain disorder Code(s): G89.4 - CHRONIC PAIN SYNDROME Status: Chronic (6) Chronic systolic heart failure, ACC/AHA stage C Code(s): I50.22 - CHRONIC SYSTOLIC (CONGESTIVE) HEART FAILURE Status: Chronic (7) Diabetes type 2, controlled Code(s): E11.9 - TYPE 2 DIABETES MELLITUS WITHOUT COMPLICATIONS Status: Chronic (8) Dyslipidemia Code(s): E78.5 - HYPERLIPIDEMIA, UNSPECIFIED Status: Chronic (9) ESRD (end stage renal disease) on dialysis Code(s): N18.6 - END STAGE RENAL DISEASE; Z99.2 - DEPENDENCE ON RENAL DIALYSIS Status: Chronic Comment: nephrology following (10) GERD (gastroesophageal reflux disease) Code(s): K21.9 - GASTRO-ESOPHAGEAL REFLUX DISEASE WITHOUT ESOPHAGITIS Status: Chronic (11) HTN (hypertension) Code(s): I10 - ESSENTIAL (PRIMARY) HYPERTENSION Status: Chronic Qualifiers: (12) Moderate pulmonary valve regurgitation Code(s): I37.1 - NONRHEUMATIC PULMONARY VALVE INSUFFICIENCY Status: Chronic (13) Non-compliance with renal dialysis Code(s): Z91.15 - PATIENT'S NONCOMPLIANCE WITH RENAL DIALYSIS Status: Chronic (14) PAF (paroxysmal atrial fibrillation) Code(s): I48.0 - PAROXYSMAL ATRIAL FIBRILLATION Status: Chronic (15) Physical deconditioning Code(s): R53.81 - OTHER MALAISE Status: Chronic (16) Secondary hyperparathyroidism of renal origin Code(s): N25.81 - SECONDARY HYPERPARATHYROIDISM OF RENAL ORIGIN Status: Chronic (17) Severe aortic stenosis by prior echocardiogram Code(s): I35.0 - NONRHEUMATIC AORTIC (VALVE) STENOSIS Status: Chronic (18) Severe mitral regurgitation by prior echocardiogram Code(s): I34.0 - NONRHEUMATIC MITRAL (VALVE) INSUFFICIENCY Status: Chronic (19) Severe tricuspid regurgitation by prior echocardiogram Code(s): I07.1 - RHEUMATIC TRICUSPID INSUFFICIENCY Status: Chronic (20) Ulcer of right heel Code(s): L97.419 - NON-PRS CHR ULCER OF RIGHT HEEL AND MIDFOOT W UNSP SEVERT Status: Chronic - Plan cont current plan of care, continue antibiotics, hospice social worker * wound care * bactrim ss on discharge * medication reviewed as below * symptomatic treatment * will need placement * HD as per nephrology. Review of Systems - Review of Systems ENT: negative: Ear Pain, Ear Discharge, Nose Pain, Nose Discharge, Nose Congestion, Mouth Pain, Mouth Swelling, Throat Pain, Throat Swelling, Other Respiratory: negative: Cough, Dry, Shortness of Breath, Hemoptysis, SOB with Excertion, Pleuritic Pain, Sputum, Wheezing Cardiovascular: negative: chest pain, palpitations, orthopnea, paroxysmal nocturnal dyspnea, edema, light headedness, other Gastrointestinal: negative: Nausea, Vomiting, Abdominal Pain, Diarrhea, Constipation, Melena, Hematochezia, Other Genitourinary: negative: Dysuria, Frequency, Incontinence, Hematuria, Retention , Other Musculoskeletal: negative: Neck Pain, Shoulder Pain, Arm Pain, Back Pain, Hand Pain, Leg Pain, Foot Pain, Other Other: not reliable due to her level of cognitive status - Medications/Allergies Allergies/Adverse Reactions: Allergies Allergy/AdvReac Type Severity Reaction Status Date / Time Penicillins Allergy Intermediate Rash Verified 05/21/17 02:43 tramadol Allergy Verified 09/27/17 04:28 Medications: Current Medications Acetaminophen (Tylenol) 650 mg PO Q4H PRN PRN Reason: Headache/Fever or Pain Acetaminophen (Tylenol) 650 mg MT Q4H PRN PRN Reason: Headache/Fever or Pain Hydrocodone Bitart/Acetaminophen ([place] 10/325) 1 tab PO Q6HR [facility] [place] Last Admin: 10/31/17 07:42 Dose: Not Given Albuterol/Ipratropium (Duoneb) 3 ml NEB [id number] PRN PRN Reason: SOB &/or Wheezing Alogliptin Benzoate (Alogliptin) 25 mg PO DAILY [facility] [place] Last Admin: 10/30/17 13:04 Dose: Not Given Artificial Tears (Tears Naturale) 0 drop EA EYE PRN PRN PRN Reason: Dry Eyes Atorvastatin Calcium (Lipitor) 20 mg PO HS [facility] [place] Last Admin: 10/30/17 22:19 Dose: Not Given Bisacodyl (Dulcolax) 10 mg PO DAILYPRN PRN PRN Reason: Constipation Bismuth Subsalicylate (Pepto Bismol) 2 tab PO Q1H PRN PRN Reason: Diarrhea/Loose Stools Calcium Carbonate (Tums) 1,000 mg PO Q4H PRN PRN Reason: Heartburn or Indigestion Carvedilol (Coreg) 3.125 mg PO BID [facility] [place] Last Admin: 10/30/17 22:19 Dose: Not Given Dextrose/Water (Dextrose 50%) 25 gm SLOW IVP PRN PRN PRN Reason: Hypoglycemia Ferrous Sulfate (Feosol) 325 mg PO BID[facility] Last Admin: 10/30/17 19:37 Dose: 325 mg Fish Oil (Fish Oil) 1,000 mg PO DAILY [facility] [place] Last Admin: 10/30/17 13:05 Dose: Not Given Gabapentin (Neurontin) 300 mg PO BID [facility] [place] Last Admin: 10/30/17 22:19 Dose: Not Given Glucagon (Glucagon) 1 mg IM PRN PRN PRN Reason: Hypoglycemia Guaifenesin (Robitussin Sf) 200 mg PO Q4H PRN PRN Reason: Cough Heparin Sodium (Porcine) (Heparin) 5,000 units SC BID [facility] [place] Last Admin: 10/30/17 22:19 Dose: Not Given Hydralazine HCl (Apresoline) 10 mg SLOW IVP Q4H PRN PRN Reason: Systolic BP > 180 Dextrose/Water (D5w) 1,000 mls @ 0 mls/hr IV .Q0M PRN PRN Reason: Hypoglycemia Ceftriaxone Sodium 1 gm/ (Sodium Chloride) 100 mls @ 200 mls/hr IVPB 0700 [facility] [place] Insulin Human Lispro (Humalog) 0 units SC .MILD SLIDING SCALE PRN PRN Reason: Mild Correctional Scale Insulin Human Lispro (Humalog) 0 units SC .BEDTIME SLIDING SC PRN PRN Reason: Bedtime Correctional Scale Loratadine (Claritin) 10 mg PO DAILYPRN PRN PRN Reason: Sinus Symptoms Magnesium Hydroxide (Milk Of Magnesium) 30 ml PO DAILYPRN PRN PRN Reason: Constipation Mineral Oil/White Petrolatum (Eucerin Cream) 0 gm TOP BIDPRN PRN PRN Reason: Dry Skin Ondansetron HCl (Zofran Odt) 4 mg PO Q6H PRN PRN Reason: Nausea/Vomiting Ondansetron HCl (Zofran) 4 mg IVP Q6H PRN PRN Reason: Nausea/Vomiting Pantoprazole Sodium (Protonix) 40 mg PO DAILY [facility] [place] Last Admin: 10/30/17 13:05 Dose: Not Given Phenol (Chloraseptic [place] 180 Ml Bot) 0 ml PO PRN PRN PRN Reason: Sore Throat Polyethylene Glycol (Miralax) 17 gm PO DAILY [facility] [place] Last Admin: 10/30/17 12:05 Dose: 17 gm Sertraline HCl (Zoloft) 25 mg PO DAILY [facility] [place] Last Admin: 10/30/17 13:05 Dose: Not Given Sevelamer Carbonate (Renvela) 1,600 mg PO BID [facility] [place] Last Admin: 10/30/17 22:19 Dose: Not Given Sodium Chloride (Flush - Normal Saline) 10 ml IVF Q12HR [facility] [place] Last Admin: 10/30/17 22:19 Dose: Not Given Sodium Chloride (Flush - Normal Saline) 10 ml IVF PRN PRN PRN Reason: Saline Flush Sodium Chloride ([place] Nasal [place] 0.65%) 0 ml EA NARE QIDPRN PRN PRN Reason: Nasal Congestion Temazepam (Restoril) 15 mg PO HSPRN PRN PRN Reason: Insomnia Vitamin B Complex/Vit C/Folic Acid (Nephro-[place] Tablet) 1 tab PO DAILY [facility] [place] Last Admin: 10/30/17 13:05 Dose: Not Given
[2017-10-31] MEDS: Carvedilol 3.125 MG TAB PO SCH ×2 (09:55→20:28)
[2017-10-31] MEDS: Gabapentin 300 MG CAP PO SCH ×2 (09:58→20:28)
[2017-10-31] MEDS: Alogliptin 25 MG TAB PO SCH (10:01)
[2017-10-31] MEDS: Ferrous Sulfate 325 MG TAB PO SCH ×2 (10:03→18:41)
[2017-10-31] MEDS: Heparin 5,000 UNITS/ML VIAL SC SCH ×2 (10:07→20:28)
[2017-10-31] MEDS: Folic Acid/Vit B Comp W-C PO SCH (10:13)
[2017-10-31] MEDS: Sevelamer Carbonate 800 MG TAB PO SCH ×2 (11:02→20:28)
[2017-10-31] MEDS: Polyethylene Glycol 3350 17 GM Packet PO SCH (11:02)
[2017-10-31] MEDS: Fish Oil 1,000 MG CAP PO SCH (11:02)
[2017-10-31] MEDS ORDERED: cefTRIAXone\\ROCEPHIN 1 GM VIAL IM SCH (11:30)
--- NOTE | 2017-10-31 15:08 | PRG ---
DATE OF SERVICE: 10/31/2017 SUBJECTIVE: This is an 82-year-old female, being seen for end-stage renal disease. Patient denies a ny nausea, vomiting, or chest pain. OBJECTIVE: See above. GENERAL: Patient is awake and alert. VITAL SIGNS: Afebrile, pulse 75, breathing at 16, blood pressure is 107/59. GENERAL APPEARANCE AND MENTAL STATUS: Fair. HEAD/NECK: Normocephalic. Atraumatic. EYES: EOMI. No deformity. EARS: Clear. No ulcers. NOSE: Intact. No lesions. MOUTH: Clear. No discharge. THROAT: Clear. No exudate. LUNGS: Clear. No crackles. CARDIAC: S1, S2. No rub. ABDOMEN: Benign. BS+. GENITALIA/RECTUM: Nuno absent. BACK/EXTREMITIES: Edema 0+, ulcer. NEUROLOGICAL: Alert and motor intact. SKIN: Rash - bruise. LYMPHATICS: Edema - ulcer. LABORATORY DATA: Labs show hemoglobin . ASSESSMENT AND PLAN: 1. Stage 6 chronic kidney disease. Continue hemodialysis. 2. Hypertension, stable. 3. Anemia, stable. 4. Medication based on glomerular filtration rate are appropriate.
[2017-10-31] MEDS: Atorvastatin Calcium 20 MG TAB PO SCH (20:28)
[2017-11-01] MEDS: HYDROcodone/Acetaminophen 10/325 mg Tablet PO SCH ×4 (00:04→16:43)
[2017-11-01] MEDS: Ferrous Sulfate 325 MG TAB PO SCH ×2 (09:03→16:29)
--- NOTE | 2017-11-01 10:38 | PDOC.PN ---
- Subjective Encounter Start Date: 11/01/17 Encounter Start Time: 07:10 pt seen in HD room, as per wound care she will need wound vac at pressure ulcer over heel - Objective Resuscitation Status: Resuscitation Status FULL:Full Resuscitation MAR Reviewed: Yes Vital Signs & Weight: Vital Signs (12 hours) Temp Pulse Resp BP Pulse Ox 11/01/17 08:00 99.8 F H 80 18 103/59 L 91 L 11/01/17 04:00 98.5 F 81 18 137/62 91 L 11/01/17 00:00 98.3 F 82 18 98/57 L 92 L Weight Admit Weight 159 lb 3.2 oz Weight 159 lb 3.2 oz I&O: 10/31/17 11/01/17 11/02/17 06:59 06:59 06:59 Intake Total 580 420 Balance 580 420 Result Diagrams: 10/30/17 07:30 10/30/17 07:30 Additional Labs: Accuchecks 11/01/17 10/31/17 10/31/17 06:07 20:10 16:45 POC Glucose 91 111 H 108 10/31/17 11:02 POC Glucose 110 Phys Exam - Physical Examination Constitutional: NAD HEENT: PERRLA, moist MMs, sclera anicteric Neck: no JVD, supple Respiratory: no wheezing, no rales, no rhonchi Cardiovascular: RRR, no significant murmur, no rub Gastrointestinal: soft, non-tender, no distention, positive bowel sounds Musculoskeletal: no edema, pulses present right heel wound with dressing Neurological: non-focal, normal sensation Lymphatic: no nodes Psychiatric: normal affect, A&O x 3 Skin: no rash, normal turgor Dx/Plan (1) UTI (urinary tract infection) Status: Acute (2) Fluid overload Code(s): E87.70 - FLUID OVERLOAD, UNSPECIFIED Status: Acute (3) Anemia of renal disease Code(s): D63.1 - ANEMIA IN CHRONIC KIDNEY DISEASE Status: Chronic (4) Anxiety with depression Code(s): F41.8 - OTHER SPECIFIED ANXIETY DISORDERS Status: Chronic (5) CAD (coronary artery disease) Code(s): I25.10 - ATHSCL HEART DISEASE OF [place] CORONARY ARTERY W/O ANG PCTRS Status: Chronic Qualifiers: (6) Chronic pain disorder Code(s): G89.4 - CHRONIC PAIN SYNDROME Status: Chronic (7) Chronic systolic heart failure, ACC/AHA stage C Code(s): I50.22 - CHRONIC SYSTOLIC (CONGESTIVE) HEART FAILURE Status: Chronic (8) Diabetes type 2, controlled Code(s): E11.9 - TYPE 2 DIABETES MELLITUS WITHOUT COMPLICATIONS Status: Chronic (9) Dyslipidemia Code(s): E78.5 - HYPERLIPIDEMIA, UNSPECIFIED Status: Chronic (10) ESRD (end stage renal disease) on dialysis Code(s): N18.6 - END STAGE RENAL DISEASE; Z99.2 - DEPENDENCE ON RENAL DIALYSIS Status: Chronic Comment: nephrology following (11) GERD (gastroesophageal reflux disease) Code(s): K21.9 - GASTRO-ESOPHAGEAL REFLUX DISEASE WITHOUT ESOPHAGITIS Status: Chronic (12) HTN (hypertension) Code(s): I10 - ESSENTIAL (PRIMARY) HYPERTENSION Status: Chronic Qualifiers: (13) Moderate pulmonary valve regurgitation Code(s): I37.1 - NONRHEUMATIC PULMONARY VALVE INSUFFICIENCY Status: Chronic (14) Non-compliance with renal dialysis Code(s): Z91.15 - PATIENT'S NONCOMPLIANCE WITH RENAL DIALYSIS Status: Chronic (15) PAF (paroxysmal atrial fibrillation) Code(s): I48.0 - PAROXYSMAL ATRIAL FIBRILLATION Status: Chronic (16) Physical deconditioning Code(s): R53.81 - OTHER MALAISE Status: Chronic (17) Secondary hyperparathyroidism of renal origin Code(s): N25.81 - SECONDARY HYPERPARATHYROIDISM OF RENAL ORIGIN Status: Chronic (18) Severe aortic stenosis by prior echocardiogram Code(s): I35.0 - NONRHEUMATIC AORTIC (VALVE) STENOSIS Status: Chronic (19) Severe mitral regurgitation by prior echocardiogram Code(s): I34.0 - NONRHEUMATIC MITRAL (VALVE) INSUFFICIENCY Status: Chronic (20) Severe tricuspid regurgitation by prior echocardiogram Code(s): I07.1 - RHEUMATIC TRICUSPID INSUFFICIENCY Status: Chronic (21) Ulcer of right heel Code(s): L97.419 - NON-PRS CHR ULCER OF RIGHT HEEL AND MIDFOOT W UNSP SEVERT Status: Chronic - Plan cont current plan of care, continue antibiotics, PT/OT, 7th grade social studies teacher * continue rocephin for uti * continue wound care, may need wound vac * await snu placement * HD as per nephrology, now appears euvolemic * medication reviewed as below * symptomatic treatment. Review of Systems - Review of Systems ENT: negative: Ear Pain, Ear Discharge, Nose Pain, Nose Discharge, Nose Congestion, Mouth Pain, Mouth Swelling, Throat Pain, Throat Swelling, Other Respiratory: negative: Cough, Dry, Shortness of Breath, Hemoptysis, SOB with Excertion, Pleuritic Pain, Sputum, Wheezing Cardiovascular: negative: chest pain, palpitations, orthopnea, paroxysmal nocturnal dyspnea, edema, light headedness, other Gastrointestinal: negative: Nausea, Vomiting, Abdominal Pain, Diarrhea, Constipation, Melena, Hematochezia, Other Genitourinary: negative: Dysuria, Frequency, Incontinence, Hematuria, Retention , Other Other: not reliable with pt due to her level of cognitive status - Medications/Allergies Allergies/Adverse Reactions: Allergies Allergy/AdvReac Type Severity Reaction Status Date / Time Penicillins Allergy Intermediate Rash Verified 05/21/17 02:43 tramadol Allergy Verified 09/27/17 04:28 Medications: Current Medications Acetaminophen (Tylenol) 650 mg PO Q4H PRN PRN Reason: Headache/Fever or Pain Acetaminophen (Tylenol) 650 mg AL Q4H PRN PRN Reason: Headache/Fever or Pain Hydrocodone Bitart/Acetaminophen ([place] 10/325) 1 tab PO Q6HR [facility] Last Admin: 11/01/17 06:29 Dose: Not Given Albuterol/Ipratropium (Duoneb) 3 ml NEB [id number] PRN PRN Reason: SOB &/or Wheezing Alogliptin Benzoate (Alogliptin) 25 mg PO DAILY [facility] Last Admin: 10/31/17 10:01 Dose: 25 mg Artificial Tears (Tears Naturale) 0 drop EA EYE PRN PRN PRN Reason: Dry Eyes Atorvastatin Calcium (Lipitor) 20 mg PO HS [facility] Last Admin: 10/31/17 20:28 Dose: 20 mg Bisacodyl (Dulcolax) 10 mg PO DAILYPRN PRN PRN Reason: Constipation Bismuth Subsalicylate (Pepto Bismol) 2 tab PO Q1H PRN PRN Reason: Diarrhea/Loose Stools Calcium Carbonate (Tums) 1,000 mg PO Q4H PRN PRN Reason: Heartburn or Indigestion Carvedilol (Coreg) 3.125 mg PO BID [facility] Last Admin: 10/31/17 20:28 Dose: 3.125 mg Dextrose/Water (Dextrose 50%) 25 gm SLOW IVP PRN PRN PRN Reason: Hypoglycemia Ferrous Sulfate (Feosol) 325 mg PO BID[facility] Last Admin: 11/01/17 09:03 Dose: Not Given Fish Oil (Fish Oil) 1,000 mg PO DAILY [facility] Last Admin: 10/31/17 11:02 Dose: Not Given Gabapentin (Neurontin) 300 mg PO BID [facility] Last Admin: 10/31/17 20:28 Dose: 300 mg Glucagon (Glucagon) 1 mg IM PRN PRN PRN Reason: Hypoglycemia Guaifenesin (Robitussin Sf) 200 mg PO Q4H PRN PRN Reason: Cough Heparin Sodium (Porcine) (Heparin) 5,000 units SC BID [facility] Last Admin: 10/31/17 20:28 Dose: 5,000 units Hydralazine HCl (Apresoline) 10 mg SLOW IVP Q4H PRN PRN Reason: Systolic BP > 180 Dextrose/Water (D5w) 1,000 mls @ 0 mls/hr IV .Q0M PRN PRN Reason: Hypoglycemia Ceftriaxone Sodium 1 gm/ (Sodium Chloride) 100 mls @ 200 mls/hr IVPB MoWeFr@ 1200 [facility] Insulin Human Lispro (Humalog) 0 units SC .MILD SLIDING SCALE PRN PRN Reason: Mild Correctional Scale Insulin Human Lispro (Humalog) 0 units SC .BEDTIME SLIDING SC PRN PRN Reason: Bedtime Correctional Scale Loratadine (Claritin) 10 mg PO DAILYPRN PRN PRN Reason: Sinus Symptoms Magnesium Hydroxide (Milk Of Magnesium) 30 ml PO DAILYPRN PRN PRN Reason: Constipation Mineral Oil/White Petrolatum (Eucerin Cream) 0 gm TOP BIDPRN PRN PRN Reason: Dry Skin Ondansetron HCl (Zofran Odt) 4 mg PO Q6H PRN PRN Reason: Nausea/Vomiting Ondansetron HCl (Zofran) 4 mg IVP Q6H PRN PRN Reason: Nausea/Vomiting Pantoprazole Sodium (Protonix) 40 mg PO DAILY [facility] Last Admin: 10/31/17 09:59 Dose: 40 mg Phenol (Chloraseptic [place] 180 Ml Bot) 0 ml PO PRN PRN PRN Reason: Sore Throat Polyethylene Glycol (Miralax) 17 gm PO DAILY [facility] Last Admin: 10/31/17 11:02 Dose: Not Given Sertraline HCl (Zoloft) 25 mg PO DAILY [facility] Last Admin: 10/31/17 09:57 Dose: 25 mg Sevelamer Carbonate (Renvela) 1,600 mg PO BID [facility] Last Admin: 10/31/17 20:28 Dose: 1,600 mg Sodium Chloride (Flush - Normal Saline) 10 ml IVF Q12HR [facility] Last Admin: 11/01/17 09:04 Dose: Not Given Sodium Chloride (Flush - Normal Saline) 10 ml IVF PRN PRN PRN Reason: Saline Flush Sodium Chloride ([place] Nasal [place] 0.65%) 0 ml EA NARE QIDPRN PRN PRN Reason: Nasal Congestion Temazepam (Restoril) 15 mg PO HSPRN PRN PRN Reason: Insomnia Vitamin B Complex/Vit C/Folic Acid (Nephro-[place] Tablet) 1 tab PO DAILY [facility] Last Admin: 10/31/17 10:13 Dose: 1 tab
[2017-11-01 10:51] LABS: Hemoglobin 10.8 g/dL (12.0-16.0)
[2017-11-01] MEDS ORDERED: cefTRIAXone\\ROCEPHIN 1 GM in Sodium Chloride 0.9% 100 ML IVPB SCH (12:00)
[2017-11-01] MEDS: Polyethylene Glycol 3350 17 GM Packet PO SCH (12:26)
[2017-11-01] MEDS: Folic Acid/Vit B Comp W-C PO SCH (12:31)
[2017-11-01] MEDS: Heparin 5,000 UNITS/ML VIAL SC SCH ×2 (12:37→21:52)
[2017-11-01] MEDS: Fish Oil 1,000 MG CAP PO SCH ×2 (12:40→12:45)
[2017-11-01] MEDS: Alogliptin 25 MG TAB PO SCH (12:43)
[2017-11-01] MEDS: Gabapentin 300 MG CAP PO SCH ×2 (12:44→21:52)
[2017-11-01] MEDS: Carvedilol 3.125 MG TAB PO SCH ×2 (12:44→21:52)
[2017-11-01] MEDS: Sevelamer Carbonate 800 MG TAB PO SCH ×2 (12:44→21:52)
--- NOTE | 2017-11-01 17:33 | PRG ---
DATE OF SERVICE: 11/01/2017 SUBJECTIVE: This is an 82-year-old female being seen for end-stage renal disease. Patient denies an y nausea, vomiting or chest pain. PHYSICAL EXAMINATION: GENERAL: Patient is awake and alert. VITAL SIGNS: Afebrile, pulse 83, breathing 16, blood pressure is 107/72. HEAD/NECK: Normocephalic. Atraumatic. EYES: EOMI. No deformity. EARS: Clear. No ulcers. NOSE: Intact. No lesions. MOUTH: Clear. No discharge. THROAT: Clear. No exudate. LUNGS: Clear. No crackles. CARDIAC: S1, S2. No rub. ABDOMEN: Benign. BS+. GENITALIA/RECTUM: Nuno absent. BACK/EXTREMITIES: Edema 0+ Ulcer- NEUROLOGICAL: Alert and motor intact. SKIN: Rash- Bruise- LYMPHATICS: Edema- Ulcer- LABORATORY DATA: Show hemoglobin 10.8. ASSESSMENT AND RECOMMENDATIONS: 1. Stage 6 chronic kidney disease, continue hemodialysis. 2. Hypertension, stable. 3. Anemia, stable. 4. Medications based on glomerular filtration rate are appropriate.
[2017-11-01] MEDS: Atorvastatin Calcium 20 MG TAB PO SCH (21:52)
[2017-11-02] MEDS: HYDROcodone/Acetaminophen 10/325 mg Tablet PO SCH ×4 (02:31→17:30)
--- NOTE | 2017-11-02 09:02 | PRG ---
DATE OF SERVICE: 11/02/2017 SUBJECTIVE: This is an 82-year-old female being seen for end-stage renal disease. The patient denie s any nausea, vomiting or chest pain. The patient tolerated dialysis well. PHYSICAL EXAMINATION: GENERAL: Patient is awake, alert. VITAL SIGNS: Afebrile, pulse 90, breathing 16, blood pressure at 102/72. OBJECTIVE: See above. Awake, alert, in no acute distress. GENERAL APPEARANCE AND MENTAL STATUS: Fair. HEAD/NECK: Normocephalic. Atraumatic. EYES: EOMI. No deformity. EARS: Clear. No ulcers. NOSE: Intact. No lesions. MOUTH: Clear. No discharge. THROAT: Clear. No exudate. LUNGS: Clear. No crackles. CARDIAC: S1, S2. No rub. ABDOMEN: Benign. BS+. GENITALIA/RECTUM: Nuno absent. BACK/EXTREMITIES: Edema 0+ Ulcer- NEUROLOGICAL: Alert and motor intact. SKIN: Rash- Bruise- LYMPHATICS: Edema- Ulcer- LABORATORY: Hemoglobin 10.8. ASSESSMENT AND RECOMMENDATIONS: 1. Stage 6 chronic kidney disease. Continue hemodialysis Monday, Monday, Monday. 2. Hypertension, stable. 3. Anemia, stable. 4. Medication based on glomerular filtration rate are appropriate.
[2017-11-02] MEDS: Heparin 5,000 UNITS/ML VIAL SC SCH (09:16)
[2017-11-02] MEDS: Gabapentin 300 MG CAP PO SCH (09:16)
[2017-11-02] MEDS: Folic Acid/Vit B Comp W-C PO SCH (09:17)
[2017-11-02] MEDS: Carvedilol 3.125 MG TAB PO SCH (09:17)
[2017-11-02] MEDS: Alogliptin 25 MG TAB PO SCH (09:17)
[2017-11-02] MEDS: Ferrous Sulfate 325 MG TAB PO SCH ×2 (09:17→17:30)
[2017-11-02] MEDS: Sevelamer Carbonate 800 MG TAB PO SCH (09:52)
[2017-11-02] MEDS: Polyethylene Glycol 3350 17 GM Packet PO SCH (09:52)
[2017-11-02] MEDS: Fish Oil 1,000 MG CAP PO SCH (09:52)
[2017-11-02] MEDS ORDERED: Lidocaine 1% w/Epinephrine 1:200K 30 ML VIAL FS SCH (12:00)
[2017-11-02 13:05] VITALS: BMI 25.9
[2017-11-02 15:47] VITALS: BP 107/66; TEMP 98.7
== END 2017-11-02 18:28 | DRG 264 ==
LOC: ERS 18:42 → 2SE 10-29 01:42 → OBSVTOIN 10-29 01:42
PROVIDERS: ADMIT Internal Medicine; ATTEND Internal Medicine
PROC: 5A1D70Z Performance of Urinary Filtration, Intermittent, Less than 6 Hours Per Day (ICD-10-PCS; 2017-10-29)
PROC: 0JBQ0ZZ Excision of Right Foot Subcutaneous Tissue and Fascia, Open Approach (ICD-10-PCS; principal; 2017-10-30)
DX: I13.2 Hypertensive heart and chronic kidney disease with heart failure and with stage 5 chronic kidney disease, or end stage renal disease (principal); L89.613 Pressure ulcer of right heel, stage 3; N18.6 End stage renal disease; N39.0 Urinary tract infection, site not specified; I50.22 Chronic systolic (congestive) heart failure; N25.81 Secondary hyperparathyroidism of renal origin; D63.1 Anemia in chronic kidney disease; G89.4 Chronic pain syndrome; Z91.15 Patient's noncompliance with renal dialysis; Z99.2 Dependence on renal dialysis; I48.0 Paroxysmal atrial fibrillation; I08.3 Combined rheumatic disorders of mitral, aortic and tricuspid valves; I25.10 Atherosclerotic heart disease of native coronary artery without angina pectoris; E11.22 Type 2 diabetes mellitus with diabetic chronic kidney disease; G30.9 Alzheimer's disease, unspecified; F02.80 Dementia in other diseases classified elsewhere, unspecified severity, without behavioral disturbance, psychotic disturbance, mood disturbance, and anxiety; I25.2 Old myocardial infarction; J45.909 Unspecified asthma, uncomplicated; K21.9 Gastro-esophageal reflux disease without esophagitis; Z95.1 Presence of aortocoronary bypass graft; I37.1 Nonrheumatic pulmonary valve insufficiency; E78.5 Hyperlipidemia, unspecified; E66.9 Obesity, unspecified; Z68.29 Body mass index [BMI] 29.0-29.9, adult; F41.8 Other specified anxiety disorders; Z85.3 Personal history of malignant neoplasm of breast; Z79.4 Long term (current) use of insulin; Z79.891 Long term (current) use of opiate analgesic; Z88.0 Allergy status to penicillin
CPT/HCPCS: 36415; 36416; 51701; 71045; 80048; 80053; 80069; 81003; 81015; 83735; 85014; 85018; 85025; 87077; 87086; 87186; 87340; 90935; 93005; 94760; A4216; A4353; G0257; G8978-GP-CL; G8979-GP-CJ; G8987-GO-CL; G8988-GO-CJ; G8996-GN-CI; G8997-GN-CI; J0696; J1644; J1956; J7050

== ENCOUNTER 2018-02-11 20:37 | Emergency (ER) | payer MEDICARE, MEDICAID ==
--- NOTE | 2018-02-11 22:06 | RAD ---
LUMBAR SPINE SERIES TWO TO THREE VIEWS: INDICATIONS: Low back pain. FINDINGS: There is mild multilevel degenerative change of the lumbar spine without compression fracture or sign ificant subluxation. Incidental note of atherosclerosis of the imaged aorta. Vascular calcification s overly the pelvis. IMPRESSION: No compression fracture or subluxation of the lumbar spine. POS: [facility]
== END 2018-02-11 23:14 ==
LOC: ERS 20:37
DX: M54.5 Low back pain (principal); F03.90 Unspecified dementia, unspecified severity, without behavioral disturbance, psychotic disturbance, mood disturbance, and anxiety; I25.2 Old myocardial infarction; E78.5 Hyperlipidemia, unspecified; E11.22 Type 2 diabetes mellitus with diabetic chronic kidney disease; J45.909 Unspecified asthma, uncomplicated; I12.0 Hypertensive chronic kidney disease with stage 5 chronic kidney disease or end stage renal disease; N18.6 End stage renal disease; Z99.2 Dependence on renal dialysis; Z79.899 Other long term (current) drug therapy
CPT/HCPCS: 72100

== ENCOUNTER 2018-03-26 11:17 | Inpatient (IN) | payer MEDICARE, MEDICAID ==
[2018-03-26 12:01] LABS: Base Excess-Venous 4.8 mmol/L (-2.0 to 3.0); Bicarbonate (HCO3v) 29.4 mmol/L (22.0-28.0); CO2 Tension (PvCO2) 42.7 mmHg (40.0-50.0); Calcium, Ionized 1.06 mmol/L (See Comments:); Chloride 99 mmol/L (98-107); O2 Tension (PvO2) 45.7 mmHg (35.0-45.0); Potassium 3.7 mmol/L (3.5-5.1); Sodium 138 mmol/L (138-145); T. Carbon Dioxide 30.7 mmol/L (22.0-28.0); pH (Venous) 7.446 (7.320-7.430)
[2018-03-26 12:06] LABS: #Eosinphils 0.2 thou/uL (0.0-0.7); #Lymphocytes 1.1 thou/uL (1.20-3.40); #Monocytes 0.5 thou/uL (0.11-0.59); #Neutrophils 2.5 thou/uL (1.40-6.50); %Basophils 0.8 % (0.0-1.0); %Lymphocytes 26.2 % (21.0-51.0); %Monocytes 10.9 % (0.0-10.0); %Neutrophils 58.1 % (42.0-75.0); Hemoglobin 10.3 g/dL (12.0-16.0); MDiff Complete? YES; Macrocytosis SLIGHT = 6-15 cells (100X) (0-5/hpf); Mean Corpuscular HGB CONC 31.2 g/dL (32.0-36.0); Mean Corpuscular Hemoglobin 33.2 pg (27.0-31.0); Mean Platelet Volume 7.4 fL (7.4-10.4); Ovalocytes SLIGHT = 2-5 cells (100X) (0-1/hpf); Platelet Count 219 thou/uL (130-400); RBC Distribution Width 15.8 % (11.5-14.5); Red Blood Cell (RBC) Count 3.09 mill/uL (4.20-5.40); Target Cells SLIGHT = 2-5 cells (100X) (0-1/hpf); White Blood Cell (WBC) Count 4.3 thou/uL (4.8-10.8)
[2018-03-26 12:25] LABS: ALT (SGPT) 8 U/L (8-55); AST (SGOT) 18 U/L (5-34); Albumin 3.9 g/dL (3.4-4.8); Alkaline Phosphatase 96 U/L (40-150); Anion Gap 20 mmol/L (10-20); BUN (Urea Nitrogen) 53 mg/dL (9.8-20.1); Bilirubin, Total 0.9 mg/dL (0.2-1.2); CK (CPK) 108 U/L (29-168); Calc. Creatinine Clearance 0 mL/min (70-130); Calcium 9.6 mg/dL (7.8-10.44); Carbon Dioxide 27 mmol/L (23-31); Chloride 98 mmol/L (98-107); Estimated GFR-MDRD 6; Globulin 2.6 g/dL (2.4-3.5); Glucose 85 mg/dL (83-110); Lipase 16 U/L (8-78); Magnesium 2.1 mg/dL (1.6-2.6); Potassium 3.9 mmol/L (3.5-5.1); Protein, Total 6.5 g/dL (6.0-8.3); Sodium 141 mmol/L (136-145)
[2018-03-26 12:32] LABS: CKMB 2.5 ng/mL (0-6.6)
[2018-03-26 13:15] LABS: Bilirubin Small (Negative); Blood, Urine Moderate (Negative); Clarity TURBID (Clear); Glucose, Urine (Dipstick) Negative (Negative); Leukocyte Large (Negative); Nitrite Negative (Negative); Protein, Urine (Dipstick) 30 mg/dL (Neg-Trace); Specific Gravity, Urine 1.012 (1.002-1.036)
--- NOTE | 2018-03-26 13:15 | CT ---
CT BRAIN WITHOUT CONTRAST: HISTORY: Altered mental status. FINDINGS: Comparison is made with the exam of 05/20/2017. Changes of cortical atrophy and chronic small-vessel ischemic disease are again seen. The ventricula r size is appropriate and the basilar cisterns are patent. No evidence of acute infarct, hemorrhage, midline shift, or abnormal extraaxial fluid collections is seen. The bony calvarium is intact. The re is mucosal disease in the paranasal sinuses. IMPRESSION: No CT evidence of acute intracranial process. POS: [facility]
--- NOTE | 2018-03-26 13:15 | RAD ---
PORTABLE AP CHEST: Date: 03/26/18 HISTORY: Lethargic. COMPARISON: 10/28/17. FINDINGS: The right internal jugular vein hemodialysis catheter has been removed. Vascular stent overlies the r ight axillary vessels with multiple surgical clips overlying the right axillary region and proximal r ight upper extremity soft tissues. Postsurgical changes related to CABG are noted. There are pleural and parenchymal changes at the right lung base which may represent a right pleural effusions and associated atelectasis. Linear patchy density in the right mid lung zone also probably related to atelectasis, although pneumonitis cannot be entirely excluded. The bronchovascular marking s are accentuated due to a shallow depth of inspiration. Cardiac silhouette is enlarged. Vascular adria cification seen thoracic aorta. No other interval change. IMPRESSION: Accentuation of bronchovascular markings due to shallow depth of inspiration. There are pleural and p arenchymal changes seen on the right, likely related to right pleural effusion and associated atelect asis. However, developing area of pneumonitis in the right mid lung zone is a possibility, and contin ued follow-up to resolution is recommended. POS: [facility]
[2018-03-26 13:17] LABS: Bacteria/HPF 4+ HPF (None Seen); Hyaline Casts/LPF 4-6 HYALINE CAST LPF (0-3 Hyaline); Yeast-AUWi Flag 12.4 (0-25.0)
[2018-03-26 13:30] LABS: Renal Epithelial None Seen HPF (0-3)
[2018-03-26 14:44] LABS: HBSAg Index 0.24 S/CO (0-0.99); Hep B Surf Ag Non-Reactive S/CO (NonReactive)
[2018-03-26] MEDS ORDERED: Acetaminophen 325 MG TAB PO PRN (15:14)
[2018-03-26] MEDS ORDERED: Loratadine 10 MG TAB PO PRN (15:14)
[2018-03-26] MEDS ORDERED: Eucerin (Mineral Oil/Petrolatum,White) 30 gm Jar TOP PRN (15:14)
[2018-03-26] MEDS ORDERED: Bisacodyl 10 MG SUPP PR PRN (15:14)
[2018-03-26] MEDS ORDERED: Ondansetron ODT 4 MG TAB SL PRN (15:14)
[2018-03-26] MEDS ORDERED: Dextrose 50% Abboject 50 ML SYRINGE SLOW IVP PRN (15:14)
[2018-03-26] MEDS ORDERED: HumaLOG 300 UNITS/3 ML VIAL SC PRN ×2 (15:14)
[2018-03-26] MEDS ORDERED: Senokot S 8.6-50 MG TAB PO PRN (15:14)
[2018-03-26] MEDS ORDERED: hydrALAZINE 20 MG/ML VIAL SLOW IVP PRN (15:14)
[2018-03-26] MEDS ORDERED: Ondansetron PF 4 MG/2 ML Vial IVP PRN (15:14)
[2018-03-26] MEDS ORDERED: Dextrose 5% in Water 1,000 ML IV PRN (15:14)
[2018-03-26] MEDS ORDERED: Sodium Chloride 0.65% Nasal 44 ML BOT EA NARE PRN (15:14)
[2018-03-26] MEDS ORDERED: Loperamide HCl 2 MG CAP PO PRN (15:14)
[2018-03-26] MEDS ORDERED: Cepastat Lozenges 1 LOZ PO PRN (15:14)
[2018-03-26] MEDS ORDERED: Artificial Tears 18 DROP/0.9 ML EA EYE PRN (15:14)
--- NOTE | 2018-03-26 15:55 | HP ---
PRIMARY CARE PHYSICIAN: Dr. Pimentel. REASON FOR ADMISSION: Altered mental status and dyspnea. HISTORY OF PRESENT ILLNESS: An 82-year-old female, who has multiple medical problems including ESRD, on hemodialysis, but as per report, she had no dialysis for 5 days. She has history of noncompliance with dialysis. She is on Monday, Monday, Monday dialysis. Finally, the patient was sent for dialysis today, where they refused to do dialysis because the patient was very lethargic and the patient was sent to ER. The patient was not able to provide any history at this point because she is completely lethargic. Vitals knott, she is stable, but she is not talking. She is deeply sleepy. I spoke with the patient's daughter, [place], on phone and she was saying like she was relatively okay. She does not have any more information about her as well. She told me that the patient has full code status. When I saw this patient in dialysis, the patient appeared to be very somnolent. Vitals knott, she is stable. She appears to be chronically unhealthy and seek she had several admission in our hospital in the past. Today in the emergency room, blood test showed leukopenia; anemia with macrocytosis; indeterminate troponin, which is chronic. BNP is elevated. TSH is slightly high. Her urinalysis was very cloudy and dirty looking and showed finding suggestive of infection. Her x-ray showed worsening of right pleural effusion and some suspicious finding of pneumonia and the patient's CT brain was unremarkable. The patient will need admission in the hospital. REVIEW OF SYSTEMS: All review of system tried to review with the patient, but unable to review at this point because of the patient's metabolic encephalopathy. EMERGENCY ROOM COURSE: The patient has received levofloxacin 750 mg. PAST MEDICAL HISTORY: Chronic systolic heart failure with EF 20% to 25%, severe mitral regurgitation, severe aortic regurgitation, severe tricuspid regurgitation, pulmonary regurgitation, coronary artery disease, history of CABG, hypertension, dyslipidemia, mild intermittent asthma, ESRD on hemodialysis, anemia of renal disease, secondary hyperparathyroidism of renal origin, gastroesophageal reflux disease, history of breast cancer, chronic right heel nonhealing ulcer, chronic physical deconditioning. PAST PSYCHIATRIC HISTORY: Anxiety and depression, noncompliance with the treatment. PAST SURGICAL HISTORY: Right mastectomy; CABG; right dialysis graft; history of left dialysis graft, which was removed. FAMILY HISTORY: Hypertension, diabetes, renal failure runs among several family members. SOCIAL HISTORY: Per the patient's daughter, the patient is living at home. Her daughter, Kenya, is medical power of defense attorney. The patient is full code. No history of tobacco, alcohol, or illicit drug abuse. ALLERGIES: PENICILLIN AND TRAMADOL. CURRENT HOME MEDICATIONS: 1. [place] 1 tablet q.6 hourly p.r.n. 2. Lipitor 20 mg daily. 3. Coreg 3.125 mg p.o. b.i.d. 4. Ferrous sulfate 325 mg p.o. daily. 5. Nephro-[place] one tablet daily. 6. Humulin insulin as per sliding scale. 7. Tradjenta 5 mg daily. 8. Multivitamin 1 tablet daily. 9. Fish oil 1000 mg p.o. daily. 10. MiraLAX 17 g daily. 11. Zoloft 25 mg daily. 12. Renvela 1600 mg p.o. t.i.d. 13. Gabapentin 300 mg p.o. b.i.d. 14. Protonix 40 mg p.o. daily. PHYSICAL EXAMINATION: VITAL SIGNS: Currently, blood pressure 168/77, pulse 74, respiratory rate 19, temperature 98.7, and saturation 100% on room air. Weight 72.1 kg. GENERAL: The patient is currently somnolent, lethargic, altered, hypertensive, nonverbal, does not follow any commands. HEENT: Normocephalic and atraumatic. Eyes pupils round, reactive to light. Extraocular muscle intact. ENT: Oropharynx within normal limits. Poor dentition. No pharyngeal erythema. No exudate. NECK: Supple. No JVD. No thyromegaly. LUNGS: Air entry reduced on the right side. Rales noted at bases. No wheezing. CARDIAC: S1, S2 regular. Systolic murmur present at the parasternal and apex. ABDOMEN: Soft, nontender on deep palpation. No peritoneal sign. No rigidity. No rebound. BACK: Unremarkable. EXTREMITIES: Upper extremities; passive movement of all joints are normal. Left AV fistula noted. Lower extremities; the patient does have chronic ulcer over heel on the right side, ulcer noted in the first toe on the left foot. NEUROLOGIC: Unable to assess at this point because the patient is not following any command. SKIN: No skin rash, but dry. PSYCHIATRIC: Unable to assess at this point. SIGNIFICANT LABORATORY DATA: EKG showing junctional rhythm, LVH. CT brain based on my review, no acute intracranial process. Chest x-ray showing atelectasis, cardiomegaly, right pleural effusion, vascular congestion. CBC; WBC 4.3, hemoglobin 10.3, platelet 219, MCV 106. ABG; pH 7.44, bicarb 29.4, CO2 42.7, O2 45.7. BMP; sodium 141, potassium 3.9, chloride 98, BUN 53, creatinine 8.19, glucose 85, calcium 9.6. LFT; AST 18, ALT 8, alkaline phosphatase 96, albumin 3.9, ammonia 30. CK-MB 2.5, troponin 0.079. BNP 6844. TSH 7.76. Lipase 16. Urinalysis consistent with urinary tract infection. Hepatitis B surface antigen negative. ASSESSMENT AND PLAN: 1. Acute metabolic encephalopathy. 2. Right midlung pneumonia. 3. Urinary tract infection. 4. Right pleural effusion. 5. Volume overload status. 6. Acute on chronic systolic congestive heart failure exacerbation due to volume overload status due to missed hemodialysis. 7. Noncompliance with hemodialysis. 8. Severe mitral regurgitation, aortic regurgitation, tricuspid regurgitation, and pulmonary regurgitation. 9. Anemia of renal disease, secondary hyperparathyroidism of renal origin, macrocytosis. 10. Chronically elevated troponin. 11. 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 12. Dyslipidemia and gastroesophageal reflux disease. 13. Physical deconditioning. PLAN: Admission to telemetry floor. Code status addressed with daughter and the patient's daughter wanted to be a full code. Meropenem 500 mg IV daily for infection. Follow up on culture result. Consult Nephrology for maintenance hemodialysis. PT, OT, and Propulsion Machinery Service Engineer for placement evaluation. Once we verify patient's home medication, then we will resume selected home medication. Hyperglycemia protocol ordered. DVT prophylaxis, heparin 5000 units subcu b.i.d. GI prophylaxis, Pepcid 20 mg IV daily or p.o. daily. DISPOSITION PLAN: Based on clinical course. CODE STATUS: The patient is full code. The patient's daughter, Kenya, surrogate decision maker. Prognosis discussed with the patient's daughter. Prognosis is guarded. We will also consult palliative care while in the hospital. Job ID: [id number]
[2018-03-26 19:39] LABS: CKMB 2.3 ng/mL (0-6.6)
--- NOTE | 2018-03-26 23:04 | CON ---
DATE OF CONSULTATION: 03/26/2018 CONSULTING PHYSICIAN: Nahid Mcdermott MD REASON FOR CONSULTATION: End-stage renal disease evaluation and care. REASON FOR ADMISSION: Altered mentation. HISTORY OF PRESENT ILLNESS: This is an 82-year-old female with history of CHF, coronary artery disease, end-stage renal disease, hyperlipidemia, came to the hospital with altered mentation and is being admitted. The patient was seen at dialysis and was having altered mentation, not able to communicate and was sent to the hospital and she is getting admitted. Nephrology consulted for maintenance hemodialysis. She gets dialysis Monday, Monday, and Monday and due to dialysis today. PAST MEDICAL HISTORY: Positive for CHF, end stage renal disease, aortic regurgitation, hypertension, hyperlipidemia, secondary hypothyroidism, and GERD. PAST SURGICAL HISTORY: Dialysis access placement, CABG, and right mastectomy. HOME MEDICATIONS: 1. [place]. 2. Lipitor. 3. Coreg. 4. Ferrous sulfate. 5. Nephro-[place]. 6. Humulin. 7. Tradjenta. 8. Multivitamin. 9. Fish oil. 10. MiraLAX. 11. Zoloft. 12. Renvela. 13. Gabapentin. 14. Protonix. ALLERGIES: 1. PENICILLIN. 2. TRAMADOL. SOCIAL HISTORY: No smoking, alcohol, or illicit drug use. FAMILY HISTORY: No history of any kidney disease. REVIEW OF SYSTEMS: Could not be obtained due to altered mental status. PHYSICAL EXAMINATION: GENERAL: She is an elderly female, is confused. VITAL SIGNS: Temperature 98.7, pulse 74, respirations 18, blood pressure 160/77. HEENT: Atraumatic and normocephalic. NECK: Supple. CVS: S1 and S2 heard. RESPIRATORY: Clear to auscultation. GASTROINTESTINAL: Abdomen is soft. MUSCULOSKELETAL: 1+ edema. DERMATOLOGIC: No skin rash. NEUROLOGIC: Lethargic and altered mentation. LABORATORY DATA: Hemoglobin is 10.3. Potassium is 3.7. BUN is 53, creatinine is 8.1. ASSESSMENT: 1. End-stage renal disease, currently on dialysis. 2. Edema. 3. Hypertension. 4. Anemia. We will monitor. PLAN: Plan is to continue on dialysis as tolerated. Job ID: [id number]
[2018-03-26] MEDS: Heparin 5,000 UNITS/ML VIAL SC SCH (23:45)
[2018-03-27 06:07] LABS: #Basophils 0.1 thou/uL (0.0-0.2); #Eosinphils 0.2 thou/uL (0.0-0.7); #Lymphocytes 0.9 thou/uL (1.20-3.40); #Monocytes 0.5 thou/uL (0.11-0.59); #Neutrophils 2.7 thou/uL (1.40-6.50); %Basophils 1.4 % (0.0-1.0); %Eosinophils 4.1 % (0.0-10.0); %Lymphocytes 21.4 % (21.0-51.0); %Monocytes 12.2 % (0.0-10.0); Hemoglobin 10.2 g/dL (12.0-16.0); Mean Corpuscular HGB CONC 31.4 g/dL (32.0-36.0); Mean Corpuscular Hemoglobin 33.8 pg (27.0-31.0); Mean Platelet Volume 7.1 fL (7.4-10.4); Platelet Count 191 thou/uL (130-400); RBC Distribution Width 15.4 % (11.5-14.5); Red Blood Cell (RBC) Count 3.02 mill/uL (4.20-5.40); White Blood Cell (WBC) Count 4.4 thou/uL (4.8-10.8)
[2018-03-27 06:25] LABS: ALT (SGPT) 8 U/L (8-55); AST (SGOT) 17 U/L (5-34); Albumin 3.5 g/dL (3.4-4.8); Alkaline Phosphatase 83 U/L (40-150); Anion Gap 16 mmol/L (10-20); BUN (Urea Nitrogen) 26 mg/dL (9.8-20.1); Bilirubin, Total 0.9 mg/dL (0.2-1.2); Calc. Creatinine Clearance 9 mL/min (70-130); Calcium 9.1 mg/dL (7.8-10.44); Carbon Dioxide 27 mmol/L (23-31); Chloride 99 mmol/L (98-107); Estimated GFR-MDRD 10; Globulin 2.7 g/dL (2.4-3.5); Glucose 71 mg/dL (83-110); Potassium 4.2 mmol/L (3.5-5.1); Protein, Total 6.2 g/dL (6.0-8.3); Sodium 138 mmol/L (136-145)
[2018-03-27] MEDS: Famotidine 20 MG TAB PO SCH (08:29)
[2018-03-27] MEDS: Famotidine/PF 20 mg/2ml Vial SLOW IVP SCH (08:31)
[2018-03-27] MEDS: Meropenem 500 MG in Sodium Chloride 0.9% 100 ML IVPB SCH (08:31)
[2018-03-27] MEDS: Heparin 5,000 UNITS/ML VIAL SC SCH ×2 (08:34→21:49)
[2018-03-27] MEDS ORDERED: Prevnar 13-Val Conj/PF 0.5 ML SYRINGE IM ONE (09:00)
--- NOTE | 2018-03-27 11:42 | PDOC.PN ---
- Subjective Encounter Start Date: 03/27/18 Encounter Start Time: 08:10 Patient seen and examined. No overnight events - Objective Resuscitation Status - Order Detail: 03/26/18 14:57 Resuscitation Status Routine Resuscitation Status: FULL: Full Resuscitation MAR Reviewed: Yes Vital Signs & Weight: Vital Signs (12 hours) Temp Pulse Pulse Resp BP BP Pulse Ox 03/27/18 09:18 73 125/74 03/27/18 07:40 98.1 F 70 18 129/64 96 03/27/18 04:00 97.8 F 73 20 140/66 100 03/27/18 00:00 141 H 126/81 Weight Weight 144 lb 8 oz Result Diagrams: 03/27/18 05:47 03/27/18 05:47 Additional Labs: Accuchecks 03/27/18 03/26/18 05:51 19:21 POC Glucose 68 L 66 L EKG Reviewed by me: Yes Phys Exam - Physical Examination Constitutional: NAD HEENT: PERRLA, moist MMs Neck: no JVD, supple Respiratory: no wheezing, no rales, no rhonchi Cardiovascular: RRR, no significant murmur Gastrointestinal: soft, non-tender, no distention, positive bowel sounds Musculoskeletal: no edema, pulses present Lymphatic: no nodes Skin: no rash, normal turgor Dx/Plan (1) Acute metabolic encephalopathy Code(s): G93.41 - METABOLIC ENCEPHALOPATHY Status: Acute (2) Fluid overload Code(s): E87.70 - FLUID OVERLOAD, UNSPECIFIED Status: Acute (3) UTI (urinary tract infection) Status: Acute (4) Anemia of renal disease Code(s): D63.1 - ANEMIA IN CHRONIC KIDNEY DISEASE Status: Chronic (5) Anxiety with depression Code(s): F41.8 - OTHER SPECIFIED ANXIETY DISORDERS Status: Chronic (6) CAD (coronary artery disease) Code(s): I25.10 - ATHSCL HEART DISEASE OF [place] CORONARY ARTERY W/O ANG PCTRS Status: Chronic Qualifiers: (7) Chronic pain disorder Code(s): G89.4 - CHRONIC PAIN SYNDROME Status: Chronic (8) Chronic systolic heart failure, ACC/AHA stage C Code(s): I50.22 - CHRONIC SYSTOLIC (CONGESTIVE) HEART FAILURE Status: Chronic (9) Diabetes type 2, controlled Code(s): E11.9 - TYPE 2 DIABETES MELLITUS WITHOUT COMPLICATIONS Status: Chronic (10) Dyslipidemia Code(s): E78.5 - HYPERLIPIDEMIA, UNSPECIFIED Status: Chronic (11) ESRD (end stage renal disease) on dialysis Code(s): N18.6 - END STAGE RENAL DISEASE; Z99.2 - DEPENDENCE ON RENAL DIALYSIS Status: Chronic Comment: nephrology following (12) GERD (gastroesophageal reflux disease) Code(s): K21.9 - GASTRO-ESOPHAGEAL REFLUX DISEASE WITHOUT ESOPHAGITIS Status: Chronic (13) HTN (hypertension) Code(s): I10 - ESSENTIAL (PRIMARY) HYPERTENSION Status: Chronic Qualifiers: (14) Moderate pulmonary valve regurgitation Code(s): I37.1 - NONRHEUMATIC PULMONARY VALVE INSUFFICIENCY Status: Chronic (15) Non-compliance with renal dialysis Code(s): Z91.15 - PATIENT'S NONCOMPLIANCE WITH RENAL DIALYSIS Status: Chronic (16) PAF (paroxysmal atrial fibrillation) Code(s): I48.0 - PAROXYSMAL ATRIAL FIBRILLATION Status: Chronic (17) Physical deconditioning Code(s): R53.81 - OTHER MALAISE Status: Chronic (18) Secondary hyperparathyroidism of renal origin Code(s): N25.81 - SECONDARY HYPERPARATHYROIDISM OF RENAL ORIGIN Status: Chronic (19) Severe aortic stenosis by prior echocardiogram Code(s): I35.0 - NONRHEUMATIC AORTIC (VALVE) STENOSIS Status: Chronic (20) Severe mitral regurgitation by prior echocardiogram Code(s): I34.0 - NONRHEUMATIC MITRAL (VALVE) INSUFFICIENCY Status: Chronic (21) Severe tricuspid regurgitation by prior echocardiogram Code(s): I07.1 - RHEUMATIC TRICUSPID INSUFFICIENCY Status: Chronic (22) Ulcer of right heel Code(s): L97.419 - NON-PRS CHR ULCER OF RIGHT HEEL AND MIDFOOT W UNSP SEVERT Status: Chronic - Plan cont current plan of care * continue meropenam * continue HD as per nephrology * medication reviewed as below * symptomatic treatment * wound care * palliative care consulted. Review of Systems - Review of Systems Other: not reliable due to metabolic encephalopathy - Medications/Allergies Allergies/Adverse Reactions: Allergies Allergy/AdvReac Type Severity Reaction Status Date / Time Penicillins Allergy Intermediate Rash Verified 05/21/17 02:43 tramadol Allergy Verified 09/27/17 04:28 Medications: Current Medications Acetaminophen (Tylenol) 650 mg PO Q4H PRN PRN Reason: Headache/Fever/Mild Pain (1-3) Albuterol/Ipratropium (Duoneb) 3 ml NEB [id number] PRN PRN Reason: SOB &/or Wheezing Artificial Tears (Tears Naturale) 2 drop EA EYE PRN PRN PRN Reason: Dry Eyes Bisacodyl (Dulcolax) 10 mg [place] DAILYPRN PRN PRN Reason: Constipation Dextrose/Water (Dextrose 50%) 25 gm SLOW IVP PRN PRN PRN Reason: Hypoglycemia Famotidine (Pepcid) 20 mg PO DAILY [facility] Last Admin: 03/27/18 08:29 Dose: Not Given Famotidine (Pepcid) 20 mg SLOW IVP DAILY [facility] Last Admin: 03/27/18 08:31 Dose: 20 mg Glucagon (Glucagon) 1 mg IM PRN PRN PRN Reason: Hypoglycemia Guaifenesin (Robitussin Sf) 200 mg PO Q4H PRN PRN Reason: Cough Heparin Sodium (Porcine) (Heparin) 5,000 units SC BID [facility] Last Admin: 03/27/18 08:34 Dose: 5,000 units Hydralazine HCl (Apresoline) 10 mg SLOW IVP Q4H PRN PRN Reason: SBP > 180 and HR < 70 Meropenem 500 mg/ Sodium (Chloride) 100 mls @ 200 mls/hr IVPB DAILY [facility] Last Admin: 03/27/18 08:31 Dose: 100 mls Dextrose/Water (D5w) 1,000 mls @ 0 mls/hr IV .Q0M PRN PRN Reason: Hypoglycemia Insulin Human Lispro (Humalog) 0 units SC .MILD SLIDING SCALE PRN PRN Reason: Mild Correctional Scale Insulin Human Lispro (Humalog) 0 units SC .BEDTIME SLIDING SC PRN PRN Reason: Bedtime Correctional Scale Loperamide HCl (Imodium) 2 mg PO PRN PRN PRN Reason: Diarrhea/Loose Stools Loratadine (Claritin) 10 mg PO DAILYPRN PRN PRN Reason: Sinus Symptoms Mineral Oil/White Petrolatum (Eucerin Cream) 0 gm TOP BIDPRN PRN PRN Reason: Dry Skin Ondansetron HCl (Zofran Odt) 4 mg SL Q6H PRN PRN Reason: Nausea/Vomiting Ondansetron HCl (Zofran) 4 mg IVP Q6H PRN PRN Reason: Nausea/Vomiting Senna/Docusate Sodium (Senokot S) 2 tab PO BID PRN PRN Reason: Constipation Sodium Chloride ([place] Nasal [place] 0.65%) 0 ml EA NARE QIDPRN PRN PRN Reason: Nasal Congestion Sodium Chloride (Flush - Normal Saline) 10 ml IVF Q12HR [facility] Last Admin: 03/27/18 08:34 Dose: 10 ml Sodium Chloride (Flush - Normal Saline) 10 ml IVF PRN PRN PRN Reason: Saline Flush Throat Lozenges (Cepastat Lozenges) 1 joselito PO Q2H PRN PRN Reason: Sore Throat
[2018-03-27 13:43] VITALS: BMI 26.4
--- NOTE | 2018-03-27 18:04 | PRG ---
DATE OF SERVICE: 03/27/2018 SUBJECTIVE: Patient was seen and examined at bedside and overnight events noted. Patient denies any shortness of breath or chest pain or palpitation. No history of nausea or vomiting or diarrhea or fever or chills or cramps. OBJECTIVE: GENERAL: This is an elderly female, in no apparent distress. VITAL SIGNS: Temperature 98.3. Heart rate 75. Respiratory rate 16. Blood pressure 131/68. HEENT: Atraumatic, normocephalic. Oral mucosa is moist NECK: Supple. CARDIOVASCULAR: S1, S2 heard. Rate and rhythm regular. RESPIRATORY: Clear to auscultation. GASTROINTESTINAL: Abdomen is soft. MUSCULOSKELETAL: No tenderness. No edema. DERMATOLOGIC: No skin rash. NEUROLOGIC: Alert and awake and oriented X3. No focal neurologic deficits. Moving all the extremities. PSYCHIATRIC: Mood and affect normal. LABORATORY DATA: Potassium 4.2, BUN is 26, creatinine is 5.1. ASSESSMENT AND PLAN: 1. End-stage renal disease. Continue on hemodialysis as tolerated. 2. Edema. Remove fluid. 3. Hypertension, stable. 4. Anemia. Plan to continue dialysis as tolerated. Job ID: [id number]
[2018-03-27] MEDS: Diabetic Tussin 200 MG/10 ML UDCUP PO PRN (21:51)
[2018-03-28] MEDS: Heparin 5,000 UNITS/ML VIAL SC SCH ×3 (06:33→22:35)
[2018-03-28] MEDS: Famotidine/PF 20 mg/2ml Vial SLOW IVP SCH (10:27)
[2018-03-28] MEDS: Meropenem 500 MG in Sodium Chloride 0.9% 100 ML IVPB SCH (11:09)
--- NOTE | 2018-03-28 11:39 | PDOC.PN ---
- Subjective Encounter Start Date: 03/28/18 Encounter Start Time: 08:50 Patient seen and examined. No new complaints. No overnight events - Objective Resuscitation Status - Order Detail: 03/26/18 14:57 Resuscitation Status Routine Resuscitation Status: FULL: Full Resuscitation MAR Reviewed: Yes Vital Signs & Weight: Vital Signs (12 hours) Temp Pulse Resp BP Pulse Ox 03/28/18 11:17 97.5 F L 72 16 111/49 L 96 03/28/18 04:00 98.5 F 78 20 135/74 98 Weight Admit Weight 144 lb 8 oz Weight 144 lb 8 oz I&O: 03/27/18 03/28/18 03/29/18 06:59 06:59 06:59 Intake Total 1200 Output Total 0 Balance 1200 Result Diagrams: 03/27/18 05:47 03/27/18 05:47 Additional Labs: Accuchecks 03/28/18 03/27/18 03/27/18 05:56 20:51 17:15 POC Glucose 82 137 H 110 03/27/18 03/27/18 11:59 11:28 POC Glucose 64 L 64 L EKG Reviewed by me: Yes (nsr) Phys Exam - Physical Examination Constitutional: NAD HEENT: PERRLA, sclera anicteric Neck: no JVD, supple Respiratory: no wheezing, no rales, no rhonchi Cardiovascular: RRR, no significant murmur, no rub Gastrointestinal: soft, non-tender, no distention Musculoskeletal: no edema, pulses present Neurological: non-focal Lymphatic: no nodes Psychiatric: normal affect Skin: no rash, normal turgor Dx/Plan (1) Acute metabolic encephalopathy Code(s): G93.41 - METABOLIC ENCEPHALOPATHY Status: Acute (2) Fluid overload Code(s): E87.70 - FLUID OVERLOAD, UNSPECIFIED Status: Acute (3) UTI (urinary tract infection) Status: Acute (4) Anemia of renal disease Code(s): D63.1 - ANEMIA IN CHRONIC KIDNEY DISEASE Status: Chronic (5) Anxiety with depression Code(s): F41.8 - OTHER SPECIFIED ANXIETY DISORDERS Status: Chronic (6) CAD (coronary artery disease) Code(s): I25.10 - ATHSCL HEART DISEASE OF [place] CORONARY ARTERY W/O ANG PCTRS Status: Chronic Qualifiers: (7) Chronic pain disorder Code(s): G89.4 - CHRONIC PAIN SYNDROME Status: Chronic (8) Chronic systolic heart failure, ACC/AHA stage C Code(s): I50.22 - CHRONIC SYSTOLIC (CONGESTIVE) HEART FAILURE Status: Chronic (9) Diabetes type 2, controlled Code(s): E11.9 - TYPE 2 DIABETES MELLITUS WITHOUT COMPLICATIONS Status: Chronic (10) Dyslipidemia Code(s): E78.5 - HYPERLIPIDEMIA, UNSPECIFIED Status: Chronic (11) ESRD (end stage renal disease) on dialysis Code(s): N18.6 - END STAGE RENAL DISEASE; Z99.2 - DEPENDENCE ON RENAL DIALYSIS Status: Chronic Comment: nephrology following (12) GERD (gastroesophageal reflux disease) Code(s): K21.9 - GASTRO-ESOPHAGEAL REFLUX DISEASE WITHOUT ESOPHAGITIS Status: Chronic (13) HTN (hypertension) Code(s): I10 - ESSENTIAL (PRIMARY) HYPERTENSION Status: Chronic Qualifiers: (14) Moderate pulmonary valve regurgitation Code(s): I37.1 - NONRHEUMATIC PULMONARY VALVE INSUFFICIENCY Status: Chronic (15) Non-compliance with renal dialysis Code(s): Z91.15 - PATIENT'S NONCOMPLIANCE WITH RENAL DIALYSIS Status: Chronic (16) PAF (paroxysmal atrial fibrillation) Code(s): I48.0 - PAROXYSMAL ATRIAL FIBRILLATION Status: Chronic (17) Physical deconditioning Code(s): R53.81 - OTHER MALAISE Status: Chronic (18) Secondary hyperparathyroidism of renal origin Code(s): N25.81 - SECONDARY HYPERPARATHYROIDISM OF RENAL ORIGIN Status: Chronic (19) Severe aortic stenosis by prior echocardiogram Code(s): I35.0 - NONRHEUMATIC AORTIC (VALVE) STENOSIS Status: Chronic (20) Severe mitral regurgitation by prior echocardiogram Code(s): I34.0 - NONRHEUMATIC MITRAL (VALVE) INSUFFICIENCY Status: Chronic (21) Severe tricuspid regurgitation by prior echocardiogram Code(s): I07.1 - RHEUMATIC TRICUSPID INSUFFICIENCY Status: Chronic (22) Ulcer of right heel Code(s): L97.419 - NON-PRS CHR ULCER OF RIGHT HEEL AND MIDFOOT W UNSP SEVERT Status: Chronic - Plan cont current plan of care, continue antibiotics, social science research assistant * medication reviewed as below * symptomatic treatment * continue meropenam * continue HD as per nephrology * palliative care to see for goal of care * prognosis is poor. Review of Systems - Review of Systems Other: not reliable with pt due to her level of cognitive status - Medications/Allergies Allergies/Adverse Reactions: Allergies Allergy/AdvReac Type Severity Reaction Status Date / Time Penicillins Allergy Intermediate Rash Verified 05/21/17 02:43 tramadol Allergy Verified 09/27/17 04:28 Medications: Current Medications Acetaminophen (Tylenol) 650 mg PO Q4H PRN PRN Reason: Headache/Fever/Mild Pain (1-3) Albuterol/Ipratropium (Duoneb) 3 ml NEB [id number] PRN PRN Reason: SOB &/or Wheezing Artificial Tears (Tears Naturale) 2 drop EA EYE PRN PRN PRN Reason: Dry Eyes Bisacodyl (Dulcolax) 10 mg [place] DAILYPRN PRN PRN Reason: Constipation Dextrose/Water (Dextrose 50%) 25 gm SLOW IVP PRN PRN PRN Reason: Hypoglycemia Famotidine (Pepcid) 20 mg PO DAILY [facility] Last Admin: 03/27/18 08:29 Dose: Not Given Famotidine (Pepcid) 20 mg SLOW IVP DAILY [facility] Last Admin: 03/28/18 10:27 Dose: Not Given Glucagon (Glucagon) 1 mg IM PRN PRN PRN Reason: Hypoglycemia Guaifenesin (Robitussin Sf) 200 mg PO Q4H PRN PRN Reason: Cough Last Admin: 03/27/18 21:51 Dose: 200 mg Heparin Sodium (Porcine) (Heparin) 5,000 units SC BID [facility] Last Admin: 03/28/18 06:33 Dose: Not Given Hydralazine HCl (Apresoline) 10 mg SLOW IVP Q4H PRN PRN Reason: SBP > 180 and HR < 70 Meropenem 500 mg/ Sodium (Chloride) 100 mls @ 200 mls/hr IVPB DAILY [facility] Last Admin: 03/28/18 11:09 Dose: Not Given Dextrose/Water (D5w) 1,000 mls @ 0 mls/hr IV .Q0M PRN PRN Reason: Hypoglycemia Insulin Human Lispro (Humalog) 0 units SC .MILD SLIDING SCALE PRN PRN Reason: Mild Correctional Scale Insulin Human Lispro (Humalog) 0 units SC .BEDTIME SLIDING SC PRN PRN Reason: Bedtime Correctional Scale Loperamide HCl (Imodium) 2 mg PO PRN PRN PRN Reason: Diarrhea/Loose Stools Loratadine (Claritin) 10 mg PO DAILYPRN PRN PRN Reason: Sinus Symptoms Mineral Oil/White Petrolatum (Eucerin Cream) 0 gm TOP BIDPRN PRN PRN Reason: Dry Skin Ondansetron HCl (Zofran Odt) 4 mg SL Q6H PRN PRN Reason: Nausea/Vomiting Ondansetron HCl (Zofran) 4 mg IVP Q6H PRN PRN Reason: Nausea/Vomiting Senna/Docusate Sodium (Senokot S) 2 tab PO BID PRN PRN Reason: Constipation Sodium Chloride ([place] Nasal [place] 0.65%) 0 ml EA NARE QIDPRN PRN PRN Reason: Nasal Congestion Sodium Chloride (Flush - Normal Saline) 10 ml IVF Q12HR [facility] Last Admin: 03/28/18 10:27 Dose: Not Given Sodium Chloride (Flush - Normal Saline) 10 ml IVF PRN PRN PRN Reason: Saline Flush Throat Lozenges (Cepastat Lozenges) 1 joselito PO Q2H PRN PRN Reason: Sore Throat
[2018-03-28] MEDS: Famotidine 20 MG TAB PO SCH (11:58)
[2018-03-28 15:00] LABS: Anion Gap 14 mmol/L (10-20); BUN (Urea Nitrogen) 18 mg/dL (9.8-20.1); BUN/Creatinine Ratio 4.53; Calc. Creatinine Clearance 12 mL/min (70-130); Calcium 9.7 mg/dL (7.8-10.44); Carbon Dioxide 31 mmol/L (23-31); Chloride 98 mmol/L (98-107); Estimated GFR-MDRD 13; Glucose 90 mg/dL (83-110); Phosphorus 3.1 mg/dL (2.3-4.7); Potassium 3.8 mmol/L (3.5-5.1); Sodium 139 mmol/L (136-145)
[2018-03-28 15:35] LABS: Anisocytosis SLIGHT = 6-15 cells (100X) (0-5/hpf); Elliptocytes SLIGHT = 2-5 cells (100X) (0-1/hpf); Eosinophils 1 % (0-10); Hemoglobin 10.7 g/dL (12.0-16.0); Hypochromia SLIGHT = 6-15 cells (100X) (0-5/hpf); Lymphocytes 13 % (21-51); MDiff Complete? YES; Mean Corpuscular HGB CONC 31.1 g/dL (32.0-36.0); Mean Corpuscular Hemoglobin 32.9 pg (27.0-31.0); Mean Platelet Volume 7.3 fL (7.4-10.4); Monocytes 3 % (0-10); Neutrophil 83 % (42-75); Platelet Count 207 thou/uL (130-400); Platelet Morphology Comment Appears Adequate; RBC Distribution Width 15.2 % (11.5-14.5); Red Blood Cell (RBC) Count 3.26 mill/uL (4.20-5.40); White Blood Cell (WBC) Count 4.3 thou/uL (4.8-10.8)
[2018-03-29] MEDS: Heparin 5,000 UNITS/ML VIAL SC SCH ×2 (08:31→20:42)
--- NOTE | 2018-03-29 08:31 | PRG ---
DATE OF SERVICE: 03/28/2018 SUBJECTIVE: Patient was seen and examined at bedside and overnight events noted. Patient denies any shortness of breath or chest pain or palpitation. No history of nausea or vomiting or diarrhea or fever or chills or cramps. OBJECTIVE: GENERAL: This is an elderly female, in no apparent distress. VITAL SIGNS: Temperature 98.6 HR 67 RR 18 BP 140/67 HEENT: Atraumatic, normocephalic. Oral mucosa is moist NECK: Supple. CARDIOVASCULAR: S1, S2 heard. Rate and rhythm regular. RESPIRATORY: Clear to auscultation. GASTROINTESTINAL: Abdomen is soft. MUSCULOSKELETAL: No tenderness. No edema. DERMATOLOGIC: No skin rash. NEUROLOGIC: Alert and awake and oriented x3. No focal neurologic deficits. Moving all the extremities. PSYCHIATRIC: Mood and affect normal. LABORATORY DATA: Potassium 3.8, BUN 18, and creatinine 3.97. ASSESSMENT AND PLAN: 1. Endstage renal disease - continue HD as tolerated. 2. Anemia of ESRD 3. Edema 4. Hypertension 5. Altered mentation - better. Continue dialysis MWF as tolerated. Job ID: [id number] [facility]
[2018-03-29] MEDS ORDERED: Cipro 250 MG TAB PO SCH (09:00)
[2018-03-29] MEDS ORDERED: Nitrofurantoin Monohyd/M-Cryst 100 MG CAP PO SCH (09:00)
--- NOTE | 2018-03-29 10:18 | PRG ---
DATE OF SERVICE: SUBJECTIVE: Patient was seen and examined at bedside and overnight events noted. Patient denies any shortness of breath or chest pain or palpitation. No history of nausea or vomiting or diarrhea or fever or chills or cramps. OBJECTIVE: GENERAL: This is an elderly female, in no apparent distress. VITAL SIGNS: Temperature is 97.7. Heart rate 72. Respiratory rate . Blood pressure 132/81. HEENT: Atraumatic, normocephalic. Oral mucosa is moist NECK: Supple. CARDIOVASCULAR: S1, S2 heard. Rate and rhythm regular. RESPIRATORY: Clear to auscultation. GASTROINTESTINAL: Abdomen is soft. MUSCULOSKELETAL: No tenderness. No edema. DERMATOLOGIC: No skin rash. NEUROLOGIC: Alert and awake and oriented X3. No focal neurologic deficits. Moving all the extremities. PSYCHIATRIC: Mood and affect normal. LABORATORY DATA: No labs. ASSESSMENT AND PLAN: 1. End-stage renal disease. Continue hemodialysis as tolerated. 2. Edema, controlled. 3. Hypertension. 4. Anemia. Plan is to continue dialysis as tolerated. Job ID: [id number]
[2018-03-29] MEDS: Famotidine/PF 20 mg/2ml Vial SLOW IVP SCH (10:31)
[2018-03-29] MEDS: Famotidine 20 MG TAB PO SCH (10:47)
--- NOTE | 2018-03-29 12:16 | PDOC.PN ---
- Subjective Encounter Start Date: 03/29/18 Encounter Start Time: 07:15 Patient seen and examined. No new complaints. No overnight events - Objective Resuscitation Status - Order Detail: 03/28/18 15:37 Resuscitation Status Routine Resuscitation Status: DNAR: NO Resuscitation Discussed with: discussed with mary, daughter REGINALDO Reviewed: Yes Vital Signs & Weight: Vital Signs (12 hours) Temp Pulse Resp BP Pulse Ox 03/29/18 08:00 97.7 F 72 20 132/81 99 03/29/18 04:07 97.9 F 79 16 108/75 92 L Weight Admit Weight 144 lb 8 oz Weight 144 lb 8 oz I&O: 03/28/18 03/29/18 03/30/18 06:59 06:59 06:59 Intake Total 1200 760 Output Total 0 4400 Balance 1200 -3640 Result Diagrams: 03/28/18 14:28 03/28/18 14:28 Additional Labs: Accuchecks 03/29/18 03/29/18 03/28/18 11:19 05:19 20:14 POC Glucose 110 99 150 H 03/28/18 16:57 POC Glucose 85 EKG Reviewed by me: Yes Phys Exam - Physical Examination Constitutional: NAD HEENT: PERRLA, moist MMs, sclera anicteric Neck: no JVD, supple Respiratory: no wheezing, no rales, no rhonchi Cardiovascular: RRR, no significant murmur, no rub Gastrointestinal: soft, non-tender, no distention, positive bowel sounds Musculoskeletal: no edema, pulses present Neurological: moves all 4 limbs Lymphatic: no nodes Psychiatric: normal affect Skin: no rash, normal turgor Dx/Plan (1) Acute metabolic encephalopathy Code(s): G93.41 - METABOLIC ENCEPHALOPATHY Status: Acute (2) Fluid overload Code(s): E87.70 - FLUID OVERLOAD, UNSPECIFIED Status: Acute (3) UTI (urinary tract infection) Status: Acute (4) Anemia of renal disease Code(s): D63.1 - ANEMIA IN CHRONIC KIDNEY DISEASE Status: Chronic (5) Anxiety with depression Code(s): F41.8 - OTHER SPECIFIED ANXIETY DISORDERS Status: Chronic (6) CAD (coronary artery disease) Code(s): I25.10 - ATHSCL HEART DISEASE OF [place] CORONARY ARTERY W/O ANG PCTRS Status: Chronic Qualifiers: (7) Chronic pain disorder Code(s): G89.4 - CHRONIC PAIN SYNDROME Status: Chronic (8) Chronic systolic heart failure, ACC/AHA stage C Code(s): I50.22 - CHRONIC SYSTOLIC (CONGESTIVE) HEART FAILURE Status: Chronic (9) Diabetes type 2, controlled Code(s): E11.9 - TYPE 2 DIABETES MELLITUS WITHOUT COMPLICATIONS Status: Chronic (10) Dyslipidemia Code(s): E78.5 - HYPERLIPIDEMIA, UNSPECIFIED Status: Chronic (11) ESRD (end stage renal disease) on dialysis Code(s): N18.6 - END STAGE RENAL DISEASE; Z99.2 - DEPENDENCE ON RENAL DIALYSIS Status: Chronic Comment: nephrology following (12) GERD (gastroesophageal reflux disease) Code(s): K21.9 - GASTRO-ESOPHAGEAL REFLUX DISEASE WITHOUT ESOPHAGITIS Status: Chronic (13) HTN (hypertension) Code(s): I10 - ESSENTIAL (PRIMARY) HYPERTENSION Status: Chronic Qualifiers: (14) Moderate pulmonary valve regurgitation Code(s): I37.1 - NONRHEUMATIC PULMONARY VALVE INSUFFICIENCY Status: Chronic (15) Non-compliance with renal dialysis Code(s): Z91.15 - PATIENT'S NONCOMPLIANCE WITH RENAL DIALYSIS Status: Chronic (16) PAF (paroxysmal atrial fibrillation) Code(s): I48.0 - PAROXYSMAL ATRIAL FIBRILLATION Status: Chronic (17) Physical deconditioning Code(s): R53.81 - OTHER MALAISE Status: Chronic (18) Secondary hyperparathyroidism of renal origin Code(s): N25.81 - SECONDARY HYPERPARATHYROIDISM OF RENAL ORIGIN Status: Chronic (19) Severe aortic stenosis by prior echocardiogram Code(s): I35.0 - NONRHEUMATIC AORTIC (VALVE) STENOSIS Status: Chronic (20) Severe mitral regurgitation by prior echocardiogram Code(s): I34.0 - NONRHEUMATIC MITRAL (VALVE) INSUFFICIENCY Status: Chronic (21) Severe tricuspid regurgitation by prior echocardiogram Code(s): I07.1 - RHEUMATIC TRICUSPID INSUFFICIENCY Status: Chronic (22) Ulcer of right heel Code(s): L97.419 - NON-PRS CHR ULCER OF RIGHT HEEL AND MIDFOOT W UNSP SEVERT Status: Chronic - Plan cont current plan of care, plan discussed w/ family, continue antibiotics * change to macrobid Po * will need discharge placement * DNR confirmed and out of hospital DNR paperwork will be done * medication reviewed as below * symptomatic treatment * DC tele and transfer to medical * will consider discharge when placement arranged. Review of Systems - Review of Systems Other: not reliable due to her cognitive status - Medications/Allergies Allergies/Adverse Reactions: Allergies Allergy/AdvReac Type Severity Reaction Status Date / Time Penicillins Allergy Intermediate Rash Verified 05/21/17 02:43 tramadol Allergy Verified 09/27/17 04:28 Medications: Current Medications Acetaminophen (Tylenol) 650 mg PO Q4H PRN PRN Reason: Headache/Fever/Mild Pain (1-3) Albuterol/Ipratropium (Duoneb) 3 ml NEB [id number] PRN PRN Reason: SOB &/or Wheezing Artificial Tears (Tears Naturale) 2 drop EA EYE PRN PRN PRN Reason: Dry Eyes Bisacodyl (Dulcolax) 10 mg [place] DAILYPRN PRN PRN Reason: Constipation Dextrose/Water (Dextrose 50%) 25 gm SLOW IVP PRN PRN PRN Reason: Hypoglycemia Famotidine (Pepcid) 20 mg PO DAILY [facility] Last Admin: 03/29/18 10:47 Dose: 20 mg Famotidine (Pepcid) 20 mg SLOW IVP DAILY [facility] Last Admin: 03/29/18 10:31 Dose: Not Given Glucagon (Glucagon) 1 mg IM PRN PRN PRN Reason: Hypoglycemia Guaifenesin (Robitussin Sf) 200 mg PO Q4H PRN PRN Reason: Cough Last Admin: 03/27/18 21:51 Dose: 200 mg Heparin Sodium (Porcine) (Heparin) 5,000 units SC BID [facility] Last Admin: 03/29/18 08:31 Dose: 5,000 units Hydralazine HCl (Apresoline) 10 mg SLOW IVP Q4H PRN PRN Reason: SBP > 180 and HR < 70 Dextrose/Water (D5w) 1,000 mls @ 0 mls/hr IV .Q0M PRN PRN Reason: Hypoglycemia Insulin Human Lispro (Humalog) 0 units SC .MILD SLIDING SCALE PRN PRN Reason: Mild Correctional Scale Insulin Human Lispro (Humalog) 0 units SC .BEDTIME SLIDING SC PRN PRN Reason: Bedtime Correctional Scale Loperamide HCl (Imodium) 2 mg PO PRN PRN PRN Reason: Diarrhea/Loose Stools Loratadine (Claritin) 10 mg PO DAILYPRN PRN PRN Reason: Sinus Symptoms Mineral Oil/White Petrolatum (Eucerin Cream) 0 gm TOP BIDPRN PRN PRN Reason: Dry Skin Nitrofurantoin Macrocrystals (Macrobid) 100 mg PO DAILY [facility] Ondansetron HCl (Zofran Odt) 4 mg SL Q6H PRN PRN Reason: Nausea/Vomiting Ondansetron HCl (Zofran) 4 mg IVP Q6H PRN PRN Reason: Nausea/Vomiting Senna/Docusate Sodium (Senokot S) 2 tab PO BID PRN PRN Reason: Constipation Sodium Chloride ([place] Nasal [place] 0.65%) 0 ml EA NARE QIDPRN PRN PRN Reason: Nasal Congestion Sodium Chloride (Flush - Normal Saline) 10 ml IVF Q12HR [facility] Last Admin: 03/29/18 10:31 Dose: Not Given Sodium Chloride (Flush - Normal Saline) 10 ml IVF PRN PRN PRN Reason: Saline Flush Throat Lozenges (Cepastat Lozenges) 1 joselito PO Q2H PRN PRN Reason: Sore Throat
--- NOTE | 2018-03-30 09:01 | PRG ---
DATE OF SERVICE: 03/30/2018 SUBJECTIVE: Patient was seen and examined at bedside and overnight events noted. Patient denies any shortness of breath or chest pain or palpitation. No history of nausea or vomiting or diarrhea or fever or chills or cramps. OBJECTIVE: GENERAL: This is an elderly female, in no apparent distress. VITAL SIGNS: Temperature 98.1, heart rate respiratory rate blood pressure 151/81. HEENT: Atraumatic, normocephalic. Oral mucosa is moist NECK: Supple. CARDIOVASCULAR: S1, S2 heard. Rate and rhythm regular. RESPIRATORY: Clear to auscultation. GASTROINTESTINAL: Abdomen is soft. MUSCULOSKELETAL: No tenderness. No edema. DERMATOLOGIC: No skin rash. NEUROLOGIC: Alert and awake and oriented X3. No focal neurologic deficits. Moving all the extremities. PSYCHIATRIC: Mood and affect normal. LABORATORY DATA: No labs done. ASSESSMENT AND PLAN: 1. End-stage renal disease. Continue hemodialysis Monday, Monday, and Monday. 2. Edema, we will remove fluid. 3. Hypertension, stable. 4. Anemia. Monitor hemoglobin. Plan is to continue dialysis Monday, Monday, and Monday with fluid removal as tolerated. Job ID: [id number]
[2018-03-30] MEDS: Nitrofurantoin Monohyd/M-Cryst 100 MG CAP PO SCH (09:02)
[2018-03-30] MEDS: Famotidine 20 MG TAB PO SCH (09:02)
[2018-03-30] MEDS: Heparin 5,000 UNITS/ML VIAL SC SCH ×2 (09:03→21:04)
[2018-03-30] MEDS: Famotidine/PF 20 mg/2ml Vial SLOW IVP SCH (09:03)
--- NOTE | 2018-03-30 10:28 | PDOC.PN ---
- Subjective Encounter Start Date: 03/30/18 Encounter Start Time: 09:30 Patient seen and examined. No new complaints. No overnight events - Objective Resuscitation Status - Order Detail: 03/28/18 15:37 Resuscitation Status Routine Resuscitation Status: DNAR: NO Resuscitation Discussed with: discussed with mary, daughter REGINALDO Reviewed: Yes Vital Signs & Weight: Vital Signs (12 hours) Temp Pulse Resp BP Pulse Ox 03/30/18 09:10 94 L 03/30/18 09:00 98.2 F 80 18 149/76 H 94 L 03/30/18 08:00 98.0 F 80 18 124/73 94 L 03/30/18 04:00 98.1 F 76 18 151/81 H 96 Weight Admit Weight 144 lb 8 oz Weight 144 lb 8 oz I&O: 03/29/18 03/30/18 03/31/18 06:59 06:59 06:59 Intake Total 760 Output Total 4400 Balance -3640 Result Diagrams: 03/28/18 14:28 03/28/18 14:28 Additional Labs: Accuchecks 03/30/18 03/29/18 03/29/18 05:43 20:52 16:44 POC Glucose 78 80 104 03/29/18 11:19 POC Glucose 110 Phys Exam - Physical Examination Constitutional: NAD HEENT: PERRLA, moist MMs, sclera anicteric Neck: no JVD, supple Respiratory: no wheezing, no rales, no rhonchi Cardiovascular: RRR, no significant murmur, no rub Gastrointestinal: soft, non-tender, no distention, positive bowel sounds Musculoskeletal: no edema, pulses present Neurological: moves all 4 limbs Lymphatic: no nodes Psychiatric: normal affect Skin: no rash, normal turgor Dx/Plan (1) Acute metabolic encephalopathy Code(s): G93.41 - METABOLIC ENCEPHALOPATHY Status: Acute (2) Fluid overload Code(s): E87.70 - FLUID OVERLOAD, UNSPECIFIED Status: Acute (3) UTI (urinary tract infection) Status: Acute (4) Anemia of renal disease Code(s): D63.1 - ANEMIA IN CHRONIC KIDNEY DISEASE Status: Chronic (5) Anxiety with depression Code(s): F41.8 - OTHER SPECIFIED ANXIETY DISORDERS Status: Chronic (6) CAD (coronary artery disease) Code(s): I25.10 - ATHSCL HEART DISEASE OF [place] CORONARY ARTERY W/O ANG PCTRS Status: Chronic Qualifiers: (7) Chronic pain disorder Code(s): G89.4 - CHRONIC PAIN SYNDROME Status: Chronic (8) Chronic systolic heart failure, ACC/AHA stage C Code(s): I50.22 - CHRONIC SYSTOLIC (CONGESTIVE) HEART FAILURE Status: Chronic (9) Diabetes type 2, controlled Code(s): E11.9 - TYPE 2 DIABETES MELLITUS WITHOUT COMPLICATIONS Status: Chronic (10) Dyslipidemia Code(s): E78.5 - HYPERLIPIDEMIA, UNSPECIFIED Status: Chronic (11) ESRD (end stage renal disease) on dialysis Code(s): N18.6 - END STAGE RENAL DISEASE; Z99.2 - DEPENDENCE ON RENAL DIALYSIS Status: Chronic Comment: nephrology following (12) GERD (gastroesophageal reflux disease) Code(s): K21.9 - GASTRO-ESOPHAGEAL REFLUX DISEASE WITHOUT ESOPHAGITIS Status: Chronic (13) HTN (hypertension) Code(s): I10 - ESSENTIAL (PRIMARY) HYPERTENSION Status: Chronic Qualifiers: (14) Moderate pulmonary valve regurgitation Code(s): I37.1 - NONRHEUMATIC PULMONARY VALVE INSUFFICIENCY Status: Chronic (15) Non-compliance with renal dialysis Code(s): Z91.15 - PATIENT'S NONCOMPLIANCE WITH RENAL DIALYSIS Status: Chronic (16) PAF (paroxysmal atrial fibrillation) Code(s): I48.0 - PAROXYSMAL ATRIAL FIBRILLATION Status: Chronic (17) Physical deconditioning Code(s): R53.81 - OTHER MALAISE Status: Chronic (18) Secondary hyperparathyroidism of renal origin Code(s): N25.81 - SECONDARY HYPERPARATHYROIDISM OF RENAL ORIGIN Status: Chronic (19) Severe aortic stenosis by prior echocardiogram Code(s): I35.0 - NONRHEUMATIC AORTIC (VALVE) STENOSIS Status: Chronic (20) Severe mitral regurgitation by prior echocardiogram Code(s): I34.0 - NONRHEUMATIC MITRAL (VALVE) INSUFFICIENCY Status: Chronic (21) Severe tricuspid regurgitation by prior echocardiogram Code(s): I07.1 - RHEUMATIC TRICUSPID INSUFFICIENCY Status: Chronic (22) Ulcer of right heel Code(s): L97.419 - NON-PRS CHR ULCER OF RIGHT HEEL AND MIDFOOT W UNSP SEVERT Status: Chronic - Plan cont current plan of care, continue antibiotics, PT/OT, social work case manager * continue macrobid * today her HD day * await placement * medication reviewed as below * symptomatic treatment * stable medically. Review of Systems - Review of Systems Other: not reliable due to her cognitive status - Medications/Allergies Allergies/Adverse Reactions: Allergies Allergy/AdvReac Type Severity Reaction Status Date / Time Penicillins Allergy Intermediate Rash Verified 05/21/17 02:43 tramadol Allergy Verified 09/27/17 04:28 Medications: Current Medications Acetaminophen (Tylenol) 650 mg PO Q4H PRN PRN Reason: Headache/Fever/Mild Pain (1-3) Albuterol/Ipratropium (Duoneb) 3 ml NEB Q5GA-VH PRN PRN Reason: SOB &/or Wheezing Artificial Tears (Tears Naturale) 2 drop EA EYE PRN PRN PRN Reason: Dry Eyes Bisacodyl (Dulcolax) 10 mg [place] DAILYPRN PRN PRN Reason: Constipation Dextrose/Water (Dextrose 50%) 25 gm SLOW IVP PRN PRN PRN Reason: Hypoglycemia Famotidine (Pepcid) 20 mg PO DAILY [facility] Last Admin: 03/30/18 09:02 Dose: 20 mg Famotidine (Pepcid) 20 mg SLOW IVP DAILY [facility] Last Admin: 03/30/18 09:03 Dose: Not Given Glucagon (Glucagon) 1 mg IM PRN PRN PRN Reason: Hypoglycemia Guaifenesin (Robitussin Sf) 200 mg PO Q4H PRN PRN Reason: Cough Last Admin: 03/27/18 21:51 Dose: 200 mg Heparin Sodium (Porcine) (Heparin) 5,000 units SC BID [facility] Last Admin: 03/30/18 09:03 Dose: 5,000 units Hydralazine HCl (Apresoline) 10 mg SLOW IVP Q4H PRN PRN Reason: SBP > 180 and HR < 70 Dextrose/Water (D5w) 1,000 mls @ 0 mls/hr IV .Q0M PRN PRN Reason: Hypoglycemia Insulin Human Lispro (Humalog) 0 units SC .MILD SLIDING SCALE PRN PRN Reason: Mild Correctional Scale Insulin Human Lispro (Humalog) 0 units SC .BEDTIME SLIDING SC PRN PRN Reason: Bedtime Correctional Scale Loperamide HCl (Imodium) 2 mg PO PRN PRN PRN Reason: Diarrhea/Loose Stools Loratadine (Claritin) 10 mg PO DAILYPRN PRN PRN Reason: Sinus Symptoms Mineral Oil/White Petrolatum (Eucerin Cream) 0 gm TOP BIDPRN PRN PRN Reason: Dry Skin Nitrofurantoin Macrocrystals (Macrobid) 100 mg PO DAILY [facility] Last Admin: 03/30/18 09:02 Dose: 100 mg Ondansetron HCl (Zofran Odt) 4 mg SL Q6H PRN PRN Reason: Nausea/Vomiting Ondansetron HCl (Zofran) 4 mg IVP Q6H PRN PRN Reason: Nausea/Vomiting Senna/Docusate Sodium (Senokot S) 2 tab PO BID PRN PRN Reason: Constipation Sodium Chloride ([place] Nasal [place] 0.65%) 0 ml EA NARE QIDPRN PRN PRN Reason: Nasal Congestion Sodium Chloride (Flush - Normal Saline) 10 ml IVF Q12HR [facility] Last Admin: 03/30/18 09:03 Dose: Not Given Sodium Chloride (Flush - Normal Saline) 10 ml IVF PRN PRN PRN Reason: Saline Flush Throat Lozenges (Cepastat Lozenges) 1 joselito PO Q2H PRN PRN Reason: Sore Throat
[2018-03-31] MEDS: Diabetic Tussin 200 MG/10 ML UDCUP PO PRN (03:21)
[2018-03-31] MEDS: Famotidine 20 MG TAB PO SCH (08:48)
[2018-03-31] MEDS: Nitrofurantoin Monohyd/M-Cryst 100 MG CAP PO SCH (08:48)
[2018-03-31] MEDS: Heparin 5,000 UNITS/ML VIAL SC SCH (08:48)
[2018-03-31] MEDS: Famotidine/PF 20 mg/2ml Vial SLOW IVP SCH (08:49)
--- NOTE | 2018-03-31 09:52 | PDOC.PN ---
- Subjective Encounter Start Date: 03/31/18 Encounter Start Time: 07:20 Patient seen and examined. No new complaints. No overnight events - Objective Resuscitation Status - Order Detail: 03/28/18 15:37 Resuscitation Status Routine Resuscitation Status: DNAR: NO Resuscitation Discussed with: discussed with mary, daughter REGINALDO Reviewed: Yes Vital Signs & Weight: Vital Signs (12 hours) Temp Pulse Resp BP Pulse Ox 03/31/18 07:52 98.5 F 78 18 149/85 H 98 Weight Admit Weight 144 lb 8 oz Weight 144 lb 8 oz I&O: 03/30/18 03/31/18 04/01/18 06:59 06:59 06:59 Intake Total 900 Output Total 2800 Balance -1900 Result Diagrams: 03/28/18 14:28 03/28/18 14:28 Additional Labs: Accuchecks 03/30/18 03/30/18 03/30/18 20:40 17:41 11:04 POC Glucose 81 77 88 Phys Exam - Physical Examination Constitutional: NAD HEENT: PERRLA, moist MMs, sclera anicteric Neck: no JVD, supple Respiratory: no wheezing, no rales, no rhonchi Cardiovascular: RRR, no significant murmur, no rub Gastrointestinal: soft, non-tender, no distention, positive bowel sounds Musculoskeletal: no edema, pulses present Neurological: non-focal, normal sensation Lymphatic: no nodes Psychiatric: normal affect Skin: no rash, normal turgor Dx/Plan (1) Acute metabolic encephalopathy Code(s): G93.41 - METABOLIC ENCEPHALOPATHY Status: Acute (2) Fluid overload Code(s): E87.70 - FLUID OVERLOAD, UNSPECIFIED Status: Acute (3) UTI (urinary tract infection) Status: Acute (4) Anemia of renal disease Code(s): D63.1 - ANEMIA IN CHRONIC KIDNEY DISEASE Status: Chronic (5) Anxiety with depression Code(s): F41.8 - OTHER SPECIFIED ANXIETY DISORDERS Status: Chronic (6) CAD (coronary artery disease) Code(s): I25.10 - ATHSCL HEART DISEASE OF [place] CORONARY ARTERY W/O ANG PCTRS Status: Chronic Qualifiers: (7) Chronic pain disorder Code(s): G89.4 - CHRONIC PAIN SYNDROME Status: Chronic (8) Chronic systolic heart failure, ACC/AHA stage C Code(s): I50.22 - CHRONIC SYSTOLIC (CONGESTIVE) HEART FAILURE Status: Chronic (9) Diabetes type 2, controlled Code(s): E11.9 - TYPE 2 DIABETES MELLITUS WITHOUT COMPLICATIONS Status: Chronic (10) Dyslipidemia Code(s): E78.5 - HYPERLIPIDEMIA, UNSPECIFIED Status: Chronic (11) ESRD (end stage renal disease) on dialysis Code(s): N18.6 - END STAGE RENAL DISEASE; Z99.2 - DEPENDENCE ON RENAL DIALYSIS Status: Chronic Comment: nephrology following (12) GERD (gastroesophageal reflux disease) Code(s): K21.9 - GASTRO-ESOPHAGEAL REFLUX DISEASE WITHOUT ESOPHAGITIS Status: Chronic (13) HTN (hypertension) Code(s): I10 - ESSENTIAL (PRIMARY) HYPERTENSION Status: Chronic Qualifiers: (14) Moderate pulmonary valve regurgitation Code(s): I37.1 - NONRHEUMATIC PULMONARY VALVE INSUFFICIENCY Status: Chronic (15) Non-compliance with renal dialysis Code(s): Z91.15 - PATIENT'S NONCOMPLIANCE WITH RENAL DIALYSIS Status: Chronic (16) PAF (paroxysmal atrial fibrillation) Code(s): I48.0 - PAROXYSMAL ATRIAL FIBRILLATION Status: Chronic (17) Physical deconditioning Code(s): R53.81 - OTHER MALAISE Status: Chronic (18) Secondary hyperparathyroidism of renal origin Code(s): N25.81 - SECONDARY HYPERPARATHYROIDISM OF RENAL ORIGIN Status: Chronic (19) Severe aortic stenosis by prior echocardiogram Code(s): I35.0 - NONRHEUMATIC AORTIC (VALVE) STENOSIS Status: Chronic (20) Severe mitral regurgitation by prior echocardiogram Code(s): I34.0 - NONRHEUMATIC MITRAL (VALVE) INSUFFICIENCY Status: Chronic (21) Severe tricuspid regurgitation by prior echocardiogram Code(s): I07.1 - RHEUMATIC TRICUSPID INSUFFICIENCY Status: Chronic (22) Ulcer of right heel Code(s): L97.419 - NON-PRS CHR ULCER OF RIGHT HEEL AND MIDFOOT W UNSP SEVERT Status: Chronic - Plan cont current plan of care, continue antibiotics, PT/OT, social work case manager * pt is upto her baseline level * medication reviewed as below * symptomatic treatment * await placement * HD as per nephrology. * will repeat labs tomorrow Review of Systems - Review of Systems Other: not reliable due to her level of cognitive status - Medications/Allergies Allergies/Adverse Reactions: Allergies Allergy/AdvReac Type Severity Reaction Status Date / Time Penicillins Allergy Intermediate Rash Verified 05/21/17 02:43 tramadol Allergy Verified 09/27/17 04:28 Medications: Current Medications Acetaminophen (Tylenol) 650 mg PO Q4H PRN PRN Reason: Headache/Fever/Mild Pain (1-3) Albuterol/Ipratropium (Duoneb) 3 ml NEB [id number] PRN PRN Reason: SOB &/or Wheezing Artificial Tears (Tears Naturale) 2 drop EA EYE PRN PRN PRN Reason: Dry Eyes Bisacodyl (Dulcolax) 10 mg [place] DAILYPRN PRN PRN Reason: Constipation Dextrose/Water (Dextrose 50%) 25 gm SLOW IVP PRN PRN PRN Reason: Hypoglycemia Famotidine (Pepcid) 20 mg PO DAILY [facility] Last Admin: 03/31/18 08:48 Dose: 20 mg Famotidine (Pepcid) 20 mg SLOW IVP DAILY [facility] Last Admin: 03/31/18 08:49 Dose: Not Given Glucagon (Glucagon) 1 mg IM PRN PRN PRN Reason: Hypoglycemia Guaifenesin (Robitussin Sf) 200 mg PO Q4H PRN PRN Reason: Cough Last Admin: 03/31/18 03:21 Dose: 200 mg Heparin Sodium (Porcine) (Heparin) 5,000 units SC BID [facility] Last Admin: 03/31/18 08:48 Dose: 5,000 units Hydralazine HCl (Apresoline) 10 mg SLOW IVP Q4H PRN PRN Reason: SBP > 180 and HR < 70 Dextrose/Water (D5w) 1,000 mls @ 0 mls/hr IV .Q0M PRN PRN Reason: Hypoglycemia Insulin Human Lispro (Humalog) 0 units SC .MILD SLIDING SCALE PRN PRN Reason: Mild Correctional Scale Insulin Human Lispro (Humalog) 0 units SC .BEDTIME SLIDING SC PRN PRN Reason: Bedtime Correctional Scale Loperamide HCl (Imodium) 2 mg PO PRN PRN PRN Reason: Diarrhea/Loose Stools Loratadine (Claritin) 10 mg PO DAILYPRN PRN PRN Reason: Sinus Symptoms Mineral Oil/White Petrolatum (Eucerin Cream) 0 gm TOP BIDPRN PRN PRN Reason: Dry Skin Nitrofurantoin Macrocrystals (Macrobid) 100 mg PO DAILY [facility] Last Admin: 03/31/18 08:48 Dose: 100 mg Ondansetron HCl (Zofran Odt) 4 mg SL Q6H PRN PRN Reason: Nausea/Vomiting Ondansetron HCl (Zofran) 4 mg IVP Q6H PRN PRN Reason: Nausea/Vomiting Senna/Docusate Sodium (Senokot S) 2 tab PO BID PRN PRN Reason: Constipation Sodium Chloride ([place] Nasal [place] 0.65%) 0 ml EA NARE QIDPRN PRN PRN Reason: Nasal Congestion Sodium Chloride (Flush - Normal Saline) 10 ml IVF Q12HR [facility] Last Admin: 03/31/18 08:49 Dose: Not Given Sodium Chloride (Flush - Normal Saline) 10 ml IVF PRN PRN PRN Reason: Saline Flush Throat Lozenges (Cepastat Lozenges) 1 joselito PO Q2H PRN PRN Reason: Sore Throat
--- NOTE | 2018-03-31 10:39 | PRG ---
DATE OF SERVICE: 03/31/2018 SUBJECTIVE: Patient was seen and examined at bedside and overnight events noted. Patient denies any shortness of breath or chest pain or palpitation. No history of nausea or vomiting or diarrhea or fever or chills or cramps. OBJECTIVE: GENERAL: This is an elderly female, in no apparent distress. VITAL SIGNS: Temperature 98.5. Heart rate 70. Respiratory rate 20. Blood pressure 149/85. HEENT: Atraumatic, normocephalic. Oral mucosa is moist NECK: Supple. CARDIOVASCULAR: S1, S2 heard. Rate and rhythm regular. RESPIRATORY: Clear to auscultation. GASTROINTESTINAL: Abdomen is soft. MUSCULOSKELETAL: No tenderness. No edema. DERMATOLOGIC: No skin rash. NEUROLOGIC: Alert and awake and oriented X3. No focal neurologic deficits. Moving all the extremities. PSYCHIATRIC: Mood and affect normal. LABORATORY DATA: No labs done. ASSESSMENT AND PLAN: 1. End-stage renal disease. Continue on hemodialysis as tolerated. 2. Edema, controlled. 3. Hypertension, stable. 4. Anemia. Plan is to continue dialysis as tolerated on Monday, Monday, and Monday. Job ID: [id number]
--- NOTE | 2018-03-31 12:40 | DIS ---
DATE OF ADMISSION: 03/26/2018 DATE OF DISCHARGE: 03/31/2018 PRIMARY CARE PHYSICIAN: Dr. Drummond. DISCHARGE DISPOSITION: Rehab. PRIMARY DISCHARGE DIAGNOSES: 1. Urinary tract infection. 2. Fluid overload. 3. Pneumonia. 4. Acute metabolic encephalopathy. SECONDARY DISCHARGE DIAGNOSES: Right heel ulcer, severe tricuspid regurgitation, severe mitral regurgitation, severe aortic regurgitation, secondary hyperparathyroidism of renal origin, physical deconditioning, paroxysmal atrial fibrillation, noncompliance with dialysis, moderate pulmonary valve regurgitation, hypertension, gastroesophageal reflux disease, end-stage renal disease on dialysis, dyslipidemia, diabetes type 2, chronic systolic heart failure stage 3, chronic pain disorder, coronary artery disease, anxiety and depression, anemia of renal disease. PRIMARY PROCEDURE/OPERATION: Maintenance hemodialysis. RADIOLOGICAL INVESTIGATION: CT brain negative. Chest x-ray showed infiltration. SIGNIFICANT LABORATORY DATA: WBC 4.3, hemoglobin 10.7, platelets 207. Sodium 139, creatinine 3.97. Electrolytes normal. Urinalysis consistent with UTI. Urine culture grew VRE. Blood culture negative. DISCHARGE MEDICATIONS: New medications: 1. Macrobid 100 mg p.o. daily. 2. Protonix 40 mg p.o. daily. 3. Florastor 250 mg p.o. daily. 4. Gabapentin 300 mg p.o. b.i.d. 5. Renvela 1600 mg p.o. b.i.d. 6. Zoloft 25 mg p.o. daily. 7. MiraLAX 17 g p.o. daily. 8. Fish oil one capsule daily. 9. Multivitamin one tablet p.o. daily. 10. Remeron 15 mg p.o. at bedtime. 11. Multivitamin 1 tablet daily. 12. Ferrous sulfate 325 mg p.o. b.i.d. 13. Coreg 3.125 mg b.i.d. 14. Lipitor 20 mg p.o. daily. 15. [place] 1 tablet q.6 hourly p.r.n. CONTRAINDICATION: The patient is not on MANUEL inhibitor or ARB because of renal failure and dialysis and that is why contraindicated. CODE STATUS: DNR. Inpatient recruiting consultant, Dr. Reid was following for her hemodialysis, this is all pending on discharge, none. ALLERGIES: PENICILLIN AND TRAMADOL. DISCHARGE PLAN: Posthospital, the patient is discharged to rehab. Subsequently, the patient will follow up with primary care physician. HOSPITAL COURSE: An 82-year-old female with above-mentioned medical problem, who was admitted by me on March 26, 2018, for altered mental status. The patient was fluid overloaded, and she was having pneumonia and urinary tract infection. She was treated with meropenem while in hospital. She has finished complete course of therapy for urinary tract infection, VRE, which we treated with Macrobid. The patient was having physical deconditioning and that is why family member were interested in sending her to rehab. During this admission, the patient was made DNR. Nephrology was following for maintenance hemodialysis. The patient is now improving. Upon stabilization, the patient was transferred from tele to medical floor. Overall, the patient is hemodynamically stable. The patient has approval for rehab. The patient is seen and examined at bedside today. Plan of care discussed with the patient. Please see my progress note from today for further detail. Paperwork for discharge done. Discharge medication reconciliation done. TIME SPENT: Total time spent on discharge day, 31 minutes. Job ID: [id number]
[2018-03-31 14:21] VITALS: BP 138/77; TEMP 98.2
--- NOTE | 2018-03-31 15:27 | EKG ---
Test Reason : Blood Pressure : / mmHG Vent. Rate : 077 BPM Atrial Rate : 077 BPM P-R Int : 000 ms QRS Dur : 100 ms QT Int : 354 ms P-R-T Axes : 000 -38 -11 degrees QTc Int : 400 ms Accelerated Junctional rhythm Left axis deviation Minimal voltage criteria for LVH, may be normal variant Anterolateral infarct , age undetermined No STEMI Abnormal ECG Confirmed by JOSIE Maria, BART ([id number]), city editor ROSENDO VILCHIS ([id number]) on 03/31/2018 3:26:35 PM Referred By: Confirmed By:BART GALINDO M.D.
--- NOTE | 2018-04-04 13:13 | PQF ---
EHSAN LAWRENCE, AVNI ROSALES MD [id number] [facility] [id number] CLINICAL DOCUMENTATION CLARIFICATION FORM: POST DISCHARGE DATE: 04/04/2018 ATTN: Dr. Mcdermott Please exercise your independent, professional judgment in responding to the clarification form. Clinical indicators are provided on the bottom of this form for your review Please check appropriate box(s) to clarify if the following diagnosis has been ruled in or ruled out: ____x____Acute on chronic systolic congestive heart failure [ x ] Ruled in diagnosis [ ] Continue to treat [ x ] Resolved [ ] Ruled out diagnosis [ ] Cannot rule out diagnosis [ ] Other diagnosis (please specify) [ ] Unable to determine In addition, please specify: Present on Admission (POA): [x ] Yes [ ] No [ ] Unable to determine For continuity of documentation, please document condition throughout progress notes and discharge summary. Thank You. CLINICAL INDICATORS - SIGNS / SYMPTOMS / LABS Per H&P: Acute on chronic systolic congestive heart failure exacerbation due to volume overload status due to missed hemodialysis. Per progress notes and discharge summary: Fluid overload. Chronic systolic heart failure. RISK FACTORS ESRD with dialysis noncompliance. Hypertension. TREATMENTS Hemodialysis. (This form is maintained as a part of the permanent medical record) 2014 [employer] All Rights Reserved Samia [email or web address] [phone] SU
== END 2018-03-31 15:06 | DRG 291 ==
LOC: ERS 11:17 → ERHOLD 13:31 → 2NO 22:16 → T4-A 03-29 18:43
PROVIDERS: ADMIT Internal Medicine; ATTEND Internal Medicine
PROC: 5A1D70Z Performance of Urinary Filtration, Intermittent, Less than 6 Hours Per Day (ICD-10-PCS; principal; 2018-03-28)
PROC: 5A1D70Z Performance of Urinary Filtration, Intermittent, Less than 6 Hours Per Day (ICD-10-PCS; 2018-03-30)
DX: I13.2 Hypertensive heart and chronic kidney disease with heart failure and with stage 5 chronic kidney disease, or end stage renal disease (principal); I50.23 Acute on chronic systolic (congestive) heart failure; N18.6 End stage renal disease; G93.41 Metabolic encephalopathy; J18.9 Pneumonia, unspecified organism; N25.81 Secondary hyperparathyroidism of renal origin; N39.0 Urinary tract infection, site not specified; L97.419 Non-pressure chronic ulcer of right heel and midfoot with unspecified severity; E11.22 Type 2 diabetes mellitus with diabetic chronic kidney disease; E11.21 Type 2 diabetes mellitus with diabetic nephropathy; D63.1 Anemia in chronic kidney disease; Z99.2 Dependence on renal dialysis; I25.10 Atherosclerotic heart disease of native coronary artery without angina pectoris; E78.5 Hyperlipidemia, unspecified; J45.20 Mild intermittent asthma, uncomplicated; I08.8 Other rheumatic multiple valve diseases; K21.9 Gastro-esophageal reflux disease without esophagitis; F41.9 Anxiety disorder, unspecified; F32.9 Major depressive disorder, single episode, unspecified; I48.0 Paroxysmal atrial fibrillation; G89.29 Other chronic pain; Z66 Do not resuscitate; Z91.15 Patient's noncompliance with renal dialysis; Z85.3 Personal history of malignant neoplasm of breast; Z88.5 Allergy status to narcotic agent; Z88.0 Allergy status to penicillin; Z79.4 Long term (current) use of insulin; Z79.899 Other long term (current) drug therapy; Z90.11 Acquired absence of right breast and nipple; Z95.1 Presence of aortocoronary bypass graft
CPT/HCPCS: 36415; 36416; 51701; 70450; 71045; 80053; 80069; 81003; 81015; 82140; 82330; 82550; 82553; 82803; 83605; 83690; 83735; 83880; 84443; 84484; 85025; 87040; 87077; 87086; 87186; 87340; 90935; 93005; 94760; 96365; A4353; G0257; J1644; J1956; J2185; J7050; S0028

== ENCOUNTER 2018-06-04 15:33 | Inpatient (IN) | payer MEDICARE, MEDICAID ==
[2018-06-04 16:23] LABS: Hemoglobin 5.5 g/dL (12.0-16.0); Mean Corpuscular HGB CONC 32.1 g/dL (32.0-36.0); Mean Corpuscular Hemoglobin 35.1 pg (27.0-31.0); Mean Platelet Volume 6.4 fL (7.4-10.4); Platelet Count 268 thou/uL (130-400); RBC Distribution Width 15.4 % (11.5-14.5); Red Blood Cell (RBC) Count 1.57 mill/uL (4.20-5.40); White Blood Cell (WBC) Count 5.6 thou/uL (4.8-10.8)
[2018-06-04 16:39] LABS: ALT (SGPT) 11 U/L (8-55); AST (SGOT) 21 U/L (5-34); Albumin 3.7 g/dL (3.4-4.8); Alkaline Phosphatase 94 U/L (40-150); Anion Gap 11 mmol/L (10-20); BUN (Urea Nitrogen) 28 mg/dL (9.8-20.1); Bilirubin, Total 0.7 mg/dL (0.2-1.2); Calc. Creatinine Clearance 0 mL/min (70-130); Calcium 8.9 mg/dL (7.8-10.44); Carbon Dioxide 33 mmol/L (23-31); Chloride 97 mmol/L (98-107); Estimated GFR-MDRD 19; Globulin 2.7 g/dL (2.4-3.5); Glucose 128 mg/dL (83-110); Potassium 3.6 mmol/L (3.5-5.1); Protein, Total 6.4 g/dL (6.0-8.3); Sodium 137 mmol/L (136-145)
[2018-06-04 16:42] LABS: #Lymphocytes 0.7 thou/uL (1.20-3.40); #Monocytes 0.8 thou/uL (0.11-0.59); #Neutrophils 4.1 thou/uL (1.40-6.50); %Basophils 0.5 % (0.0-1.0); %Eosinophils 0.9 % (0.0-10.0); %Lymphocytes 12.1 % (21.0-51.0); %Monocytes 13.6 % (0.0-10.0); Anisocytosis SLIGHT = 6-15 cells (100X) (0-5/hpf); MDiff Complete? YES; Platelet Morphology Comment Appears Adequate
--- NOTE | 2018-06-04 16:58 | RAD ---
CHEST ONE VIEW: History: Altered mental status. Comparison: 03-16-18 FINDINGS: Moderate cardiomegaly. Mild pulmonary vascular congestion. There is hypoventilation. No consolidation , pleural effusion, or pneumothorax is evident. Endo stent within the right axillary region with surg ical clips within the right axilla region, stable. No acute osseous abnormality is evident. IMPRESSION: Cardiomegaly and mild pulmonary vascular congestion. POS: C
[2018-06-04 17:03] LABS: INR-International Normal Ratio 1.2; PTT 32.9 SEC (22.9-36.1); Prothrombin Time 15.6 SEC (12.0-14.7)
[2018-06-04 17:27] LABS: CKMB 2.8 ng/mL (0-6.6)
[2018-06-04] MEDS ORDERED: Zolpidem Tartrate 5 MG TAB PO PRN (19:22)
[2018-06-04] MEDS ORDERED: Ondansetron PF 4 MG/2 ML Vial IVP PRN (19:22)
[2018-06-04] MEDS ORDERED: Acetaminophen 325 MG TAB PO PRN (19:22)
[2018-06-04] MEDS ORDERED: Guaifenesin DM 100-10/5 ML UDCUP PO PRN (19:22)
[2018-06-04 21:05] LABS: Troponin I 0.392 ng/mL (< 0.028)
[2018-06-04] MEDS: Mirtazapine 15 MG TAB PO SCH (23:40)
[2018-06-04] MEDS: Midodrine HCl 5 MG TAB PO SCH (23:40)
[2018-06-04] MEDS: Sevelamer Carbonate 800 MG TAB PO SCH (23:40)
[2018-06-04] MEDS: Carvedilol 3.125 MG TAB PO SCH (23:41)
[2018-06-05 00:03] LABS: Troponin I 0.537 ng/mL (< 0.028)
--- NOTE | 2018-06-05 01:39 | HP ---
CHIEF COMPLAINT: Hypotension. HISTORY OF PRESENT ILLNESS: This is an 82-year-old female, who gets dialysis, was at her dialysis unit today noted to be slightly hypertensive. The patient was started on dialysis and had a significant drop in blood pressure. The patient's systolic blood pressure dropped to the 80s, so they sent her to the ER. The patient currently is having blood pressure in the 120s in the ER. However, given the significant drop in blood pressure and lack of dialysis, admission was recommended by the ER team. Patient currently on evaluation does not provide a good history, simply says yes and no, and states that her carton and can supply supervisor is Dr. Vazquez, and is unable to provide any other further input on her medical condition. No family at bedside. The patient is seen and examined in the ER. All questions answered. ALLERGIES: PER CHART REVIEW, PENICILLINS AND TRAMADOL. PAST MEDICAL HISTORY: Per chart review, coronary artery disease, hyperlipidemia, hypertension, end-stage renal disease, anemia, metabolic bone disease as well as depression. FAMILY HISTORY: Unknown. SOCIAL HISTORY: Nondrinker, nonsmoker. REVIEW OF SYSTEMS: Not possible given the patient's condition and mental status. PHYSICAL EXAMINATION: VITAL SIGNS: Blood pressure 128/88, heart rate of 90, respiratory rate of 12, and temperature of 98. GENERAL: The patient lying in bed, in no acute discomfort. HEENT: Pupils are equal, round, and reactive to light and accommodation. Extraocular muscles intact. Oral cavity moist and pink. NECK: Supple, mobile, and nontender. Thyroid appreciated. PULMONARY: Clear to auscultation bilaterally. No rales, rhonchi, or wheezing. CARDIOVASCULAR: S1, S2. No rubs or gallops. 2/6 systolic ejection murmur appreciated with sinus rhythm. ABDOMEN: Positive bowel sounds. Soft, nontender, and nondistended. EXTREMITIES: 2+ peripheral pulses. No cyanosis, clubbing, or edema noted. NEUROLOGICAL: Alert and oriented to person only, not place or time. Follows some commands. LABORATORY DATA: Reviewed. IMAGING: Reviewed. ASSESSMENT: 1. . 2. End-stage renal disease. 3. Anemia. 4. Metabolic bone disease. 5. Hypertension. 6. Hyperlipidemia. 7. Coronary artery disease. PLAN: At this point in time, we will admit the patient to Medicine team. Nephrology to be consulted for dialysis, cocktail for hyperkalemia was given. We will repeat blood work in the morning. Dialysis per Nephrology. If the patient's mental status is at baseline post dialysis tomorrow, we will likely discharge the patient. Trend troponins, the first one was 0.2, unlikely to be ACS. At this point in time, the patient is not complaining of any chest pains and hemodynamically stable. No family at bedside. The patient's code status by default will be a full code. The patient otherwise is stable. We will adjust plan of care as patient's workup results. Once again, no family at bedside. Job ID: [id number]
[2018-06-05 02:14] VITALS: BMI 27.3
[2018-06-05 06:32] LABS: Anion Gap 17 mmol/L (10-20); BUN (Urea Nitrogen) 39 mg/dL (9.8-20.1); Calc. Creatinine Clearance 12 mL/min (70-130); Calcium 9.1 mg/dL (7.8-10.44); Carbon Dioxide 27 mmol/L (23-31); Chloride 97 mmol/L (98-107); Estimated GFR-MDRD 13; Glucose 84 mg/dL (83-110); Potassium 3.9 mmol/L (3.5-5.1); Sodium 137 mmol/L (136-145)
[2018-06-05 06:35] LABS: #Eosinphils 0.1 thou/uL (0.0-0.7); #Lymphocytes 0.6 thou/uL (1.20-3.40); #Monocytes 0.9 thou/uL (0.11-0.59); #Neutrophils 4.7 thou/uL (1.40-6.50); %Basophils 0.7 % (0.0-1.0); %Eosinophils 1.5 % (0.0-10.0); %Lymphocytes 9.4 % (21.0-51.0); %Monocytes 14.6 % (0.0-10.0); %Neutrophils 73.9 % (42.0-75.0); Hemoglobin 7.4 g/dL (12.0-16.0); Mean Corpuscular HGB CONC 31.9 g/dL (32.0-36.0); Mean Corpuscular Hemoglobin 32.6 pg (27.0-31.0); Platelet Count 274 thou/uL (130-400); RBC Distribution Width 18.1 % (11.5-14.5); Red Blood Cell (RBC) Count 2.27 mill/uL (4.20-5.40); White Blood Cell (WBC) Count 6.4 thou/uL (4.8-10.8)
[2018-06-05 07:02] LABS: Troponin I 1.073 ng/mL (< 0.028)
[2018-06-05] MEDS ORDERED: Atorvastatin Calcium 20 MG TAB PO SCH (08:45)
[2018-06-05] MEDS ORDERED: Prevnar 13-Val Conj/PF 0.5 ML SYRINGE IM ONE (09:00)
[2018-06-05] MEDS: Aspirin 325 MG TAB PO SCH (09:15)
[2018-06-05] MEDS: Carvedilol 3.125 MG TAB PO SCH ×2 (09:15→20:38)
[2018-06-05] MEDS: Midodrine HCl 5 MG TAB PO SCH ×3 (09:16→20:37)
[2018-06-05] MEDS: Atorvastatin Calcium 20 MG TAB PO SCH (09:22)
[2018-06-05] MEDS: Sevelamer Carbonate 800 MG TAB PO SCH ×2 (09:26→20:37)
--- NOTE | 2018-06-05 11:35 | CON ---
DATE OF CONSULTATION: 06/05/2018 CONSULTING PHYSICIAN: Evelio Dudley DO REASON FOR CONSULT: End-stage renal disease evaluation and care. REASON FOR ADMISSION: Hypotension during dialysis. HISTORY OF PRESENT ILLNESS: An 82-year-old female with history of coronary artery disease, hyperlipidemia, and hypertension, came to the hospital with hypotension. The patient was at dialysis today, was found to have hypotension, she was sent to the hospital. The patient is feeling better. She also had some altered mentation, which apparently has improved per the bedside nurse. No fever or chills. No nausea or vomiting reported. The patient not able to give her history. PAST MEDICAL HISTORY: Positive for end-stage renal disease on hemodialysis Monday, Monday, and Monday; coronary artery disease; hyperlipidemia; and hypertension. PAST SURGICAL HISTORY: Dialysis access placement. HOME MEDICATIONS: Include; 1. Lipitor. 2. Protonix. 3. Renvela. 4. Zoloft. 5. Tradjenta. ALLERGIES: 1. PENICILLIN. 2. TRAMADOL. SOCIAL HISTORY: No smoking, alcohol, or illicit drug use. FAMILY HISTORY: No history of any kidney disease. REVIEW OF SYSTEMS: Could not be obtained, the patient is not back to her baseline. PHYSICAL EXAMINATION: GENERAL: Elderly female, in no apparent distress. VITAL SIGNS: Temperature 98.3, pulse 84, respirations , and blood pressure . HEENT: Atraumatic and normocephalic. Oral mucosa is moist. NECK: Supple. CV: S1 and S2 heard. Rate and rhythm regular. RESPIRATORY: Clear. GI: Abdomen is soft. MUSCULOSKELETAL: 1+ edema. Dermatologic: No skin rash. NEUROLOGIC: Alert and awake. PSYCHIATRIC: Mood and affect normal LABORATORY DATA: Hemoglobin is 7.4. Potassium 3.9, BUN is 39, and creatinine is 3.8. ASSESSMENT AND PLAN: 1. End-stage renal disease. No acute indication for dialysis. We will continue dialysis on Monday, Monday, and Monday. 2. Edema. Controlled. 3. Hypertension. Stable. 4. Anemia. Monitor hemoglobin. Plan to continue dialysis as tolerated. No dialysis today. Thank you for the consult. Job ID: [id number]
--- NOTE | 2018-06-05 13:36 | PDOC.PN ---
- Subjective Encounter Start Date: 06/05/18 Encounter Start Time: 13:23 Patient seen and examined, no new issues or complaints - Objective Vital Signs & Weight: Vital Signs (12 hours) Temp Pulse Resp BP Pulse Ox 06/05/18 12:00 97.3 F L 75 20 104/67 82 L 06/05/18 07:48 97.3 F L 74 12 106/46 L 94 L 06/05/18 04:00 98.3 F 84 18 116/67 98 Weight Admit Weight 139 lb 12.8 oz Weight 139 lb 12.8 oz I&O: 06/04/18 06/05/18 06/06/18 06:59 06:59 06:59 Intake Total 350 Balance 350 Result Diagrams: 06/05/18 05:52 06/05/18 05:52 Additional Labs: Accuchecks 06/05/18 06/05/18 06/04/18 10:38 06:03 15:48 POC Glucose 108 97 119 H Phys Exam - Physical Examination Constitutional: NAD HEENT: PERRLA, moist MMs, sclera anicteric Neck: no nodes, no JVD, supple Respiratory: no wheezing, no rales, no rhonchi Cardiovascular: RRR, no significant murmur, no rub Gastrointestinal: soft, non-tender, no distention, positive bowel sounds Musculoskeletal: no edema, pulses present Dx/Plan (1) NSTEMI (non-ST elevated myocardial infarction) Code(s): I21.4 - NON-ST ELEVATION (NSTEMI) MYOCARDIAL INFARCTION Status: Acute (2) CAD (coronary artery disease) Code(s): I25.10 - ATHSCL HEART DISEASE OF [place] CORONARY ARTERY W/O ANG PCTRS Status: Chronic Qualifiers: (3) Diabetes type 2, controlled Code(s): E11.9 - TYPE 2 DIABETES MELLITUS WITHOUT COMPLICATIONS Status: Chronic (4) Dyslipidemia Code(s): E78.5 - HYPERLIPIDEMIA, UNSPECIFIED Status: Chronic (5) ESRD (end stage renal disease) on dialysis Code(s): N18.6 - END STAGE RENAL DISEASE; Z99.2 - DEPENDENCE ON RENAL DIALYSIS Status: Chronic Comment: nephrology following (6) GERD (gastroesophageal reflux disease) Code(s): K21.9 - GASTRO-ESOPHAGEAL REFLUX DISEASE WITHOUT ESOPHAGITIS Status: Chronic (7) HTN (hypertension) Code(s): I10 - ESSENTIAL (PRIMARY) HYPERTENSION Status: Chronic Qualifiers: (8) Secondary hyperparathyroidism of renal origin Code(s): N25.81 - SECONDARY HYPERPARATHYROIDISM OF RENAL ORIGIN Status: Chronic - Plan * Patient having NSTEMI, will treat medically for now, cardio evaluation pending * HD per renal * BP stable * call placed to patient's daughter Ms. Guera Tsang at [phone], wants to make patient DNR, will adjust code status * labs in AM * case and plan d/w patient's daughter at length as patient is disoriented, daughter states this is normal for the patient, daughter understood and agreed with this plan.
[2018-06-05] MEDS: Mirtazapine 15 MG TAB PO SCH (20:37)
--- NOTE | 2018-06-06 01:11 | CON ---
DATE OF CONSULTATION: HISTORY OF PRESENT ILLNESS: Anaid Rush is an 82-year-old black female who I initially evaluated in January 2007. At that time, she presented to the emergency room complaining of increased shortness of breath and ultimately had to come to the hospital. She denied any chest pain or palpitations. She had lower extremity edema at that time. She was diuresed and her BNP was 432. Echo revealed severe left ventricular dysfunction with ejection fraction of 25% to 30% with aortic valvular fibrosis, severe tricuspid regurgitation, [id number] mitral regurgitation, mild pulmonic insufficiency. Trace aortic insufficiency. She underwent cardiac catheterization which revealed severe left ventricular dysfunction with ejection fraction of 20% to 25%, moderate mitral regurgitation. There was a 50% proximal LAD, followed by another 50% proximal LAD lesion and an 80% mid LAD lesion and a 40% distal LAD lesion. In the first diagonal, there was an area of probable thrombus and distal to this, a 70% diagonal lesion. The second obtuse marginal had a 99% lesion. The right coronary artery had a 50% proximal and a 90% right posterior descending stenosis, 70% right posterolateral. She then underwent CABG x4 with JORDAN to the LAD, left radial to the diagonal, vein graft to the second obtuse marginal and vein graft to the right posterior descending. Postoperatively, she had atrial fibrillation, was placed on amiodarone for 1 month. She also had renal insufficiency postoperatively. She returned for followup in April 2007 complaining of increased leg edema. 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 In May 2010, she had an elevated creatinine, was on Demadex 20 daily, which was discontinued. She was not seen again from April 2007 until August 2010 when she was hospitalized with dyspnea. She could only sleep in a recliner and had increased peripheral edema. She was placed on Lasix at discharge. She was supposed to come back to the office for followup for reassessment of her left ventricular function and consideration of an ICD; however, she never did keep her appointment. Again, I did not see her from August 2010 until June 2013. In February 2013, she presented with a hemoglobin of 7.7 and arrangements were made for colonoscopy as an outpatient, although it was felt most of her anemia was probably due to renal insufficiency and a BUN of 49, creatinine of 4.73. In June 2013, she was admitted with increasing shortness of breath. Hemoglobin 7.1. She was given Lasix in the emergency room and transfused and her breathing improved. Echo during that admission revealed ejection fraction of 35% to 40% with aortic valvular fibrosis, severe tricuspid regurgitation, moderate mitral regurgitation. Dialysis was started during that admission. She then returned later on the day of discharge with an episode of syncope. With her history of syncope, LifeVest was arranged; however, she would not use it. Arrangements were made for a 30-day monitor. This was sent to the patient, she sent it back. In August 2013, she was admitted with another episode of syncope. Again, discussion was had regarding a defibrillator, however, she declined. I have not seen her since that time. She now is admitted after hypotension during dialysis with systolic pressure in the 80s. She denies any chest discomfort or shortness of breath at this time. She is unable to provide any other history. PAST MEDICAL HISTORY: Hypertension, diabetes, hyperlipidemia, end-stage renal disease on dialysis, morbid obesity, GERD, history of breast cancer, history of left ventricular dysfunction with ejection fraction of 35% to 40% in the past, history of syncope, and anemia. ALLERGIES: TO PENICILLIN AND TRAMADOL. MEDICATIONS: 1. Atorvastatin 20 at bedtime. 2. Ferrous sulfate 325 b.i.d. 3. Gabapentin 300 b.i.d. 4. Tradjenta 5 mg daily. 5. Protonix 40 daily. 6. Zoloft 25 daily. 7. Renvela 1600 mg b.i.d. OPERATIONS: CABG, mastectomy, right arm AV fistula. SOCIAL HISTORY: She does not smoke or drink. REVIEW OF SYSTEMS: Unable to be obtained due to the patient's mental status. PHYSICAL EXAMINATION: VITAL SIGNS: 114/68, pulse of 70. HEENT: PERRL. NECK: Supple. CHEST: Clear. CARDIAC: S1 and S2 normal without any S3 or S4. There is a 2/6 systolic ejection murmur. ABDOMEN: Normal bowel sounds without tenderness or organomegaly. EXTREMITIES: Revealed no clubbing, cyanosis, or edema. NEUROLOGIC: The patient is nonconversant. IMAGING STUDIES: EKG reveals normal sinus rhythm. Possible anteroseptal infarction. LABORATORY DATA: Hemoglobin 5.5, hematocrit 17.2, white count 5600, and platelets 268,000. INR 1.2. Sodium 137, potassium 3.9, chloride 97, carbon dioxide 27, BUN 39, creatinine 3.89. Troponin I of 1.073. IMPRESSION: 1. Episode of hypotension during dialysis. 2. End-stage renal disease. 3. Anemia. 4. Status post coronary artery bypass graft. 5. Elevated troponin, probably due to demand ischemia from severe anemia as well as her renal insufficiency. 6. Hypertension. 7. Hyperlipidemia. 8. Mental status changes. 9. Diabetes. PLAN: With the patient having DNR order and ongoing anemia, I do not feel that she is a candidate for any invasive cardiac evaluation. The patient will continue to be treated medically. Job ID: [id number] [facility]ITALRuby
[2018-06-06 05:58] LABS: #Basophils 0.1 thou/uL (0.0-0.2); #Eosinphils 0.2 thou/uL (0.0-0.7); #Lymphocytes 0.9 thou/uL (1.20-3.40); #Monocytes 0.9 thou/uL (0.11-0.59); #Neutrophils 4.6 thou/uL (1.40-6.50); %Basophils 0.8 % (0.0-1.0); %Eosinophils 2.7 % (0.0-10.0); %Lymphocytes 13.5 % (21.0-51.0); %Monocytes 13.6 % (0.0-10.0); %Neutrophils 69.4 % (42.0-75.0); Hemoglobin 7.9 g/dL (12.0-16.0); Mean Corpuscular HGB CONC 32.4 g/dL (32.0-36.0); Mean Corpuscular Hemoglobin 33.2 pg (27.0-31.0); Mean Platelet Volume 6.5 fL (7.4-10.4); Platelet Count 274 thou/uL (130-400); RBC Distribution Width 18.7 % (11.5-14.5); Red Blood Cell (RBC) Count 2.39 mill/uL (4.20-5.40); White Blood Cell (WBC) Count 6.6 thou/uL (4.8-10.8)
[2018-06-06 06:15] LABS: Anion Gap 15 mmol/L (10-20); BUN (Urea Nitrogen) 53 mg/dL (9.8-20.1); Calc. Creatinine Clearance 8 mL/min (70-130); Calcium 9.4 mg/dL (7.8-10.44); Carbon Dioxide 30 mmol/L (23-31); Chloride 95 mmol/L (98-107); Estimated GFR-MDRD 9; Glucose 97 mg/dL (83-110); Potassium 3.8 mmol/L (3.5-5.1); Sodium 136 mmol/L (136-145)
[2018-06-06] MEDS: Aspirin 325 MG TAB PO SCH (08:29)
[2018-06-06] MEDS: Atorvastatin Calcium 20 MG TAB PO SCH (08:31)
[2018-06-06] MEDS: Midodrine HCl 5 MG TAB PO SCH ×3 (08:40→22:32)
[2018-06-06] MEDS: Carvedilol 3.125 MG TAB PO SCH ×2 (08:40→22:33)
[2018-06-06] MEDS: Sevelamer Carbonate 800 MG TAB PO SCH ×2 (08:41→22:28)
--- NOTE | 2018-06-06 10:12 | PDOC.PN ---
- Subjective Encounter Start Date: 06/06/18 Encounter Start Time: 10:11 Patient seen and examined, no new issues or complaints overnight, all questions answered. - Objective Resuscitation Status - Order Detail: 06/05/18 13:52 Resuscitation Status Routine Resuscitation Status: DNAR: NO Resuscitation Discussed with: daughter Vital Signs & Weight: Vital Signs (12 hours) Temp Pulse Resp BP Pulse Ox 06/06/18 07:55 97.4 F L 66 18 117/75 97 06/06/18 04:00 97.5 F L 65 19 101/66 97 06/06/18 00:00 97.4 F L 65 19 108/65 94 L Weight Admit Weight 139 lb 12.8 oz Weight 139 lb 12.8 oz I&O: 06/05/18 06/06/18 06/07/18 06:59 06:59 06:59 Intake Total 350 340 Output Total 300 Balance 350 40 Result Diagrams: 06/06/18 05:13 06/06/18 05:13 Additional Labs: Accuchecks 06/06/18 06/05/18 06/05/18 06:07 19:23 10:38 POC Glucose 91 92 108 Phys Exam - Physical Examination Constitutional: NAD HEENT: PERRLA, moist MMs, sclera anicteric Neck: no nodes, no JVD, supple Respiratory: no wheezing, no rales, no rhonchi Cardiovascular: RRR, no rub systolic murmur 2/6 Gastrointestinal: soft, non-tender, no distention Musculoskeletal: pulses present, edema present Dx/Plan (1) NSTEMI (non-ST elevated myocardial infarction) Code(s): I21.4 - NON-ST ELEVATION (NSTEMI) MYOCARDIAL INFARCTION Status: Acute (2) CAD (coronary artery disease) Code(s): I25.10 - ATHSCL HEART DISEASE OF [place] CORONARY ARTERY W/O ANG PCTRS Status: Chronic Qualifiers: (3) Diabetes type 2, controlled Code(s): E11.9 - TYPE 2 DIABETES MELLITUS WITHOUT COMPLICATIONS Status: Chronic (4) Dyslipidemia Code(s): E78.5 - HYPERLIPIDEMIA, UNSPECIFIED Status: Chronic (5) ESRD (end stage renal disease) on dialysis Code(s): N18.6 - END STAGE RENAL DISEASE; Z99.2 - DEPENDENCE ON RENAL DIALYSIS Status: Chronic Comment: nephrology following (6) GERD (gastroesophageal reflux disease) Code(s): K21.9 - GASTRO-ESOPHAGEAL REFLUX DISEASE WITHOUT ESOPHAGITIS Status: Chronic (7) HTN (hypertension) Code(s): I10 - ESSENTIAL (PRIMARY) HYPERTENSION Status: Chronic Qualifiers: (8) Secondary hyperparathyroidism of renal origin Code(s): N25.81 - SECONDARY HYPERPARATHYROIDISM OF RENAL ORIGIN Status: Chronic - Plan * Patient overall prognosis poor * HD per renal * echo shows significant RV failure with RSVP at 50mmHg and right ventricular dilation, patient is preload dependent for BP and thus UF with HD will be very difficult, overall paint prognosis is also poor given recent GA * will treat medically for now * renal and cardio following * cont current medical plan of care * case d/w patient's daughter at length via phone at [phone], hospice options discussed with patient's daughter, she states she would be interested in potentially talking to hospice companies, CM consult placed for hospice evaluation * case and plan d/ wpatient's daughter at length, she understood and agreed with this plan.
--- NOTE | 2018-06-06 11:46 | PRG ---
DATE OF SERVICE: 06/06/2018 SUBJECTIVE: Patient was seen and examined at bedside and overnight events noted. Patient denies any shortness of breath or chest pain or palpitation. No history of nausea or vomiting or diarrhea or fever or chills or cramps. OBJECTIVE: GENERAL: This is a well-built female, in no apparent distress. VITAL SIGNS: Afebrile. Pulse 67, respiratory rate 20, blood pressure 170/75. HEENT: Atraumatic, normocephalic. Oral mucosa is moist NECK: Supple. CARDIOVASCULAR: S1, S2 heard. Rate and rhythm regular. RESPIRATORY: Clear to auscultation. GASTROINTESTINAL: Abdomen is soft. MUSCULOSKELETAL: No tenderness. No edema. DERMATOLOGIC: No skin rash. NEUROLOGIC: Alert and awake and oriented X3. No focal neurologic deficits. Moving all the extremities. PSYCHIATRIC: Mood and affect normal. LABORATORY DATA: Potassium 3.8, BUN is 53, and creatinine is 5.3. ASSESSMENT AND PLAN: 1. End-stage renal disease. Continue on dialysis as tolerated. 2. Edema. Controlled. 3. Hypertension. 4. Anemia. Monitor hemoglobin. Plan to continue dialysis as tolerated. Job ID: [id number]
[2018-06-06] MEDS: EPOETIN ALFA-EPBX (ESRD) 10,000 UNIT/ML VIAL IVP SCH (16:46)
[2018-06-06] MEDS: Mirtazapine 15 MG TAB PO SCH (22:28)
[2018-06-07] MEDS: Midodrine HCl 5 MG TAB PO SCH ×3 (08:06→21:49)
[2018-06-07] MEDS: Atorvastatin Calcium 20 MG TAB PO SCH (08:06)
[2018-06-07] MEDS: Pantoprazole 40 MG GRANULES PACKET PO SCH (08:07)
[2018-06-07] MEDS: Sevelamer Carbonate 800 MG TAB PO SCH ×2 (08:07→21:49)
[2018-06-07] MEDS: Aspirin 325 MG TAB PO SCH (08:07)
[2018-06-07] MEDS: Carvedilol 3.125 MG TAB PO SCH ×2 (08:07→21:50)
--- NOTE | 2018-06-07 12:04 | PDOC.PN ---
- Subjective Encounter Start Date: 06/07/18 Encounter Start Time: 12:03 Patient seen and examined, no new issues or complaints, no issues overnight. - Objective Resuscitation Status - Order Detail: 06/05/18 13:52 Resuscitation Status Routine Resuscitation Status: DNAR: NO Resuscitation Discussed with: daughter Vital Signs & Weight: Vital Signs (12 hours) Temp Pulse Resp BP Pulse Ox 06/07/18 11:34 97.7 F 63 16 109/66 97 06/07/18 08:07 99 06/07/18 07:39 98.3 F 66 18 117/72 99 06/07/18 03:55 98.0 F 68 19 110/65 96 Weight Admit Weight 139 lb 12.8 oz Weight 139 lb 12.8 oz I&O: 06/06/18 06/07/18 06/08/18 06:59 06:59 06:59 Intake Total 340 600 Output Total 300 1 Balance 40 599 Result Diagrams: 06/06/18 05:13 06/06/18 05:13 Additional Labs: Accuchecks 06/07/18 06/07/18 06/06/18 10:32 06:21 19:41 POC Glucose 134 H 89 115 H 06/06/18 06/05/18 18:25 16:33 POC Glucose 100 102 Phys Exam - Physical Examination Constitutional: NAD HEENT: PERRLA, moist MMs, sclera anicteric Neck: no nodes Respiratory: no wheezing Cardiovascular: RRR, no rub systolic murmur faint Gastrointestinal: soft, non-tender, no distention, positive bowel sounds Musculoskeletal: pulses present, edema present Dx/Plan (1) NSTEMI (non-ST elevated myocardial infarction) Code(s): I21.4 - NON-ST ELEVATION (NSTEMI) MYOCARDIAL INFARCTION Status: Acute (2) CAD (coronary artery disease) Code(s): I25.10 - ATHSCL HEART DISEASE OF [place] CORONARY ARTERY W/O ANG PCTRS Status: Chronic Qualifiers: (3) Diabetes type 2, controlled Code(s): E11.9 - TYPE 2 DIABETES MELLITUS WITHOUT COMPLICATIONS Status: Chronic (4) Dyslipidemia Code(s): E78.5 - HYPERLIPIDEMIA, UNSPECIFIED Status: Chronic (5) ESRD (end stage renal disease) on dialysis Code(s): N18.6 - END STAGE RENAL DISEASE; Z99.2 - DEPENDENCE ON RENAL DIALYSIS Status: Chronic Comment: nephrology following (6) GERD (gastroesophageal reflux disease) Code(s): K21.9 - GASTRO-ESOPHAGEAL REFLUX DISEASE WITHOUT ESOPHAGITIS Status: Chronic (7) HTN (hypertension) Code(s): I10 - ESSENTIAL (PRIMARY) HYPERTENSION Status: Chronic Qualifiers: (8) Secondary hyperparathyroidism of renal origin Code(s): N25.81 - SECONDARY HYPERPARATHYROIDISM OF RENAL ORIGIN Status: Chronic - Plan * pending placement * cont HD as tolerated while inpatient * CM d/w daughter, pending hospice vs HHC depending on what daughter would like to do * no other changes in plan of care for now, will await decision from daughter
--- NOTE | 2018-06-07 17:28 | PRG ---
DATE OF SERVICE: 06/07/2018 SUBJECTIVE: Patient was seen and examined at bedside and overnight events noted. Patient denies any shortness of breath or chest pain or palpitation. No history of nausea or vomiting or diarrhea or fever or chills or cramps. OBJECTIVE: GENERAL: This is an elderly female, in no apparent distress. VITAL SIGNS: Temperature 97.7. Heart rate 62. Respiratory rate 18. Blood pressure 109/66. HEENT: Atraumatic, normocephalic. Oral mucosa is moist NECK: Supple. CARDIOVASCULAR: S1, S2 heard. Rate and rhythm regular. RESPIRATORY: Clear to auscultation. GASTROINTESTINAL: Abdomen is soft. MUSCULOSKELETAL: No tenderness. No edema. DERMATOLOGIC: No skin rash. NEUROLOGIC: Alert and awake and oriented X3. No focal neurologic deficits. Moving all the extremities. PSYCHIATRIC: Mood and affect normal. LABORATORY DATA: Not done today. ASSESSMENT AND PLAN: 1. End-stage renal disease. Continue on dialysis as tolerated. 2. Edema. Controlled. 3. Hypertension. 4. Anemia. Continue dialysis as tolerated. Job ID: [id number]
[2018-06-07] MEDS: Mirtazapine 15 MG TAB PO SCH (21:50)
--- NOTE | 2018-06-08 11:26 | PDOC.EVN ---
Event Note - Event Note Event Note: DC SUMMARY #[id number]
[2018-06-08] MEDS: Atorvastatin Calcium 20 MG TAB PO SCH ×2 (12:47→12:58)
[2018-06-08] MEDS: Aspirin 325 MG TAB PO SCH ×2 (12:47→12:58)
[2018-06-08] MEDS: Pantoprazole 40 MG GRANULES PACKET PO SCH ×2 (12:47→12:59)
[2018-06-08] MEDS: Sevelamer Carbonate 800 MG TAB PO SCH ×2 (12:47→12:59)
[2018-06-08] MEDS: Carvedilol 3.125 MG TAB PO SCH ×2 (12:48→12:57)
[2018-06-08] MEDS: Midodrine HCl 5 MG TAB PO SCH (12:48)
[2018-06-08 13:45] VITALS: BP 144/70; TEMP 98.2
--- NOTE | 2018-06-08 13:51 | PRG ---
DATE OF SERVICE: 06/08/2018 SUBJECTIVE: An 82-year-old lady being seen for end-stage renal disease. The patient denied nausea, vomiting, or chest pain. OBJECTIVE: See above. CONSTITUTIONAL: Awake, alert, in no acute distress. VITAL SIGNS: Afebrile. Pulse 65, breathing 16, blood pressure 118/66. GENERAL APPEARANCE AND MENTAL STATUS: Fair. HEAD/NECK: Normocephalic. Atraumatic. EYES: EOMI. No deformity. EARS: Clear. No ulcers. NOSE: Intact. No lesions. MOUTH: Clear. No discharge. THROAT: Clear. No exudate. LUNGS: Clear. No crackles. CARDIAC: S1, S2. No rub. ABDOMEN: Benign. Bowel sounds positive. GENITALIA/RECTUM: Nuno absent. BACK/EXTREMITIES: Edema 0+. NEUROLOGICAL: Alert and motor intact. SKIN: LYMPHATICS: LABORATORY DATA: Reviewed. ASSESSMENT AND PLAN: 1. Stage chronic kidney disease, plan dialysis. 2. Hypertension, stable. 3. Anemia, stable. 4. Medication based on GFR appropriate. Job ID: [id number]
[2018-06-08] MEDS: EPOETIN ALFA-EPBX (ESRD) 10,000 UNIT/ML VIAL IVP SCH (14:20)
--- NOTE | 2018-06-08 14:51 | PQF ---
CLINICAL DOCUMENTATION IMPROVEMENT CLARIFICATION FORM: ICD-10 Updated PLEASE DO AN ADDENDUM TO THE PROGRESS NOTE WITH ANY DOCUMENTATION UPDATES OR ADDITIONS AND CARRY THROUGH TO DC SUMMARY. THANK YOU. DATE: 06/08/2018 ATTN: Dr. Dudley Please exercise your independent, professional judgment in responding to the clarification form. Clinical indicators are provided on the bottom of this form for your review Please check appropriate box(s): AMI TYPE: [ ] NSTEMI (AK type I) [ x ] NSTEMI due to Demand Ischemia (AMI Type II) [ ] Demand Ischemia without AK [ ] Other diagnosis [ ] Unable to determine In addition, please specify: Present on Admission (POA): [ x ] Yes [ ] No [ ] Unable to determine CLINICAL INDICATORS - SIGNS / SYMPTOMS / LABS H&P 06/04: Trend troponins, the first one was 0.2, unlikely to be ACS. 06/05 (Obey) Hemoglobin 5.5 Troponin I of 1.073 Elevated troponin, probably due to demand ischemia from severe anemia as well as her renal insufficiency. PN 06/05 -06/07: NSTEMI (non-ST elevated myocardial infarction) 06/06 ([place]bey) Demand ischemia RISKS: H&P: ESRD. Anemia. HTN. CAD. 06/06 ([place]bey) Hypotension during dialysis. Demand ischemia. S/p CABG. Anemia . Diabetes. TREATMENT: Order 06/04: Packed Cells - Leukoreduced Stat. 2 06/05: Cardiology Consult Thank you, Mary (This form is maintained as a part of the permanent medical record) 2014 [employer]. All Rights Reserved Mary Duval RN, BSN [email or web address] Office: [phone] [facility]
--- NOTE | 2018-06-09 02:03 | DIS ---
DATE OF ADMISSION: 06/04/2018 DATE OF DISCHARGE: 06/08/2018 ADMITTING DIAGNOSES: Shortness of breath, hypertension, hyperlipidemia, hyperkalemia, end-stage renal disease, and non ST-elevation myocardial infarction. DISCHARGE DIAGNOSES: Hyperkalemia, resolved. Hypotension, end-stage renal disease, non ST-elevation myocardial infarction, metabolic bone disease, significant severe pulmonary hypertension end-stage. HOSPITAL COURSE: This is an 82-year-old female, admitted to the hospital because of shortness of breath, severe weakness, as well as NSTEMI. The patient was admitted to Internal Medicine team, was seen by Cardiology as well as Nephrology. The patient showed end-stage pulmonary hypertension on her echocardiogram. Discussion was had at length with her daughter, as well as the patient. Decision was made to make the patient hospice. Given her end-stage pulmonary hypertension diagnosis, the patient could have had dialysis done as tolerated as the end-stage diagnosis with pulmonary hypertension. Upon the time of discharge, the patient was stable. Denies any nausea, vomiting, diarrhea, constipation, chest pain, fevers, chills, or shortness of breath. Case and plan discussed with the patient and family at length. Decision was made. Case Management worked diligently to arrange for all the hospice arrangements. The patient was discharged to Hospice with arrangements made. DISPOSITION: Home. FOLLOWUP: Follow up with hospice physician. MEDICATIONS: See MAR. ACTIVITY: As tolerated with assistance as needed. DIET: Renal diet. CONDITION: Stable. PROGNOSIS: Guarded to poor. Job ID: [id number]
== END 2018-06-08 14:16 | disposition hospice, home (50) | DRG 280 ==
LOC: ERS 15:33 → ERHOLD 17:38 → 2SE 19:46
PROVIDERS: ADMIT Internal Medicine; ATTEND Internal Medicine
PROC: 5A1D70Z Performance of Urinary Filtration, Intermittent, Less than 6 Hours Per Day (ICD-10-PCS; principal; 2018-06-04)
DX: I21.A1 Myocardial infarction type 2 (principal); N18.6 End stage renal disease; I12.0 Hypertensive chronic kidney disease with stage 5 chronic kidney disease or end stage renal disease; N25.81 Secondary hyperparathyroidism of renal origin; Z66 Do not resuscitate; I95.3 Hypotension of hemodialysis; E11.22 Type 2 diabetes mellitus with diabetic chronic kidney disease; E78.5 Hyperlipidemia, unspecified; J45.909 Unspecified asthma, uncomplicated; I25.10 Atherosclerotic heart disease of native coronary artery without angina pectoris; D63.1 Anemia in chronic kidney disease; F32.9 Major depressive disorder, single episode, unspecified; E88.9 Metabolic disorder, unspecified; E87.5 Hyperkalemia; K21.9 Gastro-esophageal reflux disease without esophagitis; E66.01 Morbid (severe) obesity due to excess calories; I27.20 Pulmonary hypertension, unspecified; Z99.2 Dependence on renal dialysis; I25.2 Old myocardial infarction; Z95.1 Presence of aortocoronary bypass graft; Z88.1 Allergy status to other antibiotic agents; Z88.5 Allergy status to narcotic agent; Z85.3 Personal history of malignant neoplasm of breast; Z79.899 Other long term (current) drug therapy; Z68.27 Body mass index [BMI] 27.0-27.9, adult
CPT/HCPCS: 36415; 36416; 36430; 71045; 80048; 80053; 82553; 84484; 85025; 85610; 85730; 86850; 86900; 86901; 86922; 93005; 93010; 93306; P9016; Q5105